=== PATIENT | female | born 1960 | race Caucasian/White ===

== ENCOUNTER → 2019-12-24 11:04 | Outpatient (BNVA) | payer MEDICARE, MEDICAID, SELFPAY | PROVIDERS: Family Provider Family Medicine; PCP Family Medicine; Visit Provider Specialist | DX: G40.909 Epilepsy, unspecified, not intractable, without status epilepticus (principal); Z96.82 Presence of neurostimulator | CPT/HCPCS: 95971; 99213 ==

== ENCOUNTER 2020-06-09 20:00 | Outpatient (CLI) | payer MEDICARE, MEDICAID, SELFPAY | END 2020-06-09 20:01 | disposition home or self-care (01) | LOC: SLEEP 06-10 08:58 | PROVIDERS: PCP Family Medicine; Visit Provider Specialist | DX: G47.30 Sleep apnea, unspecified (principal) | CPT/HCPCS: 95811 ==

== ENCOUNTER 2020-09-23 17:47 | Emergency (ER) | payer MEDICARE, MEDICAID, SELFPAY ==
[2020-09-23 17:51] VITALS: BP 176/94; PULSE 95; RESP 17; TEMP 36.6; O2SAT 98; BMI 28.1
[2020-09-23 18:07] LABS: Glucose Point of Care 83 mg/dL (70-110)
--- NOTE | 2020-09-23 18:22 | W.ED.SEIZURE ---
HPI - Seizure General: Chief Complaint: Seizure Stated Complaint: POSS POSTICTAL Time Seen by Provider: 09/23/20 18:08 Source: patient Mode of arrival: EMS Limitations: no limitations History of Present Illness: HPI Narrative: This is a 59 year old woman with focus-based epilepsy and secondary generalization, who has been on multiple medications and a vagal nerve stimulator. She lives in a skilled nursing and about 7 to 10 hours today they noticed she has staring into space which I guess is consistent with her seizures. Seizure resolved spontaneously. Patient does not recall the events and has no complaints. She states she feels fine and is at baseline. She is currently not postictal. She denies headache, has occasional dizziness, no nausea or vomiting. She denies a fever or chest pain. MD complaint: possible seizure Associated symptoms: Deny chills or fever(s) Review of Systems General: Reports: 10 or more systems reviewed and unremarkable except in HPI and below Const: Denies: fever(s), chills or body aches Eyes: Denies: change in vision or blurry vision ENMT: Denies: throat pain, enlarged tonsils, odynophagia, hoarseness, mouth pain or swelling of lips/tongue Card: Denies: palpitations, irregular heart rhythm, edema or swelling of feet/ankles Resp: Denies: dyspnea, productive cough or non-productive cough GI: Denies: abdominal pain, nausea or vomiting : Denies: flank pain, difficulty voiding, dysuria, urinary frequency, urinary urgency or urinary hesitancy Musc: Denies: neck pain, back pain or extremity swelling Skin/Breast: Denies: rash, pruritus or erythema Neuro: Denies: headache(s), numbness in extremities or weakness in extremities Endo: Denies: polyuria, polydipsia or tired all the time PFSH ED PFSH: Family History (Reviewed 09/23/20 @ 18:29 by Kelly Brooks MD, [facility] [place]) Other Diabetes Hypertension Denies family history of CAD (coronary artery disease) Cancer Stroke Social History (Reviewed 09/23/20 @ 18:29 by Kelly Brooks MD, [facility] [place]) Smoking and tobacco status: never smoked Alcohol intake: never History of recent travel: No Physical Exam Const: COMMON NORMALS: no acute distress, average body habitus, patient oriented x3, no limitations, healthy appearing, alert and well nourished HENMT: COMMON NORMALS: normocephalic, atraumatic and moist oral mucous membranes HEAD & SCALP: normocephalic and atraumatic Neck/C-Spine: COMMON NORMALS: no meningeal signs and no JVD Resp: COMMON NORMALS: normal respiratory effort, No retractions, No use of accessory muscles, clear to auscultation bilaterally and percussion normal AUSCULTATION: clear to auscultation bilaterally PERCUSSION: percussion normal Cardio: COMMON NORMALS: no JVD, regular rate, regular rhythm, S1 normal heart sound present, S2 normal heart sound present, No gallops present (Cardio), No clicks present (Cardio), No murmurs present (Cardio), No rub (Cardio) and Peripheral pulses 2+ throughout RATE: regular rate RHYTHM: regular rhythm HEART SOUNDS: S1 normal heart sound present and S2 normal heart sound present PERIPHERAL PULSES: Peripheral pulses 2+ throughout GI: COMMON NORMALS: Normal to inspection, nondistended, normoactive bowel sounds present, Soft to palpation, non-tender, No hepatosplenomegaly present, no masses and no bruits PALPATION: Yes Soft to palpation and Yes No hepatosplenomegaly present Extremity: COMMON NORMALS: normal to inspection, full ROM, capillary refill normal, no calf tenderness and no pedal edema Neuro: COMMON NORMALS: patient oriented x3 SENSORIUM/ORIENTATION: Yes alert MENINGEAL SIGNS: Yes no meningeal signs Skin: COMMON NORMALS: no rashes or lesions noted, no wounds, turgor normal, no jaundice, no petechiae and no mottling GENERAL SKIN EXAM: no rashes or lesions noted and turgor normal Course Reevaluation(s): Reevaluation #1: Discussed her lab and imaging findings with her. She has mild hyponatremia, otherwise unremarkable. Looking at her prior labs she also has had hyponatremia although this is a little lower than usual for her. Head CT was negative for acute findings. She has had no seizures here in the emergency department and she has been here for little over 3 hours. We will discharge her home with no new orders. She voiced understanding and is in agreement with the plan. She has walked several times to the bathroom without difficulty. Time: 21:00 Vital Signs: Vital signs: Vital Signs Temperature 97.8 F 09/23/20 17:51 Pulse Rate 104 H 09/23/20 21:26 Respiratory Rate 12 09/23/20 21:26 Blood Pressure 123/86 09/23/20 21:26 Pulse Oximetry 99 09/23/20 21:26 MDM - Seizure MDM Narrative: Medical decision making narrative: 60-year-old female patient with a history of epilepsy and who lives in a skilled nursing now presents to the emergency department after an episode of seizure. It appears she had an absence seizure while in the skilled nursing. Evaluation in the emergency department was unremarkable other than mild hyponatremia. Patient did not have any other seizures while in the emergency department and she was discharged back home with no new orders. Medical Records: Attestation: I reviewed the patient's medical records. Lab Data: Attestation: I reviewed the patient's lab results. Labs: Lab Results 09/23/20 09/23/20 09/23/20 Range/Units 18:00 18:05 18:05 WBC 8.5 (4.0-10.0) 10^3/ uL RBC 4.81 (4.1-5.3) 10^6/u L Hgb 14.3 (11.5-15.3) g/dL Hct 40.7 (37.0-47.0) % MCV 84.6 (81-99) fL MCH 29.7 (28.0-34.0) pg MCHC 35.1 (30.0-36.0) g/dL RDW 12.6 (12.1-15.1) % Plt Count 272 (130-400) 10^3/c mm MPV 9.4 (7.4-10.4) fL Neut % (Auto) 68.1 % Lymph % (Auto) 16.8 % [place] % (Auto) 7.5 % Eos % (Auto) 6.8 % Baso % (Auto) 0.4 % Neut # (Auto) 5.80 (1.8-7.7) 10^3/u L Lymph # (Auto) 1.4 (0.8-4.8) 10^3/u L [place] # (Auto) 0.6 (0.2-0.9) 10^3/u L Eos # (Auto) 0.6 (0.0-0.8) 10^3/u L Baso # (Auto) 0.0 (0.0-0.1) 10^3/u L Nucleated RBC % (a uto) 0 % Nucleated RBCs # 0.0 /100WBC Sodium 128 L (136-145) mmol/L Potassium 3.5 (3.5-5.1) mmol/L Chloride 90 L (98-107) mmol/L Carbon Dioxide 27 (22-29) mmol/L Anion Gap 14.5 (5-19) BUN 13 (8-23) mg/dL Creatinine 0.5 (0.5-0.9) mg/dL GFR Calculation 125.4 (90-130) mL/min Glucose 87 (65-115) mg/dL POC Glucose 83 (70-110) mg/dL Calculated Osmolal ity 265 L (285-295) mOsm/k g Lactate (0.5-2.2) mmol/L Calcium 9.8 (8.5-10.5) mg/dL Total Bilirubin 0.5 (0.15-1.2) mg/dL AST 18 (0-32) U/L ALT < 5 (0-33) U/L Alkaline Phosphata se 113 H (35-105) IU/L C-Reactive Protein 0.7 (0.0-4.9) mg/L Total Protein 7.2 (6.6-8.7) g/dL Albumin 4.7 (3.5-5.2) g/dL Globulin 2.5 (1.3-4.6) g/dL Urine Color (Yellow) Urine Appearance (CLEAR) Urine pH (5-7) Ur Specific Gravit y (1.005-1.030) Urine Protein (Negative) Urine Glucose (UA) (Normal) Urine Ketones (Negative) Urine Blood (Negative) Urine Nitrate (Negative) Urine Bilirubin (Negative) Urine Urobilinogen (Negative) mg/dL Ur Leukocyte Tena ase (Negative) 09/23/20 09/23/20 Range/Units 18:05 19:39 WBC (4.0-10.0) 10^3/ uL RBC (4.1-5.3) 10^6/u L Hgb (11.5-15.3) g/dL Hct (37.0-47.0) % MCV (81-99) fL MCH (28.0-34.0) pg MCHC (30.0-36.0) g/dL RDW (12.1-15.1) % Plt Count (130-400) 10^3/c mm MPV (7.4-10.4) fL Neut % (Auto) % Lymph % (Auto) % [place] % (Auto) % Eos % (Auto) % Baso % (Auto) % Neut # (Auto) (1.8-7.7) 10^3/u L Lymph # (Auto) (0.8-4.8) 10^3/u L [place] # (Auto) (0.2-0.9) 10^3/u L Eos # (Auto) (0.0-0.8) 10^3/u L Baso # (Auto) (0.0-0.1) 10^3/u L Nucleated RBC % (a uto) % Nucleated RBCs # /100WBC Sodium (136-145) mmol/L Potassium (3.5-5.1) mmol/L Chloride (98-107) mmol/L Carbon Dioxide (22-29) mmol/L Anion Gap (5-19) BUN (8-23) mg/dL Creatinine (0.5-0.9) mg/dL GFR Calculation (90-130) mL/min Glucose (65-115) mg/dL POC Glucose (70-110) mg/dL Calculated Osmolal ity (285-295) mOsm/k g Lactate 2.2 (0.5-2.2) mmol/L Calcium (8.5-10.5) mg/dL Total Bilirubin (0.15-1.2) mg/dL AST (0-32) U/L ALT (0-33) U/L Alkaline Phosphata se (35-105) IU/L C-Reactive Protein (0.0-4.9) mg/L Total Protein (6.6-8.7) g/dL Albumin (3.5-5.2) g/dL Globulin (1.3-4.6) g/dL Urine Color Straw (Yellow) Urine Appearance Clear (CLEAR) Urine pH 7 (5-7) Ur Specific Gravit y 1.005 (1.005-1.030) Urine Protein Neg (Negative) Urine Glucose (UA) Norm (Normal) Urine Ketones Negative (Negative) Urine Blood Neg (Negative) Urine Nitrate Negative (Negative) Urine Bilirubin Neg (Negative) Urine Urobilinogen Norm (Negative) mg/dL Ur Leukocyte Tena ase Negative (Negative) Imaging Data^: CT Head: Attestation: I personally reviewed and interpreted this imaging study as follows: Radiologist's impression: [facility] [address] [place] [address] CT Scan Report Signed Patient: Aubrie Mathias #: [id number] : 9Acct#:[id number] Age/Sex: 60 / FADM Date: 09/23/20 Loc: ERRoom/Bed: Attending Dr: Ordering Provider/Ordering MD: Kelly Brooks MD, [facility] [place] Date of Service: 09/23/20 Procedure(s): CT head wo con* [id number] Accession Number(s): [id number] Report Number: [id number] PROCEDURE INFORMATION: Exam: CT Head Without Contrast Exam date and time: 09/23/2020 6:36 PM Age: 60 years old Clinical indication: Condition or disease; Convulsions or seizures; Additional info: Seizure TECHNIQUE: Imaging protocol: Computed tomography of the head without contrast. Radiation optimization: All CT scans at this facility use at least one of these dose optimization techniques: automated exposure control; mA and/or kV adjustment per patient size (includes targeted exams where dose is matched to clinical indication); or iterative reconstruction. COMPARISON: CT head wo con* [id number] 06/12/2019 8:48 PM RADIATION DOSE METRICS: Total DLP (mGy-cm): 777.13 FINDINGS: Brain: Mild diffuse cortical volume loss. Stable mild hypodensities in supratentorial periventricular and subcortical white matter. No intracranial hemorrhage. Cerebral ventricles: Stable mild prominence of the lateral and 3rd ventricles. Bones/joints: Unremarkable. No acute fracture. Paranasal sinuses: Partial opacification of a posterior left ethmoid air cell. The paranasal sinuses are otherwise clear. Mastoid air cells: Visualized mastoid air cells are well aerated. Vasculature: No hyperdense artery. Soft tissues: Unremarkable. CT/CT head wo con* [id number] IMPRESSION: 1. No acute intracranial abnormality identified. 2. Mild microangiopathy. 3. Stable mild prominence of the lateral and 3rd ventricles. This may relate to central volume loss. Mild normal pressure hydrocephalus is not entirely excluded. Radiation Dose CTDIVOL = (mGy): DLP = 777.13 (mGy-cm) Dictated By:Salinas Soliman Signed By:Salinas SolimanSignruben Date/Time:09/23/201931 DD/ 29 EKG Data^: EKG 1: Attestation: I personally reviewed and interpreted this EKG as follows: EKG interpretation date: 09/23/20 EKG interpretation time: 18:10 Prior EKG tracings: not available for review Interpretation: EKG with a difficult rhythm to read as the patient has a vagal nerve stimulator. Heart rate 95 bpm. Unable to relate any further Discharge Plan Discharge Patient Disposition: Home Clinical Impression: Secondarily generalized seizures Condition: Stable Prescriptions: Continued Lantus U-100 Insulin 100 unit/mL solution 20 unit SUBCUT DAILY RF: 0 Lantus U-100 Insulin 100 unit/mL solution 10 unit SUBCUT DAILY RF: 0 clopidogrel 75 mg tablet 75 mg PO DAILY RF: 0 docusate sodium 100 mg capsule 100 mg PO DAILY RF: 0 isosorbide mononitrate 30 mg tablet extended release 24 hr 30 mg PO DAILY RF: 0 aspirin [Ecotrin] 325 mg tablet,delayed release (DR/EC) 325 mg PO DAILY RF: 0 hydrochlorothiazide 25 mg tablet 25 mg PO DAILY RF: 0 amlodipine 10 mg tablet 10 mg PO DAILY RF: 0 potassium chloride 10 mEq capsule, extended release 10 meq PO DAILY RF: 0 glipizide 2.5 mg tablet extended release 24hr 2.5 mg PO DAILY RF: 0 metformin 1,000 mg tablet 1,000 mg PO BID RF: 0 clonidine HCl 0.1 mg tablet 0.1 mg PO BID RF: 0 magnesium oxide 400 mg (241.3 mg magnesium) tablet 400 mg PO DAILY RF: 0 lisinopril 20 mg tablet 20 mg PO BID RF: 0 carvedilol [Coreg] 12.5 mg tablet 12.5 mg PO BID RF: 0 carbidopa-levodopa 25-100 mg tablet 1 tab PO TID RF: 0 rosuvastatin 10 mg tablet 10 mg PO .bedtime RF: 0 acetaminophen [Tylenol 8 Hour] 650 mg tablet extended release 650 mg PO Q8H PRNRF: 0 Systane (propylene glycol) 0.4-0.3 % drops 1 drop ophthalmic (eye) DAILY PRNRF: 0 ondansetron HCl [Zofran] 4 mg tablet 4 mg PO Q4H PRNRF: 0 levetiracetam [Keppra] 750 mg tablet 750 mg PO BID Qty: 60 RF: 6 Vimpat 100 mg tablet 100 mg PO BID Qty: 60 RF: 5 Discharge Orders: Discharge Order (Routine); Ordered 09/23/20 Ordered By: Kelly Brooks Referrals: Isa Butcher MD [Physician] - 4-7 days Augustin Colón MD [Primary Care Provider] - 1-3 days Discharge Diet: Usual diet Discharge Activity: Increase activity as tolerated Patient Instructions: Epilepsy (ED) Activity Restrictions/Additional Instructions: Return for any new or worsening symptoms. Follow-up with your primary care provider within 3 days and with your neurologist as soon as you can get in. Continue your home medications. A referral has been done to the neurologist so you should be getting a call with an appointment shortly. Coding Level of Care Code ED Deputy Court Clerk for Chg Fwd Exam Comprehensive
--- NOTE | 2020-09-23 18:26 | CTR_ITS ---
PROCEDURE INFORMATION: Exam: CT Head Without Contrast Exam date and time: 09/23/2020 6:36 PM Age: 60 years old Clinical indication: Condition or disease; Convulsions or seizures; Additional info: Seizure TECHNIQUE: Imaging protocol: Computed tomography of the head without contrast. Radiation optimization: All CT scans at this facility use at least one of these dose optimization techniques: automated exposure control; mA and/or kV adjustment per patient size (includes targeted exams where dose is matched to clinical indication); or iterative reconstruction. COMPARISON: CT head wo con* [id number] 06/12/2019 8:48 PM RADIATION DOSE METRICS: Total DLP (mGy-cm): 777.13 FINDINGS: Brain: Mild diffuse cortical volume loss. Stable mild hypodensities in supratentorial periventricular and subcortical white matter. No intracranial hemorrhage. Cerebral ventricles: Stable mild prominence of the lateral and 3rd ventricles. Bones/joints: Unremarkable. No acute fracture. Paranasal sinuses: Partial opacification of a posterior left ethmoid air cell. The paranasal sinuses are otherwise clear. Mastoid air cells: Visualized mastoid air cells are well aerated. Vasculature: No hyperdense artery. Soft tissues: Unremarkable. CT/CT head wo con* [id number] IMPRESSION: 1. No acute intracranial abnormality identified. 2. Mild microangiopathy. 3. Stable mild prominence of the lateral and 3rd ventricles. This may relate to central volume loss. Mild normal pressure hydrocephalus is not entirely excluded. Radiation Dose CTDIVOL = (mGy): DLP = 777.13 (mGy-cm)
--- NOTE | 2020-09-23 18:26 | XR_ITS ---
WS: [id number] Exam: XR chest 1V portable [id number] Date/Time of Exam: 09/23/2020 6:46 PM Reason For Exam: seizure Comparison 06/12/2019. Lungs are clear and fully inflated. Normal cardiomediastinal structures for technique. No pleural eff usions. A neurostimulator overlies the upper left chest with leads extending into the region of the c ervical spine. XR/XR chest 1V portable [id number] IMPRESSION: 1. No acute cardiopulmonary finding.
[2020-09-23 18:33] LABS: Basophils % 0.4 %; Eosinophils # 0.6 10^3/uL (0.0-0.8); Eosinophils % 6.8 %; Hematocrit 40.7 % (37.0-47.0); Hemoglobin 14.3 g/dL (11.5-15.3); Lymphocytes # 1.4 10^3/uL (0.8-4.8); Lymphocytes % 16.8 %; Mean Corpuscular HGB Conc 35.1 g/dL (30.0-36.0); Mean Corpuscular Hemoglobin 29.7 pg (28.0-34.0); Mean Corpuscular Volume 84.6 fL (81-99); Mean Platelet Volume 9.4 fL (7.4-10.4); Monocytes # 0.6 10^3/uL (0.2-0.9); Monocytes % 7.5 %; Neutrophils % 68.1 %; Nucleated Red Blood Cells % 0 %; Platelet Count 272 10^3/cmm (130-400); Red Blood Count 4.81 10^6/uL (4.1-5.3); Red Cell Distribution Width 12.6 % (12.1-15.1); White Blood Count 8.5 10^3/uL (4.0-10.0)
[2020-09-23 18:44] LABS: Lactate (Lactic Acid level) 2.2 mmol/L (0.5-2.2)
[2020-09-23 18:47] LABS: Alanine Aminotransferase < 5 U/L (0-33); Albumin Level 4.7 g/dL (3.5-5.2); Alkaline Phosphatase 113 IU/L (35-105); Anion Gap 14.5 (5-19); Aspartate Amino Transferase 18 U/L (0-32); Blood Urea Nitrogen 13 mg/dL (8-23); C Reactive Protein 0.7 mg/L (0.0-4.9); Calcium 9.8 mg/dL (8.5-10.5); Carbon Dioxide 27 mmol/L (22-29); Chloride 90 mmol/L (98-107); Globulin 2.5 g/dL (1.3-4.6); Glomerular Filtration Rate 125.4 mL/min (90-130); Glucose 87 mg/dL (65-115); Osmolality Calculated 265 mOsm/kg (285-295); Potassium 3.5 mmol/L (3.5-5.1); Sodium 128 mmol/L (136-145); Total Bilirubin 0.5 mg/dL (0.15-1.2); Total Protein 7.2 g/dL (6.6-8.7)
[2020-09-23 19:47] VITALS: BP 147/86; PULSE 103; RESP 18; O2SAT 97
[2020-09-23] MEDS: sodium chloride 0.9% 1,000 ML 999 ML IV (19:48)
[2020-09-23 19:54] LABS: Add Urine Microscopic? NO
[2020-09-23 19:56] LABS: Bilirubin Urine Neg (Negative); Blood Urine Neg (Negative); Glucose Urine UA Norm (Normal); Ketones Urine Negative (Negative); Leukocyte Esterase Urine Negative (Negative); Nitrate Urine Negative (Negative); Protein Urine Neg (Negative); Specific Gravity, Urine 1.005 (1.005-1.030); Urine Appearance Clear (CLEAR); Urine Color Straw (Yellow); Urobilinogen Urine Norm (Negative); pH Urine 7 (5-7)
[2020-09-23 21:26] VITALS: BP 123/86; PULSE 104; RESP 12; O2SAT 99
== END 2020-09-23 21:27 | disposition home or self-care (01) ==
PROVIDERS: Emergency Provider Family Medicine; PCP Family Medicine
DX: G40.409 Other generalized epilepsy and epileptic syndromes, not intractable, without status epilepticus (principal); Z79.82 Long term (current) use of aspirin; Z79.4 Long term (current) use of insulin; Z79.02 Long term (current) use of antithrombotics/antiplatelets
CPT/HCPCS: 12345; 36416; 70450; 71045; 80053; 81003; 82962; 83605; 85025; 86140; 96360; 99283; J7030

== ENCOUNTER 2020-10-20 11:04 | Outpatient (CLI) | payer MEDICARE, MEDICAID, SELFPAY ==
--- NOTE | 2020-10-20 11:13 | MM_ITS ---
WS: [id number] BILATERAL DIGITAL SCREENING MAMMOGRAPHY WITH CAD CLINICAL INFORMATION: SCREENING HISTORY: Screening mammogram. No current complaints. COMPARISON: TECHNIQUE: Bilateral CC and MLO views. FINDINGS: The breasts are composed of heterogeneous fibroglandular density tissue, which can limit the detectio n of small underlying mass lesions. No suspicious mass, asymmetry, calcifications, or architectural d istortion. No evidence of malignancy. Lucent centered and punctate calcifications. Vascular calcifica tion. MM/[place] [id number] IMPRESSION: BI-RADS: 2-Benign FOLLOW UP: 1 Year Follow-up Recommend return to annual screening mammography.
== END 2020-10-20 11:05 | disposition home or self-care (01) ==
LOC: RADSHAW 11:07
PROVIDERS: PCP Family Medicine; Visit Provider Family Medicine
DX: Z12.31 Encounter for screening mammogram for malignant neoplasm of breast (principal)
CPT/HCPCS: 77067

== ENCOUNTER → 2021-01-06 10:32 | Outpatient (BNVA) | payer MEDICARE, MEDICAID, SELFPAY | PROVIDERS: PCP Family Medicine; Visit Provider Specialist | DX: G40.909 Epilepsy, unspecified, not intractable, without status epilepticus (principal); G20 Parkinson's disease; Z96.82 Presence of neurostimulator | CPT/HCPCS: 95971; 99214 ==

== ENCOUNTER 2021-01-21 07:48 | Inpatient (IN) | payer MEDICARE, MEDICAID, SELFPAY ==
[2021-01-21] VITALS (191 sets, daily range): BP systolic 109–182; BP diastolic 74–116; PULSE 70–99; RESP 10–28; TEMP 36.4–36.9; O2SAT 87–100; BMI 25.7
[2021-01-21] MEDS: succinylcholine 20 mg/mL SDV 10mL 100 MG IVP (08:00)
[2021-01-21] MEDS: propofol 1,000 MG/100 ML INJ 5 MG (08:03)
--- NOTE | 2021-01-21 08:08 | XR_ITS ---
WS: [id number] XR chest 1V portable [id number] REASON FOR EXAM: dyspnea/cough FINDINGS: Endotracheal tube in place the tip is at the level of the aortic arch. Nasogastric tube is in place t he tip overlies the region of the fundus of the stomach. The lungs are hypoexpanded with areas of atelectasis in both lung bases. No definite acute pulmonary parenchymal findings are identified. No pleural fluid noted. Mild degenerative changes seen in the thoracic spine. XR/XR chest 1V portable [id number] IMPRESSION: ET tube and nasogastric tube as above. Lungs are hypoexpanded with atelectasis as above.
--- NOTE | 2021-01-21 08:09 | CT_ITS ---
WS: [id number] CT HEAD TECHNIQUE: Noncontrast CT of the head obtained from the skullbase to the vertex. CLINICAL INFORMATION: altered mental status COMPARISON: CT September 2020 DLP: 926.[address] scans at [facility] use at least one of these dose optimization techniques: automat ed exposure control; mA and/or kV adjustment per patient size (includes targeted exams where dose is matched to clinical indication); or iterative reconstruction. FINDINGS: No evidence of intracranial hemorrhage or mass effect. Ventricular system and basal cisterns are fraire nt. Mild small vessel changes with moderate parenchymal volume loss. Prominent lateral ventricles and third ventricle unchanged. This can be seen with normal pressure hydrocephalus in the appropriate cl inical setting. Intracranial vascular calcification. Chronic lacunar infarcts in the right cerebellum. Chronic lacunar infarct left thalamus. No extra-axi al fluid collections. Mastoid air cells well aerated. Mild inflammatory changes in the paranasal sinuses with a few retenti on cysts. CT/CT head wo con* [id number] IMPRESSION: 1. No evidence of intracranial hemorrhage or mass effect. 2. Mild small vessel changes. Moderate parenchymal volume loss. 3. Prominent lateral ventricles and third ventricle unchanged unchanged since 2018 and can be seen with normal pressure hydrocephalus in appropriate clinical setting. 4. Chronic lacunar infarcts left thalamus and right cerebellum. 5. No acute intracranial findings. Notified Noel Ochoa DO at 01/21/2021 9:09 AM.
[2021-01-21 08:18] LABS: ABG PCO2 30.4 mmHg (35-45); ABG PH Result 7.52 (7.35-7.45); Alveolar-Arterial Oxygen Gradi 31.5 mmHg (5-10); Arterial Blood Gas Hematocrit 40.2 % (37-47); Base Excess ABG 2.3 mmol/L (-2.0-2.0); Blood Gas Allen Test Pos; Blood Gas Operator Identificat CAK; Blood Gas Sample Site Brachial, left; Blood Gas Sample Type Arterial; Blood Gas Tidal Volume 0.45; Carboxyhemoglobin 0.8 %THgb (0.4-20.1); HCO3 ABG 24.6 mmol/L (22-26); HGB O2 Sat 99.9 % (95-100); Ionized Calcium Level - ABG 1.2 mmol/L (1.1-1.4); Methemoglobin 0.2 % (0.4-1.5); Oxygen Device VENT; Oxygen Saturation ABG > 100.0; Potassium Level - ABG 3.7 mmol/L (3.5-5.0); Total Hemoglobin 13.1 g/dL (12-16)
[2021-01-21 08:19] LABS: Basophils % 0.3 %; Eosinophils # 0.4 10^3/uL (0.0-0.8); Hematocrit 36.4 % (37.0-47.0); Lymphocytes # 1.1 10^3/uL (0.8-4.8); Lymphocytes % 18.2 %; Mean Corpuscular HGB Conc 35.7 g/dL (30.0-36.0); Mean Corpuscular Hemoglobin 30.7 pg (28.0-34.0); Mean Corpuscular Volume 85.8 fL (81-99); Mean Platelet Volume 9.8 fL (7.4-10.4); Monocytes # 0.5 10^3/uL (0.2-0.9); Monocytes % 7.3 %; Neutrophils % 66.9 %; Nucleated Red Blood Cells % 0 %; Platelet Count 218 10^3/cmm (130-400); Red Blood Count 4.24 10^6/uL (4.1-5.3); Red Cell Distribution Width 12.6 % (12.1-15.1); White Blood Count 6.3 10^3/uL (4.0-10.0)
--- NOTE | 2021-01-21 08:28 | ED_ITS ---
HPI - Overdose General: Chief Complaint: Overdose Stated Complaint: AMS History of Present Illness: HPI Narrative: 60-year-old female who presents emergency room via EMS she presents from [facility] she received another patient's medications and is obtunded. She received 300 mg of Clozaril and 1 mg of clonazepam among other medications. On initial arrival here she is nonresponsive. Does not follow any commands she grimaces to pain only. GCS 5. Patient had sonorous respirations and required oxygen supplementation to maintain sats in the low 90s. MD complaint: accidental overdose Onset (ago): minute(s) Timing confirmed by: caregiver Review of Systems General: Reports: ROS unobtainable due to medical condition [facility] ED PFSH: Medical History Diabetes Hypertension Parkinson disease Secondarily generalized seizures Surgical History Status post VNS (vagus nerve stimulator) placement Family History Other Diabetes Hypertension Denies family history of CAD (coronary artery disease) Cancer Stroke Social History Smoking and tobacco status: never smoked Alcohol intake: never History of recent travel: No Physical Exam HENMT: COMMON NORMALS: normocephalic, atraumatic and hearing grossly normal bilaterally HEAD & SCALP: normocephalic and atraumatic Eye: COMMON NORMALS: Equal, round and reactive pupils present, EOMs intact bilaterally, conjunctivae normal and no scleral icterus CONJUNCTIVA: Yes conjunctivae normal PUPIL: Yes Equal, round and reactive pupils present Neck/C-Spine: COMMON NORMALS: no JVD Resp: COMMON NORMALS: normal respiratory effort, No retractions, No use of accessory muscles and clear to auscultation bilaterally AUSCULTATION: clear to auscultation bilaterally Cardio: COMMON NORMALS: no JVD, regular rate, regular rhythm and No murmurs present (Cardio) RATE: regular rate RHYTHM: regular rhythm GI: COMMON NORMALS: Soft to palpation and No hepatosplenomegaly present AUSCULTATION: Yes normoactive bowel sounds PALPATION: Yes Soft to palpation, No Tenderness to palpation present (GI), No Guarding due to palpation present (GI) and Yes No hepatosplenomegaly present Extremity: COMMON NORMALS: normal to inspection, capillary refill normal, no clubbing, cyanosis or edema, no calf tenderness and no pedal edema Neuro: LEVI COMA SCALE: document GCS findings [place] coma scale eye opening: None Levi coma scale verbal response: None Levi coma scale motor response: Abnormal flexion Levi coma scale total score: 5 Skin: COMMON NORMALS: no rashes or lesions noted GENERAL SKIN EXAM: no rashes or lesions noted Course Vital Signs: Vital signs: Vital Signs Temperature 98.2 F 01/21/21 12:00 Pulse Rate 85 01/21/21 13:45 Respiratory Rate 20 H 01/21/21 13:48 Blood Pressure 146/87 01/21/21 13:45 Pulse Oximetry 100 01/21/21 13:48 MDM - Overdose MDM Narrative: Medical decision making narrative: Did not receive her medications this morning but did receive another patient's that list was reviewed as documented in the nurses notes of most concern is the Clazuril on the clonazepam. Later when we called to confirm some of the details with the independent living setting they reported that she had also fallen. Lab Data: Labs: Lab Results 01/21/21 01/21/21 01/21/21 Range/Units 07:30 07:30 08:03 WBC 6.3 (4.0-10.0) 10^3/ uL RBC 4.24 (4.1-5.3) 10^6/u L Hgb 13.0 (11.5-15.3) g/dL Hct 36.4 L (37.0-47.0) % MCV 85.8 (81-99) fL MCH 30.7 (28.0-34.0) pg MCHC 35.7 (30.0-36.0) g/dL RDW 12.6 (12.1-15.1) % Plt Count 218 (130-400) 10^3/c mm MPV 9.8 (7.4-10.4) fL Neut % (Auto) 66.9 % Lymph % (Auto) 18.2 % [place] % (Auto) 7.3 % Eos % (Auto) 7.0 % Baso % (Auto) 0.3 % Neut # (Auto) 4.20 (1.8-7.7) 10^3/u L Lymph # (Auto) 1.1 (0.8-4.8) 10^3/u L [place] # (Auto) 0.5 (0.2-0.9) 10^3/u L Eos # (Auto) 0.4 (0.0-0.8) 10^3/u L Baso # (Auto) 0.0 (0.0-0.1) 10^3/u L Nucleated RBC % (a uto) 0 % Nucleated RBCs # 0.0 /100WBC Specimen Type Sample Site ABG pH (7.35-7.45) ABG pCO2 (35-45) mmHg ABG pO2 (80.0-100.0) mmH g ABG HCO3 (22-26) mmol/L ABG O2 Saturation ABG Base Excess (-2.0-2.0) mmol/ L Tolu Test A-a O2 Gradient (5-10) mmHg Hematocrit (37-47) % Hgb O2 Saturation (95-100) % Carboxyhemoglobin (0.4-20.1) %THgb Methemoglobin (0.4-1.5) % Total Hemoglobin (12-16) g/dL Ionized Calcium (1.1-1.4) mmol/L O2 Delivery Device FiO2 % Tidal Volume PEEP cmH20 Auto Research Engineer ID Sodium 133 L (136-145) mmol/L Potassium 3.6 (3.5-5.1) mmol/L Chloride 97 L (98-107) mmol/L Carbon Dioxide 23 (22-29) mmol/L Anion Gap 16.6 (5-19) BUN 18 (8-23) mg/dL Creatinine 0.6 (0.5-0.9) mg/dL GFR Calculation 101.6 (90-130) mL/min Glucose 109 (65-115) mg/dL Calculated Osmolal ity 278 L (285-295) mOsm/k g Calcium 9.4 (8.5-10.5) mg/dL Magnesium 1.8 (1.7-2.3) mg/dL Total Bilirubin 0.6 (0.15-1.2) mg/dL AST 11 (0-32) U/L ALT 12 (0-33) U/L Alkaline Phosphata se 85 (35-105) IU/L Creatine Kinase 34 (26-192) U/L Total Protein 6.7 (6.6-8.7) g/dL Albumin 4.2 (3.5-5.2) g/dL Globulin 2.5 (1.3-4.6) g/dL Lipase 23 (13-60) U/L Urine Color Yellow (Yellow) Urine Appearance Sl hazy (CLEAR) Urine pH 7 (5-7) Ur Specific Gravit y 1.005 (1.005-1.030) Urine Protein Neg (Negative) Urine Glucose (UA) Norm (Normal) Urine Ketones Negative (Negative) Urine Blood Neg (Negative) Urine Nitrate Positive H (Negative) Urine Bilirubin Neg (Negative) Urine Urobilinogen Norm (Negative) mg/dL Ur Leukocyte Tena ase Negative (Negative) Urine RBC None (0-2) /hpf Urine WBC Rare (0-5) /hpf Ur Squamous Epith Cells None (0-5) /hpf Amorphous Sediment Not Reportable Urine Bacteria 4+ H (NONE) /hpf Urine Opiates Scre en (Negative) ng/mL Ur Barbiturates Sc reen (Negative) ng/mL Ur Phencyclidine S crn (Negative) ng/mL Ur Amphetamines Sc reen (Negative) ng/mL U Benzodiazepines Scrn (Negative) ng/mL Urine Cocaine Scre en (Negative) ng/mL U Marijuana (THC) Screen (Negative) ng/mL 01/21/21 01/21/21 Range/Units 08:03 08:06 WBC (4.0-10.0) 10^3/ uL RBC (4.1-5.3) 10^6/u L Hgb (11.5-15.3) g/dL Hct (37.0-47.0) % MCV (81-99) fL MCH (28.0-34.0) pg MCHC (30.0-36.0) g/dL RDW (12.1-15.1) % Plt Count (130-400) 10^3/c mm MPV (7.4-10.4) fL Neut % (Auto) % Lymph % (Auto) % [place] % (Auto) % Eos % (Auto) % Baso % (Auto) % Neut # (Auto) (1.8-7.7) 10^3/u L Lymph # (Auto) (0.8-4.8) 10^3/u L [place] # (Auto) (0.2-0.9) 10^3/u L Eos # (Auto) (0.0-0.8) 10^3/u L Baso # (Auto) (0.0-0.1) 10^3/u L Nucleated RBC % (a uto) % Nucleated RBCs # /100WBC Specimen Type Arterial Sample Site Brachial, left ABG pH 7.52 H (7.35-7.45) ABG pCO2 30.4 L (35-45) mmHg ABG pO2 413.0 H (80.0-100.0) mmH g ABG HCO3 24.6 (22-26) mmol/L ABG O2 Saturation > 100.0 ABG Base Excess 2.3 H (-2.0-2.0) mmol/ L Tolu Test Pos A-a O2 Gradient 31.5 H (5-10) mmHg Hematocrit 40.2 (37-47) % Hgb O2 Saturation 99.9 (95-100) % Carboxyhemoglobin 0.8 (0.4-20.1) %THgb Methemoglobin 0.2 L (0.4-1.5) % Total Hemoglobin 13.1 (12-16) g/dL Ionized Calcium 1.2 (1.1-1.4) mmol/L O2 Delivery Device Vent FiO2 100.0 % Tidal Volume 0.45 PEEP 5.0 cmH20 Auto Research Engineer ID Cak Sodium 134.0 (136-145) mmol/L Potassium 3.7 (3.5-5.1) mmol/L Chloride (98-107) mmol/L Carbon Dioxide (22-29) mmol/L Anion Gap (5-19) BUN (8-23) mg/dL Creatinine (0.5-0.9) mg/dL GFR Calculation (90-130) mL/min Glucose 98.0 (65-115) mg/dL Calculated Osmolal ity (285-295) mOsm/k g Calcium (8.5-10.5) mg/dL Magnesium (1.7-2.3) mg/dL Total Bilirubin (0.15-1.2) mg/dL AST (0-32) U/L ALT (0-33) U/L Alkaline Phosphata se (35-105) IU/L Creatine Kinase (26-192) U/L Total Protein (6.6-8.7) g/dL Albumin (3.5-5.2) g/dL Globulin (1.3-4.6) g/dL Lipase (13-60) U/L Urine Color (Yellow) Urine Appearance (CLEAR) Urine pH (5-7) Ur Specific Gravit y (1.005-1.030) Urine Protein (Negative) Urine Glucose (UA) (Normal) Urine Ketones (Negative) Urine Blood (Negative) Urine Nitrate (Negative) Urine Bilirubin (Negative) Urine Urobilinogen (Negative) mg/dL Ur Leukocyte Tena ase (Negative) Urine RBC (0-2) /hpf Urine WBC (0-5) /hpf Ur Squamous Epith Cells (0-5) /hpf Amorphous Sediment Urine Bacteria (NONE) /hpf Urine Opiates Scre en Negative (Negative) ng/mL Ur Barbiturates Sc reen Negative (Negative) ng/mL Ur Phencyclidine S crn Negative (Negative) ng/mL Ur Amphetamines Sc reen Negative (Negative) ng/mL U Benzodiazepines Scrn Negative (Negative) ng/mL Urine Cocaine Scre en Negative (Negative) ng/mL U Marijuana (THC) Screen Negative (Negative) ng/mL Discharge Plan Discharge Patient Disposition: Admitted As Inpatient Admit Provider: Sebastian Luevano Clinical Impression: Accidental medication overdose, Acute encephalopathy, Parkinson disease Condition: Stable Coding Level of Care Code ED Manager Ent for Sudha Fwd Exam Comprehensive
--- NOTE | 2021-01-21 08:31 | PC.NURSE ---
Pt intubated at bedside by Dr Ochoa with RT assist. See MAR for med doses and times. Pt intubated at 0800 with 8.0 tube, 22 at the gums. Pt placed to vent with settings as follows: TV 450, FiO2 100% initially, then decreased to 50%, RR 14, Peep 5. Pt tolerated all procedures well.
[2021-01-21 08:35] LABS: Add Urine Microscopic? YES; Bilirubin Urine Neg (Negative); Blood Urine Neg (Negative); Glucose Urine UA Norm (Normal); Ketones Urine Negative (Negative); Leukocyte Esterase Urine Negative (Negative); Nitrate Urine Positive (Negative); Protein Urine Neg (Negative); Specific Gravity, Urine 1.005 (1.005-1.030); Urine Appearance SL Hazy (CLEAR); Urine Color Yellow (Yellow); Urobilinogen Urine Norm (Negative); pH Urine 7 (5-7)
[2021-01-21 08:37] LABS: Add Urine Culture? Yes; Bacteria Urine 4+ /hpf; WBC Urine RARE /hpf (0-5)
[2021-01-21 08:38] LABS: Alanine Aminotransferase 12 U/L (0-33); Albumin Level 4.2 g/dL (3.5-5.2); Alkaline Phosphatase 85 IU/L (35-105); Anion Gap 16.6 (5-19); Aspartate Amino Transferase 11 U/L (0-32); Blood Urea Nitrogen 18 mg/dL (8-23); Calcium 9.4 mg/dL (8.5-10.5); Carbon Dioxide 23 mmol/L (22-29); Chloride 97 mmol/L (98-107); Creatine Phosphokinase 34 U/L (26-192); Globulin 2.5 g/dL (1.3-4.6); Glomerular Filtration Rate 101.6 mL/min (90-130); Glucose 109 mg/dL (65-115); Lipase 23 U/L (13-60); Magnesium 1.8 mg/dL (1.7-2.3); Osmolality Calculated 278 mOsm/kg (285-295); Potassium 3.6 mmol/L (3.5-5.1); Sodium 133 mmol/L (136-145); Total Bilirubin 0.6 mg/dL (0.15-1.2); Total Protein 6.7 g/dL (6.6-8.7)
[2021-01-21 08:41] LABS: Amphetamines Screen Urine Negative (Negative); Barbiturates Screen Urine Negative (Negative); Benzodiazepines Screen Urine Negative (Negative); Cocaine Screen Urine Negative (Negative); Opiate Screen Urine Negative (Negative); PCP Screen Urine Negative (Negative); THC Screen Urine Negative (Negative)
--- NOTE | 2021-01-21 08:50 | PC.NURSE ---
Spoke with poison control concerning medications given to patient, she expressed that medication would make her drowsy but not unresponsive. Notified provider.
--- NOTE | 2021-01-21 08:54 | PC.NURSE ---
Pt in CT
--- NOTE | 2021-01-21 09:07 | PC.NURSE ---
Spoke with Chari at [facility] she explained that patient was alert and oriented, ambulating this morning around 0630, medication was given to her around 0650. Patients room mate alerted staff when she found pt on the floor. Patient was laying near a corner shelf and was believed to have hit her head on the shelf. When assessing patient Chari explained patient was confused and mumbling. Staff then noticed that her medications where still in the medication draw but her roommates medications were missing. When staff returned to patient she was unresponsive and drooling.
[2021-01-21] MEDS: D5-NS 0.45% + KCL 20 mEq 20 MEQ/1,000 ML BAG 125 MEQ IV ×2 (10:16→17:07)
--- NOTE | 2021-01-21 11:05 | PM.HP ---
Providers/Chief Complaint Admitting Physician: Sebastian Luevano Primary Care Provider: Augustin Colón MD Chief Complaint: AMS History of Present Illness 60-year-old lady with history of Parkinson's disease, seizure disorder, mild dementia, currently residing at [facility] was brought in for evaluation to emergency department after sustaining a fall this morning around 7:10 AM, and appears after accidentally receiving not her own medications, in ER found unresponsive, GCS of 6, required intubation for airway protection. Currently admitting to intensive care unit for additional supportive care. Medications she had received include: Clozapine 300 mg Klonopin 1 mg Cardizem 360 mg ER Spiriva 40 mg omeprazole 750 mg Depakote 25 mg losartan 0.5 mg benztropine She also received 20 units of her usual insulin glargine. She is currently not yet waking up, not following commands, without spontaneous movement. Per discussion with skilled nursing usually she walks with a walker, dresses and feeds herself. Due to my dementia needs assistance with her medications and insulin. Review of Systems Narrative: She is unable to provide a review of systems. She reportedly otherwise had no issues apart from her usual medical conditions prior to this morning. Medications/Allergies Home Medications Medication Instructions Recorded Confirmed Last Taken Type acetaminophen 650 mg 650 mg PO Q6H PRN MDD 4,000mg 12/24/19 01/21/21 Unknown History tablet,extended release amlodipine 10 mg tablet 10 mg PO BID@12/24/19 01/21/21 Unknown History carbidopa 25 mg-levodopa 100 mg 1 tab PO TID@,,12/24/19 01/21/21 Unknown History tablet carvedilol 12.5 mg tablet 12.5 mg PO BID@12/24/19 01/21/21 Unknown History clonidine HCl 0.1 mg tablet 0.1 mg PO BID@12/24/19 01/21/21 Unknown History clopidogrel 75 mg tablet 75 mg PO DAILY@12/24/19 01/21/21 Unknown History docusate sodium 100 mg capsule 100 mg PO DAILY@12/24/19 01/21/21 Unknown History hydrochlorothiazide 25 mg tablet 25 mg PO DAILY@12/24/19 01/21/21 Unknown History insulin glargine 100 unit/mL See Rx Instructions .ROUTE 12/24/19 01/21/21 01/21/21 06:50 History subcutaneous solution .COMPLEX ml isosorbide mononitrate 30 mg 30 mg PO DAILY@12/24/19 01/21/21 Unknown History tablet,extended release 24 hr lisinopril 20 mg tablet 20 mg PO BID@07,12/24/19 01/21/21 Unknown History magnesium oxide 400 mg (241.3 mg 400 mg PO BID@12/24/19 01/21/21 Unknown History magnesium) tablet metformin 1,000 mg tablet 1,000 mg PO BID@,12/24/19 01/21/21 Unknown History peg 400-propylene glycol 0.4 %-0.3 1 drop OPHTHALMIC (EYE) PRN 12/24/19 01/21/21 Unknown History % eye drops potassium chloride 10 mEq 10 meq PO DAILY@07 12/24/19 01/21/21 Unknown History capsule,extended release rosuvastatin 10 mg tablet 10 mg PO DAILY@20 tab 12/24/19 01/21/21 Unknown History Keppra 750 mg PO Q12H 01/21/21 01/21/21 Unknown History aspirin [Ecotrin Low Strength] 81 mg PO DAILY@01/21/21 01/21/21 Unknown History glipizide 2.5 mg PO DAILY@01/21/21 01/21/21 Unknown History lacosamide [Vimpat] 50 mg PO BID@01/21/21 01/21/21 Unknown History Allergies Allergy/AdvReac Type Severity Reaction Status Date / Time Penicillins Allergy unknown Verified 01/06/21 10:38 PFSH Acute PFSH: Medical History Diabetes Hypertension Parkinson disease Secondarily generalized seizures Surgical History Status post VNS (vagus nerve stimulator) placement Family History Other Diabetes Hypertension Denies family history of CAD (coronary artery disease) Cancer Stroke Social History Smoking and tobacco status: never smoked Alcohol intake: never History of recent travel: No Vitals/I&O/Wt Last Vital Signs Temp 98.5 F 01/21/21 07:52 Pulse 70 01/21/21 10:04 Resp 16 01/21/21 10:49 BP 125/86 01/21/21 09:26 Pulse Ox 100 01/21/21 10:29 01/20/21 01/21/21 01/21/21 22:59 06:59 14:59 Intake Total 9.75 / 9.75 Balance 9.75 / 9.75 Weight last 48 hrs Weight 65.771 kg Physical Exam Const: COMMON NORMALS: no acute distress; negative for alert ORIENTATION/CONSCIOUSNESS: Yes patient obtunded; not awake HENMT: COMMON NORMALS: oropharynx normal Neck/C-Spine: COMMON NORMALS: no JVD Resp: COMMON NORMALS: normal respiratory effort and clear to auscultation bilaterally AUSCULTATION: clear to auscultation bilaterally Cardio: COMMON NORMALS: no JVD, regular rhythm, S1 normal heart sound present, S2 normal heart sound present and No murmurs present (Cardio) RHYTHM: regular rhythm HEART SOUNDS: S1 normal heart sound present and S2 normal heart sound present GI: COMMON NORMALS: Normal to inspection, nondistended, normoactive bowel sounds present, Soft to palpation and non-tender PALPATION: Yes Soft to palpation Extremity: COMMON NORMALS: no joint enlargement and no pedal edema Neuro: COMMON NORMALS: moves all extremities SENSORIUM/ORIENTATION: Yes obtunded OTHER: Normal tone. No myoclonus. Skin: COMMON NORMALS: no rashes or lesions noted GENERAL SKIN EXAM: no rashes or lesions noted Urinary Catheter Management^: Ruiz: Cath Placed During This Visit: yes Urinary Catheter Date of Insertion: 01/21/21 Urinary Catheter Time of Insertion: 07:53 Data : 01/21/21 07:30 01/21/21 07:30 A&P Assessment and plan (1) Accidental medication overdose: After accidental medication overdose. Required intubation for airway protection in ER. Remains unresponsive. Continue supportive care, mechanical dilation in ICU. For now we will hold off on sedation, allow her to wake up. Monitor before blood pressure due to antihypertensive effects. We will hold her antihypertensives for now. Resumed her seizure medications. Monitor, if regains alertness, remains hemodynamically stable, perhaps may extubate. Status: Acute (2) Acute encephalopathy: As above. Status: Acute (3) Fall: Full with reported head injury/hitting her head. Was examined in ER, externally no wounds, CT of the head without acute fracture, no bleeding. Chronic findings. Status: Acute (4) Hyponatremia: Mild. Reported a skilled nursing not always has the best appetite. Monitor. Encourage p.o. intake once able to. Status: Acute (5) Bacteriuria: For now monitor for development of any symptoms once able to give review of systems. No signs of sepsis at this time. Status: Acute (6) Lacunar infarction: Appears to have chronic lacunar infarcts, left thalamus, right cerebellum. Optimize blood pressure control. Continue aspirin, statin. Continue follow-up with neurology. Status: Chronic (7) Cerebral ventriculomegaly: Ventriculomegaly noted, unchanged since 2018. Question of possible NPH could be considered. Follow-up with neurology. Status: Acute (8) Parkinson disease: Continue Sinemet. Continue follow-up with neurology. Normally walks with a walker. Fall precautions. Status: Chronic (9) Secondarily generalized seizures: Continue seizure medications. Continue follow-up with neurology. Status: Chronic Attestations Medical Necessity Statement*: Admission of over 2 midnights is going to be required for assessment of management following accidental drug overdose, acute encephalopathy, requiring airway and ventilator support, monitoring of hemodynamic stability, and lady with underlying seizure disorder and other comorbidities. Coding Level of Care Code Acute Senior Training And Development Rep for [facility] Diagnoses Accidental medication overdose T50.901A Acute encephalopathy G93.40 Fall W19.XXXA Hyponatremia E87.1 Bacteriuria R82.71 Lacunar infarction I63.81 Cerebral ventriculomegaly G93.89 Parkinson disease G20 Secondarily generalized seizures
[2021-01-21 11:32] LABS: Glucose Point of Care 88 mg/dL (70-110)
[2021-01-21] MEDS: famotidine 20 mg/2 mL INJ IVP ×2 (12:17→23:21)
[2021-01-21] MEDS: heparin 5,000 unit/mL INJ 1 mL 5000 UNIT SUBCUT ×2 (12:17→20:11)
--- NOTE | 2021-01-21 12:34 | ECG_ITS ---
[facility] Test Date: 2021-01-21 Pat Name: Aubrie Mathias Department: Room: ICU06 Gender: Female Database Support: : 1960 Requested By: Noel Krueger Order Number: [id number] Reading MD: CLAUDETTE KRISHNAN Measurements Intervals [place] Rate: 98 P: 45 ND: 160 QRS: 142 QRSD: 105 T: 23 QT: 361 QTc: 463 Interpretive Statements SINUS RHYTHM POSSIBLE RIGHT VENTRICULAR HYPERTROPHY [SOME/ALL OF: PROMINENT R IN V1, LATE TRANSITION, RAD, LOGAN, SSS] ANTEROSEPTAL MYOCARDIAL INFARCTION , OF INDETERMINATE AGE [40+ ms Q WAVE IN V1-V4] Compared to ECG 06/13/2019 02:02:25 Atrial abnormality now present Left-axis deviation no longer present Myocardial infarct finding still present Electronically Signed On 01-21-2021 21:16:26 CDT by CLAUDETTE KRISHNAN [email or web address]
--- NOTE | 2021-01-21 15:02 | CT_ITS ---
WS: [id number] CT CERVICAL TRAUMA TECHNIQUE: Noncontrast CT of the cervical spine with coronal and sagittal reformatted images. CLINICAL INFORMATION: fall COMPARISON: DLP: 757.[address] scans at [facility] use at least one of these dose optimization techniques: automat ed exposure control; mA and/or kV adjustment per patient size (includes targeted exams where dose is matched to clinical indication); or iterative reconstruction. FINDINGS: Straightening of the normal cervical lordosis. Normal craniocervical junction. Normal C1-C2 articulat ion. Dens is normal in appearance. Normal occipital condyles. No high-grade spinal canal narrowing. N ormal C1 ring. No evidence of acute fracture or dislocation. Mild disc bulging C2-3 with peripheral d isc calcification. Normal prevertebral soft tissues. Left vagal nerve stimulator. Mastoids air cells are well aerated. Endotracheal tube. Enteric tube. Low-attenuation left thyroid no dule measuring 5.[address]/CT cervical spin wo con* [id number] IMPRESSION: No evidence of acute fracture or dislocation.
[2021-01-21 16:59] LABS: Glucose Point of Care 198 mg/dL (70-110)
[2021-01-21] MEDS: carbidopa-levodopa 25-100mg Tablet 1 EACH PO ×2 (17:06→20:13)
[2021-01-21] MEDS: levETIRAcetam 500 mg Tablet 750 MG PO (17:07)
--- NOTE | 2021-01-21 18:40 | PC.NURSE ---
Pt arrived from ER intubated and on 5 of propofol, only responsive to pain. Prop turned off per Dr. Dennis upon arrival. Now pt is following commands, but is still very unconscious, not opening eyes, and resting comfortably in bed. Propofol from er wasted and second verified by cedric VILLEGAS.
[2021-01-21] MEDS: lacosamide 50 mg Tablet PO (20:12)
[2021-01-21] MEDS: cloNIDine 0.1 mg Tablet PO (20:13)
[2021-01-21] MEDS: insulin glargine 100 units/1 mL 10 UNIT SUBCUT (20:22)
--- NOTE | 2021-01-21 20:30 | PC.NURSE ---
RN spoke with Genesis from [facility], and gave pt update and ongoing plan of care. RN asked Genesis if she could look into locating patient's family contact numbers, so chart can be updated.
[2021-01-21] MEDS: fentaNYL 50 mcg/mL INJ 2mL 25 MCG IVP (20:39)
[2021-01-21 20:50] LABS: Glucose Point of Care 255 mg/dL (70-110)
--- NOTE | 2021-01-21 22:54 | PC.NURSE ---
New Order: MD clinical information systems director gave T/O for 25mcg Fentanyl IVP in attempts to decrease observed agitation and/or pain levels.
[2021-01-22] VITALS (80 sets, daily range): BP systolic 104–160; BP diastolic 58–122; PULSE 94–127; RESP 10–121; TEMP 36.8–37.8; O2SAT 88–100
[2021-01-22] MEDS: D5-NS 0.45% + KCL 20 mEq 20 MEQ/1,000 ML BAG 125 MEQ IV ×2 (02:20→10:50)
[2021-01-22 03:57] LABS: Basophils % 0.1 %; Eosinophils # 0.1 10^3/uL (0.0-0.8); Hemoglobin 13.9 g/dL (11.5-15.3); Lymphocytes # 0.4 10^3/uL (0.8-4.8); Monocytes # 0.8 10^3/uL (0.2-0.9); Nucleated Red Blood Cells % 0 %
[2021-01-22 04:03] LABS: Eosinophils % 0.4 %; Hematocrit 41.8 % (37.0-47.0); Lymphocytes % 2.8 %; Mean Corpuscular HGB Conc 33.3 g/dL (30.0-36.0); Mean Corpuscular Volume 90.3 fL (81-99); Mean Platelet Volume 9.7 fL (7.4-10.4); Monocytes % 5.7 %; Neutrophils # 12.78 10^3/uL (1.8-7.7); Neutrophils % 90.4 %; Platelet Count 205 10^3/cmm (130-400); Red Blood Count 4.63 10^6/uL (4.1-5.3); Red Cell Distribution Width 12.8 % (12.1-15.1); White Blood Count 14.1 10^3/uL (4.0-10.0)
[2021-01-22] MEDS: heparin 5,000 unit/mL INJ 1 mL 5000 UNIT SUBCUT ×3 (04:25→20:42)
[2021-01-22 04:29] LABS: Alanine Aminotransferase 6 U/L (0-33); Albumin Level 3.7 g/dL (3.5-5.2); Alkaline Phosphatase 87 IU/L (35-105); Anion Gap 14.7 (5-19); Aspartate Amino Transferase 10 U/L (0-32); Blood Urea Nitrogen 8 mg/dL (8-23); Calcium 8.4 mg/dL (8.5-10.5); Carbon Dioxide 19 mmol/L (22-29); Chloride 97 mmol/L (98-107); Globulin 2.6 g/dL (1.3-4.6); Glomerular Filtration Rate 162.3 mL/min (90-130); Glucose 264 mg/dL (65-115); Osmolality Calculated 272 mOsm/kg (285-295); Potassium 3.7 mmol/L (3.5-5.1); Sodium 127 mmol/L (136-145); Total Protein 6.3 g/dL (6.6-8.7)
[2021-01-22 04:34] LABS: ABG PCO2 27.5 mmHg (35-45); ABG PH Result 7.49 (7.35-7.45); Arterial Blood Gas Hematocrit 44.1 % (37-47); Blood Gas Allen Test Pos; Blood Gas Sample Site Radial, right; Blood Gas Sample Type Arterial; Blood Gas Tidal Volume 0.42; HCO3 ABG 20.9 mmol/L (22-26); Oxygen Device VENT; PO2 ABG 63.9 mmHg (80.0-100.0)
[2021-01-22] MEDS: docusate sodium 100 mg Capsule PO (06:05)
[2021-01-22] MEDS: levETIRAcetam 500 mg Tablet 750 MG PO ×2 (06:05→17:10)
[2021-01-22] MEDS: clopidogrel 75 mg Tablet PO (06:05)
[2021-01-22] MEDS: aspirin 81 mg EC Tablet PO (06:05)
[2021-01-22] MEDS: cloNIDine 0.1 mg Tablet PO ×2 (06:07→20:42)
[2021-01-22] MEDS: carbidopa-levodopa 25-100mg Tablet 1 EACH PO ×3 (06:07→20:42)
[2021-01-22 07:59] LABS: Glucose Point of Care 315 mg/dL (70-110)
[2021-01-22] MEDS: lacosamide 50 mg Tablet PO ×2 (08:21→20:42)
--- NOTE | 2021-01-22 10:29 | XR_ITS ---
WS: [id number] XR chest 1V portable [id number] REASON FOR EXAM: fever FINDINGS: Endotracheal tube in ET tube remain in proper position. Presumed atelectasis is again noted in both l elodia bases compared to the prior day. Lung consolidated density in the left lower lung field could rel ate to a pneumonitis. No new findings or interval change is identified.. XR/XR chest 1V portable [id number] IMPRESSION: Stable chest as above.
--- NOTE | 2021-01-22 10:33 | P.PN_ITS ---
Subjective Subjective: Interval history: She is somnolent this morning. More awake than yesterday. Follows commands. Tries to answer questions, but difficult to say whether in fact she answers consistently. Vitals/I&O/Wt Last Vital Signs Temp 100.0 F H 01/22/21 08:00 Pulse 103 H 01/22/21 09:00 Resp 10 L 01/22/21 09:34 BP 104/70 01/22/21 09:00 Pulse Ox 97 01/22/21 09:34 01/21/21 01/22/21 01/22/21 22:59 06:59 14:59 Intake Total 906.25 / 916.00 1080 / 1996.00 1050 / 1050 Output Total 800 / 1600 1500 / 3100 Balance 106.25 / -684.00 -420 / -1104.00 1050 / 1050 Weight last 48 hrs Weight 65.824 g Weight 65.771 kg Physical Exam Const: COMMON NORMALS: no acute distress GENERAL APPEARANCE: lethargic ORIENTATION/CONSCIOUSNESS: Yes lethargic HENMT: COMMON NORMALS: oropharynx normal Neck/C-Spine: COMMON NORMALS: no JVD Resp: COMMON NORMALS: normal respiratory effort and clear to auscultation bilaterally AUSCULTATION: clear to auscultation bilaterally Cardio: COMMON NORMALS: no JVD, regular rhythm, S1 normal heart sound present, S2 normal heart sound present and No murmurs present (Cardio) RATE: tachycardic RHYTHM: regular rhythm HEART SOUNDS: S1 normal heart sound present and S2 normal heart sound present GI: COMMON NORMALS: Normal to inspection, nondistended, normoactive bowel sounds present, Soft to palpation and non-tender PALPATION: Yes Soft to palpation Extremity: COMMON NORMALS: no joint enlargement and no pedal edema Neuro: COMMON NORMALS: moves all extremities SENSORIUM/ORIENTATION: Yes lethargic and Yes obtunded OTHER: Normal tone. No myoclonus. Skin: COMMON NORMALS: no rashes or lesions noted GENERAL SKIN EXAM: no rashes or lesions noted Urinary Catheter Management^: Ruiz: Cath Placed During This Visit: yes Reason for Continuing Indwelling Catheter: Accurate Measurement of Urinary Output in Critically Ill Patients Urinary Catheter Date of Insertion: 01/21/21 Urinary Catheter Time of Insertion: 07:53 Data : 01/22/21 03:30 01/22/21 03:30 Micro: Microbiology 01/21/21 08:03 Urine Culture - Preliminary Urine,Clean Catch Gram Negative Rods 01/21/21 08:10 Gram Stain - Final Sputum - Endotracheal Tube Aspirate A&P Assessment and plan (1) UTI (urinary tract infection): Gram-negative rods. Start ciprofloxacin. Collect blood culture, lactic acid due to possible sepsis with leukocytosis, tachycardia. However, tachycardia may be secondary to withdrawal from beta-florina she is not receiving her carvedilol due to concern for risk of hypotension on admission. Restart carvedilol. Full urine culture. Due to UTI, fever, acute encephalopathy will also assess renal CT to exclude possible obstructive pyelonephritis. Status: Acute (2) Fever: As above. Status: Acute (3) Acute encephalopathy: Encephalopathy improving, but still somewhat persistent this morning. Lethargic. Inconsistently answer questions. But does follow commands very well. Generally somewhat weak. Not on sedation. At this time dispo to be combination of both accidental medication overdose, but this morning also having fever, leukocytosis, appears to have urinary tract infection. Possible sepsis. Continue supportive care for medication overdose. Were also collecting blood culture, check lactic acid, starting antibiotic. If mental status continues to improve, may be able to extubate. Discussed with her guardian. Status: Acute (4) Accidental medication overdose: Continue supportive care. Extubate when she is waking up. Status: Acute (5) Fall: Full with reported head injury/hitting her head. Was examined in ER, externally no wounds, CT of the head without acute fracture, no bleeding. Chronic findings. CT C-spine unremarkable. Status: Acute (6) Hyponatremia: Hyponatremia with some worsening today. Discontinue her IV fluids. Encourage p.o. intake once able to if can extubate today. Status: Acute (7) Bacteriuria: UTI Status: Acute (8) Lacunar infarction: Appears to have chronic lacunar infarcts, left thalamus, right cerebellum. Optimize blood pressure control. Continue aspirin, statin. Continue follow-up with neurology. Status: Chronic (9) Cerebral ventriculomegaly: Ventriculomegaly noted, unchanged since 2018. Question of possible NPH could be considered. Follow-up with neurology. Status: Acute (10) Parkinson disease: Continue Sinemet. Continue follow-up with neurology. Normally walks with a walker. Fall precautions. Status: Chronic (11) Secondarily generalized seizures: Continue seizure medications. Continue follow-up with neurology. Status: Chronic Attestations Medical Necessity Statement*: Continue admission for supportive care of acute encephalopathy after accidental medication overdose, treatment of urinary tract infection, assessment of possible sepsis. Critical Care Time: In addition to known critical issues 40 minutes critical care time spent on assessment of hemodynamic status, respiratory status, mechanical ventilatory support, mental status, fever, source of infection, possible sepsis. Discussed with nursing staff, guardian. Coding Level of Care Code Acute Biodiesel Product Development Manager for g Fwd Exam Comprehensive Diagnoses UTI (urinary tract infection) N39.0 Fever R50.9 Acute encephalopathy G93.40 Accidental medication overdose T50.901A Fall W19.XXXA Hyponatremia E87.1 Bacteriuria R82.71 Lacunar infarction I63.81 Cerebral ventriculomegaly G93.89 Parkinson disease G20 Secondarily generalized seizures
--- NOTE | 2021-01-22 10:33 | CT_ITS ---
WS: [id number] CT ABDOMEN PELVIS TECHNIQUE: Noncontrast CT of the abdomen and pelvis with coronal and sagittal reformatted images. CLINICAL INFORMATION: UTI, fever, assess for obstruction COMPARISON: CT 2 21,018 DLP: 1713.[address] scans at [facility] use at least one of these dose optimization techniques: automat ed exposure control; mA and/or kV adjustment per patient size (includes targeted exams where dose is matched to clinical indication); or iterative reconstruction. FINDINGS: Noncontrast liver is normal. Normal gallbladder. Normal noncontrast spleen. Tiny right pleural effusi on. Right basilar atelectasis. Round atelectasis or pneumonia in the left lower lobe. Adrenal glands are normal. Small esophageal hiatal hernia. Mild fatty atrophy of the pancreas. Adrenal glands are no rmal. No hydronephrosis. Ruiz catheter. Normal caliber abdominal aorta. Aortic calcification. No ane urysm. Small amount of free fluid in the pelvis. Normal sigmoid colon. No evidence of small or large bowel o bstruction. Scattered stool in normal caliber colon. Normal appendix in the right lower quadrant. Chr onic anterior wedging in the lower thoracic and upper lumbar spine at T12 and L1. CT/CT kidney stone 42028 IMPRESSION: 1. No small or large bowel obstruction. 2. Normal appendix in right lower quadrant. 3. No hydronephrosis in either kidney. 4. Normal caliber abdominal aorta. 5. Ruiz catheter. 6. Trace free fluid in the pelvis. 7. Small right pleural effusion. Opacification left lower lobe with round atel ectasis or pneumonia.
[2021-01-22] MEDS: ciprofloxacin 400 MG/200 ML PREMIX 200 MG IV ×2 (10:49→22:40)
[2021-01-22] MEDS: famotidine 20 mg/2 mL INJ IVP (10:50)
[2021-01-22 11:03] LABS: Glucose Point of Care 223 mg/dL (70-110)
[2021-01-22 17:23] LABS: Glucose Point of Care 187 mg/dL (70-110)
[2021-01-22] MEDS: famotidine 20 mg Tablet PO (20:42)
[2021-01-22] MEDS: insulin glargine 100 units/1 mL 10 UNIT SUBCUT (20:42)
[2021-01-22] MEDS: carvedilol 12.5 mg Tablet PO (20:42)
[2021-01-22] MEDS: atorvastatin 40 mg Tablet PO (20:42)
[2021-01-22 20:48] LABS: Glucose Point of Care 211 mg/dL (70-110)
[2021-01-23] VITALS (26 sets, daily range): BP systolic 72–153; BP diastolic 55–111; PULSE 93–128; RESP 16–31; TEMP 37.1–37.7; O2SAT 84–100
[2021-01-23 04:06] LABS: Basophils % 0.1 %; Eosinophils % 0.2 %; Hematocrit 39.6 % (37.0-47.0); Hemoglobin 13.7 g/dL (11.5-15.3); Lymphocytes # 0.6 10^3/uL (0.8-4.8); Lymphocytes % 4.5 %; Mean Corpuscular HGB Conc 34.6 g/dL (30.0-36.0); Mean Corpuscular Hemoglobin 30.4 pg (28.0-34.0); Mean Platelet Volume 9.4 fL (7.4-10.4); Monocytes # 0.8 10^3/uL (0.2-0.9); Monocytes % 5.9 %; Neutrophils # 11.95 10^3/uL (1.8-7.7); Neutrophils % 88.8 %; Nucleated Red Blood Cells % 0 %; Platelet Count 220 10^3/cmm (130-400); White Blood Count 13.5 10^3/uL (4.0-10.0)
[2021-01-23 04:26] LABS: Anion Gap 13.8 (5-19); Blood Urea Nitrogen 6 mg/dL (8-23); Calcium 8.9 mg/dL (8.5-10.5); Carbon Dioxide 23 mmol/L (22-29); Chloride 102 mmol/L (98-107); Creatinine Clr Calc Pharmacy 0.1231; Glomerular Filtration Rate 125.4 mL/min (90-130); Glucose 145 mg/dL (65-115); Osmolality Calculated 280 mOsm/kg (285-295); Potassium 3.8 mmol/L (3.5-5.1); Sodium 135 mmol/L (136-145)
[2021-01-23] MEDS: heparin 5,000 unit/mL INJ 1 mL 5000 UNIT SUBCUT ×3 (05:26→20:19)
[2021-01-23] MEDS: docusate sodium 100 mg Capsule PO (05:58)
[2021-01-23] MEDS: lacosamide 50 mg Tablet PO ×2 (05:58→20:19)
[2021-01-23] MEDS: carbidopa-levodopa 25-100mg Tablet 1 EACH PO ×3 (05:58→20:19)
[2021-01-23] MEDS: levETIRAcetam 500 mg Tablet 750 MG PO ×2 (05:59→17:29)
[2021-01-23] MEDS: aspirin 81 mg EC Tablet PO (06:00)
[2021-01-23] MEDS: cloNIDine 0.1 mg Tablet PO (06:00)
[2021-01-23] MEDS: clopidogrel 75 mg Tablet PO (06:00)
[2021-01-23] MEDS: carvedilol 12.5 mg Tablet PO ×2 (06:00→20:19)
[2021-01-23 07:57] LABS: Glucose Point of Care 183 mg/dL (70-110)
[2021-01-23] MEDS: isosorbide mononitrate ER 30 mg Tablet PO (09:06)
[2021-01-23] MEDS: famotidine 20 mg Tablet PO ×2 (09:06→20:19)
[2021-01-23 09:36] LABS: Magnesium 1.7 mg/dL (1.7-2.3)
--- NOTE | 2021-01-23 09:51 | ECG_ITS ---
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 Measurements Intervals [place] Rate: 105 P: -8 LA: 174 QRS: 260 QRSD: 72 T: 8 QT: 322 QTc: 426 Interpretive Statements SINUS TACHYCARDIA WITH FREQUENT VENTRICULAR PREMATURE COMPLEXES MARKED RIGHT AXIS DEVIATION [QRS AXIS > 100] LOW QRS VOLTAGE IN EXTREMITY LEADS [QRS DEFLECTION < 0.5 mV IN LIMB LEADS] ANTEROSEPTAL MYOCARDIAL INFARCTION [40+ ms Q WAVE IN V1-V4], OF INDETERMINATE AGE Compared to ECG 01/21/2021 07:56:24 Ventricular premature complex(es) now present Right-axis deviation now present Low QRS voltage now present Sinus rhythm no longer present Atrial abnormality no longer present Myocardial infarct finding still present Electronically Signed On 01-23-2021 23:24:34 CDT by My Cameron M.D. [id number]
[2021-01-23 10:03] LABS: Troponin(5th) Baseline 13 ng/L (0-10)
[2021-01-23 11:27] LABS: Glucose Point of Care 191 mg/dL (70-110)
[2021-01-23] MEDS: ciprofloxacin 400 MG/200 ML PREMIX 200 MG IV (11:39)
[2021-01-23 11:45] LABS: Troponin 5 2HR 16.02 ng/L (0-10); Troponin 5 2HR Delta 3.02 ABS# (0-10)
--- NOTE | 2021-01-23 13:51 | ECG_ITS ---
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 Measurements Intervals [place] Rate: 105 P: 17 AR: 166 QRS: -75 QRSD: 87 T: 2 QT: 325 QTc: 430 Interpretive Statements SINUS TACHYCARDIA WITH FREQUENT VENTRICULAR PREMATURE COMPLEXES MARKED LEFT AXIS DEVIATION [QRS AXIS < -30] LOW QRS VOLTAGE IN EXTREMITY LEADS [QRS DEFLECTION < 0.5 mV IN LIMB LEADS] ANTEROSEPTAL MYOCARDIAL INFARCTION [40+ ms Q WAVE IN V1-V4], OF INDETERMINATE AGE Compared to ECG 01/23/2021 10:22:04 Left-axis deviation now present Right-axis deviation no longer present Myocardial infarct finding still present Electronically Signed On 01-23-2021 23:26:22 CDT by My Cameron M.D. [id number]
[2021-01-23 17:20] LABS: Glucose Point of Care 341 mg/dL (70-110)
[2021-01-23 17:22] LABS: Troponin 5 6HR 13.03 ng/L (0-10)
[2021-01-23] MEDS: atorvastatin 40 mg Tablet PO (20:19)
[2021-01-23] MEDS: insulin glargine 100 units/1 mL 10 UNIT SUBCUT (20:19)
[2021-01-23 20:22] LABS: Glucose Point of Care 390 mg/dL (70-110)
[2021-01-23 21:20] LABS: ABG PH Result 7.45 (7.35-7.45); HCO3 ABG 21.6 mmol/L (22-26); PO2 ABG 62.7 mmHg (80.0-100.0)
[2021-01-23 21:25] LABS: Oxygen Saturation ABG 93.8; Potassium Level - ABG 3.7 mmol/L (3.5-5.0)
[2021-01-23 21:26] LABS: Arterial Blood Gas Hematocrit 37.1 % (37-47)
[2021-01-23 21:27] LABS: Ionized Calcium Level - ABG 1.2 mmol/L (1.1-1.4); Total Hemoglobin 12.1 g/dL (12-16)
--- NOTE | 2021-01-23 21:43 | P.PN_ITS ---
Subjective Subjective: Interval history: She was doing better today. Reporting she was hungry. Denies discomfort. No chest pain. Noted PVCs on the monitor. Later in the afternoon noted hypotensive. Vitals/I&O/Wt Last Vital Signs Temp 98.7 F 01/23/21 16:00 Pulse 105 H 01/23/21 18:00 Resp 25 H 01/23/21 18:00 BP 75/55 01/23/21 18:00 Pulse Ox 93 01/23/21 18:00 01/23/21 01/23/21 01/23/21 06:59 14:59 22:59 Intake Total 250 / 2600 850 / 850 240 / 1090 Output Total 900 / 2750 500 / 500 Balance -650 / -150 850 / 850 -260 / 590 Weight last 48 hrs Weight 65.927 g Weight 65.824 g Physical Exam Const: COMMON NORMALS: no acute distress and alert; negative for patient oriented x3 GENERAL APPEARANCE: cooperative and comfortable ORIENTATION/CONSCIOUSNESS: Yes awake OTHER: Knows she is in the hospital, does not remember much about how she got here HENMT: COMMON NORMALS: oropharynx normal Neck/C-Spine: COMMON NORMALS: no JVD Resp: COMMON NORMALS: normal respiratory effort and clear to auscultation bilaterally AUSCULTATION: clear to auscultation bilaterally Cardio: COMMON NORMALS: no JVD, regular rhythm, S1 normal heart sound present, S2 normal heart sound present and No murmurs present (Cardio) RATE: tach ycardic RHYTHM: regular rhythm HEART SOUNDS: S1 normal heart sound present and S2 normal heart sound present GI: COMMON NORMALS: Normal to inspection, nondistended, normoactive bowel sounds present, Soft to palpation and non-tender PALPATION: Yes Soft to palpation Extremity: COMMON NORMALS: no joint enlargement and no pedal edema Neuro: COMMON NORMALS: moves all extremities; negative for patient oriented x3 SENSORIUM/ORIENTATION: Yes alert and Yes obtunded OTHER: Normal tone. No myoclonus. Skin: COMMON NORMALS: no rashes or lesions noted GENERAL SKIN EXAM: no rashes or lesions noted Urinary Catheter Management^: Ruiz: Cath Placed During This Visit: yes Reason for Continuing Indwelling Catheter: Accurate Measurement of Urinary Output in Critically Ill Patients Urinary Catheter Date of Insertion: 01/21/21 Urinary Catheter Time of Insertion: 07:53 Data : 01/23/21 03:56 01/23/21 03:56 Micro: Microbiology 01/21/21 08:10 Gram Stain - Final Sputum - Endotracheal Tube Aspirate Sputum Culture - Final 01/22/21 12:58 Blood Culture - Preliminary Blood NEGATIVE TO DATE 01/22/21 12:45 Blood Culture - Preliminary Blood NEGATIVE TO DATE 01/21/21 08:03 Urine Culture - Final Urine,Clean Catch Escherichia coli A&P Assessment and plan (1) Hypotension: Was doing well this morning, however, with some noted PVCs. Later today afternoon noted hypotensive after resuming her Imdur and continuing clonidine. These are held. With noted some degree of delayed orthostasis, with initial hypotension noted while sitting up. Given small bolus. Hold antihypertensives, diuretics for now. Monitor blood pressures in ICU. Status: Acute (2) UTI (urinary tract infection): E. coli. On Cipro. No hydronephrosis. Status: Acute (3) Fever: Complicated UTI. Round atelectasis versus pneumonia in the left lower lobe on CT. Will change antibiotic to Levaquin Status: Acute (4) Acute encephalopathy: Improving. Continue treatment of underlying infections, supportive care. Status: Acute (5) Accidental medication overdose: Continue supportive care. Status: Acute (6) Fall: Full with reported head injury/hitting her head. Was examined in ER, externally no wounds, CT of the head without acute fracture, no bleeding. Chronic findings. CT C-spine unremarkable. Status: Acute (7) Hyponatremia: Improving. Encourage p.o. intake once able to if can extubate today. Status: Acute (8) Bacteriuria: UTI Status: Acute (9) Lacunar infarction: Appears to have chronic lacunar infarcts, left thalamus, right cerebellum. Optimize blood pressure control. Continue aspirin, statin. Continue follow-up with neurology. Status: Chronic (10) Cerebral ventriculomegaly: Ventriculomegaly noted, unchanged since 2018. Question of possible NPH could be considered. Follow-up with neurology. Status: Acute (11) Parkinson disease: Continue Sinemet. Continue follow-up with neurology. Normally walks with a walker. Fall precautions. Status: Chronic (12) Secondarily generalized seizures: Continue seizure medications. Continue follow-up with neurology. Status: Chronic Attestations Medical Necessity Statement*: Continue admission for management and monitoring of hypotension, treatment of UTI, pneumonia in a lady recovering after accid ental medication overdose. Critical Care Time: In addition to known critical issues, 35 minutes critical care time spent on assessment management of hemodynamic instability, hypotension, after accidental medication overdose, hemodynamic support, re assessment of underlying infection with adjustment of antibiotics. Discussed with her guardian. Coding Level of Care Code Acute Bitumen Plant Operator for Sudha Fwd Diagnoses Hypotension I95.9 UTI (urinary tract infection) N39.0 Fever R50.9 Acute encephalopathy G93.40 Accidental medication overdose T50.901A Fall W19.XXXA Hyponatremia E87.1 Bacteriuria R82.71 Lacunar infarction I63.81 Cerebral ventriculomegaly G93.89 Parkinson disease G20 Secondarily generalized seizures
[2021-01-23] MEDS: levofloxacin-dextrose 5 % 750 MG/150 ML PREMIX 100 MG IV (23:45)
[2021-01-24] VITALS (21 sets, daily range): BP systolic 99–146; BP diastolic 63–94; PULSE 100–123; RESP 17–29; TEMP 36.9–38.4; O2SAT 93–100
--- NOTE | 2021-01-24 00:48 | PC.NURSE ---
RN found patient slumped over in bed after . She was not arousable verbally. With sternal rubs, pt slightly pushes away from pain but continues to remain unresponsive otherwise. VSS and within baseline parameters. No other noticeable changes to patient overall status. MD transportation attendant notified of patient's change in status. New orders given via T/O for ABG to be collected. Results reflected inside of chart. MD gave orders to continue monitoring overall status and report any further changes at this point. No other new orders.
[2021-01-24] MEDS: heparin 5,000 unit/mL INJ 1 mL 5000 UNIT SUBCUT ×3 (04:48→21:23)
[2021-01-24] MEDS: carvedilol 12.5 mg Tablet PO ×2 (06:16→21:22)
[2021-01-24] MEDS: clopidogrel 75 mg Tablet PO (06:16)
[2021-01-24] MEDS: docusate sodium 100 mg Capsule PO (06:16)
[2021-01-24] MEDS: aspirin 81 mg EC Tablet PO (06:16)
[2021-01-24] MEDS: levETIRAcetam 500 mg Tablet 750 MG PO ×2 (06:16→16:08)
[2021-01-24] MEDS: carbidopa-levodopa 25-100mg Tablet 1 EACH PO ×3 (06:16→21:22)
[2021-01-24] MEDS: lacosamide 50 mg Tablet PO ×2 (06:18→21:21)
[2021-01-24 07:36] LABS: Glucose Point of Care 160 mg/dL (70-110)
[2021-01-24] MEDS: famotidine 20 mg Tablet PO ×2 (08:01→21:21)
[2021-01-24] MEDS: magnesium sulfate premix 2 GM/50 ML PIGGYBACK IV (08:39)
--- NOTE | 2021-01-24 09:09 | PM.PN ---
Subjective Subjective: Interval history: Today she is more alert, appears to be much better oriented. She knows she is in the hospital. Knows it is 2020. She does not recall our conversation from yesterday, although remember seeing me. We discussed again regarding the circumstances of her admission, her condition, and the hospital course so far. Vitals/I&O/Wt Last Vital Signs Temp 98.9 F 01/24/21 07:00 Pulse 123 H 01/24/21 08:00 Resp 17 01/24/21 08:00 BP 145/94 01/24/21 08:00 Pulse Ox 97 01/24/21 08:00 01/23/21 01/24/21 01/24/21 22:59 06:59 14:59 Intake Total 290 / 1140 175 / 1315 240 / 240 Output Total 1300 / 1300 1800 / 3100 300 / 300 Balance -1010 / -160 -1625 / -1785 -60 / -60 Weight last 48 hrs Weight 67.7 g Weight 67.7 kg Weight 65.927 g Physical Exam Const: COMMON NORMALS: no acute distress, patient oriented x3 and alert GENERAL APPEARANCE: cooperative and comfortable ORIENTATION/CONSCIOUSNESS: Yes awake HENMT: COMMON NORMALS: oropharynx normal Neck/C-Spine: COMMON NORMALS: no JVD Resp: COMMON NORMALS: normal respiratory effort and clear to auscultation bilaterally AUSCULTATION: clear to auscultation bilaterally Cardio: COMMON NORMALS: no JVD, regular rhythm, S1 normal heart sound present, S2 normal heart sound present and No murmurs present (Cardio) RATE: tachycardic RHYTHM: regular rhythm HEART SOUNDS: S1 normal heart sound present and S2 normal heart sound present GI: COMMON NORMALS: Normal to inspection, nondistended, normoactive bowel sounds present, Soft to palpation and non-tender PALPATION: Yes Soft to palpation Extremity: COMMON NORMALS: no joint enlargement and no pedal edema Neuro: COMMON NORMALS: patient oriented x3 and moves all extremities SENSORIUM/ORIENTATION: Yes alert and Yes obtunded OTHER: Normal tone. No myoclonus. Skin: COMMON NORMALS: no rashes or lesions noted GENERAL SKIN EXAM: no rashes or lesions noted Urinary Catheter Management^: Ruiz: Cath Placed During This Visit: yes Reason for Continuing Indwelling Catheter: Accurate Measurement of Urinary Output in Critically Ill Patients Urinary Catheter Date of Insertion: 01/21/21 Urinary Catheter Time of Insertion: 07:53 Data : 01/23/21 03:56 01/23/21 03:56 Micro: Microbiology 01/21/21 08:10 Gram Stain - Final Sputum - Endotracheal Tube Aspirate Sputum Culture - Final 01/22/21 12:58 Blood Culture - Preliminary Blood NEGATIVE TO DATE 01/22/21 12:45 Blood Culture - Preliminary Blood NEGATIVE TO DATE 01/21/21 08:03 Urine Culture - Final Urine,Clean Catch Escherichia coli A&P Assessment and plan (1) Hypotension: History hypotensive after resuming some of her home medicines. We so far held Imdur, clonidine. Blood pressure is improved. History also with noted delayed orthostasis. Will reassess today. She did get up with therapy. Continue to monitor blood pressures. This morning still too soft to try to resume some of her other medications. We will continue monitoring on medical surgical floor. Hold antihypertensives, diuretics for now. Status: Acute (2) Acute encephalopathy: This morning she is doing much better, alert and oriented x3. In good spirits. Says she is hungry. Encouraged about working with physical therapy. Last night, however, was noted to have an episode of decreased responsiveness which had to be evaluated by overnight physician. Overall improving. Continue treatment of underlying infections, supportive care. Continue to monitor tonight. If continues to improve, perhaps may be will discharge tomorrow. Status: Acute (3) UTI (urinary tract infection): E. coli. On Cipro. No hydronephrosis. Status: Acute (4) Fever: Complicated UTI. Round atelectasis versus pneumonia in the left lower lobe on CT. Levaquin Status: Acute (5) Accidental medication overdose: Continue supportive care. Status: Acute (6) Fall: Full with reported head injury/hitting her head. Was examined in ER, externally no wounds, CT of the head without acute fracture, no bleeding. Chronic findings. CT C-spine unremarkable. Status: Acute (7) Hyponatremia: Improving. Encourage p.o. intake once able to if can extubate today. Status: Acute (8) Lacunar infarction: Appears to have chronic lacunar infarcts, left thalamus, right cerebellum. Optimize blood pressure control. Continue aspirin, statin. Continue follow-up with neurology. Status: Chronic (9) Cerebral ventriculomegaly: Ventriculomegaly noted, unchanged since 2018. Question of possible NPH could be considered. Follow-up with neurology. Status: Acute (10) Parkinson disease: Continue Sinemet. Continue follow-up with neurology. Normally walks with a walker. Fall precautions. Status: Chronic (11) Secondarily generalized seizures: Continue seizure medications. Continue follow-up with neurology. Status: Chronic Attestations Medical Necessity Statement*: Continue admission for monitor blood pressures due to hypotension, supportive care, treatment of infection including UTI, pneumonia, reassessment of encephalopathy, recovering from accidental medication overdose, continue mobilization and assessment for readiness to return back to custodial. Coding Level of Care Code Acute Belt Puncher for [facility] Fwd Diagnoses Hypotension I95.9 Acute encephalopathy G93.40 UTI (urinary tract infection) N39.0 Fever R50.9 Accidental medication overdose T50.901A Fall W19.XXXA Hyponatremia E87.1 Lacunar infarction I63.81 Cerebral ventriculomegaly G93.89 Parkinson disease G20 Secondarily generalized seizures
[2021-01-24 09:35] LABS: Basophils % 0.2 %; Eosinophils # 0.1 10^3/uL (0.0-0.8); Hemoglobin 13.8 g/dL (11.5-15.3); Lymphocytes # 0.8 10^3/uL (0.8-4.8); Lymphocytes % 9.4 %; Mean Corpuscular HGB Conc 34.5 g/dL (30.0-36.0); Mean Corpuscular Hemoglobin 30.5 pg (28.0-34.0); Mean Corpuscular Volume 88.5 fL (81-99); Mean Platelet Volume 10.2 fL (7.4-10.4); Monocytes # 0.5 10^3/uL (0.2-0.9); Monocytes % 5.9 %; Neutrophils # 7.42 10^3/uL (1.8-7.7); Neutrophils % 83.2 %; Nucleated Red Blood Cells % 0 %; Platelet Count 231 10^3/cmm (130-400); Red Blood Count 4.52 10^6/uL (4.1-5.3); Red Cell Distribution Width 13.2 % (12.1-15.1); White Blood Count 8.9 10^3/uL (4.0-10.0)
--- NOTE | 2021-01-24 11:00 | PC.SOCIAL ---
Pg 2 IMM Explained to pt Pg 2 IMM. No questions voiced. Provided pt a copy. Initialed, dated, & timed a copy & placed in chart.
[2021-01-24 11:21] LABS: Glucose Point of Care 219 mg/dL (70-110)
[2021-01-24 11:22] LABS: Blood Urea Nitrogen 15 mg/dL (8-23); Carbon Dioxide 24 mmol/L (22-29); Chloride 102 mmol/L (98-107); Glomerular Filtration Rate 85.1 mL/min (90-130); Glucose 251 mg/dL (65-115); Osmolality Calculated 291 mOsm/kg (285-295); Sodium 136 mmol/L (136-145)
[2021-01-24 11:49] LABS: Anion Gap 14.2 (5-19); Potassium 4.2 mmol/L (3.5-5.1)
[2021-01-24] MEDS: acetaminophen 325 mg Tablet 650 MG PO (16:08)
[2021-01-24 17:14] LABS: Glucose Point of Care 257 mg/dL (70-110)
[2021-01-24 20:53] LABS: Glucose Point of Care 283 mg/dL (70-110)
[2021-01-24] MEDS: atorvastatin 40 mg Tablet PO (21:21)
[2021-01-24] MEDS: insulin glargine 100 units/1 mL 10 UNIT SUBCUT (21:52)
[2021-01-24] MEDS: levofloxacin-dextrose 5 % 750 MG/150 ML PREMIX 100 MG IV (22:39)
[2021-01-25] VITALS (7 sets, daily range): BP systolic 122–136; BP diastolic 67–84; PULSE 97–102; RESP 17–20; TEMP 36.8–37.1; O2SAT 96–99
--- NOTE | 2021-01-25 01:21 | PC.NURSE ---
Neuro check Patient sleeping does respond to verbal or tactile stimuli. Answers questions but back to sleep.
[2021-01-25] MEDS: heparin 5,000 unit/mL INJ 1 mL 5000 UNIT SUBCUT ×2 (04:03→12:03)
[2021-01-25] MEDS: levETIRAcetam 500 mg Tablet 750 MG PO (05:04)
[2021-01-25] MEDS: docusate sodium 100 mg Capsule PO (06:18)
[2021-01-25] MEDS: carbidopa-levodopa 25-100mg Tablet 1 EACH PO (06:18)
[2021-01-25] MEDS: aspirin 81 mg EC Tablet PO (06:18)
[2021-01-25] MEDS: lacosamide 50 mg Tablet PO (06:18)
[2021-01-25] MEDS: carvedilol 12.5 mg Tablet PO (06:18)
[2021-01-25] MEDS: clopidogrel 75 mg Tablet PO (06:18)
--- NOTE | 2021-01-25 06:23 | PC.NURSE ---
Awake Pt awake, alert. Has slept well thru the night. Would awake and respond to questions and commands. Lab here to draw bloodwork. Sara remains in place at this time. PIID to L arm infiltrated thru night, removed intact.
[2021-01-25 06:49] LABS: Glucose Point of Care 208 mg/dL (70-110)
[2021-01-25 06:56] LABS: Basophils % 0.1 %; Eosinophils # 0.1 10^3/uL (0.0-0.8); Eosinophils % 2.1 %; Hematocrit 37.3 % (37.0-47.0); Hemoglobin 12.5 g/dL (11.5-15.3); Mean Corpuscular HGB Conc 33.5 g/dL (30.0-36.0); Mean Corpuscular Hemoglobin 30.3 pg (28.0-34.0); Mean Corpuscular Volume 90.3 fL (81-99); Mean Platelet Volume 9.6 fL (7.4-10.4); Monocytes # 0.6 10^3/uL (0.2-0.9); Monocytes % 8.8 %; Neutrophils % 74.9 %; Nucleated Red Blood Cells % 0 %; Platelet Count 264 10^3/cmm (130-400); Red Blood Count 4.13 10^6/uL (4.1-5.3); Red Cell Distribution Width 13.3 % (12.1-15.1); White Blood Count 6.8 10^3/uL (4.0-10.0)
[2021-01-25 07:37] LABS: Anion Gap 13.1 (5-19); Blood Urea Nitrogen 24 mg/dL (8-23); Calcium 9.2 mg/dL (8.5-10.5); Carbon Dioxide 23 mmol/L (22-29); Chloride 105 mmol/L (98-107); Glomerular Filtration Rate 101.6 mL/min (90-130); Glucose 198 mg/dL (65-115); Osmolality Calculated 294 mOsm/kg (285-295); Potassium 4.1 mmol/L (3.5-5.1); Sodium 137 mmol/L (136-145)
[2021-01-25] MEDS: magnesium oxide 400 mg tablet PO (10:08)
[2021-01-25] MEDS: famotidine 20 mg Tablet PO (10:08)
[2021-01-25 11:49] LABS: Glucose Point of Care 299 mg/dL (70-110)
--- NOTE | 2021-01-25 12:32 | XRR_ITS ---
PROCEDURE INFORMATION: Exam: XR Left Ankle Exam date and time: 01/25/2021 1:50 PM Age: 60 years old Clinical indication: Pain; Ankle; Left; Additional info: Pain, recent fall TECHNIQUE: Imaging protocol: XR Left ankle. Views: Frontal, lateral, and oblique views. COMPARISON: No relevant prior studies available. FINDINGS: Bones/joints: No acute bony abnormality identified. Anterior tibial marginal hypertrophy at the tibiotalar articulation. A small plantar calcaneal ossified spur is present. A small Achilles' tendon enthesis of the calcaneus is present. Soft tissues: Normal. XR/XR ankle LT min 3V* [id number] IMPRESSION: 1. No acute bony injury identified. 2. Tibiotalar primary osteoarthritis. 3. Plantar calcaneal spur. 4. Achilles tendon insertional enthesopathy.
--- NOTE | 2021-01-25 12:32 | XRR_ITS ---
PROCEDURE INFORMATION: Exam: XR Right Ankle Exam date and time: 01/25/2021 1:50 PM Age: 60 years old Clinical indication: Pain; Ankle; Right; Additional info: Pain, recent fall TECHNIQUE: Imaging protocol: XR Right ankle. Views: Frontal, lateral, and oblique views. COMPARISON: No relevant prior studies available. FINDINGS: Bones/joints: No acute bony abnormality identified. A small Achilles' tendon enthesis of the calcaneus is present. Soft tissues: Normal. Vasculature: Vascular calcifications are present. XR/XR ankle RT min 3V* [id number] IMPRESSION: 1. No acute bony injury identified. 2. Achilles tendon insertional enthesopathy.
--- NOTE | 2021-01-25 13:31 | PC.NURSE ---
pt on room air respirations clear easy no problems sats 98%
--- NOTE | 2021-01-25 13:43 | P.DS_ITS ---
Discharge Providers Date of Admission: 01/21/21 08:52 Date of Discharge: January 25, 2021 Attending Provider at Admission: Sebastian Luevano Attending Provider at Discharge: Sebastian Luevano Primary Care Provider: Augustin Colón MD Diagnoses at Discharge Discharge Diagnosis (1) Hypotension: Status: Acute (2) Acute encephalopathy: Status: Acute (3) UTI (urinary tract infection): Status: Acute (4) Fever: Status: Acute (5) Accidental medication overdose: Status: Acute (6) Fall: Status: Acute (7) Hyponatremia: Status: Acute (8) Lacunar infarction: Status: Chronic (9) Cerebral ventriculomegaly: Status: Acute (10) Parkinson disease: Status: Chronic (11) Secondarily generalized seizures: Status: Chronic Reason for Visit Reason for Visit: [facility] Hospital Course Hospital Course Very pleasant 60-year-old lady with history of Parkinson's disease, seizure disorder, hypertension, normally walking with a walker was admitted due to noted decreased responsiveness at the senior living after receiving accidentally some analysis medications, including clozapine 300 mg, Klonopin 1 mg, Cardizem 360 mg, Spiriva, 40 mg omeprazole, 750 mg Depakote, 25 mg losartan, 0.5 mg benztropine; little bit later this morning sustaining a syncopal episodes, fall, with hitting her head. Noted unresponsive in ER. Without external injuries. Had to be intubated for airway protection. Monitored in ICU, with antihypertensives held due to concern for hypotension developing from the medication. Gradually woke up, weaned off ventilator, although noted to have urinary tract infection. Due to fever in the hospital, additionally assessed by CT abdomen pelvis to exclude obstructive uropathy, without finding of hydronephrosis. Treated for pneumonia as well. Mental status gradually improved, appears to be back to baseline, alert and oriented, pleasant, conversant, worked well with physical therapy today. Walking with a walker. Evaluation has included CT head, CT cervical spine. CT head without finding of acute trauma, with finding of mild small vessel changes, moderate parenchymal volume loss, parenchymal lateral ventricles and third ventricle unchanged and can be seen with normal pressure hydrocephalus in appropriate clinical settings. Chronic lacunar infarcts left almost and right cerebellum. Cervical spine unremarkable. Her presentation as well as all these findings discussed with her guardian. She is asked to follow-up with neurology for additional assessment of ventriculomegaly, prior infarcts as well as follow-up of chronic conditions with Parkinson's disease and seizure disorder. She continues on aspirin, Plavix, statin. Vimpat and Keppra. Sinemet. As her blood pressure transiently decreased after reinitiating some of her home medications including clonidine, Imdur, these are for now on hold, as is lisinopril and amlodipine. She is continuing on carvedilol. Please monitor blood pressures, resume antihypertensives in a stepwise fashion. Due to noting some ankle tenderness this morning after recent fall, ankle XR are requested prior to discharge. Due to noted bilateral Achilles tendon insertional enthesopathy Levaquin will not be continued, and she will instead complete antibiotic course with doxycycline (penicillin allergy) for improving pneumonia. Discussed with lamp light staff. Consider follow-up with podiatry for reassessment and assessment of plantar calcaneal spur on the left. Physical Exam Const: COMMON NORMALS: no acute distress, patient oriented x3 and alert GENERAL APPEARANCE: comfortable ORIENTATION/CONSCIOUSNESS: Yes awake HENMT: COMMON NORMALS: oropharynx normal Neck/C-Spine: COMMON NORMALS: no JVD Resp: COMMON NORMALS: normal respiratory effort and clear to auscultation bilaterally AUSCULTATION: clear to auscultation bilaterally Cardio: COMMON NORMALS: no JVD, regular rhythm, S1 normal heart sound present, S2 normal heart sound present and No murmurs present (Cardio) RHYTHM: regular rhythm HEART SOUNDS: S1 normal heart sound present and S2 normal heart sound present GI: COMMON NORMALS: Normal to inspection, nondistended, normoactive bowel sounds present, Soft to palpation and non-tender PALPATION: Yes Soft to palpation Extremity: COMMON NORMALS: no joint enlargement and no pedal edema OTHER: Mild tenederness in ankles with passive range of motion. Neuro: COMMON NORMALS: patient oriented x3 and moves all extremities SENSORIUM/ORIENTATION: Yes alert Skin: COMMON NORMALS: no rashes or lesions noted GENERAL SKIN EXAM: no rashes or lesions noted Urinary Catheter Management^: Ruiz: Cath Placed During This Visit: yes, but has since been removed by the nurse Reason for Continuing Indwelling Catheter: Decision to DC Catheter Urinary Catheter Date of Insertion: 01/21/21 Urinary Catheter Time of Insertion: 07:53 Date Urinary Catheter Removed: 03/21/21 Time Urinary Catheter Discontinued: 11:01 Discharge Data Data Completed and Pending: Completed Studies During Hospitalization Category Date Time Status CT cervical spin wo con* [id number] Stat Cat Scan 01/21/21 15:[address] head wo con* 7 0450 Stat Cat Scan 01/21/21 08:[address] kidney stone 7 3387 Routine Cat Scan 01/22/21 10:33 Completed XR chest 1V donny ble [id number] Routine Exams 01/22/21 10:29 Completed XR chest 1V donny ble [id number] Stat Exams 01/21/21 08:08 Completed Pending at discharge Category Date Time Status XR ankle LT min 3 V* [id number] Routine Exams 01/25/21 12:32 Ordered XR ankle RT min 3 V* [id number] Routine Exams 01/25/21 12:32 Ordered ABG FULL [Arteria l Blood Gas Full] Stat Lab 01/23/21 20:58 Results Blood Culture Sta t Lab 01/22/21 12:58 Results Labs from last 24 hours 01/25/21 01/25/21 01/25/21 11:11 06:27 06:27 WBC 6.8 RBC 4.13 Hgb 12.5 Hct 37.3 MCV 90.3 MCH 30.3 MCHC 33.5 RDW 13.3 Plt Count 264 MPV 9.6 Neut % (Auto) 74.9 Lymph % (Auto) 14.0 [place] % (Auto) 8.8 Eos % (Auto) 2.1 Baso % (Auto) 0.1 Neut # (Auto) 5.10 Lymph # (Auto) 1.0 [place] # (Auto) 0.6 Eos # (Auto) 0.1 Baso # (Auto) 0.0 Nucleated RBC % (a uto) 0 Nucleated RBCs # 0.0 Sodium 137 Potassium 4.1 Chloride 105 Carbon Dioxide 23 Anion Gap 13.1 BUN 24 H Creatinine 0.6 GFR Calculation 101.6 Glucose 198 H POC Glucose 299 H Calculated Osmolal ity 294 Calcium 9.2 01/25/21 01/24/21 01/24/21 06:19 20:11 17:11 WBC RBC Hgb Hct MCV MCH MCHC RDW Plt Count MPV Neut % (Auto) Lymph % (Auto) [place] % (Auto) Eos % (Auto) Baso % (Auto) Neut # (Auto) Lymph # (Auto) [place] # (Auto) Eos # (Auto) Baso # (Auto) Nucleated RBC % (a uto) Nucleated RBCs # Sodium Potassium Chloride Carbon Dioxide Anion Gap BUN Creatinine GFR Calculation Glucose POC Glucose 208 H 283 H 257 H Calculated Osmolal ity Calcium Vitals: Last Vital Signs Temp 98.2 F 01/25/21 12:00 Pulse 97 01/25/21 12:00 Resp 17 01/25/21 12:00 BP 122/67 01/25/21 12:00 Pulse Ox 99 01/25/21 11:10 Discharge Plan Discharge Patient Disposition: Home Condition: Stable Prescriptions: New doxycycline hyclate 100 mg tablet 100 mg PO BID 5 Days Qty: 10 RF: 0 Continued Lantus U-100 Insulin 100 unit/mL solution See Rx Instructions .ROUTE .COMPLEX RF: 0 clopidogrel 75 mg tablet 75 mg PO DAILY@07 RF: 0 docusate sodium 100 mg capsule 100 mg PO DAILY@07 RF: 0 metformin 1,000 mg tablet 1,000 mg PO BID@ RF: 0 magnesium oxide 400 mg (241.3 mg magnesium) tablet 400 mg PO BID@ RF: 0 carvedilol [Coreg] 12.5 mg tablet 12.5 mg PO BID@, RF: 0 carbidopa-levodopa 25-100 mg tablet 1 tab PO TID@,, RF: 0 rosuvastatin 10 mg tablet 10 mg PO DAILY@20 RF: 0 acetaminophen [Tylenol 8 Hour] 650 mg tablet extended release 650 mg PO Q6H MDD 4,000mg PRN (Reason: Pain) RF: 0 Systane (propylene glycol) 0.4-0.3 % drops 1 drop ophthalmic (eye) PRN RF: 0 Ecotrin Low Strength 81 mg Tablet,Delayed Release (Dr/Ec) 81 mg PO DAILY@07 RF: 0 glipizide 5 mg tablet 2.5 mg PO DAILY@17 RF: 0 Vimpat 50 mg Tablet 50 mg PO BID@, RF: 0 Keppra 750 mg tablet 750 mg PO Q12H RF: 0 Held isosorbide mononitrate 30 mg tablet extended release 24 hr 30 mg PO DAILY@07 RF: 0 Hold Instructions: Resume on 02/01/21. Discontinued hydrochlorothiazide 25 mg tablet 25 mg PO DAILY@07 RF: 0 amlodipine 10 mg tablet 10 mg PO BID@ RF: 0 potassium chloride 10 mEq capsule, extended release 10 meq PO DAILY@ RF: 0 clonidine HCl 0.1 mg tablet 0.1 mg PO BID@ RF: 0 lisinopril 20 mg tablet 20 mg PO BID@ RF: 0 Discharge Orders: Discharge Order (Routine); Ordered 01/25/21 Ordered By: Sebastian Luevano Referrals: Isa Butcher MD [Physician] - 1 week (Ventriculomegaly - evaluation for NPH. Prior lacunar CVA. Parkinson's disease. Seizure disorder. ) Augustin Colón MD [Primary Care Provider] - 4-7 days Discharge Diet: Diabetic Discharge Activity: Increase activity as tolerated and As per PT/OT instructions Patient Instructions: Levofloxacin (By mouth), Altered Mental Status (GEN) Activity Restrictions/Additional Instructions: Please check blood pressures twice daily, record values to return appointment. If blood pressure is is, please resume antihypertensives in stepwise fashion over several days, Imdur, resume lisinopril, if still rising resume amlodipine. Please complete antibiotic course for pneumonia, urinary tract infection. Resume follow-up with neurology in office for follow-up of seizure disorder, follow-up on ventriculomegaly, consideration of possibility of normal pressure hydrocephalus, follow-up on noted chronic lacunar strokes on CT of the head. Continue work with primary care provider or neurologist to optimize risk factors for stroke. Avoid new medications without discussing with the primary provider. Maintain fall precautions. Please discuss with your primary care doctor to recheck sodium level at the next appointment. Discharge Attestations Time Spent in Discharge Care*: greater than 30 min Quality Metrics Clinical Quality Measures During this hospital stay, did patient experience: None Coding Level of Care Code Acute Chg FW DC note Exam Comprehensive Diagnoses Hypotension I95.9 Acute encephalopathy G93.40 UTI (urinary tract infection) N39.0 Fever R50.9 Accidental medication overdose T50.901A Fall W19.XXXA Hyponatremia E87.1 Lacunar infarction I63.81 Cerebral ventriculomegaly G93.89 Parkinson disease G20 Secondarily generalized seizures
[2021-01-27 11:31] LABS: Alveolar-Arterial Oxygen Gradi 6.5 mmHg (5-10); Base Excess ABG -1.6 mmol/L (-2.0-2.0); Blood Gas Allen Test Pos; Blood Gas Sample Site Radial, right; Blood Gas Sample Type Arterial; Carboxyhemoglobin 1.2 %THgb (0.4-20.1); HGB O2 Sat 92.1 % (95-100); Methemoglobin 0.7 % (0.4-1.5); Oxygen Device ROOM AIR
== END 2021-01-25 13:45 | disposition home or self-care (01) | DRG 917 ==
LOC: ER 08:48 → ICU 09:18 → MEDSURG 01-24 14:15
PROVIDERS: Hospitalist; Admitting Provider Internal Medicine; Emergency Provider Family Medicine; PCP Family Medicine; Visit Provider Internal Medicine
DX: T42.4X1A Poisoning by benzodiazepines, accidental (unintentional), initial encounter (principal); G92 Toxic encephalopathy; I63.81 Other cerebral infarction due to occlusion or stenosis of small artery; E87.1 Hypo-osmolality and hyponatremia; N39.0 Urinary tract infection, site not specified; G93.89 Other specified disorders of brain; Z79.82 Long term (current) use of aspirin; Z79.02 Long term (current) use of antithrombotics/antiplatelets; E11.9 Type 2 diabetes mellitus without complications; G40.909 Epilepsy, unspecified, not intractable, without status epilepticus; G20 Parkinson's disease; R82.71 Bacteriuria; I10 Essential (primary) hypertension; Z91.81 History of falling; Y92.009 Unspecified place in unspecified non-institutional (private) residence as the place of occurrence of the external cause; T46.1X1A Poisoning by calcium-channel blockers, accidental (unintentional), initial encounter; T44.3X1A Poisoning by other parasympatholytics [anticholinergics and antimuscarinics] and spasmolytics, accidental (unintentional), initial encounter; T47.1X1A Poisoning by other antacids and anti-gastric-secretion drugs, accidental (unintentional), initial encounter; T42.6X1A Poisoning by other antiepileptic and sedative-hypnotic drugs, accidental (unintentional), initial encounter; T46.5X1A Poisoning by other antihypertensive drugs, accidental (unintentional), initial encounter
CPT/HCPCS: 36415; 36416; 36600; 51702; 70450; 71045; 72125; 73610; 74176; 80048; 80051; 80053; 80306; 81001; 82330; 82550; 82803; 82805; 82962; 83605; 83690; 83735; 84484; 85025; 87040; 87070; 87077; 87086; 87186; 87205; 93005; 94002; 94003; 94799; 96372; 97110; 97116; 97161; 97530; 99291; 99292; J0330; J0744; J1644; J1815 ×2; J1956; J2704; J3010; J3475; J3490

== ENCOUNTER → 2021-01-27 08:53 | Outpatient (BNVA) | payer MEDICARE, MEDICAID, SELFPAY | PROVIDERS: PCP Family Medicine; Visit Provider Specialist | DX: G40.909 Epilepsy, unspecified, not intractable, without status epilepticus (principal); G93.89 Other specified disorders of brain; G20 Parkinson's disease; Z96.82 Presence of neurostimulator | CPT/HCPCS: 95970; 99215 ==

== ENCOUNTER 2021-03-27 06:56 | Emergency (ER) | payer MEDICARE, MEDICAID, SELFPAY ==
[2021-03-27 06:57] VITALS: BP 150/79; PULSE 84; RESP 16; TEMP 36.8; O2SAT 98; BMI 30.1
--- NOTE | 2021-03-27 07:06 | W.ED.GENADLT ---
HPI - General Adult General: Chief complaint: General Medical Stated complaint: decreased mental status Time Seen by Provider: 03/27/21 06:59 History of Present Illness: HPI narrative: 60-year-old female with early onset dementia lives at [facility] She has a power of senior attorney. He was found slumped over and unresponsive. EMS was called. On arrival there patient states she was appropriate for them. He has been she has been responsive to verbal stimuli since they encountered her. Her blood sugar was 88. She has a history of dementia. She is also diabetic. She has a history of seizures. There is no reported seizure activity at this time she is denying any discomfort. Onset (ago): unknown Relieving factors: none Exacerbating factors: none Associated symptoms: Reports confusion; Deny chest pain, cough, diaphoresis, decreased appetite, dyspnea, fevers/chills, headache(s), malaise, nausea, rash, palpitations, seizures, short of breath, syncope, vomiting or weakness Treatments prior to arrival: none Review of Systems Const: Denies: malaise or diaphoresis ENMT: Denies: throat pain, ear or mastoid pain, nasal discharge or nasal congestion Card: Denies: chest pain, palpitations or syncope Resp: Denies: dyspnea GI: Denies: nausea or vomiting : Denies: flank pain, difficulty voiding, dysuria, urinary frequency or urinary urgency Skin/Breast: Denies: rash Neuro: Reports: confusion; Denies: headache(s) [facility] PFSH: Medical History Diabetes Hypertension Parkinson disease Secondarily generalized seizures Surgical History Status post VNS (vagus nerve stimulator) placement Family History Other Diabetes Hypertension Denies family history of CAD (coronary artery disease) Cancer Stroke Social History Smoking and tobacco status: never smoked Alcohol intake: never History of recent travel: No Physical Exam Const: COMMON NORMALS: no acute distress GENERAL APPEARANCE: cooperative and comfortable HENMT: COMMON NORMALS: normocephalic, atraumatic and hearing grossly normal bilaterally HEAD & SCALP: normocephalic and atraumatic Eye: COMMON NORMALS: Equal, round and reactive pupils present, EOMs intact bilaterally, conjunctivae normal and no scleral icterus CONJUNCTIVA: Yes conjunctivae normal PUPIL: Yes Equal, round and reactive pupils present Neck/C-Spine: COMMON NORMALS: full ROM, no lymphadenopathy, supple and no JVD Lymph: LYMPHATIC: no lymphadenopathy noted and no lymphedema noted Resp: COMMON NORMALS: normal respiratory effort, No retractions, No use of accessory muscles and clear to auscultation bilaterally AUSCULTATION: clear to auscultation bilaterally Cardio: COMMON NORMALS: no JVD, regular rate, regular rhythm and No murmurs present (Cardio) RATE: regular rate RHYTHM: regular rhythm GI: COMMON NORMALS: Soft to palpation and No hepatosplenomegaly present AUSCULTATION: Yes normoactive bowel sounds PALPATION: Yes Soft to palpation, No Tenderness to palpation present (GI), No Guarding due to palpation present (GI) and Yes No hepatosplenomegaly present Extremity: COMMON NORMALS: normal to inspection, capillary refill normal, no clubbing, cyanosis or edema, no calf tenderness and no pedal edema Skin: COMMON NORMALS: no rashes or lesions noted GENERAL SKIN EXAM: no rashes or lesions noted Course Vital Signs: Vital signs: Vital Signs Temperature 98.2 F 03/27/21 06:57 Pulse Rate 99 03/27/21 09:20 Respiratory Rate 18 03/27/21 09:20 Blood Pressure 149/93 03/27/21 09:20 Pulse Oximetry 98 03/27/21 09:20 MDM - General Adult MDM Narrative: Medical decision making narrative: Patient is completely asymptomatic this time does not appear she is she has seizure blood sugars well controlled cardiac enzymes not elevated her head CT is negative. At this point and if we can safely discharge her or she has recurrence or other problems return. Lab Data: Labs: Lab Results 03/27/21 03/27/21 03/27/21 Range/Units 07:15 07:15 07:15 WBC 5.3 (4.0-10.0) 10^3/ uL RBC 4.49 (4.1-5.3) 10^6/u L Hgb 13.5 (11.5-15.3) g/dL Hct 38.2 (37.0-47.0) % MCV 85.1 (81-99) fL MCH 30.1 (28.0-34.0) pg MCHC 35.3 (30.0-36.0) g/dL RDW 12.3 (12.1-15.1) % Plt Count 240 (130-400) 10^3/c mm MPV 9.3 (7.4-10.4) fL Neut % (Auto) 69.4 % Lymph % (Auto) 18.1 % [place] % (Auto) 9.4 % Eos % (Auto) 2.5 % Baso % (Auto) 0.2 % Neut # (Auto) 3.68 (1.8-7.7) 10^3/u L Lymph # (Auto) 1.0 (0.8-4.8) 10^3/u L [place] # (Auto) 0.5 (0.2-0.9) 10^3/u L Eos # (Auto) 0.1 (0.0-0.8) 10^3/u L Baso # (Auto) 0.0 (0.0-0.1) 10^3/u L Nucleated RBC % (a uto) 0 % Nucleated RBCs # 0.0 /100WBC Sodium 135 L (136-145) mmol/L Potassium 3.7 (3.5-5.1) mmol/L Chloride 97 L (98-107) mmol/L Carbon Dioxide 25 (22-29) mmol/L Anion Gap 16.7 (5-19) BUN 10 (8-23) mg/dL Creatinine 0.5 (0.5-0.9) mg/dL GFR Calculation 125.4 (90-130) mL/min Glucose 85 (65-115) mg/dL Calculated Osmolal ity 278 L (285-295) mOsm/k g Calcium 9.1 (8.5-10.5) mg/dL Magnesium 1.9 (1.7-2.3) mg/dL Total Bilirubin 0.6 (0.15-1.2) mg/dL AST 12 (0-32) U/L ALT 14 (0-33) U/L Alkaline Phosphata se 93 (35-105) IU/L Creatine Kinase 34 (26-192) U/L Troponin T Baselin e 11 H (0-10) ng/L Troponin T 120 Min keshawn (0-10) ng/L Delta Troponin T (0-10) ABS# Total Protein 6.6 (6.6-8.7) g/dL Albumin 4.5 (3.5-5.2) g/dL Globulin 2.1 (1.3-4.6) g/dL Urine Color (Yellow) Urine Appearance (CLEAR) Urine pH (5-7) Ur Specific Gravit y (1.005-1.030) Urine Protein (Negative) Urine Glucose (UA) (Normal) Urine Ketones (Negative) Urine Blood (Negative) Urine Nitrate (Negative) Urine Bilirubin (Negative) Prot Sulfosalicyli c Acd (Negative) Urine Urobilinogen (Negative) mg/dL Ur Leukocyte Tena ase (Negative) 03/27/21 03/27/21 Range/Units 07:20 09:13 WBC (4.0-10.0) 10^3/ uL RBC (4.1-5.3) 10^6/u L Hgb (11.5-15.3) g/dL Hct (37.0-47.0) % MCV (81-99) fL MCH (28.0-34.0) pg MCHC (30.0-36.0) g/dL RDW (12.1-15.1) % Plt Count (130-400) 10^3/c mm MPV (7.4-10.4) fL Neut % (Auto) % Lymph % (Auto) % [place] % (Auto) % Eos % (Auto) % Baso % (Auto) % Neut # (Auto) (1.8-7.7) 10^3/u L Lymph # (Auto) (0.8-4.8) 10^3/u L [place] # (Auto) (0.2-0.9) 10^3/u L Eos # (Auto) (0.0-0.8) 10^3/u L Baso # (Auto) (0.0-0.1) 10^3/u L Nucleated RBC % (a uto) % Nucleated RBCs # /100WBC Sodium (136-145) mmol/L Potassium (3.5-5.1) mmol/L Chloride (98-107) mmol/L Carbon Dioxide (22-29) mmol/L Anion Gap (5-19) BUN (8-23) mg/dL Creatinine (0.5-0.9) mg/dL GFR Calculation (90-130) mL/min Glucose (65-115) mg/dL Calculated Osmolal ity (285-295) mOsm/k g Calcium (8.5-10.5) mg/dL Magnesium (1.7-2.3) mg/dL Total Bilirubin (0.15-1.2) mg/dL AST (0-32) U/L ALT (0-33) U/L Alkaline Phosphata se (35-105) IU/L Creatine Kinase (26-192) U/L Troponin T Baselin e (0-10) ng/L Troponin T 120 Min keshawn 10.41 H (0-10) ng/L Delta Troponin T -0.59 L (0-10) ABS# Total Protein (6.6-8.7) g/dL Albumin (3.5-5.2) g/dL Globulin (1.3-4.6) g/dL Urine Color Straw (Yellow) Urine Appearance Clear (CLEAR) Urine pH 8 H (5-7) Ur Specific Gravit y 1.005 (1.005-1.030) Urine Protein Neg (Negative) Urine Glucose (UA) Norm (Normal) Urine Ketones Negative (Negative) Urine Blood Neg (Negative) Urine Nitrate Negative (Negative) Urine Bilirubin Neg (Negative) Prot Sulfosalicyli c Acd Negative (Negative) Urine Urobilinogen Norm (Negative) mg/dL Ur Leukocyte Tena ase Negative (Negative) Discharge Plan Discharge Patient Disposition: Home Clinical Impression: Syncope, Secondarily generalized seizures Condition: Stable Prescriptions: No Action Lantus U-100 Insulin 100 unit/mL solution See Rx Instructions .ROUTE .COMPLEX RF: 0 clopidogrel 75 mg tablet 75 mg PO DAILY@07 RF: 0 docusate sodium 100 mg capsule 100 mg PO DAILY@07 RF: 0 isosorbide mononitrate 30 mg tablet extended release 24 hr 30 mg PO DAILY@07 RF: 0 Hold Instructions: Resume on 02/01/21. metformin 1,000 mg tablet 1,000 mg PO BID@, RF: 0 magnesium oxide 400 mg (241.3 mg magnesium) tablet 400 mg PO BID@, RF: 0 carvedilol [Coreg] 12.5 mg tablet 12.5 mg PO BID@,20 RF: 0 carbidopa-levodopa 25-100 mg tablet 1 tab PO TID@,,20 RF: 0 rosuvastatin 10 mg tablet 10 mg PO DAILY@20 RF: 0 acetaminophen [Tylenol 8 Hour] 650 mg tablet extended release 650 mg PO Q6H MDD 4,000mg PRN (Reason: Pain) RF: 0 Systane (propylene glycol) 0.4-0.3 % drops 1 drop ophthalmic (eye) PRN RF: 0 aspirin [Ecotrin Low Strength] 81 mg Tablet,Delayed Release (Dr/Ec) 81 mg PO DAILY@07 RF: 0 glipizide 5 mg tablet 2.5 mg PO DAILY@17 RF: 0 levetiracetam [Keppra] 750 mg tablet 750 mg PO Q12H RF: 0 clonidine HCl 0.1 mg Tablet 0.1 mg PO BID@, RF: 0 lisinopril 20 mg Tablet 20 mg PO BID@, RF: 0 potassium chloride 10 mEq Tablet Extended Release 10 meq PO DAILY@07 RF: 0 amlodipine 10 mg Tablet 10 mg PO BID@ RF: 0 hydrochlorothiazide 25 mg Tablet 25 mg PO DAILY@07 RF: 0 Vimpat 50 mg tablet 50 mg PO BID@, RF: 0 Discharge Orders: Discharge ED (Routine); Ordered 03/27/21 Ordered By: Noel Ochoa Referrals: Augustin Colón MD [Primary Care Provider] - Patient Instructions: Opioid Safety Coding Level of Care Code ED Mems Integration Engineer for g Fwd Exam Comprehensive
--- NOTE | 2021-03-27 07:07 | ECG_ITS ---
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1960 Requested By: Noel Krueger Order Number: [id number] Reading MD: CLAUDETTE KRISHNAN Measurements Intervals [place] Rate: 84 P: 23 [place]: 185 QRS: -56 QRSD: 83 T: 2 QT: 356 QTc: 422 Interpretive Statements SINUS RHYTHM LEFT AXIS DEVIATION [QRS AXIS < -30] ANTEROSEPTAL MYOCARDIAL INFARCTION , OF INDETERMINATE AGE [40+ ms Q WAVE IN V1-V4] Compared to ECG 01/23/2021 13:41:13 Sinus tachycardia no longer present Ventricular premature complex(es) no longer present Myocardial infarct finding still present Electronically Signed On 03-27-2021 21:19:56 CDT by CLAUDETTE KRISHNAN [id number]
--- NOTE | 2021-03-27 07:07 | CTR_ITS ---
PROCEDURE INFORMATION: Exam: CT Head Without Contrast Exam date and time: 03/27/2021 7:16 AM Age: 60 years old Clinical indication: Altered mental status/memory loss TECHNIQUE: Imaging protocol: Computed tomography of the head without contrast. Radiation optimization: All CT scans at this facility use at least one of these dose optimization techniques: automated exposure control; mA and/or kV adjustment per patient size (includes targeted exams where dose is matched to clinical indication); or iterative reconstruction. COMPARISON: CT head wo con* [id number] 01/21/2021 9:05 AM RADIATION DOSE METRICS: Total DLP (mGy-cm): 819.06 FINDINGS: Brain: No acute appearing brain parenchymal abnormality. No intracranial hemorrhage. No extraaxial fluid collections. There is diffuse cerebral atrophy. Chronic appearing left thalamic lacunar infarct. Small chronic appearing infarct in the right cerebellar hemisphere. Cerebral ventricles: There is dilatation of the lateral and 3rd ventricles out of proportion to the cerebral sulci raising the possibility of normal pressure hydrocephalus. No change in the ventricular size. Bones/joints: No calvarial fracture. There is hyperostosis frontalis interna. Paranasal sinuses: Mild multifocal mucoperiosteal thickening. Mastoid air cells: The visualized mastoid air cells are aerated. Soft tissues: No acute soft tissue abnormality. CT/CT head wo con* [id number] IMPRESSION: No acute intracranial abnormality. Radiation Dose CTDIVOL = (mGy): DLP = 819.06 (mGy-cm)
--- NOTE | 2021-03-27 07:07 | XR_ITS ---
WS: [id number] Portable AP upright chest, 03/27/2021 Clinical Data: dyspnea/cough Comparison: Portable chest, 01/22/2021. Findings: No nodules, masses or effusions are seen. The heart is slightly enlarged. The pulmonary vas cularity is not increased. No pneumonia or pneumothorax is seen. There is a generator for a stimulato r device overlying the left upper chest. The aortic arch and descending aorta are tortuous. XR/XR chest 1V portable [id number] Impression: Atherosclerosis and cardiomegaly.
[2021-03-27 07:20] LABS: Basophils % 0.2 %; Eosinophils # 0.1 10^3/uL (0.0-0.8); Eosinophils % 2.5 %; Hematocrit 38.2 % (37.0-47.0); Hemoglobin 13.5 g/dL (11.5-15.3); Lymphocytes % 18.1 %; Mean Corpuscular HGB Conc 35.3 g/dL (30.0-36.0); Mean Corpuscular Hemoglobin 30.1 pg (28.0-34.0); Mean Corpuscular Volume 85.1 fL (81-99); Mean Platelet Volume 9.3 fL (7.4-10.4); Monocytes # 0.5 10^3/uL (0.2-0.9); Monocytes % 9.4 %; Neutrophils # 3.68 10^3/uL (1.8-7.7); Neutrophils % 69.4 %; Nucleated Red Blood Cells % 0 %; Platelet Count 240 10^3/cmm (130-400); Red Blood Count 4.49 10^6/uL (4.1-5.3); Red Cell Distribution Width 12.3 % (12.1-15.1); White Blood Count 5.3 10^3/uL (4.0-10.0)
[2021-03-27 07:21] VITALS: PULSE 84
[2021-03-27 07:30] LABS: Add Urine Microscopic? NO; Charge for UA Resulting for Rev
[2021-03-27 07:35] LABS: Bilirubin Urine Neg (Negative); Blood Urine Neg (Negative); Glucose Urine UA Norm (Normal); Ketones Urine Negative (Negative); Leukocyte Esterase Urine Negative (Negative); Nitrate Urine Negative (Negative); Protein Urine Neg (Negative); Specific Gravity, Urine 1.005 (1.005-1.030); Sulfosalicylic Acid Urine Negative (Negative); Urine Appearance Clear (CLEAR); Urine Color Straw (Yellow); Urobilinogen Urine Norm (Negative); pH Urine 8 (5-7)
[2021-03-27 07:38] LABS: Troponin(5th) Baseline 11 ng/L (0-10)
[2021-03-27 07:43] LABS: Alanine Aminotransferase 14 U/L (0-33); Albumin Level 4.5 g/dL (3.5-5.2); Alkaline Phosphatase 93 IU/L (35-105); Anion Gap 16.7 (5-19); Aspartate Amino Transferase 12 U/L (0-32); Blood Urea Nitrogen 10 mg/dL (8-23); Calcium 9.1 mg/dL (8.5-10.5); Carbon Dioxide 25 mmol/L (22-29); Chloride 97 mmol/L (98-107); Creatine Phosphokinase 34 U/L (26-192); Creatinine Clr Calc Pharmacy 116.1777; Globulin 2.1 g/dL (1.3-4.6); Glomerular Filtration Rate 125.4 mL/min (90-130); Glucose 85 mg/dL (65-115); Magnesium 1.9 mg/dL (1.7-2.3); Osmolality Calculated 278 mOsm/kg (285-295); Potassium 3.7 mmol/L (3.5-5.1); Sodium 135 mmol/L (136-145); Total Bilirubin 0.6 mg/dL (0.15-1.2); Total Protein 6.6 g/dL (6.6-8.7)
--- NOTE | 2021-03-27 09:07 | ECG_ITS ---
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1960 Requested By: Noel Krueger Order Number: [id number] Reading MD: CLAUDETTE KRISHNAN Measurements Intervals [place] Rate: 92 P: 56 [place]: 206 QRS: -68 QRSD: 82 T: 26 QT: 342 QTc: 424 Interpretive Statements SINUS RHYTHM WITH OCCASIONAL ECTOPIC PREMATURE COMPLEXES LEFT AXIS DEVIATION [QRS AXIS < -30] ANTEROSEPTAL MYOCARDIAL INFARCTION , OF INDETERMINATE AGE [40+ ms Q WAVE IN V1-V4] Compared to ECG 03/27/2021 07:15:18 No significant changes Electronically Signed On 03-27-2021 21:23:19 CDT by CLAUDETTE KRISHNAN [id number] f
[2021-03-27 09:20] VITALS: BP 149/93; PULSE 99; RESP 18; O2SAT 98
[2021-03-27 09:42] LABS: Troponin 5 2HR 10.41 ng/L (0-10)
[2021-03-27 09:43] LABS: Troponin 5 2HR Delta -0.59 ABS# (0-10)
[2021-03-27 10:05] VITALS: BP 134/84; PULSE 98; RESP 18; O2SAT 98
== END 2021-03-27 10:06 | disposition home or self-care (01) ==
PROVIDERS: Emergency Provider Family Medicine; PCP Family Medicine
DX: R55 Syncope and collapse (principal); G40.409 Other generalized epilepsy and epileptic syndromes, not intractable, without status epilepticus; Z79.02 Long term (current) use of antithrombotics/antiplatelets; Z79.4 Long term (current) use of insulin; E11.9 Type 2 diabetes mellitus without complications; I10 Essential (primary) hypertension; G20 Parkinson's disease
CPT/HCPCS: 70450; 71045; 80053; 81003; 82550; 83735; 84484; 85025; 93005; 99284

== ENCOUNTER 2021-12-02 09:33 | Outpatient (CLI) | payer MEDICARE, MEDICAID, SELFPAY ==
--- NOTE | 2021-12-02 09:46 | MM_ITS ---
WS: [id number] Bilateral screening digital mammogram, 12/02/2021 Clinical Data: SCREENING Comparison: 10/20/2020, 10/19/2019, 10/18/2018, 01/25/2012. Findings: The breast parenchymal pattern shows heterogeneous density No spiculated masses or clustered calcific ations are seen. There are no secondary signs of carcinoma. There is a 2.2 cm fibroadenoma in the upp er outer quadrant right breast unchanged. There are benign calcifications throughout both breasts. MM/[place] [id number] Impression: 1. Negative bilateral mammogram unchanged. 2. Recommend annual screening mammograms. BIRADS: 1-Negative FOLLOW UP: 1 Year Follow-up The CAD supervisor food checkers and cashiers was used.
== END 2021-12-02 09:34 | disposition home or self-care (01) ==
PROVIDERS: PCP Family Medicine; Visit Provider Family Medicine
DX: Z12.31 Encounter for screening mammogram for malignant neoplasm of breast (principal)
CPT/HCPCS: 77067

== ENCOUNTER 2022-03-21 20:47 | Emergency (ER) | payer MEDICARE, MEDICAID, SELFPAY ==
[2022-03-21 21:30] VITALS: BP 116/71; PULSE 68; RESP 18; TEMP 36.7; O2SAT 97
[2022-03-22 00:52] LABS: Glucose Point of Care 115 mg/dL (70-110)
--- NOTE | 2022-03-22 00:58 | ED_ITS ---
HPI - General Adult General: Chief complaint: General Medical Stated complaint: needs medication Time Seen by Provider: 03/22/22 00:21 History of Present Illness: Patient is a 61-year-old female comes to the ED with for medication refill. Patient is a diabetic and takes insulin. Patient accidentally dropped her insulin and it broke and so she does not have any insulin currently. She is needing a refill for her prescription. She denies any current symptoms and her blood sugar was in normal range when she checked it several hours ago. Associated symptoms: Deny chest pain, dyspnea, headache(s), nausea, rash, palpitations or vomiting Review of Systems Const: Denies: fever(s), chills or fatigue Eyes: Denies: change in vision or eye discomfort ENMT: Denies: throat pain, odynophagia, nasal discharge or nasal congestion Card: Denies: chest pain, palpitations, edema, swelling of feet/ankles, dyspnea on exertion or orthopnea Resp: Denies: dyspnea, productive cough or non-productive cough GI: Denies: abdominal pain, nausea, vomiting, diarrhea, constipation or hematochezia : Denies: flank pain, dysuria or hematuria Musc: Denies: neck pain, back pain or extremity swelling Skin/Breast: Denies: rash or new lesions Neuro: Denies: headache(s), numbness in extremities or weakness in extremities PFSH ED PFSH: Medical History Diabetes Hypertension Parkinson disease Secondarily generalized seizures Surgical History Status post VNS (vagus nerve stimulator) placement Family History Other Diabetes Hypertension Denies family history of CAD (coronary artery disease) Cancer Stroke Social History Smoking and tobacco status: never smoked Alcohol intake: never History of recent travel: No Physical Exam Const: COMMON NORMALS: no acute distress, patient oriented x3 and alert GENERAL APPEARANCE: cooperative and comfortable HENMT: COMMON NORMALS: normocephalic HEAD & SCALP: normocephalic MOUTH: Normal oral and palatal mucosa present THROAT: posterior oropharynx normal and uvula midline Neck/C-Spine: COMMON NORMALS: supple GENERAL: Yes normal visual inspection Resp: COMMON NORMALS: normal respiratory effort, No retractions, No use of accessory muscles and clear to auscultation bilaterally AUSCULTATION: clear to auscultation bilaterally Cardio: COMMON NORMALS: regular rate, regular rhythm, S1 normal heart sound present, S2 normal heart sound present, No gallops present (Cardio), No clicks present (Cardio), No murmurs present (Cardio) and Peripheral pulses 2+ throughout RATE: regular rate RHYTHM: regular rhythm HEART SOUNDS: S1 normal heart sound present and S2 normal heart sound present PERIPHERAL PULSES: Peripheral pulses 2+ throughout GI: COMMON NORMALS: Normal to inspection, nondistended, normoactive bowel sounds present, Soft to palpation, non-tender and no masses PALPATION: Yes Soft to palpation : COMMON NORMALS: Yes no CVA tenderness BLADDER/KIDNEY EXAM: Yes no CVA tenderness Back/Pelvis: COMMON NORMALS: no CVA tenderness Extremity: COMMON NORMALS: normal to inspection Neuro: COMMON NORMALS: patient oriented x3 and moves all extremities SENSORIUM/ORIENTATION: Yes alert Skin: GENERAL SKIN EXAM: dry skin Course Vital Signs: Vital signs: Vital Signs Temperature 98.0 F 03/21/22 21:30 Pulse Rate 75 03/22/22 01:19 Respiratory Rate 18 03/22/22 01:19 Blood Pressure 120/78 03/22/22 01:19 Pulse Oximetry 98 03/22/22 01:19 [facility] - General Adult Medical Decision Making Patient is a 61-year-old female comes to the ED in need of a medication refill. Patient dropped Lantus and it broke and needs a refill. She has no complaints and her blood sugar is 115 here in the ED. Vitals are stable and exam is benign. Patient was stable for discharge home and was sent home with a refill prescription for Lantus. She was told to follow-up with her PCP in the next week for reevaluation. Return to ED precautions given. Patient understood and agreed with plan. Lab Data Laboratory Results POC Glucose 115 mg/dL (70-110) H 03/22/22 00:50 Discharge Plan Discharge Patient Disposition: Home Clinical Impression: Encounter for medication refill Condition: Stable Prescriptions: New insulin glargine 100 unit/mL solution 30 unit SUBCUT DAILY Qty: 10 0RF Rx Instructions: Take 20 units q am and 10 units q pm No Action Lantus U-100 Insulin 100 unit/mL solution See Rx Instructions .ROUTE .COMPLEX 0RF Rx Instructions: 20 units sub-q qam and 10 units qpm clopidogrel 75 mg tablet 75 mg PO DAILY@07 0RF docusate sodium 100 mg capsule 100 mg PO DAILY@07 0RF isosorbide mononitrate 30 mg tablet extended release 24 hr 30 mg PO DAILY@07 0RF Hold Instructions: Resume on 02/01/21. metformin 1,000 mg tablet 1,000 mg PO BID@07,17 0RF magnesium oxide 400 mg (241.3 mg magnesium) tablet 400 mg PO BID@,20 0RF carvedilol [Coreg] 12.5 mg tablet 12.5 mg PO BID@,20 0RF carbidopa-levodopa 25-100 mg tablet 1 tab PO TID@07,16,20 0RF rosuvastatin 10 mg tablet 10 mg PO DAILY@20 0RF acetaminophen [Tylenol 8 Hour] 650 mg tablet extended release 650 mg PO Q6H MDD 4,000mg PRN (Reason: Pain) 0RF Systane (propylene glycol) 0.4-0.3 % drops 1 drop ophthalmic (eye) PRN 0RF levetiracetam 750 mg tablet 750 mg PO BID Qty: 60 0RF Rx Instructions: MUST HAVE APPOINTMENT FOR FUTURE REFILLS Vimpat 50 mg tablet 50 mg PO BID@07,19 Qty: 60 0RF Rx Instructions: MUST HAVE APPOINTMENT FOR FUTURE REFILLS aspirin [Ecotrin Low Strength] 81 mg Tablet,Delayed Release (Dr/Ec) 81 mg PO DAILY@07 0RF glipizide 5 mg tablet 2.5 mg PO DAILY@17 0RF clonidine HCl 0.1 mg Tablet 0.1 mg PO BID@,20 0RF lisinopril 20 mg Tablet 20 mg PO BID@,20 0RF potassium chloride 10 mEq Tablet Extended Release 10 meq PO DAILY@07 0RF amlodipine 10 mg Tablet 10 mg PO BID@,20 0RF hydrochlorothiazide 25 mg Tablet 25 mg PO DAILY@07 0RF Discharge Orders: Discharge ED (Routine); Ordered 03/22/22 Ordered By: Joseph New Referrals: Augustin Colón MD [Primary Care Provider] - Discharge Diet: Regular Discharge Activity: Resume usual activity Patient Instructions: Diabetes and Diet, Insulin Glargine (By injection) (Lantus, Lantus SoloStar, Toujeo, Semglee) Activity Restrictions/Additional Instructions: Follow-up with medical provider as directed in the next 5 to 7 days reevaluation. Get insulin prescription filled tomorrow morning. Take medications as prescribed. Return to the ER or your medical provider if condition worsens. Please read and understand discharge instructions. Thank you for choosing [facility] for your healthcare needs today. Please realize this is an emergency room and that we are providing you with a medical screening exam and this may not be complete and all inclusive of all the testing and or work up that you may need to determine your ailment or severity of your illness. It is very important that you follow up as instructed or that you return to the Emergency Department should you have concerns or if your condition changes or worsens in any way. Coding Level of Care Code ED Construction Trench Digger for Sudha Fwd Exam Comprehensive
[2022-03-22 01:19] VITALS: BP 120/78; PULSE 75; RESP 18; O2SAT 98
== END 2022-03-22 01:21 | disposition home or self-care (01) ==
PROVIDERS: Emergency Provider Physician Assistant; PCP Family Medicine
DX: Z76.0 Encounter for issue of repeat prescription (principal); E11.9 Type 2 diabetes mellitus without complications; Z79.4 Long term (current) use of insulin; Z79.84 Long term (current) use of oral hypoglycemic drugs
CPT/HCPCS: 36416; 82962; 99283

== ENCOUNTER 2022-04-16 19:57 | Emergency (ER) | payer MEDICARE, MEDICAID, SELFPAY ==
[2022-04-16 19:59] VITALS: BP 139/78; PULSE 112; RESP 20; TEMP 36.8; O2SAT 100; BMI 30.1
--- NOTE | 2022-04-16 20:04 | ECG_ITS ---
[facility] Test Date: 2022-04-16 Pat Name: Aubrie Mathias Department: Room: Gender: Female Provisioning Analyst: : 1960 Requested By: Gonzalez Klein Order Number: [id number] Malcolm MD: Kofi Daniels M.D. Measurements Intervals [place] Rate: 101 P: 56 MI: 202 QRS: -65 QRSD: 87 T: 46 QT: 305 QTc: 397 Interpretive Statements SINUS TACHYCARDIA LEFT AXIS DEVIATION [QRS AXIS < -30] ANTEROSEPTAL MYOCARDIAL INFARCTION , OF INDETERMINATE AGE [40+ ms Q WAVE IN V1-V4] Compared to ECG 03/27/2021 09:11:28 Sinus rhythm no longer present Myocardial infarct finding still present Electronically Signed On 04-17-2022 0:30:23 CDT by Kofi Daniels M.D. [email or web address]
--- NOTE | 2022-04-16 20:05 | W.ED.SEIZURE ---
HPI - Seizure General: Chief Complaint: Seizure Stated Complaint: SEIZURE Time Seen by Provider: 04/16/22 19:59 Source: patient and EMS Mode of arrival: EMS Limitations: no limitations History of Present Illness: HPI Narrative: PrivatePatient with a longstanding history of seizure disorder was transported by EMS. She comes from her long-term care facility. She apparently had a short duration seizure lasting approximately 1 minute. This was witnessed by staff. They contacted her family who requested that she be evaluated in the emergency department. The patient apparently did not suffer any injury as a result of the seizure according to EMS and [facility] staff. She did not suffer any loss of bowel or bladder control. The patient denies any complaints at this time. She also states that she does not have any prodrome or awareness of an oncoming seizure. She has not been recently ill. She states she is taking her medication this morning but has not sure whether she is taking her evening medications. She states she has eaten and drank normally today. She states she has been sleeping normally as well. MD complaint: seizure Description of Episode: loss of consciousness and tonic-clonic movement Witnessed: Yes - by Bystander Seizure History: Yes Place: Home ([facility]) Possible Precipitating Event: none Associated symptoms: Deny chest pain, chills, confusion or fever(s) Review of Systems Const: Denies: fever(s), chills, body aches or change in appetite Eyes: Denies: change in vision ENMT: Denies: throat pain, odynophagia, dental pain or nasal congestion Card: Denies: chest pain, palpitations, irregular heart rhythm or edema Resp: Denies: dyspnea, productive cough or non-productive cough GI: Denies: abdominal pain, nausea, vomiting or hematemesis : Denies: flank pain, difficulty voiding or dysuria Musc: Denies: neck pain, back pain, extremity pain or extremity swelling Skin/Breast: Denies: rash or pruritus Neuro: Reports: seizure-like activity; Denies: headache(s), numbness in extremities, weakness in extremities, frequent falls, dizziness, confusion or Slurred speech present Psych: Denies: anxiety or depression Endo: Denies: polyuria or polydipsia PFSH ED PFSH: Medical History Diabetes Hypertension Parkinson disease Secondarily generalized seizures Surgical History Status post VNS (vagus nerve stimulator) placement Family History Other Diabetes Hypertension Denies family history of CAD (coronary artery disease) Cancer Stroke Social History Smoking and tobacco status: never smoked Alcohol intake: never History of recent travel: No Physical Exam Narrative: EXAM NARRATIVE: The patient is alert quite interactive and appears to be in no acute distress. No signs of trauma noted. Const: COMMON NORMALS: no acute distress, patient oriented x3, no limitations and alert GENERAL APPEARANCE: cooperative, comfortable and well kempt ORIENTATION/CONSCIOUSNESS: Yes oriented to person and Yes oriented to place HENMT: COMMON NORMALS: normocephalic, atraumatic, external ears normal, EAC's normal, TM's normal bilaterally, Normal external nose present, Normal nasal mucous membranes and turbinates present, moist oral mucous membranes and gingiva normal HEAD & SCALP: normocephalic and atraumatic NOSE: Normal external nose present and Normal nasal mucous membranes and turbinates present EXTERNAL EAR: Yes external ears normal EXTERNAL AUDITORY CANAL: EAC's normal TYMPANIC MEMBRANE: TM's normal bilaterally MOUTH: other (No signs of intraoral injury) Eye: COMMON NORMALS: Equal, round and reactive pupils present, EOMs intact bilaterally, conjunctivae normal, no scleral icterus and no papilledema CONJUNCTIVA: Yes conjunctivae normal PUPIL: Yes Equal, round and reactive pupils present DIRECT OPHTHALMOSCOPY: Yes no papilledema Neck/C-Spine: COMMON NORMALS: full ROM and no meningeal signs CERVICAL SPINE: Yes cervical ROM normal, No Cervical spine tenderness, No step off deformity, No Paracervical muscle tenderness, No Paracervical spasm and No Trapezius muscle tenderness OTHER: She is able to range her head 45 degrees left and right forward bend and extend 15 degrees without any discomfort. No midline tenderness, no step-off. Lymph: LYMPHATIC: no lymphadenopathy noted Chest: COMMONS NORMALS: normal inspection of the chest Resp: COMMON NORMALS: normal respiratory effort and clear to auscultation bilaterally AUSCULTATION: clear to auscultation bilaterally Cardio: COMMON NORMALS: regular rate, regular rhythm, No murmurs present (Cardio) and Peripheral pulses 2+ throughout RATE: regular rate RHYTHM: regular rhythm PERIPHERAL PULSES: Peripheral pulses 2+ throughout GI: COMMON NORMALS: Normal to inspection, nondistended, normoactive bowel sounds present, Soft to palpation and non-tender PALPATION: Yes Soft to palpation : COMMON NORMALS: Yes no CVA tenderness BLADDER/KIDNEY EXAM: Yes no CVA tenderness Back/Pelvis: COMMON NORMALS: no CVA tenderness, thoracic and lumbar spine normal to inspection and no thoracic nor lumbar tenderness Extremity: COMMON NORMALS: normal to inspection, full ROM, no joint enlargement, no calf tenderness and no pedal edema Neuro: COMMON NORMALS: patient oriented x3, moves all extremities, no focal motor deficits, no sensory deficits noted and deep tendon reflexes 2+ bilaterally SENSORIUM/ORIENTATION: Yes alert, Yes oriented to person and Yes oriented to place MENINGEAL SIGNS: Yes no meningeal signs Psych: COMMON NORMALS: mental status grossly normal APPEARANCE: Yes well kempt Skin: COMMON NORMALS: no rashes or lesions noted, no wounds and turgor normal GENERAL SKIN EXAM: no rashes or lesions noted and turgor normal Course Reevaluation(s): Reevaluation #1: Patient's remains stable alert and interactive. No new findings on repeat examination. She was given 1000 mg of Keppra as she has not received her evening dose of 750 mg and I thought it was reasonable that we give her a slightly increased dose since she had a seizure. I do not feel that there is any clinical issues of a suggest worrisome etiology to her seizure given her past history of longstanding seizure disorder and her reassuring examination. We have observed her in the emergency department and we will plan on sending her back to her normal care facility. I think it is reasonable that she have a repeat evaluation by her prescribing physician for consideration of whether she needs an increased dose of Keppra if she has continued breakthrough seizures. Time: 21:02 Vital Signs: Vital signs: Vital Signs Temperature 98.3 F 04/16/22 19:59 Pulse Rate 112 H 04/16/22 19:59 Respiratory Rate 20 H 04/16/22 19:59 Blood Pressure 139/78 04/16/22 19:59 Pulse Oximetry 100 04/16/22 19:59 MDM - Seizure MDM Narrative Medical decision making narrative: Patient brought to the emergency department at the insistence of remote family for breakthrough seizure. No prodrome to the seizure, no history of trauma prior to the seizure or as a result of the seizure. No history of recent infection sleep deprivation missed medications etc. Clinical exam here is very reassuring. Blood sugars were slightly elevated but certainly not hypoglycemic either via EMS or at this facility. She has not displayed any arrhythmias. She was observed, given a evening dose of Keppra and has remained stable and suitable to be discharged back to continue care with outpatient follow-up. Lab Data Labs: Laboratory Results POC Glucose 231 mg/dL (70-110) H 04/16/22 20:38 EKG Data EKG 1: EKG interpretation time: 19:12 Interpretation: Her EKG reveals a borderline sinus tachycardia. She has leftward axis as well as loss of R wave anterior [place]. She has normal LA and QRS interval duration and normal QTC. No acute ST-T wave changes noted. No change from prior EKGs within the system. Discharge Plan Discharge Patient Disposition: Home Clinical Impression: Generalized seizure Condition: Stable Prescriptions: No Action Lantus U-100 Insulin 100 unit/mL solution See Rx Instructions .ROUTE .COMPLEX 0RF Rx Instructions: 20 units sub-q qam and 10 units qpm clopidogrel 75 mg tablet 75 mg PO DAILY@07 0RF docusate sodium 100 mg capsule 100 mg PO DAILY@07 0RF isosorbide mononitrate 30 mg tablet extended release 24 hr 30 mg PO DAILY@07 0RF Hold Instructions: Resume on 02/01/21. metformin 1,000 mg tablet 1,000 mg PO BID@,17 0RF magnesium oxide 400 mg (241.3 mg magnesium) tablet 400 mg PO BID@,20 0RF carvedilol [Coreg] 12.5 mg tablet 12.5 mg PO BID@07,20 0RF carbidopa-levodopa 25-100 mg tablet 1 tab PO TID@07,16,20 0RF rosuvastatin 10 mg tablet 10 mg PO DAILY@20 0RF acetaminophen [Tylenol 8 Hour] 650 mg tablet extended release 650 mg PO Q6H MDD 4,000mg PRN (Reason: Pain) 0RF Systane (propylene glycol) 0.4-0.3 % drops 1 drop ophthalmic (eye) PRN 0RF levetiracetam 750 mg tablet 750 mg PO BID Qty: 60 0RF Rx Instructions: MUST HAVE APPOINTMENT FOR FUTURE REFILLS Vimpat 50 mg tablet 50 mg PO BID@07,19 Qty: 60 0RF Rx Instructions: MUST HAVE APPOINTMENT FOR FUTURE REFILLS aspirin [Ecotrin Low Strength] 81 mg Tablet,Delayed Release (Dr/Ec) 81 mg PO DAILY@07 0RF glipizide 5 mg tablet 2.5 mg PO DAILY@17 0RF clonidine HCl 0.1 mg Tablet 0.1 mg PO BID@07,20 0RF lisinopril 20 mg Tablet 20 mg PO BID@07,20 0RF potassium chloride 10 mEq Tablet Extended Release 10 meq PO DAILY@07 0RF amlodipine 10 mg Tablet 10 mg PO BID@07,20 0RF hydrochlorothiazide 25 mg Tablet 25 mg PO DAILY@07 0RF insulin glargine 100 unit/mL solution 30 unit SUBCUT DAILY Qty: 10 0RF Rx Instructions: Take 20 units q am and 10 units q pm Discharge Orders: Discharge ED (Routine); Ordered 04/16/22 Ordered By: Gonzalez Klein Referrals: Augustin Colón MD [Primary Care Provider] - 4-7 days (Reevaluate Keppra dosing given breakthrough seizures.) Discharge Diet: Usual diet Discharge Activity: Resume usual activity Patient Instructions: Opioid Safety Activity Restrictions/Additional Instructions: The patient should continue all her usual medications. Her regular physician should be consulted and a follow-up evaluation to determine if Keppra dosing should be increased. If there is any new or worsening or other concerning symptoms return to the emergency department for reevaluation. Coding Level of Care Code ED Rug Sizer for Sudha Fwenid Exam Comprehensive
[2022-04-16] MEDS: levETIRAcetam 500 mg Tablet 1000 MG PO (20:35)
[2022-04-16 20:41] LABS: Glucose Point of Care 231 mg/dL (70-110)
[2022-04-16 21:25] VITALS: BP 142/92; PULSE 108; RESP 18; O2SAT 97
== END 2022-04-16 21:26 | disposition home or self-care (01) ==
PROVIDERS: Emergency Provider Emergency Medicine; PCP Family Medicine
DX: R56.9 Unspecified convulsions (principal); E11.9 Type 2 diabetes mellitus without complications; I10 Essential (primary) hypertension; G20 Parkinson's disease; Z79.4 Long term (current) use of insulin; Z79.84 Long term (current) use of oral hypoglycemic drugs; Z79.82 Long term (current) use of aspirin
CPT/HCPCS: 36416; 82962; 93005; 99283

== ENCOUNTER → 2022-05-04 10:58 | Outpatient (BNVA) | payer MEDICARE, MEDICAID, SELFPAY | PROVIDERS: PCP Family Medicine; Referring Provider Specialist; Visit Provider Specialist | DX: G40.804 Other epilepsy, intractable, without status epilepticus (principal) | CPT/HCPCS: 99214 ==

== ENCOUNTER → 2022-06-18 09:23 | Outpatient (BNVA) | payer MEDICARE, MEDICAID, SELFPAY | PROVIDERS: PCP Family Medicine; Visit Provider Podiatrist Foot & Ankle Surgery | DX: B35.1 Tinea unguium (principal); E11.8 Type 2 diabetes mellitus with unspecified complications; Z79.4 Long term (current) use of insulin; L85.3 Xerosis cutis; M79.672 Pain in left foot; M79.671 Pain in right foot | CPT/HCPCS: 11721; 99203 ==

== ENCOUNTER → 2022-08-04 11:10 | Outpatient (BNVA) | payer MEDICARE, MEDICAID, SELFPAY | PROVIDERS: PCP Family Medicine; Visit Provider Specialist | DX: R41.3 Other amnesia (principal); G40.802 Other epilepsy, not intractable, without status epilepticus; G93.89 Other specified disorders of brain; F81.9 Developmental disorder of scholastic skills, unspecified; Z45.42 Encounter for adjustment and management of neurostimulator; Z96.82 Presence of neurostimulator | CPT/HCPCS: 95970; 99214 ==

== ENCOUNTER → 2022-09-02 13:01 | Outpatient (BNVA) | payer MEDICARE, MEDICAID, SELFPAY | PROVIDERS: PCP Family Medicine; Visit Provider Thoracic Surgery (Cardiothoracic Vascular Surgery) | DX: Z96.89 Presence of other specified functional implants (principal) | CPT/HCPCS: 99203 ==

== ENCOUNTER 2022-09-21 06:56 | Day surgery (SDC) | payer MEDICARE, MEDICAID, SELFPAY ==
[2022-09-20 13:43] VITALS: BMI 26.5
[2022-09-21] VITALS (9 sets, daily range): BP systolic 85–165; BP diastolic 44–102; PULSE 59–78; RESP 16–18; TEMP 36.3; O2SAT 92–98
[2022-09-21] MEDS: sodium chloride 0.9% 1,000 ML 30 ML IV (07:40)
--- NOTE | 2022-09-21 07:56 | ANES.PREANE2 ---
Pre-Anesthetic Assessment Height/Weight: Height 1.6 m Weight 68.039 kg Temp Pulse Resp BP Pulse Ox O2 Del Method 97.4 F L 78 16 165/102 98 09/21/22 07:22 09/21/22 07:22 09/21/22 07:22 09/21/22 07:22 09/21/22 07:22 09/21/22 07:22 Preop Diagnosis: VNS generator end of service Operation Date: 09/21/22 08:20 Proposed Procedures p VNS Generator Exchange 76154,G93.89(Not Applicable) - Mikie Modi MD Familial anesthetic complications: None Was Beta Kanika taken within 24 hours: N/A Was Clonidine taken within 24 hours: N/A Last intake: Intake Last Liquid Date 09/20/22 Last Liquid Time 19:00 Last Solid Date 09/20/22 Last Solid Time 19:00 Social No alcohol and No tobacco Exam alert, oriented x 3, clear to auscultation bilaterally and regular rate & rhythm Airway Mallampati: Class III Dentition: false Pulmonary Sleep Apnea CV/HEM Hypertension and Myocardial Infarction Metabolic Diabetes Mellitus Neuropsych Dementia and Seizure parkinson's Anesthetic Plan ASA status: 3 Anesthesia: MAC Risk of > 500 ml blood loss (7ml/kg in children): No Medications/Allergies Home Medications Medication Instructions Recorded Confirmed Last Taken Type acetaminophen 650 mg 650 mg PO Q6H PRN Pain 12/24/19 09/20/22 Unknown History tablet,extended release (Tylenol 8 Hour) carbidopa 25 mg-levodopa 100 mg 1 tab PO TID@,,12/24/19 09/21/22 09/21/22 History tablet carvedilol 12.5 mg tablet (Coreg) 12.5 mg PO BID@12/24/19 09/21/22 09/21/22 History clopidogrel 75 mg tablet 75 mg PO DAILY@12/24/19 09/20/22 09/16/22 History docusate sodium 100 mg capsule 100 mg PO DAILY@12/24/19 09/21/22 09/20/22 History insulin glargine 100 unit/mL See Rx Instructions .Route .COMPLEX 12/24/19 09/21/22 09/20/22 History subcutaneous solution (Lantus U-100 Insulin) isosorbide mononitrate 30 mg 30 mg PO DAILY@12/24/19 09/21/22 09/21/22 History tablet,extended release 24 hr magnesium oxide 400 mg (241.3 mg 400 mg PO BID@,12/24/19 09/21/22 09/20/22 History magnesium) tablet metformin 1,000 mg tablet 1,000 mg PO BID@,12/24/19 09/21/22 09/19/22 History peg 400-propylene glycol 0.4 %-0.3 1 drop ophthalmic (eye) PRN 12/24/19 09/21/22 09/20/22 History % eye drops (Systane (propylene glycol)) rosuvastatin 10 mg tablet 10 mg PO DAILY@12/24/19 09/21/22 09/20/22 History aspirin 81 mg tablet,delayed 81 mg PO DAILY@01/21/21 09/20/22 03/26/21 History release (Ecotrin Low Strength) glipizide 5 mg tablet 2.5 mg PO DAILY@01/21/21 09/21/22 09/19/22 History amlodipine 10 mg tablet 10 mg PO BID@03/27/21 09/21/22 09/21/22 History clonidine HCl 0.1 mg tablet 0.1 mg PO BID@03/27/21 09/21/22 09/21/22 History hydrochlorothiazide 25 mg tablet 25 mg PO DAILY@03/27/21 09/21/22 09/21/22 History lisinopril 20 mg tablet 20 mg PO BID@,03/27/21 09/21/22 09/20/22 History lacosamide 50 mg tablet (Vimpat) 50 mg PO BID@ #60 tabs 08/16/22 09/21/22 09/20/22 Rx levetiracetam 750 mg tablet 750 mg PO BID #60 tabs 08/23/22 09/21/22 09/21/22 Rx potassium chloride 10 mEq 10 meq PO DAILY 09/02/22 09/21/22 09/20/22 History tablet,extended release cenobamate 200 mg tablet 200 mg PO DAILY #30 tabs 09/13/22 09/21/22 09/21/22 Rx Allergies Allergy/AdvReac Type Severity Reaction Status Date / Time amoxicillin Allergy Unknown Verified 09/20/22 13:35 Penicillins Allergy unknown Verified 09/20/22 13:35 Current Medications Generic Name Dose Route Start Last Admin Trade Name Tamera PRN Reason Stop Dose Admin Sodium Chloride 1,000 mls @ 30 mls/hr 09/21/22 07:15 09/21/22 07:40 Sodium Chloride 0.9% IV 09/22/22 07:14 30 mls/hr .Q24H BERT Administration PFSH Anesthesia Medical History Diabetes Hypertension Parkinson disease Secondarily generalized seizures Surgical History Status post VNS (vagus nerve stimulator) placement Family History Other Diabetes Hypertension Denies family history of CAD (coronary artery disease) Cancer Stroke Social History Smoking and tobacco status: never smoked Alcohol intake: never History of recent travel: No Data Anesthesia Cardiac Studies: No Data to Display
--- NOTE | 2022-09-21 07:57 | W.PM.OPSUD ---
Surgery/Procedure H&P Update DATE OF PROCEDURE: September 21, 2022 DATE H&P PERFORMED: 09/02/22 H&P UPDATE INFORMATION: I have reviewed H&P completed within last 30 days, I have examined patient prior to procedure and No changes to prior documentation PREOP DIAGNOSIS: VNS generator end of service PLANNED PROCEDURE: Operation Date: 09/21/22 08:20 Proposed Procedures p VNS Generator Exchange 49727,G93.89(Not Applicable) - Mikie Modi MD
[2022-09-21 07:58] LABS: Urine Appearance Cloudy (CLEAR); Urine Color Straw (Yellow)
[2022-09-21 07:59] LABS: Add Urine Culture? Yes; Add Urine Microscopic? YES; Bacteria Urine 3+ /hpf; Bilirubin Urine Neg (Negative); Blood Urine Neg (Negative); Glucose Urine UA Norm (Normal); Ketones Urine Negative (Negative); Leukocyte Esterase Urine 2+ (Negative); Nitrate Urine Negative (Negative); Protein Urine Neg (Negative); RBC Urine 0-4 /hpf (0-2); Squamous Epithelial Cell Urine 0-4 /hpf (0-5); Sulfosalicylic Acid Urine Positive (Negative); Urobilinogen Urine Norm (Negative); WBC Urine 40-55 /hpf (0-5); pH Urine 8 (5-7)
[2022-09-21] MEDS: vancomycin 1,500 MG/300 ML PIGGYBACK 200 MG IV (08:18)
[2022-09-21] MEDS: vancomycin 1,000 MG SDV 1000 MG IRRIGATION (08:52)
[2022-09-21] MEDS: lidocaine 1% INJ 20 mL 7 ML XX (08:53)
--- NOTE | 2022-09-21 09:31 | P.OP_ITS ---
Operative Report Date of procedure: September 21, 2022 Pre-op diagnosis: Preop Diagnosis VNS generator end of service Post-op diagnosis: other (Nonfunctioning VNS lead) Procedure done: Vagal nerve stimulator generator exchange Implants: Vagal nerve stimulator Specimens removed/disposition: Old vagal nerve stimulator Pathology: none sent Surgeon: Mikie Modi Anesthesia: MAC and Local Complications: None Findings: Vagal nerve stimulator has insulation covering stripped for approximately 1.5 cm beginning approximately 2.5 cm proximal to the connector with the generator. Wire itself appears intact. Brief History: Ms. Mathias is a 62-year-old female followed by Dr. Butcher with seizure disorder. Current VNS generator is at end of service. It is approximately 5 years old. Generator exchange has been recommended. Procedure: The patient was taken to the operating room theater and Positioned on the OR table over protective padding. She underwent IV conscious sedation with anesthesia monitoring. Her entire left chest was sterilely prepped and draped. Appropriate timeout was completed and confirmed. 1% lidocaine was infiltrated at the area of the prior incision for device implantation. #15 scalpel blade was utilized to incise the skin down to the subtendinous tissues. Careful dissection was then performed utilizing scalpel, Metzenbaum scissors, and cautery if required to reach the pseudocapsule. Care was taken to identify the course of the VNS wire. The pseudocapsule was then opened utilizing #15 scalpel blade exposing the generator which was subsequently delivered. Antibiotic soaked gauze was placed in the wound. Setscrew was released to remove the VNS wire and the old generator was removed from the field. Upon inspection, there is exposed bare wire getting approximately 2.5 cm proximal to the wire connector in and extending for a length of approximately 1.5 cm. This is circumferential exposure of the bare VNS wire without evidence for wire breakage. Interrogation had not been performed by health and safety representative preoperatively and was performed on the table prior to disconnecting the generator. Low impedance is noted. Upon phone consultation with supervisor wood crew, health and safety representative was told that the low impedance may be related to the generator and that implantation should proceed. Th erefore, the new generator was then connected to the VNS wire and the setscrew was secured with good contact confirmed with axial traction. Wound was carefully irrigated with antibiotic solution. Hemostasis confirmed. The device was then placed back into the pseudocapsule pocket. On the table interrogation was then performed and again revealed low impedance. Once completed, the incision was then closed with 2 layers of 3-0 Vicryl suture. Skin was reapproximated in a subcuticular manner with 4-0 Monocryl suture. Dermal glue was then applied followed by sterile dressing and pressure dressing. Procedure was well-tolerated and patient was awakened from IV conscious sedation and then transferred to Outpatient Surgery department in stable condition. Ms. Mathias will require new system implantation with a new VNS lead. She was informed of this in the recovery area. As appropriate implant materials were not readily available, and patient had not been properly counseled preoperativel y, new system implantation did not occur in the setting. Model: [employer] # 1000 Serial #: [id number]
--- NOTE | 2022-09-21 09:40 | SUR.PHASEI ---
0936 PT TO PACU 4 PT SLEEPS IF NOT DISTURBED AWAKES TO VOICE IV #20 TO RT WRIST WITH NS 700 ML UP AT KVO RATE PER GRAVITY, MONITOR SR WITH NO ECTOPY NOTED NO PACED BEATS NOTED. HOB AT 30 DEGREES, BILAT SCDS ON ID BRACLET TO LT WRIST , PT ID'D WITH 2 IDENTIFIERS.
--- NOTE | 2022-09-21 10:11 | SUR.PHASEI ---
1000 PT TO OPS BEDSIDE HANDOFF, PT AWAKE ALERT DRINKNG COFFEE.
[2022-09-21 11:58] LABS: Glucose Point of Care 149 mg/dL (70-110)
--- NOTE | 2022-09-21 16:23 | ANE.PACU2 ---
Inpatient post-anesthesia follow up: Airway intact: Yes Vital signs: Temperature 97.3 F Pulse Rate 60 Respiratory Rate 18 Blood Pressure 134/74 Pulse Oximetry 93 Oxygen Delivery Me thod Room Air Oxygen Flow Rate Fraction of Inspir ed Oxygen Hydration adequate: Yes Nausea and vomiting: No Pain level: 1 Mental status: Baseline
== END 2022-09-21 10:45 | disposition home or self-care (01) ==
PROVIDERS: PCP Family Medicine; Visit Provider Thoracic Surgery (Cardiothoracic Vascular Surgery)
PROC: (CPT 61885; principal; 2022-09-21 08:10)
DX: Z45.42 Encounter for adjustment and management of neurostimulator (principal); G47.30 Sleep apnea, unspecified; I10 Essential (primary) hypertension; I25.2 Old myocardial infarction; E11.9 Type 2 diabetes mellitus without complications; F03.90 Unspecified dementia, unspecified severity, without behavioral disturbance, psychotic disturbance, mood disturbance, and anxiety; Z79.4 Long term (current) use of insulin; Z79.84 Long term (current) use of oral hypoglycemic drugs; Z79.82 Long term (current) use of aspirin
CPT/HCPCS: 61885; 36416; 81001; 82962; 87077; 87086; 87186; C1767; J2704; J3010; J3370; J7030

== ENCOUNTER → 2022-09-22 13:20 | Outpatient (BNVA) | payer MEDICARE, MEDICAID, SELFPAY | PROVIDERS: PCP Family Medicine; Referring Provider Thoracic Surgery (Cardiothoracic Vascular Surgery); Visit Provider Specialist | DX: G40.019 Localization-related (focal) (partial) idiopathic epilepsy and epileptic syndromes with seizures of localized onset, intractable, without status epilepticus (principal); Z96.82 Presence of neurostimulator; T85.111A Breakdown (mechanical) of implanted electronic neurostimulator of peripheral nerve electrode (lead), initial encounter; G93.89 Other specified disorders of brain; G91.9 Hydrocephalus, unspecified; R26.89 Other abnormalities of gait and mobility | CPT/HCPCS: 99214 ==

== ENCOUNTER → 2022-10-05 10:09 | Outpatient (BNVA) | payer MEDICARE, MEDICAID, SELFPAY | PROVIDERS: PCP Family Medicine; Visit Provider Nurse Practitioner Family | DX: Z96.89 Presence of other specified functional implants (principal) | CPT/HCPCS: 99212 ==

== ENCOUNTER 2022-12-23 09:03 | Outpatient (CLI) | payer MEDICARE, MEDICAID, SELFPAY ==
--- NOTE | 2022-12-23 09:12 | MM_ITS ---
WS: [id number] BILATERAL DIGITAL MAMMOGRAPHY WITH CAD. HISTORY: SCREENING COMPARISON: 12/02/2021, 10/20/2020 Technique: CC and MLO. Technically very difficult and limited evaluation due to patient's condition. Breast composition: There are scattered areas of fibroglandular density. Asymmetries and calcificati ons are stable. No masses or distortion. MM/[place] [id number] IMPRESSION: BI-RADS: 2-Benign FOLLOW UP: 1 Year Follow-up
== END 2022-12-23 09:04 | disposition home or self-care (01) ==
LOC: RAD 09:05
PROVIDERS: PCP Family Medicine; Visit Provider Family Medicine
DX: Z12.31 Encounter for screening mammogram for malignant neoplasm of breast (principal)
CPT/HCPCS: 77063; 77067

== ENCOUNTER → 2022-12-24 09:20 | Outpatient (BNVA) | payer MEDICARE, MEDICAID, SELFPAY | PROVIDERS: PCP Family Medicine; Visit Provider Podiatrist Foot & Ankle Surgery | DX: B35.1 Tinea unguium (principal); L85.3 Xerosis cutis; E11.8 Type 2 diabetes mellitus with unspecified complications; Z79.4 Long term (current) use of insulin | CPT/HCPCS: 11721 ==

== ENCOUNTER 2023-01-05 08:25 | Emergency (ER) | payer MEDICARE, MEDICAID, SELFPAY ==
[2023-01-05] VITALS (8 sets, daily range): BP systolic 86–132; BP diastolic 53–75; PULSE 71–78; RESP 15–22; TEMP 37.3; O2SAT 92–97; BMI 31.3
--- NOTE | 2023-01-05 08:34 | XRR_ITS ---
PROCEDURE INFORMATION: Exam: XR Chest Exam date and time: 01/05/2023 8:44 AM Age: 62 years old Clinical indication: Cough; Patient HX: AMS, PT unable to hold her head back TECHNIQUE: Imaging protocol: Radiologic exam of the chest. Views: 1 view. COMPARISON: CR XR chest 1V portable [id number] 03/27/2021 7:21 AM FINDINGS: Tubes, catheters and devices: Electronic device projects over the left chest with faintly visualized lead wire extending to the cervical level. Lungs: Minor lower lung areas of scarring or atelectasis greater on the left. Pleural spaces: Unremarkable. No pleural effusion. No pneumothorax. Heart/Mediastinum: The uppermost mediastinum is partially obscured and the cardiac structure is obscured by positioning. Vasculature: Calcified thoracic aorta. Bones/joints: Degenerative change of the spine. Other findings: Severely diminutive inspiration. XR/XR chest 1V portable [id number] IMPRESSION: 1. Significantly diminutive inspiratory volume. 2. Scarring or atelectasis lower lungs.
--- NOTE | 2023-01-05 08:36 | ECG_ITS ---
[facility] Test Date: 2023-01-05 Pat Name: Aubrie Mathias Department: Room: Gender: Female Turbine Room Attendant: : 1960 Requested By: Gonzalez Klein Order Number: [id number] Gold MD: My Cameron M.D. Measurements Intervals [place] Rate: 75 P: 52 IN: 187 QRS: 240 QRSD: 100 T: 6 QT: 383 QTc: 429 Interpretive Statements SINUS RHYTHM POSSIBLE RIGHT VENTRICULAR HYPERTROPHY [SOME/ALL OF: PROMINENT R IN V1, LATE TRANSITION, RAD, LOGAN, SSS] ANTEROSEPTAL MYOCARDIAL INFARCTION , OF INDETERMINATE AGE [40+ ms Q WAVE IN V1-V4] Compared to ECG 04/16/2022 19:06:28 Sinus tachycardia no longer present Left-axis deviation no longer present Myocardial infarct finding still present Electronically Signed On 01-05-2023 14:23:55 PAROLE SUPERVISOR by My Cameron M.D. [id number]
--- NOTE | 2023-01-05 08:36 | W.ED.AMS ---
HPI - Altered Mental Status General: Chief Complaint: Weakness Stated Complaint: AMS Time Seen by Provider: 01/05/23 08:34 Source: patient, EMS and old records reviewed Mode of arrival: EMS Limitations: altered mental status History of Present Illness: This patient was transported by EMS at the request of her skilled nursing at which she lives. Staff at the skilled nursing states that she seems to be confused over the last 24 hours. They states that she is normally active and aware of surroundings and self and has seemed to be less so over the past 24 hours. They are unaware of any fevers documented or exposure to illness. No history of recent trauma. Reportedly she has received all usual medications today. The patient currently denies any pain or discomfort. EMS reported a low blood pressure verbalized to them by skilled nursing staff and they noted a couple of blood pressures that were less than 100 systolic prior to arrival. No interventions prior to arrival to the emergency department. MD complaint: confusion Consistency of symptoms: Getting Worse Associated symptoms: Reports no associated symptoms Review of Systems Const: Denies: fever(s) or chills ENMT: Denies: throat pain, odynophagia, nasal discharge or nasal congestion Card: Denies: chest pain, syncope or pre-syncope Resp: Reports: non-productive cough; Denies: wheezing or stridor GI: Denies: abdominal pain, nausea, vomiting or diarrhea : Denies: flank pain, dysuria, urinary frequency, urinary urgency or urinary hesitancy Musc: Denies: back pain, extremity pain or extremity swelling Skin/Breast: Denies: rash Neuro: Reports: confusion; Denies: headache(s), Slurred speech present or seizure-like activity [facility] PFSH: Medical History Diabetes Hypertension Parkinson disease Secondarily generalized seizures Surgical History Status post VNS (vagus nerve stimulator) placement Family History Other Diabetes Hypertension Denies family history of CAD (coronary artery disease) Cancer Stroke Social History Smoking and tobacco status: never smoked Alcohol intake: never Physical Exam Narrative: Alert responds readily to voice. Spontaneous eye opening. She appears to be comfortable and she is cooperative. She readily answers questions but in a general and somewhat confused fashion. She answers that the current president is Ian and that she had food for breakfast. Const: COMMON NORMALS: no acute distress GENERAL APPEARANCE: cooperative and comfortable ORIENTATION/CONSCIOUSNESS: Yes awake, Yes oriented to person and Yes confused; not oriented to place and not oriented to time HENMT: COMMON NORMALS: normocephalic, atraumatic, Normal nasal mucous membranes and turbinates present, moist oral mucous membranes and oropharynx normal HEAD & SCALP: normocephalic and atraumatic FACE & SINUS: normal facial exam and face symmetric NOSE: Normal nasal mucous membranes and turbinates present Eye: COMMON NORMALS: Equal, round and reactive pupils present, EOMs intact bilaterally, conjunctivae normal and no scleral icterus CONJUNCTIVA: Yes conjunctivae normal PUPIL: Yes Equal, round and reactive pupils present Neck/C-Spine: COMMON NORMALS: full ROM, no meningeal signs, no JVD, Thyroid normal and No carotid bruits THYROID: Thyroid normal Chest: COMMONS NORMALS: normal inspection of the chest and normal palpation of entire chest wall OTHER: There is a palpable rn medical surgical in the left superior chest just inferior to the clavicle. Resp: COMMON NORMALS: normal respiratory effort, No retractions and No use of accessory muscles AUSCULTATION: crackles Laterality: bilateral Cardio: COMMON NORMALS: no JVD, regular rate, regular rhythm, No murmurs present (Cardio) and Peripheral pulses 2+ throughout RATE: regular rate RHYTHM: regular rhythm PERIPHERAL PULSES: Peripheral pulses 2+ throughout GI: COMMON NORMALS: Normal to inspection, nondistended, normoactive bowel sounds present, Soft to palpation and non-tender PALPATION: Yes Soft to palpation : COMMON NORMALS: Yes no CVA tenderness BLADDER/KIDNEY EXAM: Yes no CVA tenderness Back/Pelvis: COMMON NORMALS: no CVA tenderness, thoracic and lumbar spine normal to inspection, no thoracic nor lumbar tenderness and thoraco-lumbar ROM normal Extremity: COMMON NORMALS: normal to inspection, full ROM, capillary refill normal, no calf tenderness and no pedal edema Neuro: COMMON NORMALS: moves all extremities and no sensory deficits noted SENSORIUM/ORIENTATION: Yes oriented to person, No oriented to place and No oriented to time MENINGEAL SIGNS: Yes no meningeal signs CRANIAL NERVES: Yes CN normal except as noted Psych: COMMON NORMALS: cooperative Skin: COMMON NORMALS: no rashes or lesions noted, no wounds and turgor normal GENERAL SKIN EXAM: no rashes or lesions noted and turgor normal Course Reevaluation(s): Reevaluation #1: Pulmonary studies reviewed. CT scan is reassuring without any acute changes no evidence of hemorrhage etc. as noted by radiology. See report. She has abnormal urinalysis. Time: 09:49 Reevaluation #2: Patient's antibiotics are currently infusing. She responds readily to voice and states that she is feels okay and that she knows she is in the hospital. She denies any current pain or other symptoms. It is unclear to me and I am unable to discern what her baseline is. We will attempt to ascertain her normal level of functioning. Time: 11:55 Reevaluation #3: Patient is now significantly improved. She is walking around the emergency department unaided without difficulty. She states she has no ongoing symptoms of pain discomfort or other constitutional symptoms. Repeat examination reveals her to be alert without any acute or focal findings. We discussed with nursing staff at her group's skilled nursing and they related that what we describe seems to be at her baseline. At this point we do not have any evidence to suggest other acute ongoing emergency medical conditions. She may have a mild urinary tract infection and we will continue her on Levaquin for 3 days. Cultures pending. nursing home staff was informed of our plan and recommendations and they were in concert with that. We also discussed return precautions. Time: 13:17 Vital Signs: Vital signs: Vital Signs Temperature 99.2 F 01/05/23 08:30 Pulse Rate 71 01/05/23 12:00 Respiratory Rate 16 01/05/23 12:00 Blood Pressure 94/63 01/05/23 12:00 Pulse Oximetry 97 01/05/23 12:00 Oxygen Delivery Me thod 01/05/23 08:57 MDM - Altered Mental Status Medical Decision Making Patient with longstanding history of cognitive delay, seizure disorder who was thought to have some change in her usual level of interaction and cognition today by staff although it was unclear as to the level of past history knowledge with the current staff at the facility from which she was transferred. Her evaluation in the emergency department was reassuring and that she had no focal findings on clinical examination other than mildly low blood pressure on initial presentation.Imaging of the head and chest were unremarkable and that there is no evidence of acute hemorrhage, pneumonia etc. laboratories obtained revealed initially a borderline troponin elevation but subsequently on second troponin no evidence of continued elevation and she had a negative delta troponin. She displayed no acute EKG changes or ischemic concerns on EKGs in the emergency department. It was felt that she was at extremely low likelihood of ACS or other ongoing concerns. She did urine findings that suggested a possible urinary tract infection but this was not definitive and certainly not overwhelming based upon the values in the emergency department today. She was given an empiric dose of Levaquin in the emergency department and will be continued on that for the next 72 hours. The patient is stable at this time and certainly reasonable to be discharged. We did contact the staff at the [facility] and relayed our findings to them and they were comfortable with the plan. Medical Records I reviewed the patient's medical records. Review of past records of limited to those which are within our system and limited to the most recent neurology as well as cardiothoracic surgery note. She apparently had a recent vagal nerve stimulator replacement procedure in September of last year however at that time was discovered that the stimulator and/or leads were probably irreparably damaged at some time and that its unlikely that it was functioning. Also review of most recent neurology note revealed that there was a question whether she actually needs the vagal nerve stimulator. She also has a history of having seizure disorder that has been generally controlled with medication. She also had a history of delayed cognitive development in the past requiring special education etc. Lab Data I reviewed the patient's lab results. 01/05/23 08:30 01/05/23 08:30 Radiology Impressions Chest X-Ray 01/05/23 08:34 IMPRESSION: 1. Significantly diminutive inspiratory volume. 2. Scarring or atelectasis lower lungs. Head CT 01/05/23 09:02 IMPRESSION: 1. No acute intracranial hemorrhage or edema. 2. Mild diffuse ventriculomegaly. Similar to the prior study from 2020. Clinically consider normal pressure hydrocephalus. 3. Mild small vessel ischemic disease. Laboratory Results WBC 8.2 10^3/uL (4.0-10.0) 01/05/23 08:30 RBC 4.33 10^6/uL (4.1-5.3) 01/05/23 08:30 Hgb 13.8 g/dL (11.5-15.3) 01/05/23 08:30 Hct 40.0 % (37.0-47.0) 01/05/23 08:30 MCV 92.4 fl (81-99) 01/05/23 08:30 MCH 31.9 pg (28.0-34.0) 01/05/23 08:30 MCHC 34.5 g/dL (30.0-36.0) 01/05/23 08:30 RDW 13.3 % (12.1-15.1) 01/05/23 08:30 Plt Count 241 10^3/cmm (130-400) 01/05/23 08:30 MPV 9.7 fL (7.4-10.4) 01/05/23 08:30 Neut % (Auto) 84.6 % 01/05/23 08:30 Lymph % (Auto) 5.0 % 01/05/23 08:30 [place] % (Auto) 8.6 % 01/05/23 08:30 Eos % (Auto) 1.2 % 01/05/23 08:30 Baso % (Auto) 0.2 % 01/05/23 08:30 Neut # (Auto) 6.96 10^3/uL (1.8-7.7) 01/05/23 08:30 Lymph # (Auto) 0.4 10^3/uL (0.8-4.8) L 01/05/23 08:30 [place] # (Auto) 0.7 10^3/uL (0.2-0.9) 01/05/23 08:30 Eos # (Auto) 0.1 10^3/uL (0.0-0.8) 01/05/23 08:30 Baso # (Auto) 0.0 10^3/uL (0.0-0.1) 01/05/23 08:30 Nucleated RBC % (auto) 0 % 01/05/23 08:30 Nucleated RBCs # 0.0 /100WBC 01/05/23 08:30 Sodium 133 mmol/L (136-145) L 01/05/23 08:30 Potassium 4.1 mmol/L (3.5-5.1) 01/05/23 08:30 Chloride 96 mmol/L (98-107) L 01/05/23 08:30 Carbon Dioxide 24 mmol/L (22-29) 01/05/23 08:30 Anion Gap 17.1 (5-19) 01/05/23 08:30 BUN 23 mg/dL (8-23) 01/05/23 08:30 Creatinine 0.8 mg/dL (0.5-0.9) 01/05/23 08:30 GFR Calculation 72.4 mL/min (90-130) L 01/05/23 08:30 Glucose 216 mg/dL (65-115) H 01/05/23 08:30 Calculated Osmolality 286 mOsm/kg (285-295) 01/05/23 08:30 Lactate 2.1 mmol/L (0.5-2.2) 01/05/23 08:30 Calcium 8.9 mg/dL (8.5-10.5) 01/05/23 08:30 Total Bilirubin 0.2 mg/dL (0.15-1.2) 01/05/23 08:30 AST 15 U/L (0-32) 01/05/23 08:30 ALT < 5 U/L (0-33) 01/05/23 08:30 Alkaline Phosphatase 131 U/L (35-105) H 01/05/23 08:30 Troponin T Baseline 17 ng/L (0-10) H 01/05/23 08:30 Troponin T 120 Minute 14.71 ng/L (0-10) H 01/05/23 11:30 Delta Troponin T -2.29 ABS# (0-10) L 01/05/23 11:30 Total Protein 6.4 g/dL (6.6-8.7) L 01/05/23 08:30 Albumin 3.8 g/dL (3.5-5.2) 01/05/23 08:30 Globulin 2.6 g/dL (1.3-4.6) 01/05/23 08:30 Urine Color Yellow (Yellow) 01/05/23 08:50 Urine Appearance Hazy (CLEAR) A 01/05/23 08:50 Urine pH 6 (5-7) 01/05/23 08:50 Ur Specific Nichols 1.010 (1.005-1.030) 01/05/23 08:50 Urine Protein 1+ (Negative) H 01/05/23 08:50 Urine Glucose (UA) Norm (Normal) 01/05/23 08:50 Urine Ketones Negative (Negative) 01/05/23 08:50 Urine Blood 2+ (Negative) H 01/05/23 08:50 Urine Nitrate Negative (Negative) 01/05/23 08:50 Urine Bilirubin Neg (Negative) 01/05/23 08:50 Urine Urobilinogen Norm mg/dL (Negative) 01/05/23 08:50 Ur Leukocyte Esterase Negative (Negative) 01/05/23 08:50 Urine RBC 10-15 /hpf (0-2) H 01/05/23 08:50 Urine WBC 0-4 /hpf (0-5) H 01/05/23 08:50 Ur Squamous Epith Cells 5-10 /hpf (0-5) H 01/05/23 08:50 Amorphous Sediment Not Reportable 01/05/23 08:50 Urine Bacteria Trace /hpf (NONE) 01/05/23 08:50 Hyaline Casts 5-10 /lpf H 01/05/23 08:50 Other Casts Epithelial /lpf 01/05/23 08:50 Urine Mucus 2+ /hpf 01/05/23 08:50 Influenza Type A Ag negative (Negative) 01/05/23 09:30 Influenza Type B Ag negative (Negative) 01/05/23 09:30 SARS-CoV-2 Ag (Rapid) negative (Negative) 01/05/23 09:30 EKG Data EKG 1: I personally reviewed and interpreted this EKG as follows: Interpretation: Contemporaneous review of EKG reveals a ventricular rate of 75 bpm. She has normal KS interval, QRS duration, corrected QT interval. She has also of anterior forces noted across the precordium suggestive of possible prior anterior septal myocardial infarction. Nonspecific ST-T wave changes noted in the precordial leads. Compared with prior tracings within the system there appears to be no acute changes. EKG 2: I personally reviewed and interpreted this EKG as follows: Interpretation: Contemporaneous review of second EKG this visit reveals normal sinus rhythm of ventricular rate of 78 bpm. Normal [place] interval, QRS duration, corrected QT interval. No acute changes and essentially unchanged from prior tracing this visit. Discharge Plan Discharge Patient Disposition: Home Clinical Impression: UTI (urinary tract infection) Condition: Stable Prescriptions: New ciprofloxacin HCl [Cipro] 500 mg tablet 500 mg PO BID 3 Days Qty: 6 0RF No Action Lantus U-100 Insulin 100 unit/mL solution See Rx Instructions .ROUTE .COMPLEX Rx Instructions: 20 units sub-q qam and 10 units qpm clopidogrel 75 mg tablet 75 mg PO DAILY@07 docusate sodium 100 mg capsule 100 mg PO DAILY@07 isosorbide mononitrate 30 mg tablet extended release 24 hr 30 mg PO DAILY@07 Hold Instructions: Resume on 02/01/21. metformin 1,000 mg tablet 1,000 mg PO BID@07,17 magnesium oxide 400 mg (241.3 mg magnesium) tablet 400 mg PO BID@07,20 carvedilol [Coreg] 12.5 mg tablet 12.5 mg PO BID@07,20 carbidopa-levodopa 25-100 mg tablet 1 tab PO TID@07,16,20 rosuvastatin 10 mg tablet 10 mg PO DAILY@20 acetaminophen [Tylenol 8 Hour] 650 mg tablet extended release 650 mg PO Q6H MDD 4,000mg PRN (Reason: Pain) Systane (propylene glycol) 0.4-0.3 % drops 1 drop ophthalmic (eye) PRN (DME) diabetic shoes with 3 inserts See Rx Instructions .Route .MEDSUPPLY Qty: 1 0RF Rx Instructions: As directed potassium chloride 10 mEq tablet extended release 10 meq PO DAILY@07 lacosamide [Vimpat] 50 mg tablet 50 mg PO BID@,19 Qty: 60 5RF aspirin [Ecotrin Low Strength] 81 mg Tablet,Delayed Release (Dr/Ec) 81 mg PO DAILY@07 glipizide 5 mg tablet 2.5 mg PO DAILY@17 lisinopril 20 mg Tablet 20 mg PO BID@07,20 amlodipine 10 mg Tablet 10 mg PO BID@07,20 hydrochlorothiazide 25 mg Tablet 25 mg PO DAILY@07 clonidine HCl 0.2 mg tablet 0.2 mg PO BID@, hydrocodone-acetaminophen 5-325 mg tablet 1 tab PO Q8H PRN (Reason: Pain) levetiracetam 750 mg tablet 750 mg PO BID@07,19 cenobamate 200 mg tablet 200 mg PO DAILY@07 Discharge Orders: Discharge ED (Routine); Ordered 01/05/23 Ordered By: Gonzalez Klein Referrals: Augustin Colón MD [Primary Care Provider] - Discharge Diet: Advance as tolerated Discharge Activity: Increase activity as tolerated Patient Instructions: Opioid Safety, Pain Management Activity Restrictions/Additional Instructions: Continue all her usual medications. We have also prescribed a antibiotic to take twice daily for the next 3 days. Monitor her blood pressure and if her systolic blood pressure is less then 120/70 consistently we would not recommend giving her clonidine. She should be monitored carefully for any change in her conditions and if such should occur you should call her attending physician or you are welcome to return her to the emergency department for reevaluation. Coding Level of Care Code ED Special Events Assistant for Sudha Weiss
[2023-01-05 08:50] LABS: Basophils % 0.2 %; Eosinophils # 0.1 10^3/uL (0.0-0.8); Eosinophils % 1.2 %; Hemoglobin 13.8 g/dL (11.5-15.3); Lymphocytes # 0.4 10^3/uL (0.8-4.8); Mean Corpuscular HGB Conc 34.5 g/dL (30.0-36.0); Mean Corpuscular Hemoglobin 31.9 pg (28.0-34.0); Mean Corpuscular Volume 92.4 fl (81-99); Mean Platelet Volume 9.7 fL (7.4-10.4); Monocytes # 0.7 10^3/uL (0.2-0.9); Monocytes % 8.6 %; Neutrophils # 6.96 10^3/uL (1.8-7.7); Neutrophils % 84.6 %; Nucleated Red Blood Cells % 0 %; Platelet Count 241 10^3/cmm (130-400); Red Blood Count 4.33 10^6/uL (4.1-5.3); Red Cell Distribution Width 13.3 % (12.1-15.1); White Blood Count 8.2 10^3/uL (4.0-10.0)
--- NOTE | 2023-01-05 08:51 | PC.NURSE ---
PT PLACED ON CONTINUOS NIBP, SPO2, AND CM
--- NOTE | 2023-01-05 09:02 | CT_ITS ---
WS: [id number] CT HEAD NONCONTRAST HISTORY: ams TECHNIQUE: Contiguous axial imaging performed through the brain in 2.5 mm imaging. Bone and soft tiss ue windows. Sagittal and coronal reformats reviewed. All CT scans at [facility] use at least one of these dose optimization techniques: automated exposure control; mA and/or kV adjustment per pa tient size (includes targeted exams where dose is matched to clinical indication); or iterative recon struction. DLP: 1082.08 mGy.cm COMPARISON: 03/27/2021 No acute intracranial hemorrhage, midline shift or mass effect. Mild symmetric atrophy. Low-attenuation in the white matter from small vessel ischemic disease. Ventricles: There is mild diffuse ventriculomegaly. Temporal horns are prominent. Similar to the nemo or examination. No inferior displacement of cerebellar tonsils. Paranasal sinuses: As visualized are clear. Mastoid air cells: Well pneumatized. Calvarium and scalp: Skull is intact with no soft tissue edema or swelling. CT/CT head wo con* [id number] IMPRESSION: 1. No acute intracranial hemorrhage or edema. 2. Mild diffuse ventriculomegaly. Similar to the prior study from 2020. Clinic ally consider normal pressure hydrocephalus. 3. Mild small vessel ischemic disease.
--- NOTE | 2023-01-05 09:04 | PC.NURSE ---
DR. MATHEWS NOTIFIED OF PT'S RIGHT SIDED FACIAL DROOP WHEN ATTEMPTING TO SMILE.
[2023-01-05] MEDS: sodium chloride 0.9% 1,000 ML 999 ML IV (09:05)
--- NOTE | 2023-01-05 09:12 | PC.PHAR ---
pt is from [facility]-cresencio naylor from [facility] states the pt had all am meds
[2023-01-05 09:17] LABS: Alanine Aminotransferase < 5 U/L (0-33); Albumin Level 3.8 g/dL (3.5-5.2); Alkaline Phosphatase 131 U/L (35-105); Anion Gap 17.1 (5-19); Aspartate Amino Transferase 15 U/L (0-32); Blood Urea Nitrogen 23 mg/dL (8-23); Calcium 8.9 mg/dL (8.5-10.5); Carbon Dioxide 24 mmol/L (22-29); Chloride 96 mmol/L (98-107); Globulin 2.6 g/dL (1.3-4.6); Glomerular Filtration Rate 72.4 mL/min (90-130); Glucose 216 mg/dL (65-115); Osmolality Calculated 286 mOsm/kg (285-295); Potassium 4.1 mmol/L (3.5-5.1); Sodium 133 mmol/L (136-145); Total Bilirubin 0.2 mg/dL (0.15-1.2); Total Protein 6.4 g/dL (6.6-8.7)
[2023-01-05 09:18] LABS: Lactate (Lactic Acid level) 2.1 mmol/L (0.5-2.2)
[2023-01-05 09:20] LABS: Troponin(5th) Baseline 17 ng/L (0-10)
[2023-01-05 09:33] LABS: Urine Appearance Hazy (CLEAR); Urine Color Yellow (Yellow)
[2023-01-05 09:34] LABS: Add Urine Microscopic? YES; Bilirubin Urine Neg (Negative); Blood Urine 2+ (Negative); Glucose Urine UA Norm (Normal); Ketones Urine Negative (Negative); Leukocyte Esterase Urine Negative (Negative); Nitrate Urine Negative (Negative); Protein Urine 1+ (Negative); Urobilinogen Urine Norm (Negative); WBC Urine 0-4 /hpf (0-5); pH Urine 6 (5-7)
[2023-01-05 09:35] LABS: Add Urine Culture? Yes; Bacteria Urine TRACE /hpf; Mucus Urine 2+ /hpf; Other Casts Urine EPITHELIAL /lpf
--- NOTE | 2023-01-05 09:38 | PC.NURSE ---
PT ATTEMPTING TO GET OUT OF BED. PT STATES ITS TIME TO GET UP. WE HAVE TO GO GET BREAKFAST PT REORIENTED TO BEING IN THE ER. PT RESTING QUIETLY IN BED RR EQUAL AND UNLABORED.
[2023-01-05 10:10] LABS: Influenza A by IFA negative (Negative); Influenza B by IFA negative (Negative); SARS Covid-2 Antigen negative (Negative)
--- NOTE | 2023-01-05 11:20 | ECG_ITS ---
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 Measurements Intervals [place] Rate: 78 P: 60 [place]: 207 QRS: 258 QRSD: 92 T: 2 QT: 390 QTc: 446 Interpretive Statements SINUS RHYTHM RIGHT VENTRICULAR HYPERTROPHY [SOME/ALL OF: PROMINENT R IN V1, LATE TRANSITION, RAD, LOGAN, SSS] ANTEROSEPTAL MYOCARDIAL INFARCTION , OF INDETERMINATE AGE [40+ ms Q WAVE IN V1-V4] Compared to ECG 01/05/2023 08:41:15 No significant changes Electronically Signed On 01-05-2023 16:21:57 OPERATIONS/DISPATCH by My Cameron M.D. [id number]
[2023-01-05] MEDS: levofloxacin-dextrose 5 % 750 MG/150 ML PREMIX 100 MG IV (11:29)
[2023-01-05 12:11] LABS: Troponin 5 2HR 14.71 ng/L (0-10)
[2023-01-05 12:12] LABS: Troponin 5 2HR Delta -2.29 ABS# (0-10)
--- NOTE | 2023-01-05 13:03 | PC.NURSE ---
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 pt assisted back to bed
--- NOTE | 2023-01-05 13:16 | PC.NURSE ---
PT PULLED IV LINE WHEN SHE GOT OUT OF BED STATED BY TAPER MACHINE. PT RECEIVED APPROX 3/4 OF LEVAQUIN TRANSFUSION. PHYSICIAN NOTIFIED.
== END 2023-01-05 13:47 | disposition home or self-care (01) ==
PROVIDERS: Emergency Provider Emergency Medicine; PCP Family Medicine
DX: N39.0 Urinary tract infection, site not specified (principal); Z79.4 Long term (current) use of insulin; Z79.02 Long term (current) use of antithrombotics/antiplatelets; Z79.84 Long term (current) use of oral hypoglycemic drugs; Z79.82 Long term (current) use of aspirin; Z20.822 Contact with and (suspected) exposure to COVID-19; E11.9 Type 2 diabetes mellitus without complications; I10 Essential (primary) hypertension; G20 Parkinson's disease
CPT/HCPCS: 36415; 70450; 71045; 80053; 81001; 83605; 84484; 85025; 87040; 87086; 87426; 87804; 93005; 96365; 96366; 99285; J1956; J7030

== ENCOUNTER → 2023-01-25 12:36 | Outpatient (BNVA) | payer MEDICARE, MEDICAID, SELFPAY | PROVIDERS: PCP Family Medicine; Visit Provider Specialist | DX: G40.019 Localization-related (focal) (partial) idiopathic epilepsy and epileptic syndromes with seizures of localized onset, intractable, without status epilepticus (principal); G93.89 Other specified disorders of brain; G40.419 Other generalized epilepsy and epileptic syndromes, intractable, without status epilepticus; Z96.82 Presence of neurostimulator; R26.89 Other abnormalities of gait and mobility | CPT/HCPCS: 99215 ==

== ENCOUNTER 2023-05-19 16:42 | Emergency (ER) | payer MEDICARE, MEDICAID, SELFPAY ==
[2023-05-19 16:47] VITALS: RESP 18; TEMP 38.2
--- NOTE | 2023-05-19 16:55 | ECG_ITS ---
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 Measurements Intervals [place] Rate: 110 P: 49 [place]: 184 QRS: -84 QRSD: 79 T: 19 QT: 294 QTc: 398 Interpretive Statements SINUS TACHYCARDIA LEFT AXIS DEVIATION [QRS AXIS < -30] ANTEROSEPTAL MYOCARDIAL INFARCTION , OF INDETERMINATE AGE [40+ ms Q WAVE IN V1-V4] Compared to ECG 01/05/2023 11:20:11 Left-axis deviation now present Sinus rhythm no longer present Right ventricular hypertrophy no longer present Atrial abnormality no longer present Myocardial infarct finding still present Electronically Signed On 05-19-2023 21:42:28 CDT by Autumn Chung M.D. [id number]
[2023-05-19 17:07] LABS: Basophils % 0.1 %; Eosinophils # 0.1 10^3/uL (0.0-0.8); Hematocrit 42.9 % (37.0-47.0); Hemoglobin 14.3 g/dL (11.5-15.3); Lymphocytes # 0.6 10^3/uL (0.8-4.8); Lymphocytes % 5.2 %; Mean Corpuscular HGB Conc 33.3 g/dL (30.0-36.0); Mean Corpuscular Hemoglobin 30.5 pg (28.0-34.0); Mean Corpuscular Volume 91.5 fl (81-99); Mean Platelet Volume 9.8 fL (7.4-10.4); Monocytes # 0.7 10^3/uL (0.2-0.9); Monocytes % 6.3 %; Neutrophils # 9.93 10^3/uL (1.8-7.7); Nucleated Red Blood Cells % 0 %; Platelet Count 268 10^3/cmm (130-400); Red Blood Count 4.69 10^6/uL (4.1-5.3); Red Cell Distribution Width 13.2 % (12.1-15.1); White Blood Count 11.4 10^3/uL (4.0-10.0)
--- NOTE | 2023-05-19 17:08 | W.ED.WEAKNES ---
Documented by User: Noel Ochoa DO 05/23/23 07:22 HPI - Weakness General: Chief complaint: Weakness Stated complaint: weakness Time Seen by Provider: 05/19/23 16:46 Source: patient Mode of arrival: EMS History of Present Illness: 63-year-old female who resides in a snf presents emergency room complaining of generalized weakness fatigue low-grade fever. She has not had any chest pain or abdominal pain denies dysuria urgency or frequency cough or shortness of breath. No skin breakdown or ulcerations. Patient states she has felt weak for the last several days. She denied any hemoptysis hematemesis coffee-ground emesis or melena. MD Complaint: generalized weakness Onset (ago): day(s) Duration: constant Location: generalized Relieving factors: none Exacerbating factors: none Associated symptoms: Reports fever(s); Denies chest pain, chills, confusion, melena, decreased appetite, diaphoresis, dysuria, easy bruising, headache(s), myalgias, nausea, rash, short of breath, syncope or vomiting Review of Systems Const: Reports: fever(s), fatigue and malaise; Denies: chills or diaphoresis ENMT: Denies: throat pain, ear or mastoid pain, nasal discharge or nasal congestion Card: Denies: chest pain or syncope Resp: Denies: dyspnea, productive cough or non-productive cough GI: Denies: nausea, vomiting or melena : Denies: dysuria Skin/Breast: Denies: rash or pruritus Neuro: Denies: headache(s) or confusion Dev/Lymph: Denies: easy bruising PFSH ED PFSH: Medical History Diabetes Hypertension Parkinson disease Secondarily generalized seizures Surgical History Status post VNS (vagus nerve stimulator) placement Family History Other Diabetes Hypertension Denies family history of CAD (coronary artery disease) Cancer Stroke Social History Smoking and tobacco status: never smoked Alcohol intake: never Substance/Drug Use: never Physical Exam Const: GENERAL APPEARANCE: cooperative and comfortable ORIENTATION/CONSCIOUSNESS: Yes awake, Yes oriented to person, Yes oriented to place and Yes oriented to time HENMT: COMMON NORMALS: normocephalic, atraumatic and hearing grossly normal bilaterally HEAD & SCALP: normocephalic and atraumatic Resp: COMMON NORMALS: normal respiratory effort, No retractions, No use of accessory muscles and clear to auscultation bilaterally AUSCULTATION: clear to auscultation bilaterally Cardio: COMMON NORMALS: regular rate, regular rhythm and No murmurs present (Cardio) RATE: regular rate RHYTHM: regular rhythm GI: COMMON NORMALS: Soft to palpation and No hepatosplenomegaly present AUSCULTATION: Yes normoactive bowel sounds PALPATION: Yes Soft to palpation, No Tenderness to palpation present (GI), No Guarding due to palpation present (GI) and Yes No hepatosplenomegaly present Extremity: COMMON NORMALS: normal to inspection, capillary refill normal, no clubbing, cyanosis or edema, no calf tenderness and no pedal edema Neuro: SENSORIUM/ORIENTATION: Yes oriented to person, Yes oriented to place and Yes oriented to time Skin: COMMON NORMALS: no rashes or lesions noted GENERAL SKIN EXAM: no rashes or lesions noted Course Vital Signs: Vital signs: Vital Signs Temperature 100.8 F H 05/19/23 21:22 Pulse Rate 114 H 05/19/23 21:22 Respiratory Rate 16 05/19/23 21:22 Blood Pressure 175/103 05/19/23 21:22 Pulse Oximetry 93 05/19/23 21:22 Oxygen Delivery Me thod Room Air 05/19/23 16:47 MDM - Weakness Medical Decision Making Care signed out to Dr. allen at change of shift. See final notes for diagnosis and disposition. 63-year-old female presented here with generalized weakness and fever blood work here is normal we will start her on Keflex patient able ambulate here with a walker she is stable for discharge back to snf at this time. No signs of any severe infection. Lab Data 05/19/23 16:20 05/19/23 16:20 Radiology Impressions Chest X-Ray 05/19/23 18:03 IMPRESSION: Pulmonary hypoinflation with atelectasis versus scarring at the left lung base, small pleural effusion not excluded. Laboratory Results WBC 11.4 10^3/uL (4.0-10.0) H 05/19/23 16:20 RBC 4.69 10^6/uL (4.1-5.3) 05/19/23 16:20 Hgb 14.3 g/dL (11.5-15.3) 05/19/23 16:20 Hct 42.9 % (37.0-47.0) 05/19/23 16:20 MCV 91.5 fl (81-99) 05/19/23 16:20 MCH 30.5 pg (28.0-34.0) 05/19/23 16:20 MCHC 33.3 g/dL (30.0-36.0) 05/19/23 16:20 RDW 13.2 % (12.1-15.1) 05/19/23 16:20 Plt Count 268 10^3/cmm (130-400) 05/19/23 16:20 MPV 9.8 fL (7.4-10.4) 05/19/23 16:20 Neut % (Auto) 87.0 % 05/19/23 16:20 Lymph % (Auto) 5.2 % 05/19/23 16:20 [place] % (Auto) 6.3 % 05/19/23 16:20 Eos % (Auto) 1.0 % 05/19/23 16:20 Baso % (Auto) 0.1 % 05/19/23 16:20 Neut # (Auto) 9.93 10^3/uL (1.8-7.7) H 05/19/23 16:20 Lymph # (Auto) 0.6 10^3/uL (0.8-4.8) L 05/19/23 16:20 [place] # (Auto) 0.7 10^3/uL (0.2-0.9) 05/19/23 16:20 Eos # (Auto) 0.1 10^3/uL (0.0-0.8) 05/19/23 16:20 Baso # (Auto) 0.0 10^3/uL (0.0-0.1) 05/19/23 16:20 Nucleated RBC % (auto) 0 % 05/19/23 16:20 Nucleated RBCs # 0.0 /100WBC 05/19/23 16:20 Sodium 132 mmol/L (136-145) L 05/19/23 16:20 Potassium 4.0 mmol/L (3.5-5.1) 05/19/23 16:20 Chloride 94 mmol/L (98-107) L 05/19/23 16:20 Carbon Dioxide 25 mmol/L (22-29) 05/19/23 16:20 Anion Gap 17.0 (5-19) 05/19/23 16:20 BUN 18 mg/dL (8-23) 05/19/23 16:20 Creatinine 0.7 mg/dL (0.5-0.9) 05/19/23 16:20 GFR Calculation 84.2 mL/min (90-130) L 05/19/23 16:20 Glucose 119 mg/dL (65-115) H 05/19/23 16:20 Calculated Osmolality 277 mOsm/kg (285-295) L 05/19/23 16:20 Lactic Acid 2.6 mmol/L (0.5-2.2) H 05/19/23 15:20 Lactic Acid (Sepsis) 2.8 mmol/L (0.5-2.2) H 05/19/23 19:48 Calcium 9.2 mg/dL (8.5-10.5) 05/19/23 16:20 Total Bilirubin 0.3 mg/dL (0.15-1.2) 05/19/23 16:20 AST 13 U/L (0-32) 05/19/23 16:20 ALT < 5 U/L (0-33) 05/19/23 16:20 Alkaline Phosphatase 143 U/L (35-105) H 05/19/23 16:20 Total Protein 7.0 g/dL (6.6-8.7) 05/19/23 16:20 Albumin 4.5 g/dL (3.5-5.2) 05/19/23 16:20 Globulin 2.5 g/dL (1.3-4.6) 05/19/23 16:20 Urine Color Yellow (Yellow) 05/19/23 19:13 Urine Appearance Clear (CLEAR) 05/19/23 19:13 Urine pH 6 (5-7) 05/19/23 19:13 Ur Specific [place] 1.005 (1.005-1.030) 05/19/23 19:13 Urine Protein Neg (Negative) 05/19/23 19:13 Urine Glucose (UA) Norm (Normal) 05/19/23 19:13 Urine Ketones Negative (Negative) 05/19/23 19:13 Urine Blood Trace (Negative) H 05/19/23 19:13 Urine Nitrate Negative (Negative) 05/19/23 19:13 Urine Bilirubin Neg (Negative) 05/19/23 19:13 Urine Urobilinogen Norm mg/dL (Negative) 05/19/23 19:13 Ur Leukocyte Esterase Negative (Negative) 05/19/23 19:13 Urine RBC 0-4 /hpf (0-2) H 05/19/23 19:13 Urine WBC 0-4 /hpf (0-5) H 05/19/23 19:13 Ur Squamous Epith Cells 0-4 /hpf (0-5) H 05/19/23 19:13 Amorphous Sediment Not Reportable 05/19/23 19:13 Urine Bacteria None /hpf (NONE) 05/19/23 19:13 SARS-CoV-2 Ag (Rapid) negative (Negative) 05/19/23 19:15 Discharge Plan Discharge Patient Disposition: Home Clinical Impression: Weakness, Fever Condition: Stable Prescriptions: New cephalexin 500 mg capsule 500 mg PO TID 7 Days Qty: 21 0RF No Action Lantus U-100 Insulin 100 unit/mL solution See Rx Instructions .ROUTE .COMPLEX Rx Instructions: 20 units sub-q qam and 10 units qpm clopidogrel 75 mg tablet 75 mg PO DAILY@07 docusate sodium 100 mg capsule 100 mg PO DAILY@07 isosorbide mononitrate 30 mg tablet extended release 24 hr 30 mg PO DAILY@07 Hold Instructions: Resume on 02/01/21. metformin 1,000 mg tablet 1,000 mg PO BID@07,17 magnesium oxide 400 mg (241.3 mg magnesium) tablet 400 mg PO BID@,20 carvedilol [Coreg] 12.5 mg tablet 12.5 mg PO BID@,20 carbidopa-levodopa 25-100 mg tablet 1 tab PO TID@07,16,20 rosuvastatin 10 mg tablet 10 mg PO DAILY@20 acetaminophen [Tylenol 8 Hour] 650 mg tablet extended release 650 mg PO Q6H MDD 4,000mg PRN (Reason: Pain) Systane (propylene glycol) 0.4-0.3 % drops 1 drop ophthalmic (eye) PRN (DME) diabetic shoes with 3 inserts See Rx Instructions .Route .MEDSUPPLY Qty: 1 0RF Rx Instructions: As directed potassium chloride 10 mEq tablet extended release 10 meq PO DAILY@07 lacosamide [Vimpat] 50 mg tablet 50 mg PO BID@, Qty: 60 5RF levetiracetam 750 mg tablet 750 mg PO BID Qty: 180 2RF Rx Instructions: TAKE ONE TABLET BY MOUTH TWICE DAILY cenobamate 200 mg tablet 200 mg PO DAILY@07 Qty: 90 1RF aspirin [Ecotrin Low Strength] 81 mg Tablet,Delayed Release (Dr/Ec) 81 mg PO DAILY@07 glipizide 5 mg tablet 2.5 mg PO DAILY@ lisinopril 20 mg Tablet 20 mg PO BID@,20 amlodipine 10 mg Tablet 10 mg PO BID@,20 hydrochlorothiazide 25 mg Tablet 25 mg PO DAILY@ clonidine HCl 0.2 mg tablet 0.2 mg PO BID@, hydrocodone-acetaminophen 5-325 mg tablet 1 tab PO Q8H PRN (Reason: Pain) Discharge Orders: Discharge ED (Routine); Ordered 05/19/23 Ordered By: Arturo Henderson Referrals: Augustin Colón MD [Primary Care Provider] - 1-3 days Discharge Diet: Advance as tolerated Discharge Activity: Resume usual activity Patient Instructions: Fever in Adults (ED), Weakness (ED) Coding Level of Care Code ED Electronic Commerce Specialist for Chg Fwd Documented by User: Arturo Henderson MD 05/19/23 21:14 HPI - Weakness General: Chief complaint: Weakness Stated complaint: weakness Time Seen by Provider: 05/19/23 16:46 History of Present Illness: . PFS ED PFSH: Medical History Diabetes Hypertension Parkinson disease Secondarily generalized seizures Surgical History Status post VNS (vagus nerve stimulator) placement Family History Other Diabetes Hypertension Denies family history of CAD (coronary artery disease) Cancer Stroke Social History Smoking and tobacco status: never smoked Alcohol intake: never Substance/Drug Use: never Course Vital Signs: Vital signs: Vital Signs Temperature 100.8 F H 05/19/23 21:22 Pulse Rate 114 H 05/19/23 21:22 Respiratory Rate 16 05/19/23 21:22 Blood Pressure 175/103 05/19/23 21:22 Pulse Oximetry 93 05/19/23 21:22 Oxygen Delivery Me thod Room Air 05/19/23 16:47 MDM - Weakness Medical Decision Making 63-year-old female presented here with generalized weakness and fever blood work here is normal we will start her on Keflex patient able ambulate here with a walker she is stable for discharge back to snf at this time. No signs of any severe infection. Medical Records I reviewed the patient's medical records. Lab Data I reviewed the patient's lab results. 05/19/23 16:20 05/19/23 16:20 Radiology Impressions Chest X-Ray 05/19/23 18:03 IMPRESSION: Pulmonary hypoinflation with atelectasis versus scarring at the left lung base, small pleural effusion not excluded. Laboratory Results WBC 11.4 10^3/uL (4.0-10.0) H 05/19/23 16:20 RBC 4.69 10^6/uL (4.1-5.3) 05/19/23 16:20 Hgb 14.3 g/dL (11.5-15.3) 05/19/23 16:20 Hct 42.9 % (37.0-47.0) 05/19/23 16:20 MCV 91.5 fl (81-99) 05/19/23 16:20 MCH 30.5 pg (28.0-34.0) 05/19/23 16:20 MCHC 33.3 g/dL (30.0-36.0) 05/19/23 16:20 RDW 13.2 % (12.1-15.1) 05/19/23 16:20 Plt Count 268 10^3/cmm (130-400) 05/19/23 16:20 MPV 9.8 fL (7.4-10.4) 05/19/23 16:20 Neut % (Auto) 87.0 % 05/19/23 16:20 Lymph % (Auto) 5.2 % 05/19/23 16:20 [place] % (Auto) 6.3 % 05/19/23 16:20 Eos % (Auto) 1.0 % 05/19/23 16:20 Baso % (Auto) 0.1 % 05/19/23 16:20 Neut # (Auto) 9.93 10^3/uL (1.8-7.7) H 05/19/23 16:20 Lymph # (Auto) 0.6 10^3/uL (0.8-4.8) L 05/19/23 16:20 [place] # (Auto) 0.7 10^3/uL (0.2-0.9) 05/19/23 16:20 Eos # (Auto) 0.1 10^3/uL (0.0-0.8) 05/19/23 16:20 Baso # (Auto) 0.0 10^3/uL (0.0-0.1) 05/19/23 16:20 Nucleated RBC % (auto) 0 % 05/19/23 16:20 Nucleated RBCs # 0.0 /100WBC 05/19/23 16:20 Sodium 132 mmol/L (136-145) L 05/19/23 16:20 Potassium 4.0 mmol/L (3.5-5.1) 05/19/23 16:20 Chloride 94 mmol/L (98-107) L 05/19/23 16:20 Carbon Dioxide 25 mmol/L (22-29) 05/19/23 16:20 Anion Gap 17.0 (5-19) 05/19/23 16:20 BUN 18 mg/dL (8-23) 05/19/23 16:20 Creatinine 0.7 mg/dL (0.5-0.9) 05/19/23 16:20 GFR Calculation 84.2 mL/min (90-130) L 05/19/23 16:20 Glucose 119 mg/dL (65-115) H 05/19/23 16:20 Calculated Osmolality 277 mOsm/kg (285-295) L 05/19/23 16:20 Lactic Acid 2.6 mmol/L (0.5-2.2) H 05/19/23 15:20 Lactic Acid (Sepsis) 2.8 mmol/L (0.5-2.2) H 05/19/23 19:48 Calcium 9.2 mg/dL (8.5-10.5) 05/19/23 16:20 Total Bilirubin 0.3 mg/dL (0.15-1.2) 05/19/23 16:20 AST 13 U/L (0-32) 05/19/23 16:20 ALT < 5 U/L (0-33) 05/19/23 16:20 Alkaline Phosphatase 143 U/L (35-105) H 05/19/23 16:20 Total Protein 7.0 g/dL (6.6-8.7) 05/19/23 16:20 Albumin 4.5 g/dL (3.5-5.2) 05/19/23 16:20 Globulin 2.5 g/dL (1.3-4.6) 05/19/23 16:20 Urine Color Yellow (Yellow) 05/19/23 19:13 Urine Appearance Clear (CLEAR) 05/19/23 19:13 Urine pH 6 (5-7) 05/19/23 19:13 Ur Specific [place] 1.005 (1.005-1.030) 05/19/23 19:13 Urine Protein Neg (Negative) 05/19/23 19:13 Urine Glucose (UA) Norm (Normal) 05/19/23 19:13 Urine Ketones Negative (Negative) 05/19/23 19:13 Urine Blood Trace (Negative) H 05/19/23 19:13 Urine Nitrate Negative (Negative) 05/19/23 19:13 Urine Bilirubin Neg (Negative) 05/19/23 19:13 Urine Urobilinogen Norm mg/dL (Negative) 05/19/23 19:13 Ur Leukocyte Esterase Negative (Negative) 05/19/23 19:13 Urine RBC 0-4 /hpf (0-2) H 05/19/23 19:13 Urine WBC 0-4 /hpf (0-5) H 05/19/23 19:13 Ur Squamous Epith Cells 0-4 /hpf (0-5) H 05/19/23 19:13 Amorphous Sediment Not Reportable 05/19/23 19:13 Urine Bacteria None /hpf (NONE) 05/19/23 19:13 SARS-CoV-2 Ag (Rapid) negative (Negative) 05/19/23 19:15 Discharge Plan Discharge Patient Disposition: Home Clinical Impression: Weakness, Fever Condition: Stable Prescriptions: New cephalexin 500 mg capsule 500 mg PO TID 7 Days Qty: 21 0RF No Action Lantus U-100 Insulin 100 unit/mL solution See Rx Instructions .ROUTE .COMPLEX Rx Instructions: 20 units sub-q qam and 10 units qpm clopidogrel 75 mg tablet 75 mg PO DAILY@07 docusate sodium 100 mg capsule 100 mg PO DAILY@07 isosorbide mononitrate 30 mg tablet extended release 24 hr 30 mg PO DAILY@07 Hold Instructions: Resume on 02/01/21. metformin 1,000 mg tablet 1,000 mg PO BID@07,17 magnesium oxide 400 mg (241.3 mg magnesium) tablet 400 mg PO BID@07,20 carvedilol [Coreg] 12.5 mg tablet 12.5 mg PO BID@07,20 carbidopa-levodopa 25-100 mg tablet 1 tab PO TID@07,16,20 rosuvastatin 10 mg tablet 10 mg PO DAILY@20 acetaminophen [Tylenol 8 Hour] 650 mg tablet extended release 650 mg PO Q6H MDD 4,000mg PRN (Reason: Pain) Systane (propylene glycol) 0.4-0.3 % drops 1 drop ophthalmic (eye) PRN (DME) diabetic shoes with 3 inserts See Rx Instructions .Route .MEDSUPPLY Qty: 1 0RF Rx Instructions: As directed potassium chloride 10 mEq tablet extended release 10 meq PO DAILY@07 lacosamide [Vimpat] 50 mg tablet 50 mg PO BID@, Qty: 60 5RF levetiracetam 750 mg tablet 750 mg PO BID Qty: 180 2RF Rx Instructions: TAKE ONE TABLET BY MOUTH TWICE DAILY cenobamate 200 mg tablet 200 mg PO DAILY@07 Qty: 90 1RF aspirin [Ecotrin Low Strength] 81 mg Tablet,Delayed Release (Dr/Ec) 81 mg PO DAILY@07 glipizide 5 mg tablet 2.5 mg PO DAILY@17 lisinopril 20 mg Tablet 20 mg PO BID@07,20 amlodipine 10 mg Tablet 10 mg PO BID@07,20 hydrochlorothiazide 25 mg Tablet 25 mg PO DAILY@07 clonidine HCl 0.2 mg tablet 0.2 mg PO BID@07,19 hydrocodone-acetaminophen 5-325 mg tablet 1 tab PO Q8H PRN (Reason: Pain) Discharge Orders: Discharge ED (Routine); Ordered 05/19/23 Ordered By: Arturo Henderson Referrals: Augustin Colón MD [Primary Care Provider] - 1-3 days Discharge Diet: Advance as tolerated Discharge Activity: Resume usual activity Patient Instructions: Fever in Adults (ED), Weakness (ED) Coding Level of Care Code ED Electronic Commerce Specialist for Sudha Weiss
[2023-05-19] MEDS: sodium chloride 0.9% 1,000 ML 999 ML IV (17:23)
[2023-05-19 17:27] VITALS: BP 139/80; PULSE 113; RESP 24; O2SAT 93
--- NOTE | 2023-05-19 17:28 | PC.NURSE ---
PT PLACED ON CONTINUOUS NIBP, SPO2, AND CM
[2023-05-19 17:50] LABS: Lactic Sepsis W/Reflex 2.6 mmol/L (0.5-2.2)
[2023-05-19 17:51] LABS: Alanine Aminotransferase < 5 U/L (0-33); Albumin Level 4.5 g/dL (3.5-5.2); Alkaline Phosphatase 143 U/L (35-105); Aspartate Amino Transferase 13 U/L (0-32); Blood Urea Nitrogen 18 mg/dL (8-23); Calcium 9.2 mg/dL (8.5-10.5); Carbon Dioxide 25 mmol/L (22-29); Chloride 94 mmol/L (98-107); Globulin 2.5 g/dL (1.3-4.6); Glomerular Filtration Rate 84.2 mL/min (90-130); Glucose 119 mg/dL (65-115); Osmolality Calculated 277 mOsm/kg (285-295); Sodium 132 mmol/L (136-145); Total Bilirubin 0.3 mg/dL (0.15-1.2)
--- NOTE | 2023-05-19 18:03 | XRR_ITS ---
PROCEDURE INFORMATION: Exam: XR Chest Exam date and time: 05/19/2023 6:08 PM Age: 63 years old Clinical indication: Other: Weakness; Prior surgery; Surgery date: 6+ months; Surgery type: Pacer; Additional info: Dyspnea/cough TECHNIQUE: Imaging protocol: Radiologic exam of the chest. Views: 1 view. COMPARISON: 1. CR XR chest 1V portable [id number] 01/05/2023 8:44 AM 2. CR XR chest 1V portable [id number] 03/27/2021 7:21 AM 3. CR XR chest 1V portable [id number] 01/22/2021 11:21 AM FINDINGS: Tubes, catheters and devices: Left chest generator with partially visualized lead extending to the left neck. Lungs: Hypoinflated lungs. No consolidation. Mild bandlike scarring versus atelectasis at the left lung base. Pleural spaces: Mild blunting of the left costophrenic sulcus. No pneumothorax. Heart/Mediastinum: Stable prominence of the cardiac silhouette. Bones/joints: Unremarkable. XR/XR chest 1V portable [id number] IMPRESSION: Pulmonary hypoinflation with atelectasis versus scarring at the left lung base, small pleural effusion not excluded.
[2023-05-19] MEDS: acetaminophen 500 mg Tablet 1000 MG PO (18:58)
[2023-05-19 19:00] VITALS: BP 175/103; PULSE 114; RESP 16; O2SAT 93
[2023-05-19 19:18] LABS: Reflex Lactate Order REFLEX LACTIC ORDERD
[2023-05-19 19:42] LABS: Add Urine Microscopic? YES; Bilirubin Urine Neg (Negative); Blood Urine Trace (Negative); Glucose Urine UA Norm (Normal); Ketones Urine Negative (Negative); Leukocyte Esterase Urine Negative (Negative); Nitrate Urine Negative (Negative); Protein Urine Neg (Negative); Specific Gravity, Urine 1.005 (1.005-1.030); Urine Appearance Clear (CLEAR); Urine Color Yellow (Yellow); Urobilinogen Urine Norm (Negative); pH Urine 6 (5-7)
[2023-05-19 19:43] LABS: Add Urine Culture? No; RBC Urine 0-4 /hpf (0-2); Squamous Epithelial Cell Urine 0-4 /hpf (0-5); WBC Urine 0-4 /hpf (0-5)
[2023-05-19 19:52] LABS: SARS Covid-2 Antigen negative (Negative)
[2023-05-19 20:17] LABS: Lactic Acid level (Lactate) 2.8 mmol/L (0.5-2.2)
[2023-05-19] MEDS: cephALEXin 500 mg Capsule PO (20:57)
[2023-05-19 21:22] VITALS: BP 175/103; PULSE 114; RESP 16; TEMP 38.2; O2SAT 93
== END 2023-05-19 21:23 | disposition home or self-care (01) ==
PROVIDERS: Family Medicine; Emergency Provider Emergency Medicine; PCP Family Medicine
DX: R53.1 Weakness (principal); R50.9 Fever, unspecified
CPT/HCPCS: 36415; 71045; 80053; 81001; 83605; 85025; 87040; 87426; 93005; 99285; J7030

== ENCOUNTER → 2023-06-20 09:47 | Outpatient (BNVA) | payer MEDICARE, MEDICAID, SELFPAY | PROVIDERS: PCP Family Medicine; Visit Provider Podiatrist Foot & Ankle Surgery | DX: B35.1 Tinea unguium (principal); L85.3 Xerosis cutis; E11.9 Type 2 diabetes mellitus without complications; Z79.4 Long term (current) use of insulin | CPT/HCPCS: 11721 ==

== ENCOUNTER → 2023-08-03 12:45 | Outpatient (BNVA) | payer MEDICARE, MEDICAID, SELFPAY | PROVIDERS: PCP Family Medicine; Visit Provider Specialist | DX: G40.019 Localization-related (focal) (partial) idiopathic epilepsy and epileptic syndromes with seizures of localized onset, intractable, without status epilepticus (principal); Z96.89 Presence of other specified functional implants; F81.9 Developmental disorder of scholastic skills, unspecified | CPT/HCPCS: 95970; 99214 ==

== ENCOUNTER 2023-12-26 11:18 | Outpatient (CLI) | payer MEDICARE, MEDICAID, SELFPAY ==
--- NOTE | 2023-12-26 11:22 | MM_ITS ---
WS: [id number] BILATERAL 3D TOMOSYNTHESIS DIGITAL SCREENING MAMMOGRAPHY WITH CAD CLINICAL INFORMATION: SCREENING HISTORY: Screening mammogram. No current complaints. COMPARISON: 2022 TECHNIQUE: Bilateral CC and MLO views. FINDINGS: The breasts are composed of heterogeneous fibroglandular density tissue, which can limit the detectio n of small underlying mass lesions. No suspicious mass, asymmetry, calcifications, or architectural d istortion. No evidence of malignancy. Punctate and lucent centered calcifications. Long-term stabilit y ovoid nodule upper outer RIGHT breast. IMPRESSION: MM/[place] [id number] BI-RADS: 2-Benign FOLLOW UP: 1 Year Follow-up Recommend return to annual screening mammography.
== END 2023-12-26 11:19 | disposition home or self-care (01) ==
LOC: RAD 11:20
PROVIDERS: PCP Family Medicine; Visit Provider Family Medicine
DX: Z12.31 Encounter for screening mammogram for malignant neoplasm of breast (principal); R92.323 Mammographic fibroglandular density, bilateral breasts; R92.333 Mammographic heterogeneous density, bilateral breasts
CPT/HCPCS: 77063; 77067

== ENCOUNTER → 2024-01-09 08:26 | Outpatient (BNVA) | payer MEDICARE, MEDICAID, SELFPAY | PROVIDERS: PCP Family Medicine; Visit Provider Podiatrist Foot & Ankle Surgery | DX: B35.1 Tinea unguium (principal); L85.3 Xerosis cutis; Z79.4 Long term (current) use of insulin; E11.69 Type 2 diabetes mellitus with other specified complication; Z79.84 Long term (current) use of oral hypoglycemic drugs | CPT/HCPCS: 11721 ==

== ENCOUNTER → 2024-02-01 13:14 | Outpatient (BNVA) | payer MEDICARE, MEDICAID, SELFPAY | PROVIDERS: PCP Family Medicine; Visit Provider Specialist | DX: G93.89 Other specified disorders of brain (principal); R26.89 Other abnormalities of gait and mobility; G40.019 Localization-related (focal) (partial) idiopathic epilepsy and epileptic syndromes with seizures of localized onset, intractable, without status epilepticus; Z96.89 Presence of other specified functional implants | CPT/HCPCS: 95970; 99213 ==

== ENCOUNTER → 2024-07-23 09:20 | Outpatient (BNVA) | payer MEDICARE, MEDICAID, SELFPAY | PROVIDERS: PCP Family Medicine; Visit Provider Podiatrist Foot & Ankle Surgery | DX: B35.1 Tinea unguium (principal); L85.3 Xerosis cutis; E11.69 Type 2 diabetes mellitus with other specified complication; Z79.4 Long term (current) use of insulin; Z79.84 Long term (current) use of oral hypoglycemic drugs | CPT/HCPCS: 11721 ==

== ENCOUNTER → 2024-08-03 10:31 | Outpatient (BNVA) | payer MEDICARE, MEDICAID, SELFPAY | PROVIDERS: PCP Family Medicine; Visit Provider Specialist | DX: G40.019 Localization-related (focal) (partial) idiopathic epilepsy and epileptic syndromes with seizures of localized onset, intractable, without status epilepticus (principal); Z96.89 Presence of other specified functional implants; G93.89 Other specified disorders of brain; R26.89 Other abnormalities of gait and mobility; F81.9 Developmental disorder of scholastic skills, unspecified; G31.84 Mild cognitive impairment of uncertain or unknown etiology | CPT/HCPCS: 95970; 99214 ==

== ENCOUNTER 2024-09-29 09:52 | Emergency (ER) | payer MEDICARE, MEDICAID, SELFPAY ==
[2024-09-29] VITALS (7 sets, daily range): BP systolic 100–135; BP diastolic 57–86; PULSE 67–85; RESP 16–17; TEMP 36.6; O2SAT 94–99
--- NOTE | 2024-09-29 10:02 | XRR_ITS ---
PROCEDURE INFORMATION: Exam: XR Chest Exam date and time: 09/29/2024 10:13 AM Age: 64 years old Clinical indication: Other: Weakness TECHNIQUE: Imaging protocol: Radiologic exam of the chest. Views: 1 view. COMPARISON: CR (CHEST, ) 05/19/2023 6:08 PM FINDINGS: Tubes, catheters and devices: An Inspire device is noted in the left upper chest. Lungs: Unremarkable. No consolidation or mass. Pleural spaces: Unremarkable. No pleural effusion. No pneumothorax. Heart/Mediastinum: Unremarkable. No cardiomegaly. Bones/joints: Unremarkable. XR/XR chest 1V portable [id number] IMPRESSION: No acute findings.
--- NOTE | 2024-09-29 10:16 | ED_ITS ---
HPI - General Adult 2 General: Chief complaint: General Medical Stated complaint: low B/P Time Seen by Provider: 09/29/24 09:57 History of Present Illness: 64-year-old female with a history of hyp ertension, diabetes and Parkinson's who presents to the emergency room from detention with confusion and low blood pressure. Apparently she has had some urinary incontinence has been worsening over the last few weeks. This morning blood pressure was checked and it was low in the 80s. Fused at that time. She seems to have improved somewhat at this point. She denies any pain complaints at this time. No chest pain. No shortness of breath. No abdominal pain. No nausea or vomiting. Related Data Home Medications Medication Instructions Recorded Confirmed acetaminophen 650 mg 650 mg PO Q6H PRN Pain 12/24/19 09/29/24 tablet,extended release (Tylenol 8 Hour) carbidopa 25 mg-levodopa 100 mg 1 tab PO TID@,,12/24/19 09/29/24 tablet clopidogrel 75 mg tablet 75 mg PO DAILY@12/24/19 09/29/24 docusate sodium 100 mg capsule 100 mg PO DAILY@12/24/19 09/29/24 insulin glargine 100 unit/mL See Rx Instructions .Route .COMPLEX 12/24/19 09/29/24 subcutaneous solution (Lantus U-100 Insulin) isosorbide mononitrate 30 mg 30 mg PO DAILY@12/24/19 09/29/24 tablet,extended release 24 hr magnesium oxide 400 mg (241.3 mg 400 mg PO BID@12/24/19 09/29/24 magnesium) tablet metformin 1,000 mg tablet 1,000 mg PO BID@12/24/19 09/29/24 peg 400-propylene glycol 0.4 %-0.3 1 drop ophthalmic (eye) PRN 12/24/19 09/29/24 % eye drops (Systane (propylene glycol)) rosuvastatin 10 mg tablet 10 mg PO DAILY@12/24/19 09/29/24 aspirin 81 mg tablet,delayed 81 mg PO DAILY@01/21/21 09/29/24 release (Ecotrin Low Strength) glipizide 5 mg tablet 2.5 mg PO DAILY@01/21/21 09/29/24 amlodipine 10 mg tablet 10 mg PO BID@,03/27/21 09/29/24 hydrochlorothiazide 25 mg tablet 25 mg PO DAILY@03/27/21 09/29/24 lisinopril 20 mg tablet 20 mg PO BID@,03/27/21 09/29/24 potassium chloride 10 mEq 10 meq PO DAILY@09/02/22 09/29/24 tablet,extended release clonidine HCl 0.2 mg tablet 0.2 mg PO BID@,01/05/23 09/29/24 carvedilol 25 mg tablet 25 mg PO BID 09/29/24 09/29/24 cenobamate 200 mg tablet (Xcopri) 200 mg PO DAILY@09/29/24 09/29/24 levetiracetam 750 mg tablet 750 mg PO BID epliepsy 09/29/24 09/29/24 oxybutynin chloride 10 mg 10 mg PO QPM 09/29/24 09/29/24 tablet,extended release 24 hr Previous Rx's Medication Instructions Recorded diabetic shoes with 3 inserts #1 ea 12/24/22 galantamine 4 mg tablet 4 mg PO BID #60 tabs 08/03/24 lacosamide 50 mg tablet (Vimpat) 50 mg PO BID@ #180 tabs 08/03/24 cefdinir 300 mg capsule 300 mg PO BID 5 days #10 caps 09/29/24 Allergies Allergy/AdvReac Type Severity Reaction Status Date / Time amoxicillin Allergy Unknown Verified 08/03/24 10:38 Penicillins Allergy unknown Verified 08/03/24 10:38 potassium chloride Allergy ALGY-Rash Verified 09/29/24 10:05 Review of Systems 2 Narrative: Constitutional symptoms: Negative except as documented in HPI. Skin symptoms: Negative except as documented in HPI. Eye symptoms: Negative except as documented in HPI. ENMT symptoms: Negative except as documented in HPI. Respiratory symptoms: Negative except as documented in HPI. Cardiovascular symptoms: Negative except as documented in HPI. Gastrointestinal symptoms: Negative except as documented in HPI. Genitourinary symptoms: Negative except as documented in HPI. Musculoskeletal symptoms: Negative except as documented in HPI. Neurologic symptoms: Negative except as documented in HPI. Psychiatric symptoms: Negative except as documented in HPI. Endocrine symptoms: Negative except as documented in HPI. PFSH ED 2 PFSH: Medical History Hypertension Diabetes Secondarily generalized seizures Parkinson disease Surgical History Status post VNS (vagus nerve stimulator) placement Family History Other Diabetes Hypertension Denies family history of CAD (coronary artery disease) Cancer Stroke Social History Smoking and tobacco/nicotine status: never used tobacco/nicotine Alcohol intake: never Substance/Drug Use: never Physical Exam 2 Narrative: EXAM NARRATIVE: General: Alert, no acute distress. Skin: Warm, dry. Head: Normocephalic, atraumatic. Neck: Supple, trachea midline. Eye: Extraocular movements are intact. Ears, nose, mouth and throat: mucosa moist. Cardiovascular: Regular, Normal peripheral perfusion. Respiratory: Lungs are clear to auscultation, respirations are non-labored, breath sounds are equal, Symmetrical chest wall expansion. Gastrointestinal: Soft, Nontender, Non distended Musculoskeletal: Normal ROM, no deformity. Neurological: Alert and oriented, No focal neurological deficit observed. Psychiatric: Cooperative, appropriate mood & affect. Course 2 Vital Signs: Vital signs: Vital Signs Temperature 97.8 F 09/29/24 10:00 Pulse Rate 78 09/29/24 10:48 Respiratory Rate 17 09/29/24 10:00 Blood Pressure 107/64 09/29/24 10:48 Pulse Oximetry 97 09/29/24 10:48 Oxygen Delivery Me thod Room Air 09/29/24 10:48 [facility] - General Adult Medical Decision Making Medical decision making: Differential diagnosis for patient presenting with generalized weakness including but not limited to and based on the above HPI, review of systems and physical exam: Sepsis. Dehydration. Renal failure. Electrolyte abnormalities. Anemia. Congestive heart failure. Hypotension. Coronary syndrome. Hepatitis. Cirrhosis. Infections such as pneumonia, urinary tract infection, [place]ick bourne illness, Cellulitis, Viral infections including influenza and Covid-19. Workup: labwork and lab/exam driven imaging ordered to evaluate, rule in and rule out above pathologies. Chest x-ray: No acute process. No infiltrate. No pneumothorax. This was reviewed and interpreted by myself the emergency room physician. I also reviewed the radiology report. Lab Review: Laboratory results were reviewed and interpreted by myself the emergency room physician. No leukocytosis. No anemia. BUN is elevated over baseline which likely would indicate some dehydration as well as slightly concentrated urine and she has leukocyte esterase in her urine and is symptomatic so I am treating her for UTI. I reviewed the patient's medical record. Reexamination: Patient remained stable. No increased work of breathing. No altered mental status. No focal motor deficits. And blood pressure has improved with fluids. Assessment and plan: Hyperglycemia Dehydration Urinary tract infection ?Normal saline bolus with improvement in blood pressure and symptoms. IV Rocephin. - Discharged home - Discussed findings and plan with patient. Answered any questions. - All laboratory values were reviewed and interpreted personally by myself, the ER physician - All imaging was reviewed and interpreted personally by myself, the ER physician. - Evaluation and treatment of this problem were appropriate in the emergency setting Lab Data 09/29/24 10:14 09/29/24 10:14 Radiology Impressions Chest X-Ray 09/29/24 10:02 IMPRESSION: No acute findings. Laboratory Results WBC 9.25 10^3/uL (3.29-11.43) 09/29/24 10:14 RBC 3.70 10^6/uL (3.85-5.65) L 09/29/24 10:14 Hgb 11.70 g/dL (11.27-16.99) 09/29/24 10:14 Hct 35.4 % (36-47) L 09/29/24 10:14 MCV 95.7 fl (85-98) 09/29/24 10:14 MCH 31.6 pg (27-33) 09/29/24 10:14 MCHC 33.1 g/dL (30-55) 09/29/24 10:14 RDW 13.3 % (12.1-15.1) 09/29/24 10:14 Plt Count 290 10^3/cmm (157-399) 09/29/24 10:14 MPV 10.0 fL (7.4-10.4) 09/29/24 10:14 Neut % (Auto) 82.7 % 09/29/24 10:14 Lymph % (Auto) 8.8 % 09/29/24 10:14 Beckham % (Auto) 6.3 % 09/29/24 10:14 Eos % (Auto) 1.6 % 09/29/24 10:14 Baso % (Auto) 0.2 % 09/29/24 10:14 Neut # (Auto) 7.65 10^3/uL (1.8-7.7) 09/29/24 10:14 Lymph # (Auto) 0.8 10^3/uL (0.8-4.8) 09/29/24 10:14 Beckham # (Auto) 0.6 10^3/uL (0.2-0.9) 09/29/24 10:14 Eos # (Auto) 0.2 10^3/uL (0.0-0.8) 09/29/24 10:14 Baso # (Auto) 0.0 10^3/uL (0.0-0.1) 09/29/24 10:14 Nucleated RBC % (auto) 0 % 09/29/24 10:14 Nucleated RBCs # 0.0 /100WBC 09/29/24 10:14 Sodium 137 mmol/L (136-145) 09/29/24 10:14 Potassium 4.4 mmol/L (3.5-5.1) 09/29/24 10:14 Chloride 99 mmol/L (98-107) 09/29/24 10:14 Carbon Dioxide 24 mmol/L (22-29) 09/29/24 10:14 Anion Gap 18.4 (5-19) 09/29/24 10:14 BUN 28 mg/dL (8-23) H 09/29/24 10:14 Creatinine 0.8 mg/dL (0.5-0.9) 09/29/24 10:14 GFR Calculation 72.0 mL/min (90-130) L 09/29/24 10:14 Glucose 363 mg/dL (65-115) H 09/29/24 10:14 POC Glucose 155 mg/dL (70-110) H 09/29/24 13:41 Calculated Osmolality 304 mOsm/kg (285-295) H 09/29/24 10:14 Lactic Acid 4.3 mmol/L (0.5-2.2) H* 09/29/24 10:14 Lactic Acid (Sepsis) 3.7 mmol/L (0.5-2.2) H 09/29/24 13:14 Calcium 9.1 mg/dL (8.5-10.5) 09/29/24 10:14 Total Bilirubin 0.2 mg/dL (0.15-1.2) 09/29/24 10:14 AST 16 U/L (0-32) 09/29/24 10:14 ALT 9 U/L (0-33) 09/29/24 10:14 Alkaline Phosphatase 102 U/L (35-105) 09/29/24 10:14 Total Protein 6.4 g/dL (6.6-8.7) L 09/29/24 10:14 Albumin 3.7 g/dL (3.5-5.2) 09/29/24 10:14 Globulin 2.7 g/dL (1.3-4.6) 09/29/24 10:14 Urine Color Yellow (Yellow) 09/29/24 10:32 Urine Appearance Clear (CLEAR) 09/29/24 10:32 Urine pH 7.0 (5-7) 09/29/24 10:32 Ur Specific Warren 1.019 (1.005-1.030) 09/29/24 10:32 Urine Protein Negative (Negative) 09/29/24 10:32 Urine Glucose (UA) Trace (Normal) H 09/29/24 10:32 Urine Ketones Trace (Negative) 09/29/24 10:32 Urine Blood Negative (Negative) 09/29/24 10:32 Urine Nitrate Negative (Negative) 09/29/24 10:32 Urine Bilirubin Negative (Negative) 09/29/24 10:32 Urine Urobilinogen 1.0 mg/dL (Negative) 09/29/24 10:32 Ur Leukocyte Esterase 1+ (Negative) A 09/29/24 10:32 Urine RBC 0-2 /hpf (0-2) 09/29/24 10:32 Urine WBC 0-5 /hpf (0-5) 09/29/24 10:32 Ur Squamous Epith Cells 0-5 /hpf (0-5) 09/29/24 10:32 Amorphous Sediment Not Reportable 09/29/24 10:32 Urine Bacteria None seen /hpf (NONE) 09/29/24 10:32 Hyaline Casts 6.61 /lpf 09/29/24 10:32 All radiology interpretation(s) finalized by discharge Discharge Plan Discharge Patient Disposition: Home Clinical Impression: Acute UTI, Dehydration, Hyperglycemia Condition: Stable Prescriptions: New cefdinir 300 mg capsule 300 mg PO BID 5 Days Qty: 10 0RF No Action Lantus U-100 Insulin 100 unit/mL solution See Rx Instructions .ROUTE .COMPLEX Rx Instructions: Inject 20 units sub-q in the morning and 10 units in the evening. clopidogrel 75 mg tablet 75 mg PO DAILY@07 docusate sodium 100 mg capsule 100 mg PO DAILY@07 isosorbide mononitrate 30 mg tablet extended release 24 hr 30 mg PO DAILY@07 Hold Instructions: Resume on 02/01/21. metformin 1,000 mg tablet 1,000 mg PO BID@07,17 magnesium oxide 400 mg (241.3 mg magnesium) tablet 400 mg PO BID@07,20 carbidopa-levodopa 25-100 mg tablet 1 tab PO TID@07,16,20 rosuvastatin 10 mg tablet 10 mg PO DAILY@20 acetaminophen [Tylenol 8 Hour] 650 mg tablet extended release 650 mg PO Q6H MDD 4,000mg PRN (Reason: Pain) Systane (propylene glycol) 0.4-0.3 % drops 1 drop ophthalmic (eye) PRN (DME) diabetic shoes with 3 inserts See Rx Instructions .Route .MEDSUPPLY Qty: 1 0RF Rx Instructions: As directed potassium chloride 10 mEq tablet extended release 10 meq PO DAILY@07 galantamine 4 mg tablet 4 mg PO BID Qty: 60 3RF Rx Instructions: administer with AM and PM meals lacosamide [Vimpat] 50 mg tablet 50 mg PO BID@07,19 Qty: 180 1RF aspirin [Ecotrin Low Strength] 81 mg Tablet,Delayed Release (Dr/Ec) 81 mg PO DAILY@07 glipizide 5 mg tablet 2.5 mg PO DAILY@17 lisinopril 20 mg Tablet 20 mg PO BID@07,20 amlodipine 10 mg Tablet 10 mg PO BID@07,20 hydrochlorothiazide 25 mg Tablet 25 mg PO DAILY@07 clonidine HCl 0.2 mg tablet 0.2 mg PO BID@07,19 carvedilol 25 mg tablet 25 mg PO BID oxybutynin chloride 10 mg tablet extended release 24hr 10 mg PO QPM levetiracetam 750 mg tablet 750 mg PO BID Xcopri 200 mg tablet 200 mg PO DAILY@07 Discharge Orders: Discharge ED (Routine); Ordered 09/29/24 Ordered By: Vidhi Garvin Referrals: Augustin Colón MD [Primary Care Provider] - Patient Instructions: Urinary Tract Infection in Women (ED), Opioid Safety, Pain Management Activity Restrictions/Additional Instructions: Thank you for choosing [facility] for your healthcare needs today. Please realize this is an emergency room and that we are providing you with a medical screening exam and this may not be complete and all inclusive of all the testing and or work up that you may need to determine your ailment or severity of your illness. You have been screened and evaluated and felt safe for discharge. Health conditions do change or evolve sometimes and as such it is important that you follow up with your Primary Doctor to be re checked, 3-5 days is a general good time frame for follow up. You are always welcome to return to the ED for re assessment if your symptoms are worsening or you have new concerns Coding Level of Care Code ED Secretary Specialist for Sudha Weiss
[2024-09-29 10:25] LABS: Basophils % 0.2 %; Eosinophils # 0.2 10^3/uL (0.0-0.8); Eosinophils % 1.6 %; Hematocrit 35.4 % (36-47); Lymphocytes # 0.8 10^3/uL (0.8-4.8); Lymphocytes % 8.8 %; Mean Corpuscular HGB Conc 33.1 g/dL (30-55); Mean Corpuscular Hemoglobin 31.6 pg (27-33); Mean Corpuscular Volume 95.7 fl (85-98); Monocytes # 0.6 10^3/uL (0.2-0.9); Monocytes % 6.3 %; Neutrophils # 7.65 10^3/uL (1.8-7.7); Neutrophils % 82.7 %; Nucleated Red Blood Cells % 0 %; Platelet Count 290 10^3/cmm (157-399); Red Cell Distribution Width 13.3 % (12.1-15.1); White Blood Count 9.25 10^3/uL (3.29-11.43)
--- NOTE | 2024-09-29 10:29 | PC.PHAR ---
Pt is from [facility] 09/29/24 10:29am
[2024-09-29 10:46] LABS: Bilirubin Urine Negative (Negative); Blood Urine Negative (Negative); Glucose Urine UA Trace (Normal); Ketones Urine Trace (Negative); Leukocyte Esterase Urine 1+ (Negative); Nitrate Urine Negative (Negative); Protein Urine Negative (Negative); Specific Gravity, Urine 1.019 (1.005-1.030); Urine Appearance Clear (CLEAR); Urine Color Yellow (Yellow)
[2024-09-29 10:46] LABS: Alanine Aminotransferase 9 U/L (0-33); Albumin Level 3.7 g/dL (3.5-5.2); Alkaline Phosphatase 102 U/L (35-105); Anion Gap 18.4 (5-19); Aspartate Amino Transferase 16 U/L (0-32); Blood Urea Nitrogen 28 mg/dL (8-23); Calcium 9.1 mg/dL (8.5-10.5); Carbon Dioxide 24 mmol/L (22-29); Chloride 99 mmol/L (98-107); Creatinine Clr Calc Pharmacy 69.3361; Globulin 2.7 g/dL (1.3-4.6); Glucose 363 mg/dL (65-115); Osmolality Calculated 304 mOsm/kg (285-295); Potassium 4.4 mmol/L (3.5-5.1); Sodium 137 mmol/L (136-145); Total Bilirubin 0.2 mg/dL (0.15-1.2); Total Protein 6.4 g/dL (6.6-8.7)
[2024-09-29 10:48] LABS: Bacteria Urine None Seen /hpf; Hyaline Casts Urine 6.61 /lpf; RBC Urine 0-2 /hpf (0-2); Squamous Epithelial Cell Urine 0-5 /hpf (0-5); WBC Urine 0-5 /hpf (0-5)
[2024-09-29 11:00] LABS: Lactic Sepsis W/Reflex 4.3 mmol/L (0.5-2.2)
[2024-09-29] MEDS: cefTRIAXone 1,000 mg SDV 1000 MG IVP (11:38)
[2024-09-29] MEDS: sodium chloride 0.9% 1,000 ML 999 ML IV (11:38)
[2024-09-29 12:09] LABS: Reflex Lactate Order REFLEX LACTIC ORDERD
[2024-09-29 13:35] LABS: Lactic Acid level (Lactate) 3.7 mmol/L (0.5-2.2)
[2024-09-29 13:45] LABS: Glucose Point of Care 155 mg/dL (70-110)
== END 2024-09-29 13:57 | disposition home or self-care (01) ==
PROVIDERS: Emergency Provider Emergency Medicine; PCP Family Medicine
DX: N39.0 Urinary tract infection, site not specified (principal); E86.0 Dehydration; E11.65 Type 2 diabetes mellitus with hyperglycemia; I10 Essential (primary) hypertension; Z79.82 Long term (current) use of aspirin; Z79.84 Long term (current) use of oral hypoglycemic drugs
CPT/HCPCS: 36415; 36416; 71045; 80053; 81001; 82962; 83605; 85025; 87040; 96361; 96374; 99284; J0696; J7030

== ENCOUNTER 2024-10-15 16:11 | Emergency (ER) | payer MEDICARE, MEDICAID, SELFPAY ==
[2024-10-15 16:12] VITALS: BP 152/67; PULSE 79; RESP 16; TEMP 36.8; O2SAT 97; BMI 28.3
--- NOTE | 2024-10-15 16:15 | CTR_ITS ---
PROCEDURE INFORMATION: Exam: CT Head Without Contrast Exam date and time: 10/15/2024 5:05 PM Age: 64 years old Clinical indication: Altered mental status/memory loss; Confusion or disorientation; Additional info: AMS TECHNIQUE: Imaging protocol: Computed tomography of the head without contrast. Radiation optimization: All CT scans at this facility use at least one of these dose optimization techniques: automated exposure control; mA and/or kV adjustment per patient size (includes targeted exams where dose is matched to clinical indication); or iterative reconstruction. COMPARISON: CT head wo con* [id number] 01/05/2023 9:15 AM RADIATION DOSE METRICS: Total DLP (mGy-cm): 1117.05 FINDINGS: Brain: Similar mild cortical volume loss. No hemorrhage. Periventricular and subcortical white matter hypodensities likely represent chronic small vessel ischemic changes. No mass effect. Intracranial vascular calcifications. Cerebral ventricles: Mild diffuse ventriculomegaly appears similar. Paranasal sinuses: Visualized sinuses are unremarkable. No fluid levels. Mastoid air cells: Visualized mastoid air cells are well aerated. Orbital cavities: Bilateral lens replacements. Bones: Unremarkable. No acute fracture. Soft tissues: Unremarkable. CT/CT head wo con* [id number] IMPRESSION: No acute intracranial abnormality.
--- NOTE | 2024-10-15 16:15 | XRR_ITS ---
PROCEDURE INFORMATION: Exam: XR Chest Exam date and time: 10/15/2024 4:18 PM Age: 64 years old Clinical indication: Other: AMS; Prior surgery; Surgery date: 6+ months; Surgery type: Pacer TECHNIQUE: Imaging protocol: Radiologic exam of the chest. Views: 1 view. COMPARISON: CR (CHEST, ) 09/29/2024 10:13 AM FINDINGS: Tubes, catheters and devices: Inspire device again seen in the left upper chest. Lungs: Low lung volumes with bibasilar atelectasis. No consolidation. Pleural spaces: Unremarkable. No pleural effusion. No pneumothorax. Heart/Mediastinum: Unremarkable. No cardiomegaly. Bones/joints: Unremarkable. XR/XR chest 1V portable [id number] IMPRESSION: No acute findings.
[2024-10-15 16:17] VITALS: BP 134/84; PULSE 81; O2SAT 97
--- NOTE | 2024-10-15 16:23 | ECG_ITS ---
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 Measurements Intervals [place] Rate: 83 P: 95 [place]: 332 QRS: -77 QRSD: 75 T: 40 QT: 356 QTc: 418 Interpretive Statements ELECTRONIC ATRIAL PACEMAKER LOW QRS VOLTAGE IN PRECORDIAL LEADS [QRS DEFLECTION < 1.0 mV IN CHEST LEADS] LEFT ANTERIOR FASCICULAR BLOCK [QRS AXIS <= -45, QR IN I, RS IN II] ANTEROSEPTAL MYOCARDIAL INFARCTION , OF INDETERMINATE AGE [40+ ms Q WAVE IN V1-V4] Compared to ECG 05/19/2023 16:55:32 Low QRS voltage now present Left anterior fascicular block now present Sinus tachycardia no longer present Left-axis deviation no longer present Myocardial infarct finding still present Electronically Signed On 10-16-2024 19:12:34 DIPLOMATIC COURIER by My Cameron M.D. [email or web address]
[2024-10-15 16:24] LABS: Basophils % 0.4 %; Eosinophils # 0.2 10^3/uL (0.0-0.8); Hematocrit 37.8 % (36-47); Lymphocytes # 1.4 10^3/uL (0.8-4.8); Lymphocytes % 17.1 %; Mean Corpuscular HGB Conc 33.6 g/dL (30-55); Mean Corpuscular Hemoglobin 31.9 pg (27-33); Mean Platelet Volume 9.7 fL (7.4-10.4); Monocytes # 0.6 10^3/uL (0.2-0.9); Monocytes % 7.1 %; Neutrophils % 72.3 %; Nucleated Red Blood Cells % 0 %; Platelet Count 352 10^3/cmm (157-399); Red Blood Count 3.98 10^6/uL (3.85-5.65); White Blood Count 8.43 10^3/uL (3.29-11.43)
--- NOTE | 2024-10-15 16:29 | W.ED.AMS ---
HPI - Altered Mental Status General: Chief Complaint: Altered Mental Status Stated Complaint: confusion Time Seen by Provider: 10/15/24 16:13 Source: patient Mode of arrival: ambulatory Limitations: no limitations History of Present Illness: 64-year-old female with a history of dementia along with intellectual disability patient is here from [facility] she is seen to have some increased confusion over the last 2 weeks states she will have some episodes of staring off in space as well. Patient here is well-appearing she has no complaints she is answering most my questions appropriately denies any headache. Related Data Home Medications Medication Instructions Recorded Confirmed acetaminophen 650 mg 650 mg PO Q6H PRN Pain 12/24/19 09/29/24 tablet,extended release (Tylenol 8 Hour) carbidopa 25 mg-levodopa 100 mg 1 tab PO TID@,,12/24/19 09/29/24 tablet clopidogrel 75 mg tablet 75 mg PO DAILY@12/24/19 09/29/24 docusate sodium 100 mg capsule 100 mg PO DAILY@12/24/19 09/29/24 insulin glargine 100 unit/mL See Rx Instructions .Route .COMPLEX 12/24/19 09/29/24 subcutaneous solution (Lantus U-100 Insulin) isosorbide mononitrate 30 mg 30 mg PO DAILY@12/24/19 09/29/24 tablet,extended release 24 hr magnesium oxide 400 mg (241.3 mg 400 mg PO BID@,12/24/19 09/29/24 magnesium) tablet metformin 1,000 mg tablet 1,000 mg PO BID@12/24/19 09/29/24 peg 400-propylene glycol 0.4 %-0.3 1 drop ophthalmic (eye) PRN 12/24/19 09/29/24 % eye drops (Systane (propylene glycol)) rosuvastatin 10 mg tablet 10 mg PO DAILY@12/24/19 09/29/24 aspirin 81 mg tablet,delayed 81 mg PO DAILY@01/21/21 09/29/24 release (Ecotrin Low Strength) glipizide 5 mg tablet 2.5 mg PO DAILY@01/21/21 09/29/24 amlodipine 10 mg tablet 10 mg PO BID@03/27/21 09/29/24 hydrochlorothiazide 25 mg tablet 25 mg PO DAILY@07 03/27/21 09/29/24 lisinopril 20 mg tablet 20 mg PO BID@,03/27/21 09/29/24 potassium chloride 10 mEq 10 meq PO DAILY@09/02/22 09/29/24 tablet,extended release clonidine HCl 0.2 mg tablet 0.2 mg PO BID@07,01/05/23 09/29/24 carvedilol 25 mg tablet 25 mg PO BID 09/29/24 09/29/24 cenobamate 200 mg tablet (Xcopri) 200 mg PO DAILY@09/29/24 09/29/24 oxybutynin chloride 10 mg 10 mg PO QPM 09/29/24 09/29/24 tablet,extended release 24 hr Previous Rx's Medication Instructions Recorded diabetic shoes with 3 inserts #1 ea 12/24/22 galantamine 4 mg tablet 4 mg PO BID #60 tabs 08/03/24 lacosamide 50 mg tablet (Vimpat) 50 mg PO BID@, #60 tabs 10/11/24 Allergies Allergy/AdvReac Type Severity Reaction Status Date / Time amoxicillin Allergy Unknown Verified 08/03/24 10:38 Penicillins Allergy unknown Verified 08/03/24 10:38 potassium chloride Allergy ALGY-Rash Verified 09/29/24 10:05 Review of Systems Const: Denies: fever(s), chills, body aches or change in appetite Eyes: Denies: blurry vision or eye discomfort ENMT: Denies: throat pain or dental pain Card: Denies: chest pain Resp: Denies: dyspnea GI: Denies: abdominal pain, nausea, vomiting or diarrhea : Denies: dysuria Musc: Denies: neck pain or back pain Skin/Breast: Denies: rash Neuro: Reports: confusion; Denies: headache(s) PFSH ED PFSH: Medical History Hypertension Diabetes Secondarily generalized seizures Parkinson disease Surgical History Status post VNS (vagus nerve stimulator) placement Family History Other Diabetes Hypertension Denies family history of CAD (coronary artery disease) Cancer Stroke Social History Smoking and tobacco/nicotine status: never used tobacco/nicotine Alcohol intake: never Substance/Drug Use: never Physical Exam Const: COMMON NORMALS: no acute distress, patient oriented x3 and healthy appearing HENMT: COMMON NORMALS: normocephalic and atraumatic HEAD & SCALP: normocephalic and atraumatic Eye: COMMON NORMALS: Equal, round and reactive pupils present and EOMs intact bilaterally PUPIL: Yes Equal, round and reactive pupils present Neck/C-Spine: COMMON NORMALS: full ROM and supple Chest: COMMONS NORMALS: normal inspection of the chest and normal palpation of entire chest wall Resp: COMMON NORMALS: normal respiratory effort, No retractions, No use of accessory muscles and clear to auscultation bilaterally AUSCULTATION: clear to auscultation bilaterally Cardio: COMMON NORMALS: regular rate, regular rhythm and No murmurs present (Cardio) RATE: regular rate RHYTHM: regular rhythm GI: COMMON NORMALS: Normal to inspection, nondistended, normoactive bowel sounds present, Soft to palpation, non-tender and no masses PALPATION: Yes Soft to palpation Extremity: COMMON NORMALS: normal to inspection and full ROM Neuro: COMMON NORMALS: patient oriented x3, moves all extremities and no focal motor deficits Psych: COMMON NORMALS: mental status grossly normal, Normal thought process present and cooperative THOUGHT PROCESS: Normal thought process present Skin: COMMON NORMALS: no rashes or lesions noted and no wounds GENERAL SKIN EXAM: no rashes or lesions noted Course Vital Signs: Vital signs: Vital Signs Temperature 98.3 F 10/15/24 16:12 Pulse Rate 98 10/15/24 19:48 Respiratory Rate 18 10/15/24 19:48 Blood Pressure 146/89 10/15/24 19:48 Pulse Oximetry 96 10/15/24 19:48 Oxygen Delivery Me thod Room Air 10/15/24 16:12 MDM - Altered Mental Status Medical Decision Making Patient presents here with some periods of confusion she has been well-appearing here seems to be at her baseline imaging blood works all normal no sign of acute problem she stable for discharge Medical Records I reviewed the patient's medical records. Lab Data I reviewed the patient's lab results. 10/15/24 15:55 10/15/24 15:55 Radiology Impressions Chest X-Ray 10/15/24 16:15 IMPRESSION: No acute findings. Head CT 10/15/24 16:15 IMPRESSION: No acute intracranial abnormality. Laboratory Results WBC 8.43 10^3/uL (3.29-11.43) 10/15/24 15:55 RBC 3.98 10^6/uL (3.85-5.65) 10/15/24 15:55 Hgb 12.70 g/dL (11.27-16.99) 10/15/24 15:55 Hct 37.8 % (36-47) 10/15/24 15:55 MCV 95.0 fl (85-98) 10/15/24 15:55 MCH 31.9 pg (27-33) 10/15/24 15:55 MCHC 33.6 g/dL (30-55) 10/15/24 15:55 RDW 14.0 % (12.1-15.1) 10/15/24 15:55 Plt Count 352 10^3/cmm (157-399) 10/15/24 15:55 MPV 9.7 fL (7.4-10.4) 10/15/24 15:55 Neut % (Auto) 72.3 % 10/15/24 15:55 Lymph % (Auto) 17.1 % 10/15/24 15:55 [place] % (Auto) 7.1 % 10/15/24 15:55 Eos % (Auto) 2.0 % 10/15/24 15:55 Baso % (Auto) 0.4 % 10/15/24 15:55 Neut # (Auto) 6.10 10^3/uL (1.8-7.7) 10/15/24 15:55 Lymph # (Auto) 1.4 10^3/uL (0.8-4.8) 10/15/24 15:55 [place] # (Auto) 0.6 10^3/uL (0.2-0.9) 10/15/24 15:55 Eos # (Auto) 0.2 10^3/uL (0.0-0.8) 10/15/24 15:55 Baso # (Auto) 0.0 10^3/uL (0.0-0.1) 10/15/24 15:55 Nucleated RBC % (auto) 0 % 10/15/24 15:55 Nucleated RBCs # 0.0 /100WBC 10/15/24 15:55 Sodium 135 mmol/L (136-145) L 10/15/24 15:55 Potassium 4.8 mmol/L (3.5-5.1) 10/15/24 15:55 Chloride 97 mmol/L (98-107) L 10/15/24 15:55 Carbon Dioxide 23 mmol/L (22-29) 10/15/24 15:55 Anion Gap 19.8 (5-19) H 10/15/24 15:55 BUN 28 mg/dL (8-23) H 10/15/24 15:55 Creatinine 0.6 mg/dL (0.5-0.9) 10/15/24 15:55 GFR Calculation 100.3 mL/min (90-130) 10/15/24 15:55 Glucose 101 mg/dL (65-115) 10/15/24 15:55 Calculated Osmolality 286 mOsm/kg (285-295) 10/15/24 15:55 Calcium 10.1 mg/dL (8.5-10.5) 10/15/24 15:55 Magnesium 2.4 mg/dL (1.7-2.3) H 10/15/24 15:55 Total Bilirubin 0.3 mg/dL (0.15-1.2) 10/15/24 15:55 AST 42 U/L (0-32) H 10/15/24 15:55 ALT 62 U/L (0-33) H 10/15/24 15:55 Alkaline Phosphatase 119 U/L (35-105) H 10/15/24 15:55 Total Protein 7.4 g/dL (6.6-8.7) 10/15/24 15:55 Albumin 4.1 g/dL (3.5-5.2) 10/15/24 15:55 Globulin 3.3 g/dL (1.3-4.6) 10/15/24 15:55 Urine Color Yellow (Yellow) 10/15/24 19:00 Urine Appearance Clear (CLEAR) 10/15/24 19:00 Urine pH 8.0 (5-7) A 10/15/24 19:00 Ur Specific [employer] 1.019 (1.005-1.030) 10/15/24 19:00 Urine Protein Negative (Negative) 10/15/24 19:00 Urine Glucose (UA) Negative (Normal) 10/15/24 19:00 Urine Ketones Trace (Negative) 10/15/24 19:00 Urine Blood Negative (Negative) 10/15/24 19:00 Urine Nitrate Negative (Negative) 10/15/24 19:00 Urine Bilirubin Negative (Negative) 10/15/24 19:00 Urine Urobilinogen 1.0 mg/dL (Negative) 10/15/24 19:00 Ur Leukocyte Esterase 2+ (Negative) A 10/15/24 19:00 Urine RBC 0-4 /hpf (0-2) H 10/15/24 19:00 Urine WBC 10-15 /hpf (0-5) H 10/15/24 19:00 Ur Squamous Epith Cells 0-4 /hpf (0-5) H 10/15/24 19:00 Ur Transition Epith Cell Rare /hpf 10/15/24 19:00 Amorphous Sediment Trace /hpf 10/15/24 19:00 Urine Bacteria Trace /hpf (NONE) 10/15/24 19:00 Hyaline Casts 5-10 /lpf H 10/15/24 19:00 Urine Mucus None /hpf 10/15/24 19:00 All radiology interpretation(s) finalized by discharge EKG Data EKG 1: I personally reviewed and interpreted this EKG as follows: EKG interpretation date: 10/15/24 EKG interpretation time: 16:23 Interpretation: nsr hr [address] elevation qrs 75 qtc 395 Discharge Plan Discharge Patient Disposition: Home Clinical Impression: Confusion Condition: Stable Prescriptions: No Action Lantus U-100 Insulin 100 unit/mL solution See Rx Instructions .ROUTE .COMPLEX Rx Instructions: Inject 20 units sub-q in the morning and 10 units in the evening. clopidogrel 75 mg tablet 75 mg PO DAILY@07 docusate sodium 100 mg capsule 100 mg PO DAILY@07 isosorbide mononitrate 30 mg tablet extended release 24 hr 30 mg PO DAILY@07 Hold Instructions: Resume on 02/01/21. metformin 1,000 mg tablet 1,000 mg PO BID@07,17 magnesium oxide 400 mg (241.3 mg magnesium) tablet 400 mg PO BID@07,20 carbidopa-levodopa 25-100 mg tablet 1 tab PO TID@07,16,20 rosuvastatin 10 mg tablet 10 mg PO DAILY@20 acetaminophen [Tylenol 8 Hour] 650 mg tablet extended release 650 mg PO Q6H MDD 4,000mg PRN (Reason: Pain) Systane (propylene glycol) 0.4-0.3 % drops 1 drop ophthalmic (eye) PRN (DME) diabetic shoes with 3 inserts See Rx Instructions .Route .MEDSUPPLY Qty: 1 0RF Rx Instructions: As directed potassium chloride 10 mEq tablet extended release 10 meq PO DAILY@07 galantamine 4 mg tablet 4 mg PO BID Qty: 60 3RF Rx Instructions: administer with AM and PM meals lacosamide [Vimpat] 50 mg tablet 50 mg PO BID@07,19 Qty: 60 5RF aspirin [Ecotrin Low Strength] 81 mg Tablet,Delayed Release (Dr/Ec) 81 mg PO DAILY@07 glipizide 5 mg tablet 2.5 mg PO DAILY@17 lisinopril 20 mg Tablet 20 mg PO BID@07,20 amlodipine 10 mg Tablet 10 mg PO BID@07,20 hydrochlorothiazide 25 mg Tablet 25 mg PO DAILY@07 clonidine HCl 0.2 mg tablet 0.2 mg PO BID@07,19 carvedilol 25 mg tablet 25 mg PO BID oxybutynin chloride 10 mg tablet extended release 24hr 10 mg PO QPM Xcopri 200 mg tablet 200 mg PO DAILY@07 Discharge Orders: Discharge ED (Routine); Ordered 10/15/24 Ordered By: Arturo Henderson Referrals: Augustin Colón MD [Primary Care Provider] - Discharge Diet: Advance as tolerated Discharge Activity: Resume usual activity Patient Instructions: Confusion Coding Level of Care Code ED Office Clerk for Sudha Weiss
[2024-10-15 16:42] LABS: Alanine Aminotransferase 62 U/L (0-33); Albumin Level 4.1 g/dL (3.5-5.2); Alkaline Phosphatase 119 U/L (35-105); Blood Urea Nitrogen 28 mg/dL (8-23); Calcium 10.1 mg/dL (8.5-10.5); Carbon Dioxide 23 mmol/L (22-29); Chloride 97 mmol/L (98-107); Creatinine Clr Calc Pharmacy 66.9264; Globulin 3.3 g/dL (1.3-4.6); Glomerular Filtration Rate 100.3 mL/min (90-130); Glucose 101 mg/dL (65-115); Magnesium 2.4 mg/dL (1.7-2.3); Osmolality Calculated 286 mOsm/kg (285-295); Sodium 135 mmol/L (136-145); Total Bilirubin 0.3 mg/dL (0.15-1.2); Total Protein 7.4 g/dL (6.6-8.7)
[2024-10-15 16:46] LABS: Anion Gap 19.8 (5-19); Potassium 4.8 mmol/L (3.5-5.1)
[2024-10-15 16:47] LABS: Aspartate Amino Transferase 42 U/L (0-32)
[2024-10-15 17:17] VITALS: BP 111/56; PULSE 94; O2SAT 99
[2024-10-15 18:17] VITALS: BP 127/77; PULSE 86; O2SAT 100
[2024-10-15 19:08] LABS: Bilirubin Urine Negative (Negative); Blood Urine Negative (Negative); Glucose Urine UA Negative (Normal); Ketones Urine Trace (Negative); Leukocyte Esterase Urine 2+ (Negative); Nitrate Urine Negative (Negative); Protein Urine Negative (Negative); Specific Gravity, Urine 1.019 (1.005-1.030); Urine Appearance Clear (CLEAR); Urine Color Yellow (Yellow)
[2024-10-15 19:24] LABS: UA Manual Slide Review YES; UA Slide Review UA Slide Review Perf
[2024-10-15 19:27] LABS: Add Urine Culture? No; Add Urine Microscopic? YES; Amorphous Sediment Urine TRACE /hpf; Bacteria Urine TRACE /hpf; RBC Urine 0-4 /hpf (0-2); Squamous Epithelial Cell Urine 0-4 /hpf (0-5); Transitional Epi Cells Urine RARE /hpf
[2024-10-15 19:48] VITALS: BP 146/89; PULSE 98; RESP 18; O2SAT 96
== END 2024-10-15 20:20 | disposition home or self-care (01) ==
PROVIDERS: Emergency Provider Emergency Medicine; PCP Family Medicine
DX: R41.0 Disorientation, unspecified (principal); Z79.02 Long term (current) use of antithrombotics/antiplatelets; Z79.84 Long term (current) use of oral hypoglycemic drugs; Z79.82 Long term (current) use of aspirin; E11.9 Type 2 diabetes mellitus without complications; I10 Essential (primary) hypertension
CPT/HCPCS: 70450; 71045; 80053; 81001; 83735; 85025; 93005; 99285

== ENCOUNTER 2024-11-06 13:42 | Emergency (ER) | payer MEDICARE, MEDICAID, SELFPAY ==
--- NOTE | 2024-11-06 13:45 | CT_ITS ---
WS: [id number] CT scan of the head, 11/06/2024 Clinical Data: Altered mental status Comparison: CT head, 10/15/2024 DLP: 1185.[address] scans at [facility] use at least one of these dose optimization techniques: automated e xposure control; mA and/or kV adjustment per patient size (includes targeted exams where dose is matc hed to clinical indication); or iterative reconstruction. Findings: The ventricular system is dilated without shift. No recent infarct or hemorrhage is seen. There are n o abnormal intracerebral masses. The cerebellum and brainstem are not remarkable. Bony windows of the skull and skull base show no fractures or erosions. The mastoid air cells, research intern al auditory canals, sella turcica, intraorbital contents, and paranasal sinuses are unremarkable. CT/CT head wo con* [id number] Impression: Negative CT scan of the head
--- NOTE | 2024-11-06 13:46 | ECG_ITS ---
[employer] Test Date: 2024-11-06 Pat Name: Aubrie Mathias Department: Room: Gender: Female [employer] [facility] Director: : 1960 Requested By: Noel Krueger Order Number: [id number] Gold MD: My Cameron M.D. Measurements Intervals Freedom Rate: 82 P: 27 MA: 186 QRS: -70 QRSD: 74 T: 1 QT: 367 QTc: 430 Interpretive Statements SINUS RHYTHM LEFT AXIS DEVIATION [QRS AXIS < -30] LOW QRS VOLTAGE IN PRECORDIAL LEADS [QRS DEFLECTION < 1.0 mV IN CHEST LEADS] ANTEROSEPTAL MYOCARDIAL INFARCTION , OF INDETERMINATE AGE [40+ ms Q WAVE IN V1-V4] Compared to ECG 10/15/2024 16:23:29 Left-axis deviation now present Atrial-paced complex(es) or rhythm no longer present Left anterior fascicular block no longer present Myocardial infarct finding still present Electronically Signed On 11-06-2024 17:45:27 DETECTIVE PRECINCT by My Cameron M.D. [email or web address]
--- NOTE | 2024-11-06 13:51 | ED_ITS ---
HPI - Altered Mental Status 2 General: Chief Complaint: Altered Mental Status Stated Complaint: AMS Time Seen by Provider: 11/06/24 13:45 History of Present Illness: 64-year-old female lives at a [facility] living center. She was brought in by EMS for altered mental status. On arrival here patient is reportedly at her baseline. EMS has had experience with her before in the past they felt she was at the baseline they have seen her previously. She is awake alert can answer some questions reasonably well given her underlying conditions. She denies any discomfort. The report received but this has been happening intermittently for months. Related Data Home Medications Medication Instructions Recorded Confirmed acetaminophen 650 mg 650 mg PO Q6H PRN Pain 12/24/19 11/06/24 tablet,extended release (Tylenol 8 Hour) carbidopa 25 mg-levodopa 100 mg 1 tab PO TID@,,12/24/19 11/06/24 tablet clopidogrel 75 mg tablet 75 mg PO DAILY@12/24/19 11/06/24 docusate sodium 100 mg capsule 100 mg PO DAILY@12/24/19 11/06/24 insulin glargine 100 unit/mL See Rx Instructions .Route .COMPLEX 12/24/19 11/06/24 subcutaneous solution (Lantus U-100 Insulin) isosorbide mononitrate 30 mg 30 mg PO DAILY@12/24/19 11/06/24 tablet,extended release 24 hr magnesium oxide 400 mg (241.3 mg 400 mg PO BID@,12/24/19 11/06/24 magnesium) tablet metformin 1,000 mg tablet 1,000 mg PO BID@12/24/19 11/06/24 peg 400-propylene glycol 0.4 %-0.3 1 drop ophthalmic (eye) PRN PRN 12/24/19 11/06/24 % eye drops (Systane (propylene Dry Eyes glycol)) rosuvastatin 10 mg tablet 10 mg PO DAILY@12/24/19 11/06/24 aspirin 81 mg tablet,delayed 81 mg PO DAILY@01/21/21 11/06/24 release (Ecotrin Low Strength) glipizide 5 mg tablet 2.5 mg PO DAILY@01/21/21 11/06/24 amlodipine 10 mg tablet 10 mg PO DAILY 03/27/21 11/06/24 hydrochlorothiazide 25 mg tablet 25 mg PO DAILY@07 03/27/21 11/06/24 lisinopril 20 mg tablet 20 mg PO BID@,03/27/21 11/06/24 potassium chloride 10 mEq 10 meq PO DAILY@09/02/22 11/06/24 tablet,extended release clonidine HCl 0.2 mg tablet 0.2 mg PO BID@07,01/05/23 11/06/24 carvedilol 25 mg tablet 25 mg PO BID 09/29/24 11/06/24 cenobamate 200 mg tablet (Xcopri) 200 mg PO DAILY@09/29/24 11/06/24 oxybutynin chloride 10 mg 10 mg PO BEDTIME 09/29/24 11/06/24 tablet,extended release 24 hr galantamine 4 mg tablet 4 mg PO BID 11/06/24 11/06/24 levetiracetam 750 mg tablet 750 mg PO BID 11/06/24 11/06/24 Previous Rx's Medication Instructions Recorded diabetic shoes with 3 inserts #1 ea 12/24/22 lacosamide 50 mg tablet (Vimpat) 50 mg PO BID@, #60 tabs 10/11/24 Allergies Allergy/AdvReac Type Severity Reaction Status Date / Time amoxicillin Allergy Unknown Verified 08/03/24 10:38 Penicillins Allergy unknown Verified 08/03/24 10:38 potassium chloride Allergy ALGY-Rash Verified 09/29/24 10:05 Review of Systems 2 Const: Denies: fever(s) or chills Card: Denies: chest pain Resp: Denies: dyspnea GI: Denies: abdominal pain : Denies: dysuria, urinary frequency or urinary urgency Musc: Denies: neck pain or back pain Skin/Breast: Denies: rash PFSH ED 2 PFSH: Medical History Hypertension Diabetes Secondarily generalized seizures Parkinson disease Surgical History Status post VNS (vagus nerve stimulator) placement Family History Other Diabetes Hypertension Denies family history of CAD (coronary artery disease) Cancer Stroke Social History Smoking and tobacco/nicotine status: never used tobacco/nicotine Alcohol intake: never Substance/Drug Use: never Physical Exam 2 Const: COMMON NORMALS: no acute distress GENERAL APPEARANCE: cooperative and comfortable ORIENTATION/CONSCIOUSNESS: Yes awake, Yes oriented to person, Yes oriented to place and Yes oriented to time HENMT: COMMON NORMALS: normocephalic, atraumatic and hearing grossly normal bilaterally HEAD & SCALP: normocephalic and atraumatic Resp: COMMON NORMALS: normal respiratory effort, No retractions, No use of accessory muscles and clear to auscultation bilaterally AUSCULTATION: clear to auscultation bilaterally Cardio: COMMON NORMALS: regular rate, regular rhythm and No murmurs present (Cardio) RATE: regular rate RHYTHM: regular rhythm GI: COMMON NORMALS: Soft to palpation and No hepatosplenomegaly present A USCULTATION: Yes normoactive bowel sounds PALPATION: Yes Soft to palpation, No Tenderness to palpation present (GI), No Guarding due to palpation present (GI) and Yes No hepatosplenomegaly present Extremity: COMMON NORMALS: normal to inspection, capillary refill normal, no clubbing, cyanosis or edema, no calf tenderness and no pedal edema Neuro: SENSORIUM/ORIENTATION: Yes oriented to person, Yes oriented to place and Yes oriented to time Skin: COMMON NORMALS: no rashes or lesions noted GENERAL SKIN EXAM: no rashes or lesions noted Course 2 Vital Signs: Vital signs: Vital Signs Temperature 98.3 F 11/06/24 13:58 Pulse Rate 83 11/06/24 17:39 Respiratory Rate 20 H 11/06/24 16:43 Blood Pressure 83/52 11/06/24 16:43 Pulse Oximetry 99 11/06/24 17:39 Oxygen Delivery Me thod Room Air 11/06/24 16:43 MDM - Altered Mental Status Medical Decision Making No significant finding on labs or imaging. At this point no emergent condition noted. Will discharge patient home follow-up with primary care Lab Data 11/06/24 14:02 11/06/24 14:[address] 11/06/24 13:45 Impression: Negative CT scan of the head Chest X-Ray 11/06/24 14:43 Impression: 1. Cardiomegaly and atherosclerosis. 2. Poor inspiratory effort. Laboratory Results WBC 8.16 10^3/uL (3.29-11.43) 11/06/24 14:02 RBC 3.85 10^6/uL (3.85-5.65) 11/06/24 14:02 Hgb 12.40 g/dL (11.27-16.99) 11/06/24 14:02 Hct 37.5 % (36-47) 11/06/24 14:02 MCV 97.4 fl (85-98) 11/06/24 14:02 MCH 32.2 pg (27-33) 11/06/24 14:02 MCHC 33.1 g/dL (30-55) 11/06/24 14:02 RDW 13.9 % (12.1-15.1) 11/06/24 14:02 Plt Count 191 10^3/cmm (157-399) 11/06/24 14:02 MPV 9.6 fL (7.4-10.4) 11/06/24 14:02 Neut % (Auto) 89.6 % 11/06/24 14:02 Lymph % (Auto) 3.8 % 11/06/24 14:02 [place] % (Auto) 6.0 % 11/06/24 14:02 Eos % (Auto) 0.1 % 11/06/24 14:02 Baso % (Auto) 0.1 % 11/06/24 14:02 Neut # (Auto) 7.31 10^3/uL (1.8-7.7) 11/06/24 14:02 Lymph # (Auto) 0.3 10^3/uL (0.8-4.8) L 11/06/24 14:02 [place] # (Auto) 0.5 10^3/uL (0.2-0.9) 11/06/24 14:02 Eos # (Auto) 0.0 10^3/uL (0.0-0.8) 11/06/24 14:02 Baso # (Auto) 0.0 10^3/uL (0.0-0.1) 11/06/24 14:02 Nucleated RBC % (auto) 0 % 11/06/24 14:02 Nucleated RBCs # 0.0 /100WBC 11/06/24 14:02 Sodium 133 mmol/L (136-145) L 11/06/24 14:02 Potassium 4.3 mmol/L (3.5-5.1) 11/06/24 14:02 Chloride 95 mmol/L (98-107) L 11/06/24 14:02 Carbon Dioxide 22 mmol/L (22-29) 11/06/24 14:02 Anion Gap 20.3 (5-19) H 11/06/24 14:02 BUN 26 mg/dL (8-23) H 11/06/24 14:02 Creatinine 0.9 mg/dL (0.5-0.9) 11/06/24 14:02 GFR Calculation 62.8 mL/min (90-130) L 11/06/24 14:02 Glucose 143 mg/dL (65-115) H 11/06/24 14:02 Calculated Osmolality 283 mOsm/kg (285-295) L 11/06/24 14:02 Calcium 9.3 mg/dL (8.5-10.5) 11/06/24 14:02 Total Bilirubin 0.4 mg/dL (0.15-1.2) 11/06/24 14:02 AST 21 U/L (0-32) 11/06/24 14:02 ALT 33 U/L (0-33) 11/06/24 14:02 Alkaline Phosphatase 116 U/L (35-105) H 11/06/24 14:02 Total Protein 7.0 g/dL (6.6-8.7) 11/06/24 14:02 Albumin 4.0 g/dL (3.5-5.2) 11/06/24 14:02 Globulin 3.0 g/dL (1.3-4.6) 11/06/24 14:02 Urine Color Yellow (Yellow) 11/06/24 16:41 Urine Appearance Clear (CLEAR) 11/06/24 16:41 Urine pH 7.5 (5-7) 11/06/24 16:41 Ur Specific [place] 1.017 (1.005-1.030) 11/06/24 16:41 Urine Protein Negative (Negative) 11/06/24 16:41 Urine Glucose (UA) Negative (Normal) 11/06/24 16:41 Urine Ketones Trace (Negative) 11/06/24 16:41 Urine Blood Negative (Negative) 11/06/24 16:41 Urine Nitrate Negative (Negative) 11/06/24 16:41 Urine Bilirubin Negative (Negative) 11/06/24 16:41 Urine Urobilinogen 1.0 mg/dL (Negative) 11/06/24 16:41 Ur Leukocyte Esterase Negative (Negative) 11/06/24 16:41 Urine RBC 6-10 /hpf (0-2) 11/06/24 16:41 Urine WBC 0-5 /hpf (0-5) 11/06/24 16:41 Ur Squamous Epith Cells 0-5 /hpf (0-5) 11/06/24 16:41 Amorphous Sediment Not Reportable 11/06/24 16:41 Urine Bacteria None seen /hpf (NONE) 11/06/24 16:41 Hyaline Casts 12.41 /lpf 11/06/24 16:41 All radiology interpretation(s) finalized by discharge Discharge Plan Discharge Patient Disposition: Home Clinical Impression: Mild cognitive impairment with memory loss, Parkinson disease Condition: Stable Prescriptions: No Action Lantus U-100 Insulin 100 unit/mL solution See Rx Instructions .ROUTE .COMPLEX Rx Instructions: Inject 20 units sub-q in the morning and 10 units in the evening. clopidogrel 75 mg tablet 75 mg PO DAILY@07 docusate sodium 100 mg capsule 100 mg PO DAILY@07 isosorbide mononitrate 30 mg tablet extended release 24 hr 30 mg PO DAILY@07 Hold Instructions: Resume on 02/01/21. metformin 1,000 mg tablet 1,000 mg PO BID@07,17 magnesium oxide 400 mg (241.3 mg magnesium) tablet 400 mg PO BID@07,20 carbidopa-levodopa 25-100 mg tablet 1 tab PO TID@07,16,20 rosuvastatin 10 mg tablet 10 mg PO DAILY@20 acetaminophen [Tylenol 8 Hour] 650 mg tablet extended release 650 mg PO Q6H MDD 4,000mg PRN (Reason: Pain) Systane (propylene glycol) 0.4-0.3 % drops 1 drop ophthalmic (eye) PRN PRN (Reason: Dry Eyes) (DME) diabetic shoes with 3 inserts See Rx Instructions .Route .MEDSUPPLY Qty: 1 0RF Rx Instructions: As directed potassium chloride 10 mEq tablet extended release 10 meq PO DAILY@07 lacosamide [Vimpat] 50 mg tablet 50 mg PO BID@, Qty: 60 5RF aspirin [Ecotrin Low Strength] 81 mg Tablet,Delayed Release (Dr/Ec) 81 mg PO DAILY@07 glipizide 5 mg tablet 2.5 mg PO DAILY@17 lisinopril 20 mg Tablet 20 mg PO BID@, amlodipine 10 mg Tablet 10 mg PO DAILY hydrochlorothiazide 25 mg Tablet 25 mg PO DAILY@07 levetiracetam 750 mg tablet 750 mg PO BID galantamine 4 mg tablet 4 mg PO BID clonidine HCl 0.2 mg tablet 0.2 mg PO BID@, carvedilol 25 mg tablet 25 mg PO BID oxybutynin chloride 10 mg tablet extended release 24hr 10 mg PO BEDTIME Xcopri 200 mg tablet 200 mg PO DAILY@07 Discharge Orders: Discharge ED (Routine); Ordered 11/06/24 Ordered By: Noel Ochoa Referrals: Augustin Colón MD [Primary Care Provider] - Patient Instructions: Altered Mental Status (ED), Opioid Safety, Pain Management Activity Restrictions/Additional Instructions: Thank you for choosing [facility] for your healthcare needs today. It is very important that you follow up as instructed or that you return to the Emergency Department should you have concerns or if your condition changes or worsens in any way. You are seen in the emergency room for complaints of change in mental status. There is no significant abnormalities found on labs or imaging. Will discharge home continue current medications and follow-up with your primary care doctor Coding Level of Care Code ED Pastry Cook Helper for Sudha Weiss
[2024-11-06 13:58] VITALS: BP 78/50; PULSE 83; RESP 18; TEMP 36.8; O2SAT 94; BMI 26.5
[2024-11-06 14:04] VITALS: BP 78/50; PULSE 82; RESP 24; O2SAT 94
[2024-11-06 14:15] LABS: Basophils % 0.1 %; Eosinophils % 0.1 %; Hematocrit 37.5 % (36-47); Lymphocytes # 0.3 10^3/uL (0.8-4.8); Lymphocytes % 3.8 %; Mean Corpuscular HGB Conc 33.1 g/dL (30-55); Mean Corpuscular Hemoglobin 32.2 pg (27-33); Mean Corpuscular Volume 97.4 fl (85-98); Mean Platelet Volume 9.6 fL (7.4-10.4); Monocytes # 0.5 10^3/uL (0.2-0.9); Neutrophils # 7.31 10^3/uL (1.8-7.7); Neutrophils % 89.6 %; Nucleated Red Blood Cells % 0 %; Platelet Count 191 10^3/cmm (157-399); Red Blood Count 3.85 10^6/uL (3.85-5.65); Red Cell Distribution Width 13.9 % (12.1-15.1); White Blood Count 8.16 10^3/uL (3.29-11.43)
--- NOTE | 2024-11-06 14:29 | PC.PHAR ---
Pt is from [facility]. Pt has Lacosamide 50mg new order 10/11/24- Dr Butcher-not on current med list from facility.
[2024-11-06 14:30] LABS: Alanine Aminotransferase 33 U/L (0-33); Alkaline Phosphatase 116 U/L (35-105); Anion Gap 20.3 (5-19); Aspartate Amino Transferase 21 U/L (0-32); Blood Urea Nitrogen 26 mg/dL (8-23); Calcium 9.3 mg/dL (8.5-10.5); Carbon Dioxide 22 mmol/L (22-29); Chloride 95 mmol/L (98-107); Creatinine Clr Calc Pharmacy 57.7052; Glomerular Filtration Rate 62.8 mL/min (90-130); Glucose 143 mg/dL (65-115); Osmolality Calculated 283 mOsm/kg (285-295); Potassium 4.3 mmol/L (3.5-5.1); Sodium 133 mmol/L (136-145); Total Bilirubin 0.4 mg/dL (0.15-1.2)
--- NOTE | 2024-11-06 14:43 | XR_ITS ---
WS: [id number] Portable AP upright chest, 11/06/2024 Clinical Data: Altered mental status Comparison: Portable chest, 10/15/2024 Findings: No nodules, masses or effusions are seen. The heart is slightly enlarged. The pulmonary vas cularity is not increased. No pneumonia or pneumothorax is seen. The patient has a poor inspiratory e ffort. The aortic arch shows tortuosity. Monitor leads are on the chest wall. There is a small genera tor in the left axilla with wires leading superiorly unchanged. XR/XR chest 1V portable [id number] Impression: 1. Cardiomegaly and atherosclerosis. 2. Poor inspiratory effort.
--- NOTE | 2024-11-06 16:19 | PC.NURSE ---
ATTEMPTING TO MOVE PATIENT FROM BED TO BEDSIDE COMMODE. PATIENT GETS TO COMMODE WITHOUT REMOVING PANTS. PATIENT INSTRUCTED TO STAY ON COMMODE UNTIL NURSE RETURNS. NURSE HEARS CRASHING NOISE FROM ROOM. PATIENT IS ON FLOOR, UNWITNESSED FALL. PATIENT LIFTED BACK INTO BED WITH PHYSICIANS HELP. PATIENT DENIES ANY TYPE OF PAIN.
[2024-11-06 16:43] VITALS: BP 83/52; PULSE 81; RESP 20; O2SAT 97
[2024-11-06 17:00] LABS: Bilirubin Urine Negative (Negative); Blood Urine Negative (Negative); Glucose Urine UA Negative (Normal); Ketones Urine Trace (Negative); Leukocyte Esterase Urine Negative (Negative); Nitrate Urine Negative (Negative); Protein Urine Negative (Negative); Specific Gravity, Urine 1.017 (1.005-1.030); Urine Appearance Clear (CLEAR); Urine Color Yellow (Yellow); pH Urine 7.5 (5-7)
[2024-11-06 17:05] LABS: Add Urine Microscopic? YES; Bacteria Urine None Seen /hpf; Hyaline Casts Urine 12.41 /lpf; Squamous Epithelial Cell Urine 0-5 /hpf (0-5); WBC Urine 0-5 /hpf (0-5)
[2024-11-06 17:12] LABS: UA Slide Review UA Slide Review Perf
[2024-11-06 17:13] LABS: Add Urine Culture? No
[2024-11-06 17:39] VITALS: PULSE 83; O2SAT 99
== END 2024-11-06 17:41 | disposition home or self-care (01) ==
PROVIDERS: Emergency Provider Family Medicine; PCP Family Medicine
DX: G31.84 Mild cognitive impairment of uncertain or unknown etiology (principal); G20.A1 Parkinson's disease without dyskinesia, without mention of fluctuations; Z79.02 Long term (current) use of antithrombotics/antiplatelets; Z79.84 Long term (current) use of oral hypoglycemic drugs; E11.9 Type 2 diabetes mellitus without complications; I10 Essential (primary) hypertension
CPT/HCPCS: 36415; 70450; 71045; 80053; 81001; 85025; 93005; 99285

== ENCOUNTER 2024-11-07 11:17 | Emergency (ER) | payer MEDICARE, MEDICAID, SELFPAY ==
[2024-11-07 11:20] VITALS: BP 112/70; PULSE 82; RESP 12; TEMP 36.8; O2SAT 97; BMI 28.3
--- NOTE | 2024-11-07 11:30 | XRR_ITS ---
PROCEDURE INFORMATION: Exam: XR Chest Exam date and time: 11/07/2024 11:35 AM Age: 64 years old Clinical indication: Other: AMS; Prior surgery; Surgery date: 6+ months; Surgery type: Pacer PT would not let her bra be unhooked; Additional info: Low hr TECHNIQUE: Imaging protocol: Radiologic exam of the chest. Views: 1 view. COMPARISON: CR XR chest 1V portable [id number] 11/06/2024 2:48 PM FINDINGS: Tubes, catheters and devices: A left-sided Inspire device is noted in the chest. Lungs: Unremarkable. No consolidation or mass. Pleural spaces: Unremarkable. No pleural effusion. No pneumothorax. Heart/Mediastinum: Mild cardiomegaly is noted. Bones/joints: Unremarkable. XR/XR chest 1V portable [id number] IMPRESSION: No acute findings.
--- NOTE | 2024-11-07 11:35 | ED_ITS ---
HPI - Altered Mental Status 2 General: Chief Complaint: Altered Mental Status Stated Complaint: low BP Time Seen by Provider: 11/07/24 11:18 Source: patient and EMS Mode of arrival: EMS Limitations: no limitations History of Present Illness: 64-year-old female who here with EMS for episode of bradycardia and hypotension. Patient is from [facility] has a history of intellectual disability. Patient here is no complaints at this time she denies any chest pain denies any vomiting or diarrhea denies any worse improved factors. Related Data Home Medications Medication Instructions Recorded Confirmed acetaminophen 650 mg 650 mg PO Q6H PRN Pain 12/24/19 11/06/24 tablet,extended release (Tylenol 8 Hour) carbidopa 25 mg-levodopa 100 mg 1 tab PO TID@,,12/24/19 11/06/24 tablet clopidogrel 75 mg tablet 75 mg PO DAILY@12/24/19 11/06/24 docusate sodium 100 mg capsule 100 mg PO DAILY@12/24/19 11/06/24 insulin glargine 100 unit/mL See Rx Instructions .Route .COMPLEX 12/24/19 11/06/24 subcutaneous solution (Lantus U-100 Insulin) isosorbide mononitrate 30 mg 30 mg PO DAILY@12/24/19 11/06/24 tablet,extended release 24 hr magnesium oxide 400 mg (241.3 mg 400 mg PO BID@12/24/19 11/06/24 magnesium) tablet metformin 1,000 mg tablet 1,000 mg PO BID@12/24/19 11/06/24 peg 400-propylene glycol 0.4 %-0.3 1 drop ophthalmic (eye) PRN PRN 12/24/19 11/06/24 % eye drops (Systane (propylene Dry Eyes glycol)) rosuvastatin 10 mg tablet 10 mg PO DAILY@12/24/19 11/06/24 aspirin 81 mg tablet,delayed 81 mg PO DAILY@01/21/21 11/06/24 release (Ecotrin Low Strength) glipizide 5 mg tablet 2.5 mg PO DAILY@01/21/21 11/06/24 amlodipine 10 mg tablet 10 mg PO DAILY 03/27/21 11/06/24 hydrochlorothiazide 25 mg tablet 25 mg PO DAILY@03/27/2124 lisinopril 20 mg tablet 20 mg PO BID@07,20 03/27/21 11/06/24 potassium chloride 10 mEq 10 meq PO DAILY@07 09/02/22 11/06/24 tablet,extended release clonidine HCl 0.2 mg tablet 0.2 mg PO BID@07,19 01/05/23 11/06/24 carvedilol 25 mg tablet 25 mg PO BID 09/29/24 11/06/24 cenobamate 200 mg tablet (Xcopri) 200 mg PO DAILY@09/29/24 11/06/24 oxybutynin chloride 10 mg 10 mg PO BEDTIME 09/29/24 11/06/24 tablet,extended release 24 hr galantamine 4 mg tablet 4 mg PO BID 11/06/24 11/06/24 levetiracetam 750 mg tablet 750 mg PO BID 11/06/24 11/06/24 Previous Rx's Medication Instructions Recorded diabetic shoes with 3 inserts #1 ea 12/24/22 lacosamide 50 mg tablet (Vimpat) 50 mg PO BID@,19 #60 tabs 10/11/24 Allergies Allergy/AdvReac Type Severity Reaction Status Date / Time amoxicillin Allergy Unknown Verified 08/03/24 10:38 Penicillins Allergy unknown Verified 08/03/24 10:38 potassium chloride Allergy ALGY-Rash Verified 09/29/24 10:05 Review of Systems 2 Const: Denies: fever(s), chills, body aches or change in appetite Eyes: Denies: eye discomfort ENMT: Denies: throat pain or dental pain Card: Denies: chest pain Resp: Denies: dyspnea GI: Denies: abdominal pain, nausea, vomiting or diarrhea : Denies: dysuria Musc: Denies: neck pain or back pain Skin/Breast: Denies: rash Neuro: Denies: headache(s) PFSH ED 2 PFSH: Medical History Hypertension Diabetes Secondarily generalized seizures Parkinson disease Surgical History Status post VNS (vagus nerve stimulator) placement Family History Other Diabetes Hypertension Denies family history of CAD (coronary artery disease) Cancer Stroke Social History Smoking and tobacco/nicotine status: never used tobacco/nicotine Alcohol intake: never Substance/Drug Use: never Physical Exam 2 Const: COMMON NORMALS: no acute distress, patient oriented x3 and healthy appearing HENMT: COMMON NORMALS: normocephalic and atraumatic HEAD & SCALP: n ormocephalic and atraumatic Eye: COMMON NORMALS: conjunctivae normal CONJUNCTIVA: Yes conjunctivae normal Neck/C-Spine: COMMON NORMALS: full ROM and supple Chest: COMMONS NORMALS: normal inspection of the chest and normal palpation of entire chest wall Resp: COMMON NORMALS: normal respiratory effort, No retractions, No use of accessory muscles and clear to auscultation bilaterally AUSCULTATION: clear to auscultation bilaterally Cardio: COMMON NORMALS: regular rate, regular rhythm and No murmurs present (Cardio) RATE: regular rate RHYTHM: regular rhythm GI: COMMON NORMALS: Normal to inspection, nondistended, normoactive bowel sounds present, Soft to palpation, non-tender and no masses PALPATION: Yes Soft to palpation Extremity: COMMON NORMALS: normal to inspection and full ROM Neuro: COMMON NORMALS: patient oriented x3, moves all extremities and no focal motor deficits Psych: COMMON NORMALS: mental status grossly normal, Normal thought process present and cooperative THOUGHT PROCESS: Normal thought process present Skin: COMMON NORMALS: no rashes or lesions noted and no wounds GENERAL SKIN EXAM: no rashes or lesions noted Course 2 Vital Signs: Vital signs: Vital Signs Temperature 98.3 F 11/07/24 11:20 Pulse Rate 87 11/07/24 11:36 Respiratory Rate 12 11/07/24 11:20 Blood Pressure 102/57 11/07/24 11:36 Pulse Oximetry 98 11/07/24 11:36 Oxygen Delivery Me thod Room Air 11/07/24 11:20 MDM - Altered Mental Status Medical Decision Making Patient presents here concern of bradycardia she has not been bradycardic here her blood pressures appears been normal blood works normal did inform Shilpa to hold her carvedilol they are to follow-up with her PCP return if worsening understand agree to plan Medical Records I reviewed the patient's medical records. Lab Data I reviewed the patient's lab results. 11/07/24 11:32 11/07/24 11:32 Radiology Impressions Chest X-Ray 11/07/24 11:30 IMPRESSION: No acute findings. Laboratory Results WBC 8.06 10^3/uL (3.29-11.43) 11/07/24 11:32 RBC 3.28 10^6/uL (3.85-5.65) L 11/07/24 11:32 Hgb 10.60 g/dL (11.27-16.99) L 11/07/24 11:32 Hct 31.8 % (36-47) L 11/07/24 11:32 MCV 97.0 fl (85-98) 11/07/24 11:32 MCH 32.3 pg (27-33) 11/07/24 11:32 MCHC 33.3 g/dL (30-55) 11/07/24 11:32 RDW 14.0 % (12.1-15.1) 11/07/24 11:32 Plt Count 162 10^3/cmm (157-399) 11/07/24 11:32 MPV 9.7 fL (7.4-10.4) 11/07/24 11:32 Neut % (Auto) 87.9 % 11/07/24 11:32 Lymph % (Auto) 4.6 % 11/07/24 11:32 Bracken % (Auto) 6.9 % 11/07/24 11:32 Eos % (Auto) 0.1 % 11/07/24 11:32 Baso % (Auto) 0.1 % 11/07/24 11:32 Neut # (Auto) 7.08 10^3/uL (1.8-7.7) 11/07/24 11:32 Lymph # (Auto) 0.4 10^3/uL (0.8-4.8) L 11/07/24 11:32 Bracken # (Auto) 0.6 10^3/uL (0.2-0.9) 11/07/24 11:32 Eos # (Auto) 0.0 10^3/uL (0.0-0.8) 11/07/24 11:32 Baso # (Auto) 0.0 10^3/uL (0.0-0.1) 11/07/24 11:32 Nucleated RBC % (auto) 0 % 11/07/24 11:32 Nucleated RBCs # 0.0 /100WBC 11/07/24 11:32 Sodium 132 mmol/L (136-145) L 11/07/24 11:32 Potassium 3.9 mmol/L (3.5-5.1) 11/07/24 11:32 Chloride 95 mmol/L (98-107) L 11/07/24 11:32 Carbon Dioxide 23 mmol/L (22-29) 11/07/24 11:32 Anion Gap 17.9 (5-19) 11/07/24 11:32 BUN 26 mg/dL (8-23) H 11/07/24 11:32 Creatinine 0.9 mg/dL (0.5-0.9) 11/07/24 11:32 GFR Calculation 62.8 mL/min (90-130) L 11/07/24 11:32 Glucose 231 mg/dL (65-115) H 11/07/24 11:32 Calculated Osmolality 286 mOsm/kg (285-295) 11/07/24 11:32 Calcium 8.4 mg/dL (8.5-10.5) L 11/07/24 11:32 Total Bilirubin 0.3 mg/dL (0.15-1.2) 11/07/24 11:32 AST 34 U/L (0-32) H 11/07/24 11:32 ALT < 5 U/L (0-33) 11/07/24 11:32 Alkaline Phosphatase 86 U/L (35-105) 11/07/24 11:32 Total Protein 5.9 g/dL (6.6-8.7) L 11/07/24 11:32 Albumin 3.4 g/dL (3.5-5.2) L 11/07/24 11:32 Globulin 2.5 g/dL (1.3-4.6) 11/07/24 11:32 All radiology interpretation(s) finalized by discharge EKG Data EKG 1: I personally reviewed and interpreted this EKG as follows: EKG interpretation date: 11/07/24 EKG interpretation time: 11:57 Interpretation: paced hr [address] elevation qrs 90qtc 406 Discharge Plan Discharge Patient Disposition: Home Clinical Impression: Weakness Condition: Stable Prescriptions: No Action Lantus U-100 Insulin 100 unit/mL solution See Rx Instructions .ROUTE .COMPLEX Rx Instructions: Inject 20 units sub-q in the morning and 10 units in the evening. clopidogrel 75 mg tablet 75 mg PO DAILY@07 docusate sodium 100 mg capsule 100 mg PO DAILY@07 isosorbide mononitrate 30 mg tablet extended release 24 hr 30 mg PO DAILY@07 Hold Instructions: Resume on 02/01/21. metformin 1,000 mg tablet 1,000 mg PO BID@07,17 magnesium oxide 400 mg (241.3 mg magnesium) tablet 400 mg PO BID@07,20 carbidopa-levodopa 25-100 mg tablet 1 tab PO TID@07,16,20 rosuvastatin 10 mg tablet 10 mg PO DAILY@20 acetaminophen [Tylenol 8 Hour] 650 mg tablet extended release 650 mg PO Q6H MDD 4,000mg PRN (Reason: Pain) Systane (propylene glycol) 0.4-0.3 % drops 1 drop ophthalmic (eye) PRN PRN (Reason: Dry Eyes) (DME) diabetic shoes with 3 inserts See Rx Instructions .Route .MEDSUPPLY Qty: 1 0RF Rx Instructions: As directed potassium chloride 10 mEq tablet extended release 10 meq PO DAILY@07 lacosamide [Vimpat] 50 mg tablet 50 mg PO BID@,19 Qty: 60 5RF aspirin [Ecotrin Low Strength] 81 mg Tablet,Delayed Release (Dr/Ec) 81 mg PO DAILY@07 glipizide 5 mg tablet 2.5 mg PO DAILY@17 lisinopril 20 mg Tablet 20 mg PO BID@,20 amlodipine 10 mg Tablet 10 mg PO DAILY hydrochlorothiazide 25 mg Tablet 25 mg PO DAILY@07 levetiracetam 750 mg tablet 750 mg PO BID galantamine 4 mg tablet 4 mg PO BID clonidine HCl 0.2 mg tablet 0.2 mg PO BID@07,19 carvedilol 25 mg tablet 25 mg PO BID oxybutynin chloride 10 mg tablet extended release 24hr 10 mg PO BEDTIME Xcopri 200 mg tablet 200 mg PO DAILY@07 Discharge Orders: Discharge ED (Routine); Ordered 11/07/24 Ordered By: Arturo Henderson Referrals: Augustin Colón MD [Primary Care Provider] - Discharge Diet: Advance as tolerated Discharge Activity: Resume usual activity Patient Instructions: Weakness (ED) Activity Restrictions/Additional Instructions: hold carvedilol and follow up with pcp Coding Level of Care Code ED Animal Caretaker Supervisor for Sudha Weiss
[2024-11-07 11:36] VITALS: BP 102/57; PULSE 87; O2SAT 98
[2024-11-07 11:38] LABS: Basophils % 0.1 %; Eosinophils % 0.1 %; Hematocrit 31.8 % (36-47); Lymphocytes # 0.4 10^3/uL (0.8-4.8); Lymphocytes % 4.6 %; Mean Corpuscular HGB Conc 33.3 g/dL (30-55); Mean Corpuscular Hemoglobin 32.3 pg (27-33); Mean Platelet Volume 9.7 fL (7.4-10.4); Monocytes # 0.6 10^3/uL (0.2-0.9); Monocytes % 6.9 %; Neutrophils # 7.08 10^3/uL (1.8-7.7); Neutrophils % 87.9 %; Nucleated Red Blood Cells % 0 %; Platelet Count 162 10^3/cmm (157-399); Red Blood Count 3.28 10^6/uL (3.85-5.65); White Blood Count 8.06 10^3/uL (3.29-11.43)
--- NOTE | 2024-11-07 11:57 | ECG_ITS ---
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 Measurements Intervals [place] Rate: 72 P: 211 AK: 362 QRS: -47 QRSD: 90 T: 11 QT: 382 QTc: 419 Interpretive Statements SINUS RHYTHM WITH BASELINE ARTIFACT LEFT AXIS DEVIATION [QRS AXIS < -30] LOW QRS VOLTAGE IN PRECORDIAL LEADS [QRS DEFLECTION < 1.0 mV IN CHEST LEADS] ANTEROSEPTAL MYOCARDIAL INFARCTION , OF INDETERMINATE AGE [40+ ms Q WAVE IN V1-V4] Compared to ECG 11/06/2024 13:50:21 Myocardial infarct finding still present Electronically Signed On 11-08-2024 12:30:45 TELEPHONY ENGINEER by Kofi Daniels M.D. [email or web address]
[2024-11-07 11:58] LABS: Alanine Aminotransferase < 5 U/L (0-33); Albumin Level 3.4 g/dL (3.5-5.2); Alkaline Phosphatase 86 U/L (35-105); Anion Gap 17.9 (5-19); Aspartate Amino Transferase 34 U/L (0-32); Blood Urea Nitrogen 26 mg/dL (8-23); Calcium 8.4 mg/dL (8.5-10.5); Carbon Dioxide 23 mmol/L (22-29); Chloride 95 mmol/L (98-107); Creatinine Clr Calc Pharmacy 59.4902; Globulin 2.5 g/dL (1.3-4.6); Glomerular Filtration Rate 62.8 mL/min (90-130); Glucose 231 mg/dL (65-115); Osmolality Calculated 286 mOsm/kg (285-295); Potassium 3.9 mmol/L (3.5-5.1); Sodium 132 mmol/L (136-145); Total Bilirubin 0.3 mg/dL (0.15-1.2); Total Protein 5.9 g/dL (6.6-8.7)
[2024-11-07] MEDS: sodium chloride 0.9% 1,000 ML 999 ML IV (12:59)
--- NOTE | 2024-11-07 13:07 | PC.NURSE ---
this nurse spoke with Dustin from [facility], per Dustin attempting to find ride for pt. this nurse gave report to Dustin, no further questions.
--- NOTE | 2024-11-07 13:47 | PC.NURSE ---
this nurse spoke with director of [facility], gave update on patient status/report. Director had concerns with pt's blood pressure, mental status; this nurse informed ED physician. Director of [facility] states will send transport home. pt b/p 126/73 pt alert and orient to all nurse questions.
--- NOTE | 2024-11-07 14:35 | PC.NURSE ---
this nurse spoke with family/staff upon pt discharge, all concerns addressed, denies any further needs upon discharge.
[2024-11-07 14:36] VITALS: BP 112/70; PULSE 76; O2SAT 100
== END 2024-11-07 14:37 | disposition home or self-care (01) ==
PROVIDERS: Emergency Provider Emergency Medicine; PCP Family Medicine
DX: R53.1 Weakness (principal); Z79.84 Long term (current) use of oral hypoglycemic drugs; Z79.82 Long term (current) use of aspirin; E11.9 Type 2 diabetes mellitus without complications; I10 Essential (primary) hypertension
CPT/HCPCS: 71045; 80053; 85025; 93005; 93010; 99285; J7030

== ENCOUNTER 2025-01-02 14:04 | Outpatient (CLI) | payer MEDICARE, MEDICAID, SELFPAY ==
--- NOTE | 2025-01-02 14:07 | MM_ITS ---
WS: [id number] BILATERAL 3D TOMOSYNTHESIS DIGITAL SCREENING MAMMOGRAPHY WITH CAD CLINICAL INFORMATION: SCREENING HISTORY: Screening mammogram. No current complaints. COMPARISON: 2023 TECHNIQUE: Bilateral CC and MLO views. FINDINGS: The breasts are composed of heterogeneous fibroglandular density tissue, which can limit the detection of small underlying mass lesions. No suspicious mass, asymmetry, calcifications, or architectural distortion. No evidence of malignancy. Incidental punctate and lucent centered calcifications. Long-term stability ovoid nodule upper outer RIGHT breast. Vascular calcification. MM/MM [facility] tomosynthesis [id number] IMPRESSION: DENSITY: The breasts are heterogeneously dense, which may obscure small masses. BI-RADS: 2 - Benign FOLLOW UP: 1 Year Follow-up Recommend return to annual screening mammography.
== END 2025-01-02 14:05 | disposition home or self-care (01) ==
PROVIDERS: PCP Family Medicine; Visit Provider Family Medicine
DX: Z12.31 Encounter for screening mammogram for malignant neoplasm of breast (principal); R92.333 Mammographic heterogeneous density, bilateral breasts; R92.1 Mammographic calcification found on diagnostic imaging of breast; N63.11 Unspecified lump in the right breast, upper outer quadrant
CPT/HCPCS: 77063; 77067

== ENCOUNTER → 2025-01-24 14:18 | Outpatient (BNVA) | payer MEDICARE, MEDICAID, SELFPAY | PROVIDERS: PCP Family Medicine; Visit Provider Specialist | DX: G40.019 Localization-related (focal) (partial) idiopathic epilepsy and epileptic syndromes with seizures of localized onset, intractable, without status epilepticus (principal); Z96.89 Presence of other specified functional implants; G93.89 Other specified disorders of brain; R26.89 Other abnormalities of gait and mobility; F81.9 Developmental disorder of scholastic skills, unspecified; G31.84 Mild cognitive impairment of uncertain or unknown etiology | CPT/HCPCS: 99213 ==

== ENCOUNTER 2025-02-17 20:26 | Emergency (ER) | payer MEDICARE, MEDICAID, SELFPAY ==
[2025-02-17 20:27] VITALS: BP 179/94; PULSE 80; RESP 16; TEMP 37; O2SAT 100
--- NOTE | 2025-02-17 20:28 | ECG_ITS ---
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 Measurements Intervals [place] Rate: 81 P: 60 MD: 152 QRS: -42 QRSD: 74 T: 149 QT: 345 QTc: 402 Interpretive Statements SINUS RHYTHM Possible LAE LEFT AXIS DEVIATION [QRS AXIS < -30] LOW QRS VOLTAGE [QRS DEFLECTION < 0.5/1.0 mV IN LIMB/CHEST LEADS] ANTEROSEPTAL MYOCARDIAL INFARCTION , OF INDETERMINATE AGE [40+ ms Q WAVE IN V1-V4] Compared to ECG 11/07/2024 11:57:50 No significant changes Electronically Signed On 02-17-2025 21:09:36 CDT by My Cameron M.D. [id number]
--- NOTE | 2025-02-17 20:37 | CTR_ITS ---
PROCEDURE INFORMATION: Exam: CT Head Without Contrast Exam date and time: 02/17/2025 8:56 PM Age: 64 years old Clinical indication: EMS arrival for seizure activity. History of epilepsy. ; Additional info: Seizures TECHNIQUE: Imaging protocol: Computed tomography of the head without contrast. Radiation optimization: All CT scans at this facility use at least one of these dose optimization techniques: automated exposure control; mA and/or kV adjustment per patient size (includes targeted exams where dose is matched to clinical indication); or iterative reconstruction. COMPARISON: CT head wo con* [id number] 11/06/2024 2:46 PM RADIATION DOSE METRICS: Total DLP (mGy-cm): 1053.38 FINDINGS: Brain: No hemorrhage. No edema. Advanced diffuse cerebral atrophy and moderate sequela of chronic small vessel ischemic disease. No mass effect. Cerebral ventricles: No ventriculomegaly. Paranasal sinuses: Visualized sinuses are unremarkable. No fluid levels. Mastoid air cells: Visualized mastoid air cells are well aerated. Bones: Unremarkable. No acute fracture. Soft tissues: Unremarkable. CT/CT head wo con* [id number] IMPRESSION: No acute intracranial abnormality.
[2025-02-17 20:43] LABS: Basophils % 0.2 %; Eosinophils # 0.4 10^3/uL (0.0-0.8); Eosinophils % 5.6 %; Hematocrit 42.4 % (36-47); Lymphocytes # 1.2 10^3/uL (0.8-4.8); Lymphocytes % 18.5 %; Mean Corpuscular Hemoglobin 29.9 pg (27-33); Mean Corpuscular Volume 90.4 fl (85-98); Mean Platelet Volume 9.9 fL (7.4-10.4); Monocytes # 0.5 10^3/uL (0.2-0.9); Monocytes % 7.3 %; Neutrophils # 4.39 10^3/uL (1.8-7.7); Neutrophils % 68.1 %; Nucleated Red Blood Cells % 0 %; Platelet Count 264 10^3/cmm (157-399); Red Blood Count 4.69 10^6/uL (3.85-5.65); Red Cell Distribution Width 13.2 % (12.1-15.1); White Blood Count 6.44 10^3/uL (3.29-11.43)
--- NOTE | 2025-02-17 20:47 | W.ED.SEIZURE ---
Documented by User: NICOLÁS Noonan 02/17/25 23:59 HPI - Seizure General: Chief Complaint: Seizure Stated Complaint: Possible seizure Time Seen by Provider: 02/17/25 20:29 Source: patient and EMS Mode of arrival: EMS Limitations: no limitations History of Present Illness: HPI Narrative: Patient is a 64-year-old female with past medical history of diabetes, Parkinson's, and epilepsy who is [facility]. There was concerns that the patient had a seizure as staff had found her to be confused when giving her her nighttime meds. There was no confirmed reported seizures and no reported postictal state. Patient has no complaints at this time, is at baseline mentation. Patient does not report any new medication changes. Denies any head trauma. Patient sees Dr. Butcher for seizures, last visit was on 01/24 over this year for 6-month follow-up. She has chronic memory loss. Also has VNS. Noted to be well on her medications at her follow-up visit and no changes were made at that time. Vitals are unremarkable at this time. MD complaint: possible seizure Onset (ago): hour(s) Description of Episode: post-event confusion Witnessed: Yes - by Other (Confusion was witnessed by [facility] staff) Seizure History: Yes Place: Home Associated symptoms: Reports confusion; Deny chest pain, chills or fever(s) Treatments prior to arrival: none Related Data Home Medications ?Medication ?Instructions ?Recorded ?Confirmed acetaminophen 650 mg 650 mg PO Q6H PRN Pain 12/24/19 01/24/25 tablet,extended release (Tylenol 8 Hour) carbidopa 25 mg-levodopa 100 mg 1 tab PO TID@,,12/24/19 01/24/25 tablet clopidogrel 75 mg tablet 75 mg PO DAILY@12/24/19 01/24/25 docusate sodium 100 mg capsule 100 mg PO DAILY@12/24/19 01/24/25 insulin glargine 100 unit/mL See Rx Instructions .Route .COMPLEX 12/24/19 01/24/25 subcutaneous solution (Lantus U-100 Insulin) isosorbide mononitrate 30 mg 30 mg PO DAILY@12/24/19 01/24/25 tablet,extended release 24 hr magnesium oxide 400 mg (241.3 mg 400 mg PO BID@12/24/19 01/24/25 magnesium) tablet metformin 1,000 mg tablet 1,000 mg PO BID@12/24/19 01/24/25 peg 400-propylene glycol 0.4 %-0.3 1 drop ophthalmic (eye) PRN PRN 12/24/19 01/24/25 % eye drops (Systane (propylene Dry Eyes glycol)) rosuvastatin 10 mg tablet 10 mg PO DAILY@12/24/19 01/24/25 aspirin 81 mg tablet,delayed 81 mg PO DAILY@01/21/21 01/24/25 release (Ecotrin Low Strength) glipizide 5 mg tablet 2.5 mg PO DAILY@01/21/21 01/24/25 amlodipine 10 mg tablet 10 mg PO DAILY 03/27/21 01/24/25 hydrochlorothiazide 25 mg tablet 25 mg PO DAILY@03/27/21 01/24/25 lisinopril 20 mg tablet 20 mg PO BID@03/27/21 01/24/25 potassium chloride 10 mEq 10 meq PO DAILY@09/02/22 01/24/25 tablet,extended release clonidine HCl 0.2 mg tablet 0.2 mg PO BID@01/05/23 01/24/25 cenobamate 200 mg tablet (Xcopri) 200 mg PO DAILY@09/29/24 01/24/25 oxybutynin chloride 10 mg 10 mg PO BEDTIME 09/29/24 01/24/25 tablet,extended release 24 hr galantamine 4 mg tablet 4 mg PO BID 11/06/24 01/24/25 levetiracetam 750 mg tablet 750 mg PO BID 11/06/24 01/24/25 carvedilol 6.25 mg tablet 6.25 mg PO 01/24/25 01/24/25 Previous Rx's ?Medication ?Instructions ?Recorded diabetic shoes with 3 inserts #1 ea 12/24/22 Allergies Allergy/AdvReac Type Severity Reaction Status Date / Time amoxicillin Allergy Unknown Verified 01/23/25 09:55 Penicillins Allergy unknown Verified 01/23/25 09:55 potassium chloride Allergy ALGY-Rash Verified 01/23/25 09:55 Review of Systems General: Reports: 10 or more systems reviewed and unremarkable except in HPI and below Const: Denies: fever(s), chills or fatigue Eyes: Denies: change in vision ENMT: Denies: throat pain, ear or mastoid pain or nasal discharge Card: Denies: chest pain, palpitations, swelling of feet/ankles or lightheadedness Resp: Denies: dyspnea, productive cough or wheezing GI: Denies: abdominal pain, nausea, vomiting, diarrhea or constipation : Denies: flank pain, difficulty voiding, dysuria or urinary frequency Musc: Denies: neck pain, back pain or joint pain Skin/Breast: Denies: rash Neuro: Reports: confusion and seizure-like activity (Possible); Denies: headache(s), numbness in extremities or weakness in extremities PFSH ED PFSH: Medical History Hypertension Diabetes Secondarily generalized seizures Parkinson disease Surgical History Status post VNS (vagus nerve stimulator) placement Family History Other Diabetes Hypertension Denies family history of CAD (coronary artery disease) Cancer Stroke Social History Smoking and tobacco/nicotine status: unknown if used tobacco/nicotine Alcohol intake: never Substance/Drug Use: never Physical Exam Const: COMMON NORMALS: no acute distress, patient oriented x3 and no limitations GENERAL APPEARANCE: cooperative, comfortable and well developed ORIENTATION/CONSCIOUSNESS: Yes awake, Yes oriented to person, Yes oriented to place and Yes oriented to time HENMT: COMMON NORMALS: normocephalic, atraumatic and hearing grossly normal bilaterally HEAD & SCALP: normocephalic and atraumatic Eye: COMMON NORMALS: Equal, round and reactive pupils present, EOMs intact bilaterally and conjunctivae normal CONJUNCTIVA: Yes conjunctivae normal PUPIL: Yes Equal, round and reactive pupils present Neck/C-Spine: COMMON NORMALS: full ROM, supple and no JVD Resp: COMMON NORMALS: normal respiratory effort, No retractions, No use of accessory muscles and clear to auscultation bilaterally AUSCULTATION: clear to auscultation bilaterally Cardio: COMMON NORMALS: no JVD, regular rate, regular rhythm, No clicks present (Cardio), No murmurs present (Cardio) and No rub (Cardio) RATE: regular rate RHYTHM: regular rhythm GI: COMMON NORMALS: Normal to inspection, nondistended, normoactive bowel sounds present, Soft to palpation and non-tender AUSCULTATION: Yes normoactive bowel sounds PALPATION: Yes Soft to palpation RECTAL EXAM: deferred Extremity: COMMON NORMALS: normal to inspection, full ROM and capillary refill normal Neuro: COMMON NORMALS: patient oriented x3, CN's II-XII intact bilaterally, moves all extremities, no focal motor deficits and no sensory deficits noted SENSORIUM/ORIENTATION: Yes oriented to person, Yes oriented to place and Yes oriented to time Skin: COMMON NORMALS: no rashes or lesions noted GENERAL SKIN EXAM: no rashes or lesions noted Course Vital Signs: Vital signs: Vital Signs Temperature 98.6 F 02/17/25 20:27 Pulse Rate 82 02/17/25 21:02 Respiratory Rate 12 02/17/25 21:02 Blood Pressure 179/94 02/17/25 20:27 Pulse Oximetry 96 02/17/25 21:02 Oxygen Delivery Me thod Room Air 02/17/25 21:02 MDM - Seizure MDM Narrative Medical decision making narrative: This patient presented by EMS, well-known to the emergency department here for similar presentations, and it was thought that she had a seizure when getting her nightly meds. Was at baseline mentation on arrival, she had no complaints. Vitals have been essentially unremarkable. Labs did not demonstrate any real abnormalities other than lactic being mildly elevated, she was started on fluids and this was reflexed. However she had pulled her IV out and was requesting to leave prior to the reflex resulting, and being at baseline mentation was discharged home. Her head CT was normal. Reflex lactic did come back showing more elevation but she left prior to this resulting. Lab Data 02/17/25 20:20 02/17/25 20:20 Labs: Radiology Impressions Head CT 02/17/25 20:37 IMPRESSION: No acute intracranial abnormality. Laboratory Results WBC 6.44 10^3/uL (3.29-11.43) 02/17/25 20:20 RBC 4.69 10^6/uL (3.85-5.65) 02/17/25 20:20 Hgb 14.00 g/dL (11.27-16.99) 02/17/25 20:20 Hct 42.4 % (36-47) 02/17/25 20:20 MCV 90.4 fl (85-98) 02/17/25 20:20 MCH 29.9 pg (27-33) 02/17/25 20:20 MCHC 33.0 g/dL (30-55) 02/17/25 20:20 RDW 13.2 % (12.1-15.1) 02/17/25 20:20 Plt Count 264 10^3/cmm (157-399) 02/17/25 20:20 MPV 9.9 fL (7.4-10.4) 02/17/25 20:20 Neut % (Auto) 68.1 % 02/17/25 20:20 Lymph % (Auto) 18.5 % 02/17/25 20:20 [place] % (Auto) 7.3 % 02/17/25 20:20 Eos % (Auto) 5.6 % 02/17/25 20:20 Baso % (Auto) 0.2 % 02/17/25 20:20 Neut # (Auto) 4.39 10^3/uL (1.8-7.7) 02/17/25 20:20 Lymph # (Auto) 1.2 10^3/uL (0.8-4.8) 02/17/25 20:20 [place] # (Auto) 0.5 10^3/uL (0.2-0.9) 02/17/25 20:20 Eos # (Auto) 0.4 10^3/uL (0.0-0.8) 02/17/25 20:20 Baso # (Auto) 0.0 10^3/uL (0.0-0.1) 02/17/25 20:20 Nucleated RBC % (auto) 0 % 02/17/25 20:20 Nucleated RBCs # 0.0 /100WBC 02/17/25 20:20 Sodium 138 mmol/L (136-145) 02/17/25 20:20 Potassium 3.8 mmol/L (3.5-5.1) 02/17/25 20:20 Chloride 98 mmol/L (98-107) 02/17/25 20:20 Carbon Dioxide 25 mmol/L (22-29) 02/17/25 20:20 Anion Gap 18.8 (5-19) 02/17/25 20:20 BUN 21 mg/dL (8-23) 02/17/25 20:20 Creatinine 0.6 mg/dL (0.5-0.9) 02/17/25 20:20 GFR Calculation 100.3 mL/min (90-130) 02/17/25 20:20 Glucose 112 mg/dL (65-115) 02/17/25 20:20 Calculated Osmolality 290 mOsm/kg (285-295) 02/17/25 20:20 Lactic Acid 3.4 mmol/L (0.5-2.2) H 02/17/25 20:20 Lactic Acid (Sepsis) 4.1 mmol/L (0.5-2.2) H* 02/17/25 22:41 Calcium 9.7 mg/dL (8.5-10.5) 02/17/25 20:20 Magnesium 2.0 mg/dL (1.7-2.3) 02/17/25 20:20 Total Bilirubin 0.2 mg/dL (0.15-1.2) 02/17/25 20:20 AST 19 U/L (0-32) 02/17/25 20:20 ALT 15 U/L (0-33) 02/17/25 20:20 Alkaline Phosphatase 132 U/L (35-105) H 02/17/25 20:20 Creatine Kinase 35 U/L (26-192) 02/17/25 20:20 Total Protein 7.8 g/dL (6.6-8.7) 02/17/25 20:20 Albumin 4.5 g/dL (3.5-5.2) 02/17/25 20:20 Globulin 3.3 g/dL (1.3-4.6) 02/17/25 20:20 Urine Color Yellow (Yellow) 02/17/25:25 Urine Appearance Clear (CLEAR) 02/17/25 20:25 Urine pH 5 (5-7) 02/17/25 20:25 Ur Specific [place] 1.015 (1.005-1.030) 02/17/25 20:25 Urine Protein Neg (Negative) 02/17/25 Urine Glucose (UA) Norm (Normal) 04/13/25 20:25 Urine Ketones Negative (Negative) 02/17/25 20:25 Urine Blood Trace (Negative) H 02/17/25 20:25 Urine Nitrate Negative (Negative) 02/17/25 20:25 Urine Bilirubin Neg (Negative) 02/17/25 20:25 Urine Urobilinogen Norm mg/dL (Negative) 02/17/25 20:25 Ur Leukocyte Esterase Trace (Negative) H 02/17/25 20:25 Urine RBC 0-2 /hpf (0-2) 02/17/25 20:25 Urine WBC 0-5 /hpf (0-5) 02/17/25 20:25 Ur Squamous Epith Cells 0-5 /hpf (0-5) 02/17/25 20: Amorphous Sediment Not Reportable 02/17/25 20: Urine Bacteria None seen /hpf (NONE) 02/17/25 20: Hyaline Casts 0-4 /lpf H 02/17/25 20:25 All radiology interpretation(s) finalized by discharge Discharge Plan Discharge Patient Disposition: Home Clinical Impression: Epilepsy Qualifiers: Epilepsy type: partial idiopathic, localized onset Intractability: intractable Status epilepticus: without status epilepticus Qualified Code(s): G40.019 - Localization-related (focal) (partial) idiopathic epilepsy and epileptic syndromes with seizures of localized onset, intractable, without status epilepticus Condition: Stable Prescriptions: No Action Lantus U-100 Insulin 100 unit/mL solution See Rx Instructions .ROUTE .COMPLEX Rx Instructions: Inject 20 units sub-q in the morning and 10 units in the evening. clopidogrel 75 mg tablet 75 mg PO DAILY@07 docusate sodium 100 mg capsule 100 mg PO DAILY@07 isosorbide mononitrate 30 mg tablet extended release 24 hr 30 mg PO DAILY@07 metformin 1,000 mg tablet 1,000 mg PO BID@07,17 magnesium oxide 400 mg (241.3 mg magnesium) tablet 400 mg PO BID@07,20 carbidopa-levodopa 25-100 mg tablet 1 tab PO TID@07,16,20 rosuvastatin 10 mg tablet 10 mg PO DAILY@20 acetaminophen [Tylenol 8 Hour] 650 mg tablet extended release 650 mg PO Q6H MDD 4,000mg PRN (Reason: Pain) Systane (propylene glycol) 0.4-0.3 % drops 1 drop ophthalmic (eye) PRN PRN (Reason: Dry Eyes) (DME) diabetic shoes with 3 inserts See Rx Instructions .Route .MEDSUPPLY Qty: 1 0RF Rx Instructions: As directed potassium chloride 10 mEq tablet extended release 10 meq PO DAILY@07 carvedilol 6.25 mg tablet 6.25 mg PO aspirin [Ecotrin Low Strength] 81 mg Tablet,Delayed Release (Dr/Ec) 81 mg PO DAILY@07 glipizide 5 mg tablet 2.5 mg PO DAILY@17 lisinopril 20 mg Tablet 20 mg PO BID@07,20 amlodipine 10 mg Tablet 10 mg PO DAILY hydrochlorothiazide 25 mg Tablet 25 mg PO DAILY@07 levetiracetam 750 mg tablet 750 mg PO BID galantamine 4 mg tablet 4 mg PO BID clonidine HCl 0.2 mg tablet 0.2 mg PO BID@07,19 oxybutynin chloride 10 mg tablet extended release 24hr 10 mg PO BEDTIME Xcopri 200 mg tablet 200 mg PO DAILY@07 Discharge Orders: Discharge ED (Routine); Ordered 02/17/25 Ordered By: Lan Barnes Referrals: Augustin Colón MD [Primary Care Provider] - Activity Restrictions/Additional Instructions: Continue taking home medications. Follow-up with your regular doctor. Return with any new or worsening. Print Language: Czech Coding Level of Care Code ED Licensed Nurse Practitioner for Chg Fwd Documented by User: Gareth Kaplan DO 02/18/25 01:21 HPI - Seizure General: Chief Complaint: Seizure Stated Complaint: Possible seizure Time Seen by Provider: 02/17/25 20:29 Related Data Home Medications ?Medication ?Instructions ?Recorded ?Confirmed acetaminophen 650 mg 650 mg PO Q6H PRN Pain 12/24/19 01/24/25 tablet,extended release (Tylenol 8 Hour) carbidopa 25 mg-levodopa 100 mg 1 tab PO TID@07,16,20 12/24/19 01/24/25 tablet clopidogrel 75 mg tablet 75 mg PO DAILY@07 12/24/19 03/20/25 docusate sodium 100 mg capsule 100 mg PO DAILY@12/24/19 01/24/25 insulin glargine 100 unit/mL See Rx Instructions .Route .COMPLEX 12/24/19 01/24/25 subcutaneous solution (Lantus U-100 Insulin) isosorbide mononitrate 30 mg 30 mg PO DAILY@12/24/19 01/24/25 tablet,extended release 24 hr magnesium oxide 400 mg (241.3 mg 400 mg PO BID@12/24/19 01/24/25 magnesium) tablet metformin 1,000 mg tablet 1,000 mg PO BID@12/24/19 01/24/25 peg 400-propylene glycol 0.4 %-0.3 1 drop ophthalmic (eye) PRN PRN 12/24/19 01/24/25 % eye drops (Systane (propylene Dry Eyes glycol)) rosuvastatin 10 mg tablet 10 mg PO DAILY@12/24/19 01/24/25 aspirin 81 mg tablet,delayed 81 mg PO DAILY@01/21/21 01/24/25 release (Ecotrin Low Strength) glipizide 5 mg tablet 2.5 mg PO DAILY@01/21/21 01/24/25 amlodipine 10 mg tablet 10 mg PO DAILY 03/27/21 01/24/25 hydrochlorothiazide 25 mg tablet 25 mg PO DAILY@03/27/21 01/24/25 lisinopril 20 mg tablet 20 mg PO BID@03/27/21 01/24/25 potassium chloride 10 mEq 10 meq PO DAILY@09/02/22 01/24/25 tablet,extended release clonidine HCl 0.2 mg tablet 0.2 mg PO BID@01/05/23 01/24/25 cenobamate 200 mg tablet (Xcopri) 200 mg PO DAILY@09/29/24 01/24/25 oxybutynin chloride 10 mg 10 mg PO BEDTIME 09/29/24 01/24/25 tablet,extended release 24 hr galantamine 4 mg tablet 4 mg PO BID 11/06/24 01/24/25 levetiracetam 750 mg tablet 750 mg PO BID 12/31/24 03/20/25 carvedilol 6.25 mg tablet 6.25 mg PO 01/24/25 01/24/25 Previous Rx's ?Medication ?Instructions ?Recorded diabetic shoes with 3 inserts #1 ea 12/24/22 Allergies Allergy/AdvReac Type Severity Reaction Status Date / Time amoxicillin Allergy Unknown Verified 01/23/25 09:55 Penicillins Allergy unknown Verified 01/23/25 09:55 potassium chloride Allergy ALGY-Rash Verified 01/23/25 09:55 [facility] ED PFSH: Medical History Hypertension Diabetes Secondarily generalized seizures Parkinson disease Surgical History Status post VNS (vagus nerve stimulator) placement Family History Other Diabetes Hypertension Denies family history of CAD (coronary artery disease) Cancer Stroke Social History Smoking and tobacco/nicotine status: unknown if used tobacco/nicotine Alcohol intake: never Substance/Drug Use: never Course Vital Signs: Vital signs: Vital Signs Temperature 98.6 F 02/17/25 20:27 Pulse Rate 82 02/17/25 21:02 Respiratory Rate 12 02/17/25 21:02 Blood Pressure 179/94 02/17/25 20:27 Pulse Oximetry 96 02/17/25 21:02 Oxygen Delivery Me thod Room Air 02/17/25 21:02 MDM - Seizure MDM Narrative Medical decision making narrative: This patient presented by EMS, well-known to the emergency department here for similar presentations, and it was thought that she had a seizure when getting her nightly meds. Was at baseline mentation on arrival, she had no complaints. Vitals have been essentially unremarkable. Labs did not demonstrate any real abnormalities other than lactic being mildly elevated, she was started on fluids and this was reflexed. However she had pulled her IV out and was requesting to leave prior to the reflex resulting, and being at baseline mentation was discharged home. Her head CT was normal. Reflex lactic did come back showing more elevation but she left prior to this resulting. This patient was originally seen by Mr. Molly PA-C.? I agree with his history, evaluation, and treatment. Lab Data 02/17/25 20:20 02/17/25 20:20 Labs: Radiology Impressions Head CT 02/17/25 20:37 IMPRESSION: No acute intracranial abnormality. Laboratory Results WBC 6.44 10^3/uL (3.29-11.43) 02/17/25 20:20 RBC 4.69 10^6/uL (3.85-5.65) 02/17/25 20:20 Hgb 14.00 g/dL (11.27-16.99) 02/17/25 20:20 Hct 42.4 % (36-47) 02/17/25 20:20 MCV 90.4 fl (85-98) 02/17/25 20:20 MCH 29.9 pg (27-33) 02/17/25 20:20 MCHC 33.0 g/dL (30-55) 02/17/25 20:20 RDW 13.2 % (12.1-15.1) 02/17/25 20:20 Plt Count 264 10^3/cmm (157-399) 02/17/25 20:20 MPV 9.9 fL (7.4-10.4) 02/17/25 20:20 Neut % (Auto) 68.1 % 02/17/25 20:20 Lymph % (Auto) 18.5 % 02/17/25 20:20 [place] % (Auto) 7.3 % 02/17/25 20:20 Eos % (Auto) 5.6 % 02/17/25 20:20 Baso % (Auto) 0.2 % 02/17/25 20:20 Neut # (Auto) 4.39 10^3/uL (1.8-7.7) 02/17/25 20:20 Lymph # (Auto) 1.2 10^3/uL (0.8-4.8) 02/17/25 20:20 [place] # (Auto) 0.5 10^3/uL (0.2-0.9) 02/17/25 20:20 Eos # (Auto) 0.4 10^3/uL (0.0-0.8) 02/17/25 20:20 Baso # (Auto) 0.0 10^3/uL (0.0-0.1) 02/17/25 20:20 Nucleated RBC % (auto) 0 % 02/17/25 20:20 Nucleated RBCs # 0.0 /100WBC 02/17/25 20:20 Sodium 138 mmol/L (136-145) 02/17/25 20:20 Potassium 3.8 mmol/L (3.5-5.1) 02/17/25 20:20 Chloride 98 mmol/L (98-107) 02/17/25 20:20 Carbon Dioxide 25 mmol/L (22-29) 02/17/25 20:20 Anion Gap 18.8 (5-19) 02/17/25 20:20 BUN 21 mg/dL (8-23) 02/17/25 20:20 Creatinine 0.6 mg/dL (0.5-0.9) 02/17/25 20:20 GFR Calculation 100.3 mL/min (90-130) 02/17/25 20:20 Glucose 112 mg/dL (65-115) 02/17/25 20:20 Calculated Osmolality 290 mOsm/kg (285-295) 02/17/25 20:20 Lactic Acid 3.4 mmol/L (0.5-2.2) H 02/17/25 20:20 Lactic Acid (Sepsis) 4.1 mmol/L (0.5-2.2) H* 02/17/25 22:41 Calcium 9.7 mg/dL (8.5-10.5) 02/17/25 20:20 Magnesium 2.0 mg/dL (1.7-2.3) 02/17/25 20:20 Total Bilirubin 0.2 mg/dL (0.15-1.2) 02/17/25 20:20 AST 19 U/L (0-32) 02/17/25 20:20 ALT 15 U/L (0-33) 02/17/25 20:20 Alkaline Phosphatase 132 U/L (35-105) H 02/17/25 20:20 Creatine Kinase 35 U/L (26-192) 02/17/25 20:20 Total Protein 7.8 g/dL (6.6-8.7) 02/17/25 20:20 Albumin 4.5 g/dL (3.5-5.2) 02/17/25 20:20 Globulin 3.3 g/dL (1.3-4.6) 02/17/25 20:20 Urine Color Yellow (Yellow) 02/17/25 20:25 Urine Appearance Clear (CLEAR) 02/17/25 20: Urine pH 5 (5-7) 02/17/25 20:25 Ur Specific [place] 1.015 (1.005-1.030) 02/17/25 20:25 Urine Protein Neg (Negative) 02/17/25 20:25 Urine Glucose (UA) Norm (Normal) 02/17/25 20: Urine Ketones Negative (Negative) 02/17/25 20:25 Urine Blood Trace (Negative) H 02/17/25 20:25 Urine Nitrate Negative (Negative) 02/17/25 20: Urine Bilirubin Neg (Negative) 02/17/25 20: Urine Urobilinogen Norm mg/dL (Negative) 02/17/25 20:25 Ur Leukocyte Esterase Trace (Negative) H 02/17/25 20:25 Urine RBC 0-2 /hpf (0-2) 02/17/25 20:25 Urine WBC 0-5 /hpf (0-5) 02/17/25 20:25 Ur Squamous Epith Cells 0-5 /hpf (0-5) 02/17/25 20:25 Amorphous Sediment Not Reportable 02/17/25 20: Urine Bacteria None seen /hpf (NONE) 02/17/25: Hyaline Casts 0-4 /lpf H 02/17/25 20:25 Discharge Plan Discharge Patient Disposition: Home Clinical Impression: Epilepsy Qualifiers: Epilepsy type: partial idiopathic, localized onset Intractability: intractable Status epilepticus: without status epilepticus Qualified Code(s): G40.019 - Localization-related (focal) (partial) idiopathic epilepsy and epileptic syndromes with seizures of localized onset, intractable, without status epilepticus Condition: Stable Prescriptions: No Action Lantus U-100 Insulin 100 unit/mL solution See Rx Instructions .ROUTE .COMPLEX Rx Instructions: Inject 20 units sub-q in the morning and 10 units in the evening. clopidogrel 75 mg tablet 75 mg PO DAILY@07 docusate sodium 100 mg capsule 100 mg PO DAILY@07 isosorbide mononitrate 30 mg tablet extended release 24 hr 30 mg PO DAILY@07 metformin 1,000 mg tablet 1,000 mg PO BID@,17 magnesium oxide 400 mg (241.3 mg magnesium) tablet 400 mg PO BID@07,20 carbidopa-levodopa 25-100 mg tablet 1 tab PO TID@07,16,20 rosuvastatin 10 mg tablet 10 mg PO DAILY@20 acetaminophen [Tylenol 8 Hour] 650 mg tablet extended release 650 mg PO Q6H MDD 4,000mg PRN (Reason: Pain) Systane (propylene glycol) 0.4-0.3 % drops 1 drop ophthalmic (eye) PRN PRN (Reason: Dry Eyes) (DME) diabetic shoes with 3 inserts See Rx Instructions .Route .MEDSUPPLY Qty: 1 0RF Rx Instructions: As directed potassium chloride 10 mEq tablet extended release 10 meq PO DAILY@07 carvedilol 6.25 mg tablet 6.25 mg PO aspirin [Ecotrin Low Strength] 81 mg Tablet,Delayed Release (Dr/Ec) 81 mg PO DAILY@07 glipizide 5 mg tablet 2.5 mg PO DAILY@17 lisinopril 20 mg Tablet 20 mg PO BID@07,20 amlodipine 10 mg Tablet 10 mg PO DAILY hydrochlorothiazide 25 mg Tablet 25 mg PO DAILY@07 levetiracetam 750 mg tablet 750 mg PO BID galantamine 4 mg tablet 4 mg PO BID clonidine HCl 0.2 mg tablet 0.2 mg PO BID@07,19 oxybutynin chloride 10 mg tablet extended release 24hr 10 mg PO BEDTIME Xcopri 200 mg tablet 200 mg PO DAILY@07 Discharge Orders: Discharge ED (Routine); Ordered 02/17/25 Ordered By: Lan Barnes Referrals: Augustin Colón MD [Primary Care Provider] - Activity Restrictions/Additional Instructions: Continue taking home medications. Follow-up with your regular doctor. Return with any new or worsening. Print Language: Czech Coding Level of Care Code ED Licensed Nurse Practitioner for Sudha Weiss
[2025-02-17 21:02] VITALS: PULSE 82; RESP 12; O2SAT 96
[2025-02-17 21:02] LABS: Alanine Aminotransferase 15 U/L (0-33); Albumin Level 4.5 g/dL (3.5-5.2); Alkaline Phosphatase 132 U/L (35-105); Anion Gap 18.8 (5-19); Aspartate Amino Transferase 19 U/L (0-32); Blood Urea Nitrogen 21 mg/dL (8-23); Calcium 9.7 mg/dL (8.5-10.5); Carbon Dioxide 25 mmol/L (22-29); Chloride 98 mmol/L (98-107); Creatine Phosphokinase 35 U/L (26-192); Creatinine Clr Calc Pharmacy 66.9264; Globulin 3.3 g/dL (1.3-4.6); Glomerular Filtration Rate 100.3 mL/min (90-130); Glucose 112 mg/dL (65-115); Osmolality Calculated 290 mOsm/kg (285-295); Potassium 3.8 mmol/L (3.5-5.1); Sodium 138 mmol/L (136-145); Total Bilirubin 0.2 mg/dL (0.15-1.2); Total Protein 7.8 g/dL (6.6-8.7)
[2025-02-17 21:03] LABS: Lactic Sepsis W/Reflex 3.4 mmol/L (0.5-2.2)
[2025-02-17] MEDS: sodium chloride 0.9% 1,000 ML 999 ML IV (21:22)
[2025-02-17 21:28] LABS: Add Urine Microscopic? NO
[2025-02-17 21:30] LABS: Bilirubin Urine Neg (Negative); Blood Urine Trace (Negative); Charge for UA Resulting for Rev; Glucose Urine UA Norm (Normal); Ketones Urine Negative (Negative); Leukocyte Esterase Urine Trace (Negative); Nitrate Urine Negative (Negative); Protein Urine Neg (Negative); Specific Gravity, Urine 1.015 (1.005-1.030); Urine Appearance Clear (CLEAR); Urine Color Yellow (Yellow); Urobilinogen Urine Norm (Negative); pH Urine 5 (5-7)
[2025-02-17 21:31] LABS: Bacteria Urine None Seen /hpf; Hyaline Casts Urine 0-4 /lpf; RBC Urine 0-2 /hpf (0-2); Squamous Epithelial Cell Urine 0-5 /hpf (0-5); WBC Urine 0-5 /hpf (0-5)
[2025-02-17 22:29] LABS: Reflex Lactate Order REFLEX LACTIC ORDERD
[2025-02-17 23:38] LABS: Lactic Acid level (Lactate) 4.1 mmol/L (0.5-2.2)
--- NOTE | 2025-02-17 23:40 | PC.NURSE ---
Pt pulled out iv while receiving fluids due to wanting to go home. Provider was notified and pt was discharged. Pt's Lactic Reflex came back at 4.1 after the pt had been discharged and provider was notified. Unsure how much of the IVF the pt recieved due to the amount of fluids on the floor.
== END 2025-02-17 23:37 | disposition home or self-care (01) ==
PROVIDERS: Emergency Provider Physician Assistant; PCP Family Medicine
DX: G40.019 Localization-related (focal) (partial) idiopathic epilepsy and epileptic syndromes with seizures of localized onset, intractable, without status epilepticus (principal); Z79.02 Long term (current) use of antithrombotics/antiplatelets; Z79.82 Long term (current) use of aspirin; E11.9 Type 2 diabetes mellitus without complications; I10 Essential (primary) hypertension
CPT/HCPCS: 36415; 70450; 80053; 81003; 82550; 83605; 83735; 85025; 93005; 99284; J7030

== ENCOUNTER → 2025-03-27 09:28 | Outpatient (BNVA) | payer MEDICARE, MEDICAID, SELFPAY | PROVIDERS: PCP Family Medicine; Visit Provider Podiatrist Foot & Ankle Surgery | DX: E11.69 Type 2 diabetes mellitus with other specified complication (principal); B35.1 Tinea unguium; M79.671 Pain in right foot; M79.672 Pain in left foot; L85.3 Xerosis cutis; Z79.4 Long term (current) use of insulin; Z79.84 Long term (current) use of oral hypoglycemic drugs | CPT/HCPCS: 11721 ==

== ENCOUNTER 2025-04-03 07:07 | Emergency (ER) | payer MEDICARE, MEDICAID, SELFPAY ==
[2025-04-03] VITALS (7 sets, daily range): BP systolic 128–163; BP diastolic 68–98; PULSE 50–73; RESP 16–18; TEMP 36.8; O2SAT 94–99
[2025-04-03 07:25] LABS: Glucose Point of Care 187 mg/dL (70-110)
--- NOTE | 2025-04-03 07:30 | ECG_ITS ---
[facility]: [facility]03 Pat Name: Aubrie Mathias Department: Room: Gender: Female Physical Integration Practitioner: : 1960 Requested By: Bashir Aleman Order Number: [id number] Reading MD: Measurements Intervals [place] Rate: 59 P: 30 LA: 206 QRS: -58 QRSD: 87 T: 40 QT: 403 QTc: 402 Interpretive Statements SINUS BRADYCARDIA WITH SINUS ARRHYTHMIA LEFT AXIS DEVIATION [QRS AXIS < -30] ANTEROSEPTAL MYOCARDIAL INFARCTION , OF INDETERMINATE AGE [40+ ms Q WAVE IN V1-V4] MODERATE T-WAVE ABNORMALITY, CONSIDER LATERAL ISCHEMIA [-0.1+ mV T-WAVE IN I/aVL/V5/V6] [email or web address]
--- NOTE | 2025-04-03 07:30 | W.ED.SEIZURE ---
HPI - Seizure General: Chief Complaint: Seizure Stated Complaint: Seizure Time Seen by Provider: 04/03/25 07:15 History of Present Illness: HPI Narrative: Chief complaint seizure. History is obtained from EMS. Patient history limited by her dementia. Patient does not recall events. She states she feels fine. She denies any headache or injury. She denies chest pain shortness of breath cough fever vomiting diarrhea. She denies dysuria. She denies any pain or injury. No neck pain back pain shoulder pain. EMS reports that she was in the process of getting her medications and had a witnessed seizure. EMS states there was no trauma or head injury. They report that they patient was given her morning seizure medication after the seizure. They state the patient did have loss of urine continence when the seizure occurred. They state patient has a history of dementia. No recent illness or injury reported to EMS. Patient lives at assisted living per report Seizure History: Yes Related Data Home Medications ?Medication ?Instructions ?Recorded ?Confirmed acetaminophen 650 mg 650 mg PO Q6H PRN Pain 12/24/19 04/03/25 tablet,extended release (Tylenol 8 Hour) carbidopa 25 mg-levodopa 100 mg 1 tab PO TID@,,12/24/19 04/03/25 tablet clopidogrel 75 mg tablet 75 mg PO DAILY@12/24/19 04/03/25 docusate sodium 100 mg capsule 100 mg PO DAILY@12/24/19 04/03/25 isosorbide mononitrate 30 mg 30 mg PO DAILY@12/24/19 04/03/25 tablet,extended release 24 hr magnesium oxide 400 mg (241.3 mg 400 mg PO BID@12/24/19 04/03/25 magnesium) tablet metformin 1,000 mg tablet 1,000 mg PO BID@12/24/19 04/03/25 rosuvastatin 10 mg tablet 10 mg PO DAILY@12/24/19 04/03/25 aspirin 81 mg tablet,delayed 81 mg PO DAILY@01/21/21 04/03/25 release (Ecotrin Low Strength) glipizide 5 mg tablet 2.5 mg PO DAILY@01/21/21 04/03/25 amlodipine 10 mg tablet 10 mg PO DAILY 03/27/21 04/03/25 hydrochlorothiazide 25 mg tablet 25 mg PO DAILY@07 03/27/21 04/03/25 lisinopril 20 mg tablet 20 mg PO BID@,03/27/21 04/03/25 potassium chloride 10 mEq 10 meq PO DAILY@09/02/22 04/03/25 tablet,extended release clonidine HCl 0.2 mg tablet 0.2 mg PO BID@07,01/05/23 04/03/25 oxybutynin chloride 10 mg 10 mg PO BEDTIME 09/29/24 04/03/25 tablet,extended release 24 hr galantamine 4 mg tablet 4 mg PO BID 11/06/24 04/03/25 levetiracetam 750 mg tablet 750 mg PO BID 11/06/24 04/03/25 carvedilol 6.25 mg tablet 6.25 mg PO BID 01/24/25 04/03/25 Previous Rx's ?Medication ?Instructions ?Recorded diabetic shoes with 3 inserts #1 ea 12/24/22 cenobamate 200 mg tablet (Xcopri) 200 mg PO DAILY@07 90 days #90 tabs 02/26/25 Allergies Allergy/AdvReac Type Severity Reaction Status Date / Time amoxicillin Allergy Unknown Verified 03/27/25 09:30 Penicillins Allergy unknown Verified 03/27/25 09:30 potassium chloride Allergy ALGY-Rash Verified 03/27/25 09:30 [facility] ED PFSH: Medical History Hypertension Diabetes Secondarily generalized seizures Parkinson disease Surgical History Status post VNS (vagus nerve stimulator) placement Family History Other Diabetes Hypertension Denies family history of CAD (coronary artery disease) Cancer Stroke Social History Smoking and tobacco/nicotine status: unknown if used tobacco/nicotine Alcohol intake: never Substance/Drug Use: never Physical Exam Narrative: EXAM NARRATIVE: Patient sitting up alert interactive. She has no visible bruising or swelling over her scalp and has no tenderness. She moves her neck freely and has no tenderness over her neck or back. She sits up for me on her own. She has no drift in her arms or legs. Her speech is clear. She cannot tell me what year it is or her location or what occurred this morning. She has short-term memory deficit. Pupils are briskly reactive and she tracks me around the room. She has no bite or signs of rashid of trauma to her tongue. No other signs of rashid of trauma on exam of her body. Abdomen soft nontender. Lung sounds are clear but mildly diminished bilaterally. Heart regular rhythm. She has intact cerebellar function. No ataxia. Course Vital Signs: Vital signs: Vital Signs Temperature 98.2 F 04/03/25 07:08 Pulse Rate 73 04/03/25 07:32 Respiratory Rate 16 04/03/25 07:32 Blood Pressure 136/86 04/03/25 07:32 Pulse Oximetry 97 04/03/25 07:32 Oxygen Delivery Me thod Room Air 04/03/25 07:32 MDM - Seizure MDM Narrative Medical decision making narrative: Patient seen on arrival from EMS and history obtained from EMS. Significant limitation to history due to the patient's dementia. She denies any complaints. Patient's neck is supple and she has no signs of trauma. No trauma per report by EMS and this was a witnessed seizure. Patient has a known seizure disorder and takes keppra and Xcopri according to review of her medication list. Patient is on Plavix. Patient is a known diabetic. Other differential would include syncope, hypoglycemia, with very broad differential. Will screen CBC CMP and urinalysis and EKG. Patient however here is asymptomatic alert talkative. No apparent new focal deficits to suggest stroke. She denies headache and no reported trauma or injury or neurologic deficit to indicate emergent CT scan or imaging of the head. Will observe here and she has already received her morning seizure medication and if no further seizures or significant abnormality on labs reasonable to continue outpatient follow-up with neurology. Patient remains asymptomatic here. Urine shows some mild findings which may represent UTI versus colonization so we will send urine culture. Patient labs including CBC and CMP did not show significant abnormality other than some hyperglycemia and mild hyponatremia but unlikely sufficient to be causing a seizure. Patient EKG showed a sinus bradycardia with nonspecific ST segment changes. Patient denies any chest pain or chest discomfort. I was checking for cardiac dysrhythmia. She denies any chest pain or chest discomfort or shortness of breath to suggest ischemia. Reasonable to discharge with continued outpatient follow-up. Lab Data 04/03/25 07:15 04/03/25 07:15 Labs: Laboratory Results WBC 6.08 10^3/uL (3.29-11.43) 04/03/25 07:15 RBC 4.63 10^6/uL (3.85-5.65) 04/03/25 07:15 Hgb 14.20 g/dL (11.27-16.99) 04/03/25 07:15 Hct 41.8 % (36-47) 04/03/25 07:15 MCV 90.3 fl (85-98) 04/03/25 07:15 MCH 30.7 pg (27-33) 04/03/25 07:15 MCHC 34.0 g/dL (30-55) 04/03/25 07:15 RDW 13.2 % (12.1-15.1) 04/03/25 07:15 Plt Count 245 10^3/cmm (157-399) 04/03/25 07:15 MPV 9.6 fL (7.4-10.4) 04/03/25 07:15 Neut % (Auto) 70.0 % 04/03/25 07:15 Lymph % (Auto) 16.9 % 04/03/25 07:15 [place] % (Auto) 8.4 % 04/03/25 07:15 Eos % (Auto) 4.1 % 04/03/25 07:15 Baso % (Auto) 0.3 % 04/03/25 07:15 Neut # (Auto) 4.25 10^3/uL (1.8-7.7) 04/03/25 07:15 Lymph # (Auto) 1.0 10^3/uL (0.8-4.8) 04/03/25 07:15 [place] # (Auto) 0.5 10^3/uL (0.2-0.9) 04/03/25 07:15 Eos # (Auto) 0.3 10^3/uL (0.0-0.8) 04/03/25 07:15 Baso # (Auto) 0.0 10^3/uL (0.0-0.1) 04/03/25 07:15 Nucleated RBC % (auto) 0 % 04/03/25 07:15 Nucleated RBCs # 0.0 /100WBC 04/03/25 07:15 Sodium 132 mmol/L (136-145) L 04/03/25 07:15 Potassium 4.1 mmol/L (3.5-5.1) 04/03/25 07:15 Chloride 95 mmol/L (98-107) L 04/03/25 07:15 Carbon Dioxide 26 mmol/L (22-29) 04/03/25 07:15 Anion Gap 15.1 (5-19) 04/03/25 07:15 BUN 14 mg/dL (8-23) 04/03/25 07:15 Creatinine 0.6 mg/dL (0.5-0.9) 04/03/25 07:15 GFR Calculation 100.3 mL/min (90-130) 04/03/25 07:15 Glucose 197 mg/dL (65-115) H 04/03/25 07:15 POC Glucose 187 mg/dL (70-110) H 04/03/25 07:11 Calculated Osmolality 280 mOsm/kg (285-295) L 04/03/25 07:15 Calcium 9.6 mg/dL (8.5-10.5) 04/03/25 07:15 Total Bilirubin 0.3 mg/dL (0.15-1.2) 04/03/25 07:15 AST 26 U/L (0-32) 04/03/25 07:15 ALT 35 U/L (0-33) H 04/03/25 07:15 Alkaline Phosphatase 143 U/L (35-105) H 04/03/25 07:15 Total Protein 7.4 g/dL (6.6-8.7) 04/03/25 07:15 Albumin 4.2 g/dL (3.5-5.2) 04/03/25 07:15 Globulin 3.2 g/dL (1.3-4.6) 04/03/25 07:15 Urine Color Yellow (Yellow) 04/03/25 08:18 Urine Appearance Clear (CLEAR) 04/03/25 08:18 Urine pH 7.5 (5-7) 04/03/25 08:18 Ur Specific [place] 1.012 (1.005-1.030) 04/03/25 08:18 Urine Protein Trace (Negative) A 04/03/25 08:18 Urine Glucose (UA) Negative (Normal) 04/03/25 08:18 Urine Ketones Negative (Negative) 04/03/25 08:18 Urine Blood Negative (Negative) 04/03/25 08:18 Urine Nitrate Negative (Negative) 04/03/25 08:18 Urine Bilirubin Negative (Negative) 04/03/25 08:18 Urine Urobilinogen 0.2 mg/dL (Negative) 04/03/25 08:18 Ur Leukocyte Esterase Trace (Negative) A 04/03/25 08:18 Urine RBC 0-2 /hpf (0-2) 04/03/25 08:18 Urine WBC 11-20 /hpf (0-5) H 04/03/25 08:18 Ur Squamous Epith Cells 0-5 /hpf (0-5) 04/03/25 08:18 Amorphous Sediment Not Reportable 04/03/25 08:18 Urine Bacteria 1+ /hpf (NONE) H 04/03/25 08:18 Hyaline Casts 1.21 /lpf 04/03/25 08:18 All radiology interpretation(s) finalized by discharge Discharge Plan Discharge Patient Disposition: Home Clinical Impression: Epilepsy Condition: Stable Prescriptions: No Action clopidogrel 75 mg tablet 75 mg PO DAILY@07 docusate sodium 100 mg capsule 100 mg PO DAILY@07 isosorbide mononitrate 30 mg tablet extended release 24 hr 30 mg PO DAILY@07 metformin 1,000 mg tablet 1,000 mg PO BID@07,17 magnesium oxide 400 mg (241.3 mg magnesium) tablet 400 mg PO BID@07,20 carbidopa-levodopa 25-100 mg tablet 1 tab PO TID@07,16,20 rosuvastatin 10 mg tablet 10 mg PO DAILY@20 acetaminophen [Tylenol 8 Hour] 650 mg tablet extended release 650 mg PO Q6H MDD 4,000mg PRN (Reason: Pain) (DME) diabetic shoes with 3 inserts See Rx Instructions .Route .MEDSUPPLY Qty: 1 0RF Rx Instructions: As directed potassium chloride 10 mEq tablet extended release 10 meq PO DAILY@07 carvedilol 6.25 mg tablet 6.25 mg PO BID Xcopri 200 mg tablet 200 mg PO DAILY@07 90 Days Qty: 90 3RF aspirin [Ecotrin Low Strength] 81 mg Tablet,Delayed Release (Dr/Ec) 81 mg PO DAILY@07 glipizide 5 mg tablet 2.5 mg PO DAILY@17 lisinopril 20 mg Tablet 20 mg PO BID@07,20 amlodipine 10 mg Tablet 10 mg PO DAILY hydrochlorothiazide 25 mg Tablet 25 mg PO DAILY@07 levetiracetam 750 mg tablet 750 mg PO BID galantamine 4 mg tablet 4 mg PO BID clonidine HCl 0.2 mg tablet 0.2 mg PO BID@07,19 oxybutynin chloride 10 mg tablet extended release 24hr 10 mg PO BEDTIME Discharge Orders: Discharge ED (Routine); Ordered 04/03/25 Ordered By: Bashir Aleman Referrals: Augustin Colón MD [Primary Care Provider, Family Practice] Activity Restrictions/Additional Instructions: Seizure precautions. Follow-up with neurology and primary care. Come back if new or worsening symptoms or concerns, fever, vomiting, passing out, abnormal seizure pattern, any concerns, concerning headache or change in mentation or confusion. Please follow-up on your test results with your doctor Print Language: Turkmen Coding Level of Care Code ED A P Mechanic for Sudha Weiss
[2025-04-03 07:31] LABS: Basophils % 0.3 %; Eosinophils # 0.3 10^3/uL (0.0-0.8); Eosinophils % 4.1 %; Hematocrit 41.8 % (36-47); Lymphocytes % 16.9 %; Mean Corpuscular Hemoglobin 30.7 pg (27-33); Mean Corpuscular Volume 90.3 fl (85-98); Mean Platelet Volume 9.6 fL (7.4-10.4); Monocytes # 0.5 10^3/uL (0.2-0.9); Monocytes % 8.4 %; Neutrophils # 4.25 10^3/uL (1.8-7.7); Nucleated Red Blood Cells % 0 %; Platelet Count 245 10^3/cmm (157-399); Red Blood Count 4.63 10^6/uL (3.85-5.65); Red Cell Distribution Width 13.2 % (12.1-15.1); White Blood Count 6.08 10^3/uL (3.29-11.43)
[2025-04-03 07:50] LABS: Alanine Aminotransferase 35 U/L (0-33); Albumin Level 4.2 g/dL (3.5-5.2); Alkaline Phosphatase 143 U/L (35-105); Anion Gap 15.1 (5-19); Aspartate Amino Transferase 26 U/L (0-32); Blood Urea Nitrogen 14 mg/dL (8-23); Calcium 9.6 mg/dL (8.5-10.5); Carbon Dioxide 26 mmol/L (22-29); Chloride 95 mmol/L (98-107); Globulin 3.2 g/dL (1.3-4.6); Glomerular Filtration Rate 100.3 mL/min (90-130); Glucose 197 mg/dL (65-115); Osmolality Calculated 280 mOsm/kg (285-295); Potassium 4.1 mmol/L (3.5-5.1); Sodium 132 mmol/L (136-145); Total Bilirubin 0.3 mg/dL (0.15-1.2); Total Protein 7.4 g/dL (6.6-8.7)
[2025-04-03 08:27] LABS: Bilirubin Urine Negative (Negative); Blood Urine Negative (Negative); Glucose Urine UA Negative (Normal); Ketones Urine Negative (Negative); Leukocyte Esterase Urine Trace (Negative); Nitrate Urine Negative (Negative); Protein Urine Trace (Negative); Specific Gravity, Urine 1.012 (1.005-1.030); Urine Appearance Clear (CLEAR); Urine Color Yellow (Yellow); Urobilinogen Urine 0.2 mg/dL (Negative); pH Urine 7.5 (5-7)
[2025-04-03 08:32] LABS: Add Urine Microscopic? YES; Hyaline Casts Urine 1.21 /lpf; RBC Urine 0-2 /hpf (0-2); Squamous Epithelial Cell Urine 0-5 /hpf (0-5)
[2025-04-03 08:42] LABS: UA Slide Review UA Slide Review Perf
[2025-04-03 08:43] LABS: Bacteria Urine 1+ /hpf
== END 2025-04-03 10:53 | disposition home or self-care (01) ==
PROVIDERS: Emergency Provider Emergency Medicine; PCP Family Medicine
DX: G40.409 Other generalized epilepsy and epileptic syndromes, not intractable, without status epilepticus (principal); F03.90 Unspecified dementia, unspecified severity, without behavioral disturbance, psychotic disturbance, mood disturbance, and anxiety; E11.9 Type 2 diabetes mellitus without complications; Z79.899 Other long term (current) drug therapy; Z79.02 Long term (current) use of antithrombotics/antiplatelets; Z79.82 Long term (current) use of aspirin; Z79.84 Long term (current) use of oral hypoglycemic drugs
CPT/HCPCS: 12345; 36416; 80053; 81001; 82962; 85025; 87086; 93005; 99284

== ENCOUNTER 2025-04-26 08:10 | Emergency (ER) | payer MEDICARE, MEDICAID, SELFPAY ==
[2025-04-26 08:11] VITALS: BP 177/130; PULSE 106; RESP 19; TEMP 37.1; O2SAT 98; BMI 27.8
[2025-04-26] MEDS: levETIRAcetam 1,000 MG/100 ML PREMIX 400 MG IV (08:45)
[2025-04-26 08:46] VITALS: BP 154/104; PULSE 103; RESP 22; O2SAT 98
[2025-04-26 08:47] LABS: Basophils % 0.3 %; Eosinophils # 0.1 10^3/uL (0.0-0.8); Eosinophils % 1.2 %; Hematocrit 45.1 % (36-47); Lymphocytes # 0.8 10^3/uL (0.8-4.8); Mean Corpuscular HGB Conc 36.1 g/dL (30-55); Mean Corpuscular Hemoglobin 30.8 pg (27-33); Mean Corpuscular Volume 85.1 fl (85-98); Mean Platelet Volume 9.8 fL (7.4-10.4); Monocytes # 0.4 10^3/uL (0.2-0.9); Monocytes % 4.2 %; Neutrophils # 7.87 10^3/uL (1.8-7.7); Neutrophils % 84.9 %; Nucleated Red Blood Cells % 0 %; Platelet Count 295 10^3/cmm (157-399); Red Cell Distribution Width 13.2 % (12.1-15.1); White Blood Count 9.27 10^3/uL (3.29-11.43)
[2025-04-26 09:00] LABS: Alanine Aminotransferase 73 U/L (0-33); Albumin Level 4.7 g/dL (3.5-5.2); Alkaline Phosphatase 167 U/L (35-105); Anion Gap 19.7 (5-19); Aspartate Amino Transferase 24 U/L (0-32); Blood Urea Nitrogen 12 mg/dL (8-23); Calcium 10.1 mg/dL (8.5-10.5); Carbon Dioxide 23 mmol/L (22-29); Chloride 89 mmol/L (98-107); Creatinine Clr Calc Pharmacy 65.5186; Globulin 3.6 g/dL (1.3-4.6); Glucose 254 mg/dL (65-115); Osmolality Calculated 274 mOsm/kg (285-295); Potassium 3.7 mmol/L (3.5-5.1); Sodium 128 mmol/L (136-145); Total Bilirubin 0.4 mg/dL (0.15-1.2); Total Protein 8.3 g/dL (6.6-8.7)
[2025-04-26 09:20] VITALS: PULSE 106; RESP 15; O2SAT 97
[2025-04-26 09:49] LABS: Bilirubin Urine Negative (Negative); Blood Urine Trace (Negative); Glucose Urine UA Trace (Normal); Ketones Urine Negative (Negative); Leukocyte Esterase Urine Negative (Negative); Nitrate Urine Negative (Negative); Protein Urine 2+ (Negative); Specific Gravity, Urine 1.012 (1.005-1.030); Urine Appearance Clear (CLEAR); Urine Color Yellow (Yellow); Urobilinogen Urine 0.2 mg/dL (Negative)
[2025-04-26 09:54] LABS: Add Urine Microscopic? YES; Bacteria Urine None Seen /hpf; Hyaline Casts Urine 2.05 /lpf; Squamous Epithelial Cell Urine 0-5 /hpf (0-5); WBC Urine 0-5 /hpf (0-5)
[2025-04-26 09:57] LABS: Add Urine Culture? No
--- NOTE | 2025-04-26 10:00 | W.ED.SEIZURE ---
HPI - Seizure General: Chief Complaint: Seizure Stated Complaint: seizure Time Seen by Provider: 04/26/25 08:13 History of Present Illness: HPI Narrative: 65-year-old female presents to the emergency room after having had a seizure. She is awake and alert. She has a strong history of seizure disorders on multiple medication she has a vagal nerve stimulator. The report of the vagal nerve stimulator is what terminated this seizure. They are concerned because she frequently has issues in response to developing infections evidently particularly bladder infections. She denies dysuria urgency or frequency Seizure History: Yes Associated symptoms: Deny chest pain, chills or fever(s) Related Data Home Medications ?Medication ?Instructions ?Recorded ?Confirmed acetaminophen 650 mg 650 mg PO Q6H PRN Pain 12/24/19 04/03/25 tablet,extended release (Tylenol 8 Hour) carbidopa 25 mg-levodopa 100 mg 1 tab PO TID@,,12/24/19 04/03/25 tablet clopidogrel 75 mg tablet 75 mg PO DAILY@12/24/19 04/03/25 docusate sodium 100 mg capsule 100 mg PO DAILY@12/24/19 04/03/25 isosorbide mononitrate 30 mg 30 mg PO DAILY@12/24/19 04/03/25 tablet,extended release 24 hr magnesium oxide 400 mg (241.3 mg 400 mg PO BID@12/24/19 04/03/25 magnesium) tablet metformin 1,000 mg tablet 1,000 mg PO BID@,12/24/19 04/03/25 rosuvastatin 10 mg tablet 10 mg PO DAILY@12/24/19 04/03/25 aspirin 81 mg tablet,delayed 81 mg PO DAILY@01/21/21 04/03/25 release (Ecotrin Low Strength) glipizide 5 mg tablet 2.5 mg PO DAILY@01/21/21 04/03/25 amlodipine 10 mg tablet 10 mg PO DAILY 03/27/21 04/03/25 hydrochlorothiazide 25 mg tablet 25 mg PO DAILY@03/27/21 04/03/25 lisinopril 20 mg tablet 20 mg PO BID@03/27/21 04/03/25 potassium chloride 10 mEq 10 meq PO DAILY@07 10/27/22 05/28/25 tablet,extended release clonidine HCl 0.2 mg tablet 0.2 mg PO BID@07,19 01/05/23 04/03/25 oxybutynin chloride 10 mg 10 mg PO BEDTIME 09/29/24 04/03/25 tablet,extended release 24 hr galantamine 4 mg tablet 4 mg PO BID 11/06/24 04/03/25 levetiracetam 750 mg tablet 750 mg PO BID 11/06/24 04/03/25 carvedilol 6.25 mg tablet 6.25 mg PO BID 01/24/25 04/03/25 Previous Rx's ?Medication ?Instructions ?Recorded diabetic shoes with 3 inserts #1 ea 12/24/22 cenobamate 200 mg tablet (Xcopri) 200 mg PO DAILY@07 90 days #90 tabs 02/26/25 Allergies Allergy/AdvReac Type Severity Reaction Status Date / Time amoxicillin Allergy Unknown Verified 03/27/25 09:30 Penicillins Allergy unknown Verified 03/27/25 09:30 potassium chloride Allergy ALGY-Rash Verified 03/27/25 09:30 Review of Systems Const: Denies: fever(s) or chills Card: Denies: chest pain Resp: Denies: dyspnea GI: Denies: abdominal pain : Denies: dysuria, urinary frequency or urinary urgency Musc: Denies: neck pain or back pain Skin/Breast: Denies: rash PFSH ED PFSH: Medical History Hypertension Diabetes Secondarily generalized seizures Parkinson disease Surgical History Status post VNS (vagus nerve stimulator) placement Family History Other Diabetes Hypertension Denies family history of CAD (coronary artery disease) Cancer Stroke Social History Smoking and tobacco/nicotine status: unknown if used tobacco/nicotine Alcohol intake: never Substance/Drug Use: never Physical Exam Const: GENERAL APPEARANCE: cooperative ORIENTATION/CONSCIOUSNESS: Yes awake HENMT: COMMON NORMALS: normocephalic, atraumatic and hearing grossly normal bilaterally HEAD & SCALP: normocephalic and atraumatic Resp: COMMON NORMALS: normal respiratory effort, No retractions, No use of accessory muscles and clear to auscultation bilaterally AUSCULTATION: clear to auscultation bilaterally Cardio: COMMON NORMALS: regular rate, regular rhythm and No murmurs present (Cardio) RATE: regular rate RHYTHM: regular rhythm GI: COMMON NORMALS: Soft to palpation and No hepatosplenomegaly present AUSCULTATION: Yes normoactive bowel sounds PALPATION: Yes Soft to palpation, No Tenderness to palpation present (GI), No Guarding due to palpation present (GI) and Yes No hepatosplenomegaly present Extremity: COMMON NORMALS: normal to inspection, capillary refill normal, no clubbing, cyanosis or edema, no calf tenderness and no pedal edema Skin: COMMON NORMALS: no rashes or lesions noted GENERAL SKIN EXAM: no rashes or lesions noted Course Vital Signs: Vital signs: Vital Signs Temperature 98.7 F 04/26/25 08:11 Pulse Rate 106 H 04/26/25 08:11 Respiratory Rate 19 H 04/26/25 08:11 Blood Pressure 177/130 04/26/25 08:11 Pulse Oximetry 98 04/26/25 08:11 MDM - Seizure MDM Narrative Medical decision making narrative: Patient has returned to baseline. No postictal at this time. She is given her morning dose of Keppra IV 1000 mg discharged back to the care facility continue current medications follow-up with a neurologist return if she has further problems. Lab Data 04/26/25 08:21 04/26/25 08:21 Labs: Laboratory Results WBC 9.27 10^3/uL (3.29-11.43) 04/26/25 08:21 RBC 5.30 10^6/uL (3.85-5.65) 04/26/25 08:21 Hgb 16.30 g/dL (11.27-16.99) 04/26/25 08:21 Hct 45.1 % (36-47) 04/26/25 08:21 MCV 85.1 fl (85-98) 04/26/25 08:21 MCH 30.8 pg (27-33) 04/26/25 08:21 MCHC 36.1 g/dL (30-55) 04/26/25 08:21 RDW 13.2 % (12.1-15.1) 04/26/25 08:21 Plt Count 295 10^3/cmm (157-399) 04/26/25 08:21 MPV 9.8 fL (7.4-10.4) 04/26/25 08:21 Neut % (Auto) 84.9 % 04/26/25 08:21 Lymph % (Auto) 9.0 % 04/26/25 08:21 [place] % (Auto) 4.2 % 04/26/25 08:21 Eos % (Auto) 1.2 % 04/26/25 08:21 Baso % (Auto) 0.3 % 04/26/25 08:21 Neut # (Auto) 7.87 10^3/uL (1.8-7.7) H 04/26/25 08:21 Lymph # (Auto) 0.8 10^3/uL (0.8-4.8) 04/26/25 08:21 [place] # (Auto) 0.4 10^3/uL (0.2-0.9) 04/26/25 08:21 Eos # (Auto) 0.1 10^3/uL (0.0-0.8) 04/26/25 08:21 Baso # (Auto) 0.0 10^3/uL (0.0-0.1) 04/26/25 08:21 Nucleated RBC % (auto) 0 % 04/26/25 08:21 Nucleated RBCs # 0.0 /100WBC 04/26/25 08:21 Sodium 128 mmol/L (136-145) L 04/26/25 08:21 Potassium 3.7 mmol/L (3.5-5.1) 04/26/25 08:21 Chloride 89 mmol/L (98-107) L 04/26/25 08:21 Carbon Dioxide 23 mmol/L (22-29) 04/26/25 08:21 Anion Gap 19.7 (5-19) H 04/26/25 08:21 BUN 12 mg/dL (8-23) 04/26/25 08:21 Creatinine 0.6 mg/dL (0.5-0.9) 04/26/25 08:21 GFR Calculation 100.0 mL/min (90-130) 04/26/25 08:21 Glucose 254 mg/dL (65-115) H 04/26/25 08:21 Calculated Osmolality 274 mOsm/kg (285-295) L 04/26/25 08:21 Calcium 10.1 mg/dL (8.5-10.5) 04/26/25 08:21 Total Bilirubin 0.4 mg/dL (0.15-1.2) 04/26/25 08:21 AST 24 U/L (0-32) 04/26/25 08:21 ALT 73 U/L (0-33) H 04/26/25 08:21 Alkaline Phosphatase 167 U/L (35-105) H 04/26/25 08:21 Total Protein 8.3 g/dL (6.6-8.7) 04/26/25 08:21 Albumin 4.7 g/dL (3.5-5.2) 04/26/25 08:21 Globulin 3.6 g/dL (1.3-4.6) 04/26/25 08:21 Urine Color Yellow (Yellow) 04/26/25 09:35 Urine Appearance Clear (CLEAR) 04/26/25 09:35 Urine pH 8.0 (5-7) A 04/26/25 09:35 Ur Specific [place] 1.012 (1.005-1.030) 04/26/25 09:35 Urine Protein 2+ (Negative) A 04/26/25 09:35 Urine Glucose (UA) Trace (Normal) H 04/26/25 09:35 Urine Ketones Negative (Negative) 04/26/25 09:35 Urine Blood Trace (Negative) A 04/26/25 09:35 Urine Nitrate Negative (Negative) 04/26/25 09:35 Urine Bilirubin Negative (Negative) 04/26/25 09:35 Urine Urobilinogen 0.2 mg/dL (Negative) 04/26/25 09:35 Ur Leukocyte Esterase Negative (Negative) 04/26/25 09:35 Urine RBC 3-5 /hpf (0-2) 04/26/25 09:35 Urine WBC 0-5 /hpf (0-5) 04/26/25 09:35 Ur Squamous Epith Cells 0-5 /hpf (0-5) 04/26/25 09:35 Amorphous Sediment Not Reportable 04/26/25 09:35 Urine Bacteria None seen /hpf (NONE) 04/26/25 09:35 Hyaline Casts 2.05 /lpf 04/26/25 09:35 No radiology studies performed this visit Discharge Plan Discharge Patient Disposition: Home Clinical Impression: Epilepsy Qualifiers: Epilepsy type: partial idiopathic, localized onset Intractability: intractable Status epilepticus: without status epilepticus Qualified Code(s): G40.019 - Localization-related (focal) (partial) idiopathic epilepsy and epileptic syndromes with seizures of localized onset, intractable, without status epilepticus Condition: Stable Prescriptions: No Action clopidogrel 75 mg tablet 75 mg PO DAILY@07 docusate sodium 100 mg capsule 100 mg PO DAILY@07 isosorbide mononitrate 30 mg tablet extended release 24 hr 30 mg PO DAILY@07 metformin 1,000 mg tablet 1,000 mg PO BID@07,17 magnesium oxide 400 mg (241.3 mg magnesium) tablet 400 mg PO BID@07,20 carbidopa-levodopa 25-100 mg tablet 1 tab PO TID@07,16,20 rosuvastatin 10 mg tablet 10 mg PO DAILY@20 acetaminophen [Tylenol 8 Hour] 650 mg tablet extended release 650 mg PO Q6H MDD 4,000mg PRN (Reason: Pain) (DME) diabetic shoes with 3 inserts See Rx Instructions .Route .MEDSUPPLY Qty: 1 0RF Rx Instructions: As directed potassium chloride 10 mEq tablet extended release 10 meq PO DAILY@07 carvedilol 6.25 mg tablet 6.25 mg PO BID Xcopri 200 mg tablet 200 mg PO DAILY@07 90 Days Qty: 90 3RF aspirin [Ecotrin Low Strength] 81 mg Tablet,Delayed Release (Dr/Ec) 81 mg PO DAILY@07 glipizide 5 mg tablet 2.5 mg PO DAILY@17 lisinopril 20 mg Tablet 20 mg PO BID@07,20 amlodipine 10 mg Tablet 10 mg PO DAILY hydrochlorothiazide 25 mg Tablet 25 mg PO DAILY@07 levetiracetam 750 mg tablet 750 mg PO BID galantamine 4 mg tablet 4 mg PO BID clonidine HCl 0.2 mg tablet 0.2 mg PO BID@07,19 oxybutynin chloride 10 mg tablet extended release 24hr 10 mg PO BEDTIME Discharge Orders: Discharge ED (Routine); Ordered 04/26/25 Ordered By: Noel Ochoa Referrals: Augustin Colón MD [Primary Care Provider, Family Practice] Patient Instructions: Opioid Safety, Pain Management Activity Restrictions/Additional Instructions: Thank you for choosing [facility] for your healthcare needs today. It is very important that you follow up as instructed or that you return to the Emergency Department should you have concerns or if your condition changes or worsens in any way. You were seen in the emergency room after an episode of seizure. Laboratory test unremarkable no signs of bladder infection at this time. You were given a dose of IV Keppra while in the emergency room continue current medications follow-up with your neurologist. Print Language: Turkmen Coding Level of Care Code ED Psych Specialist for Sudha Weiss
[2025-04-26] MEDS: sodium chloride 0.9% 1,000 ML 999 ML IV (10:11)
[2025-04-26 10:12] VITALS: BP 149/91; PULSE 101; RESP 22; O2SAT 96
[2025-04-26 10:30] VITALS: BP 150/104; PULSE 135; RESP 21; O2SAT 99
[2025-04-26 11:15] VITALS: BP 150/104; PULSE 97; RESP 18; O2SAT 98
== END 2025-04-26 21:58 | disposition home or self-care (01) ==
PROVIDERS: Emergency Provider Family Medicine; PCP Family Medicine
DX: G40.019 Localization-related (focal) (partial) idiopathic epilepsy and epileptic syndromes with seizures of localized onset, intractable, without status epilepticus (principal); Z79.02 Long term (current) use of antithrombotics/antiplatelets; Z79.84 Long term (current) use of oral hypoglycemic drugs; Z79.82 Long term (current) use of aspirin; E11.9 Type 2 diabetes mellitus without complications; I10 Essential (primary) hypertension
CPT/HCPCS: 80053; 80177; 81001; 85025; 96365; 96366; 99284; J1953; J7030

== ENCOUNTER 2025-04-26 19:46 | Emergency (ER) | payer MEDICARE, MEDICAID, SELFPAY ==
[2025-04-26 19:51] VITALS: BP 148/85; PULSE 82; RESP 16; TEMP 37.2; O2SAT 99; BMI 27.8
--- NOTE | 2025-04-26 20:37 | W.ED.FALL ---
HPI - Fall General: Chief Complaint: Fall Stated Complaint: fall Time Seen by Provider: 04/26/25 19:57 History of Present Illness: This patient is a 65-year-old white female snf resident with dementia was sent to the emergency department for evaluation after a fall at the snf. Patient does not recall the incident. She states she has no pain anywhere. Related Data Home Medications ?Medication ?Instructions ?Recorded ?Confirmed acetaminophen 650 mg 650 mg PO Q6H PRN Pain 12/24/19 04/03/25 tablet,extended release (Tylenol 8 Hour) carbidopa 25 mg-levodopa 100 mg 1 tab PO TID@,,12/24/19 04/03/25 tablet clopidogrel 75 mg tablet 75 mg PO DAILY@12/24/19 04/03/25 docusate sodium 100 mg capsule 100 mg PO DAILY@12/24/19 04/03/25 isosorbide mononitrate 30 mg 30 mg PO DAILY@12/24/19 04/03/25 tablet,extended release 24 hr magnesium oxide 400 mg (241.3 mg 400 mg PO BID@12/24/19 04/03/25 magnesium) tablet metformin 1,000 mg tablet 1,000 mg PO BID@12/24/19 04/03/25 rosuvastatin 10 mg tablet 10 mg PO DAILY@12/24/19 04/03/25 aspirin 81 mg tablet,delayed 81 mg PO DAILY@01/21/21 04/03/25 release (Ecotrin Low Strength) glipizide 5 mg tablet 2.5 mg PO DAILY@01/21/21 04/03/25 amlodipine 10 mg tablet 10 mg PO DAILY 03/27/21 04/03/25 hydrochlorothiazide 25 mg tablet 25 mg PO DAILY@03/27/21 04/03/25 lisinopril 20 mg tablet 20 mg PO BID@03/27/21 04/03/25 potassium chloride 10 mEq 10 meq PO DAILY@09/02/22 04/03/25 tablet,extended release clonidine HCl 0.2 mg tablet 0.2 mg PO BID@,01/05/23 04/03/25 oxybutynin chloride 10 mg 10 mg PO BEDTIME 09/29/24 04/03/25 tablet,extended release 24 hr galantamine 4 mg tablet 4 mg PO BID 11/06/24 04/03/25 levetiracetam 750 mg tablet 750 mg PO BID 11/06/24 04/03/25 carvedilol 6.25 mg tablet 6.25 mg PO BID 01/24/25 04/03/25 Previous Rx's ?Medication ?Instructions ?Recorded diabetic shoes with 3 inserts #1 ea 12/24/22 cenobamate 200 mg tablet (Xcopri) 200 mg PO DAILY@07 90 days #90 tabs 02/26/25 Allergies Allergy/AdvReac Type Severity Reaction Status Date / Time amoxicillin Allergy Unknown Verified 03/27/25 09:30 Penicillins Allergy unknown Verified 03/27/25 09:30 potassium chloride Allergy ALGY-Rash Verified 03/27/25 09:30 Review of Systems General: Reports: 10 or more systems reviewed and unremarkable except in HPI and below PFSH ED PFSH: Medical History Hypertension Diabetes Secondarily generalized seizures Parkinson disease Surgical History Status post VNS (vagus nerve stimulator) placement Family History Other Diabetes Hypertension Denies family history of CAD (coronary artery disease) Cancer Stroke Social History Smoking and tobacco/nicotine status: unknown if used tobacco/nicotine Alcohol intake: never Substance/Drug Use: never Physical Exam Const: COMMON NORMALS: no acute distress, patient oriented x3 and no limitations GENERAL APPEARANCE: cooperative and comfortable HENMT: COMMON NORMALS: normocephalic, atraumatic, Normal nasal mucous membranes and turbinates present, moist oral mucous membranes and oropharynx normal HEAD & SCALP: normal to inspection, normocephalic and atraumatic FACE & SINUS: normal facial exam NOSE: Normal nasal mucous membranes and turbinates present Eye: COMMON NORMALS: Equal, round and reactive pupils present, EOMs intact bilaterally and conjunctivae normal GENERAL EYE: appearance normal, both eyes and all related structures CONJUNCTIVA: Yes conjunctivae normal PUPIL: Yes Equal, round and reactive pupils present Neck/C-Spine: COMMON NORMALS: supple and no JVD Chest: COMMONS NORMALS: normal inspection of the chest Resp: COMMON NORMALS: normal respiratory effort and clear to auscultation bilaterally AUSCULTATION: clear to auscultation bilaterally Cardio: COMMON NORMALS: no JVD, regular rate, regular rhythm, No gallops present (Cardio), No murmurs present (Cardio) and No rub (Cardio) RATE: regular rate RHYTHM: regular rhythm GI: COMMON NORMALS: Normal to inspection, nondistended, normoactive bowel sounds present, Soft to palpation and non-tender AUSCULTATION: Yes normoactive bowel sounds PALPATION: Yes Soft to palpation : COMMON NORMALS: Yes no CVA tenderness BLADDER/KIDNEY EXAM: Yes no CVA tenderness Back/Pelvis: COMMON NORMALS: no CVA tenderness and thoracic and lumbar spine normal to inspection Extremity: COMMON NORMALS: normal to inspection Neuro: COMMON NORMALS: patient oriented x3 and CN's II-XII intact bilaterally Psych: COMMON NORMALS: cooperative Skin: COMMON NORMALS: no rashes or lesions noted, turgor normal and no jaundice GENERAL SKIN EXAM: no rashes or lesions noted and turgor normal Course Vital Signs: Vital signs: Vital Signs Temperature 98.9 F 04/26/25 19:51 Pulse Rate 82 04/26/25 19:51 Respiratory Rate 16 04/26/25 19:51 Blood Pressure 148/85 04/26/25 19:51 Pulse Oximetry 99 04/26/25 19:51 Oxygen Delivery Me thod Room Air 04/26/25 19:51 MDM - Fall Medical Decision Making After thorough exam patient has no injuries except for a hematoma over the right elbow which is not new. There was a bandage covering this. No active bleeding. No imaging necessary. Patient was discharged back to the snf in stable condition. No radiology studies performed this visit Discharge Plan Discharge Patient Disposition: Home Clinical Impression: Fall Qualifiers: Encounter type: initial encounter Qualified Code(s): W19.XXXA - Unspecified fall, initial encounter Condition: Stable Prescriptions: No Action clopidogrel 75 mg tablet 75 mg PO DAILY@07 docusate sodium 100 mg capsule 100 mg PO DAILY@07 isosorbide mononitrate 30 mg tablet extended release 24 hr 30 mg PO DAILY@07 metformin 1,000 mg tablet 1,000 mg PO BID@07,17 magnesium oxide 400 mg (241.3 mg magnesium) tablet 400 mg PO BID@07,20 carbidopa-levodopa 25-100 mg tablet 1 tab PO TID@07,16,20 rosuvastatin 10 mg tablet 10 mg PO DAILY@20 acetaminophen [Tylenol 8 Hour] 650 mg tablet extended release 650 mg PO Q6H MDD 4,000mg PRN (Reason: Pain) (DME) diabetic shoes with 3 inserts See Rx Instructions .Route .MEDSUPPLY Qty: 1 0RF Rx Instructions: As directed potassium chloride 10 mEq tablet extended release 10 meq PO DAILY@07 carvedilol 6.25 mg tablet 6.25 mg PO BID Xcopri 200 mg tablet 200 mg PO DAILY@07 90 Days Qty: 90 3RF aspirin [Ecotrin Low Strength] 81 mg Tablet,Delayed Release (Dr/Ec) 81 mg PO DAILY@07 glipizide 5 mg tablet 2.5 mg PO DAILY@17 lisinopril 20 mg Tablet 20 mg PO BID@07,20 amlodipine 10 mg Tablet 10 mg PO DAILY hydrochlorothiazide 25 mg Tablet 25 mg PO DAILY@07 levetiracetam 750 mg tablet 750 mg PO BID galantamine 4 mg tablet 4 mg PO BID clonidine HCl 0.2 mg tablet 0.2 mg PO BID@07,19 oxybutynin chloride 10 mg tablet extended release 24hr 10 mg PO BEDTIME Discharge Orders: Discharge ED (Routine); Ordered 04/26/25 Ordered By: Carlos Fields Referrals: Augustin Colón MD [Primary Care Provider, Family Practice] Patient Instructions: Fall Prevention for Older Adults (ED) Print Language: Kinyarwanda Coding Level of Care Code ED Program Manufacturing Leader for Sudha Weiss
[2025-04-26 20:57] VITALS: BP 136/76; PULSE 55; RESP 16; O2SAT 100
--- NOTE | 2025-04-26 21:00 | PC.NURSE ---
patient brought in for a fall at [facility]. She denies falling. doesn't recall the fall. She denies any injury. She has a skin tear on right elbow. She has dementia, severe, so can not answer questions. She is pleasantly confused. Has to be reminded to stay in the bed.
--- NOTE | 2025-04-26 22:47 | PC.NURSE ---
A patient accounting representative from [facility] transported patient back to facility. Report called, No new orders. patient taken to vehicle via W/C vital signs stable.
[2025-04-26 22:49] VITALS: BP 166/107; PULSE 79; RESP 16; O2SAT 97
== END 2025-04-26 22:45 | disposition home or self-care (01) ==
PROVIDERS: Emergency Provider Emergency Medicine; PCP Family Medicine
DX: Z04.3 Encounter for examination and observation following other accident (principal); W19.XXXA Unspecified fall, initial encounter; E11.9 Type 2 diabetes mellitus without complications; I10 Essential (primary) hypertension
CPT/HCPCS: 99281

== ENCOUNTER → 2025-06-05 10:01 | Outpatient (BNVA) | payer MEDICARE, MEDICAID, SELFPAY | PROVIDERS: PCP Family Medicine; Visit Provider Podiatrist Foot & Ankle Surgery | DX: E11.69 Type 2 diabetes mellitus with other specified complication (principal); B35.1 Tinea unguium; L84 Corns and callosities; L85.3 Xerosis cutis; Z79.4 Long term (current) use of insulin; Z79.84 Long term (current) use of oral hypoglycemic drugs | CPT/HCPCS: 11056; 11721 ==

== ENCOUNTER → 2025-07-01 11:21 | Outpatient (BNVA) | payer MEDICARE, MEDICAID, SELFPAY | PROVIDERS: PCP Family Medicine; Visit Provider Specialist | DX: G40.802 Other epilepsy, not intractable, without status epilepticus (principal); Z96.89 Presence of other specified functional implants; G93.89 Other specified disorders of brain; R26.89 Other abnormalities of gait and mobility; F81.9 Developmental disorder of scholastic skills, unspecified; G31.84 Mild cognitive impairment of uncertain or unknown etiology | CPT/HCPCS: 99214 ==

== ENCOUNTER → 2025-08-07 09:55 | Outpatient (BNVA) | payer MEDICARE, MEDICAID, SELFPAY | PROVIDERS: PCP Family Medicine; Visit Provider Podiatrist Foot & Ankle Surgery | DX: E11.8 Type 2 diabetes mellitus with unspecified complications (principal); B35.1 Tinea unguium; L85.3 Xerosis cutis; Z79.4 Long term (current) use of insulin; E11.69 Type 2 diabetes mellitus with other specified complication; Z79.84 Long term (current) use of oral hypoglycemic drugs | CPT/HCPCS: 11721 ==

== ENCOUNTER 2025-08-22 09:54 | Emergency (ER) | payer MEDICARE, MEDICAID, SELFPAY ==
[2025-08-22 09:56] VITALS: BP 135/85; PULSE 101; RESP 16; TEMP 36.3; O2SAT 93; BMI 23.0
--- NOTE | 2025-08-22 09:58 | XR_ITS ---
WS: [id number] XR chest 1V portable [id number] REASON FOR EXAM: dyspnea/cough FINDINGS: The lungs are hypoexpanded with areas of linear atelectasis in the left lung base. No other acute pulmonary parenchymal or pleural abnormality. The chest is otherwise unchanged compared to a previous examination of 11/07/2024. XR/XR chest 1V portable [id number] IMPRESSION: Hypoexpansion with left lung base atelectasis.
--- NOTE | 2025-08-22 09:58 | ECG_ITS ---
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 Measurements Intervals [place] Rate: 103 P: -4 SD: 362 QRS: -59 QRSD: 80 T: 13 QT: 337 QTc: 443 Interpretive Statements SINUS TACHYCARDIA INFERIOR MYOCARDIAL INFARCTION , OF INDETERMINATE AGE [40+ ms Q WAVE AND/OR ST/T ABNORMALITY IN II/aVF] ANTEROSEPTAL MYOCARDIAL INFARCTION , OF INDETERMINATE AGE [40+ ms Q WAVE IN V1-V4] Compared to ECG 04/03/2025 09:06:36 Sinus bradycardia no longer present Sinus arrhythmia no longer present Left-axis deviation no longer present T-wave abnormality no longer present Possible ischemia no longer present Myocardial infarct finding still present Electronically Signed On 08-24-2025 12:04:11 CDT by Kofi Daniels M.D. [email or web address]
[2025-08-22 10:09] LABS: Hematocrit 39.0 % (36-47); Hemoglobin 13.80 g/dL (11.27-16.99); Mean Corpuscular HGB Conc 35.4 g/dL (30-55); Mean Corpuscular Hemoglobin 32.0 pg (27-33); Mean Corpuscular Volume 90.5 fl (85-98); Nucleated Red Blood Cells % 0 %; Platelet Count 237 10^3/cmm (157-399); Red Blood Count 4.31 10^6/uL (3.85-5.65); White Blood Count 8.66 10^3/uL (3.29-11.43)
--- NOTE | 2025-08-22 10:22 | W.ED.WEAKNES ---
HPI - Weakness General: Chief complaint: Weakness Stated complaint: weakness History of Present Illness: 65[facility] of [facility]'s had difficult time getting out of her chair this morning they were concerned that she had some kind of infection. She was also incontinent. At this time she denies any problems Limited ability to give history she denies any chest pain or abdominal pain denies pain or discomfort with urination she denies cough. Associated symptoms: Denies chest pain, chills, dysuria or fever(s) Related Data Home Medications ?Medication ?Instructions ?Recorded ?Confirmed acetaminophen 650 mg 650 mg PO Q6H PRN Pain 12/24/19 08/07/25 tablet,extended release (Tylenol 8 Hour) carbidopa 25 mg-levodopa 100 mg 1 tab PO TID@,,12/24/19 08/07/25 tablet clopidogrel 75 mg tablet 75 mg PO DAILY@12/24/19 08/07/25 docusate sodium 100 mg capsule 100 mg PO DAILY@12/24/19 08/07/25 isosorbide mononitrate 30 mg 30 mg PO DAILY@12/24/19 08/07/25 tablet,extended release 24 hr magnesium oxide 400 mg (241.3 mg 400 mg PO BID@12/24/19 08/07/25 magnesium) tablet metformin 1,000 mg tablet 1,000 mg PO BID@,12/24/19 08/07/25 rosuvastatin 10 mg tablet 10 mg PO DAILY@12/24/19 08/07/25 aspirin 81 mg tablet,delayed 81 mg PO DAILY@01/21/21 08/07/25 release (Ecotrin Low Strength) glipizide 5 mg tablet 2.5 mg PO DAILY@01/21/21 08/07/25 amlodipine 10 mg tablet 10 mg PO DAILY 03/27/21 08/07/25 hydrochlorothiazide 25 mg tablet 25 mg PO DAILY@03/27/21 08/07/25 lisinopril 20 mg tablet 20 mg PO BID@,03/27/21 08/07/25 potassium chloride 10 mEq 10 meq PO DAILY@09/02/22 08/07/25 tablet,extended release clonidine HCl 0.2 mg tablet 0.2 mg PO BID@07,19 01/05/23 08/07/25 oxybutynin chloride 10 mg 10 mg PO BEDTIME 09/29/24 08/07/25 tablet,extended release 24 hr galantamine 4 mg tablet 4 mg PO BID 11/06/24 08/07/25 carvedilol 6.25 mg tablet 6.25 mg PO BID 01/24/25 08/07/25 levetiracetam 1,000 mg tablet 1,000 mg PO BID 07/01/25 08/07/25 Previous Rx's ?Medication ?Instructions ?Recorded diabetic shoes with 3 inserts #1 ea 12/24/22 cenobamate 200 mg tablet (Xcopri) 200 mg PO DAILY@07 90 days #90 tabs 07/26/25 cefdinir 300 mg capsule 300 mg PO BID 10 days #20 caps 08/22/25 Allergies Allergy/AdvReac Type Severity Reaction Status Date / Time amoxicillin Allergy Unknown Verified 08/07/25 10:07 Penicillins Allergy unknown Verified 08/07/25 10:07 potassium chloride Allergy ALGY-Rash Verified 08/07/25 10:07 Review of Systems Const: Denies: fever(s) or chills Card: Denies: chest pain Resp: Denies: dyspnea GI: Denies: abdominal pain : Denies: dysuria, urinary frequency or urinary urgency Musc: Denies: neck pain or back pain Skin/Breast: Denies: rash PFSH ED PFSH: Medical History Hypertension Diabetes Secondarily generalized seizures Parkinson disease Surgical History Status post VNS (vagus nerve stimulator) placement Family History Other Diabetes Hypertension Denies family history of CAD (coronary artery disease) Cancer Stroke Social History Smoking and tobacco/nicotine status: never used tobacco/nicotine Alcohol intake: never Substance/Drug Use: never Physical Exam Const: COMMON NORMALS: no acute distress GENERAL APPEARANCE: cooperative and comfortable ORIENTATION/CONSCIOUSNESS: Yes awake HENMT: COMMON NORMALS: normocephalic, atraumatic and hearing grossly normal bilaterally HEAD & SCALP: normocephalic and atraumatic Resp: COMMON NORMALS: normal respiratory effort, No retractions, No use of accessory muscles and clear to auscultation bilaterally AUSCULTATION: clear to auscultation bilaterally Cardio: COMMON NORMALS: regular rate, regular rhythm and No murmurs present (Cardio) RATE: regular rate RHYTHM: regular rhythm GI: COMMON NORMALS: Soft to palpation and No hepatosplenomegaly present AUSCULTATION: Yes normoactive bowel sounds PALPATION: Yes Soft to palpation, No Tenderness to palpation present (GI), No Guarding due to palpation present (GI) and Yes No hepatosplenomegaly present Extremity: COMMON NORMALS: normal to inspection, capillary refill normal, no clubbing, cyanosis or edema, no calf tenderness and no pedal edema Skin: COMMON NORMALS: no rashes or lesions noted GENERAL SKIN EXAM: no rashes or lesions noted Course Vital Signs: Vital signs: Vital Signs Temperature 97.3 F L 08/22/25 09:56 Pulse Rate 96 08/22/25 13:38 Respiratory Rate 16 08/22/25 09:56 Blood Pressure 116/78 08/22/25 13:38 Pulse Oximetry 95 08/22/25 13:38 Oxygen Delivery Me thod Room Air 08/22/25 12:30 MDM - Weakness Medical Decision Making Patient initially seen and evaluated laboratory work ordered. Consideration for cystitis pneumonia anemia acute renal disease electrolyte imbalance. Laboratory tests and imaging and exam discussed with patient. Imaging and labs reviewed as found in the chart. Patient is found to have a cystitis. No leukocytosis. Renal function normal discharge home on oral antibiotics. Medical Records I reviewed the patient's medical records. Lab Data I reviewed the patient's lab results. 08/22/25 10:01 08/22/25 10:33 Radiology Impressions Chest X-Ray 08/22/25 09:58 IMPRESSION: Hypoexpansion with left lung base atelectasis. Laboratory Results WBC 8.66 10^3/uL (3.29-11.43) 08/22/25 10:01 RBC 4.31 10^6/uL (3.85-5.65) 08/22/25 10:01 Hgb 13.80 g/dL (11.27-16.99) 08/22/25 10:01 Hct 39.0 % (36-47) 08/22/25 10:01 MCV 90.5 fl (85-98) 08/22/25 10:01 MCH 32.0 pg (27-33) 08/22/25 10:01 MCHC 35.4 g/dL (30-55) 08/22/25 10:01 RDW 13.2 % (12.1-15.1) 08/22/25 10:01 Plt Count 237 10^3/cmm (157-399) 08/22/25 10:01 MPV 10.2 fL (7.4-10.4) 08/22/25 10:01 Neut % (Auto) 82.1 % 08/22/25 10:01 Lymph % (Auto) 8.9 % 08/22/25 10:01 Petroleum % (Auto) 7.7 % 08/22/25 10:01 Eos % (Auto) 0.5 % 08/22/25 10:01 Baso % (Auto) 0.3 % 08/22/25 10:01 Neut # (Auto) 7.11 10^3/uL (1.8-7.7) 08/22/25 10:01 Lymph # (Auto) 0.8 10^3/uL (0.8-4.8) 08/22/25 10:01 Petroleum # (Auto) 0.7 10^3/uL (0.2-0.9) 08/22/25 10:01 Eos # (Auto) 0.0 10^3/uL (0.0-0.8) 08/22/25 10:01 Baso # (Auto) 0.0 10^3/uL (0.0-0.1) 08/22/25 10:01 Nucleated RBC % (auto) 0 % 08/22/25 10:01 Nucleated RBCs # 0.0 /100WBC 08/22/25 10:01 Sodium 131 mmol/L (136-145) L 08/22/25 10:33 Potassium 4.1 mmol/L (3.5-5.1) 08/22/25 10:33 Chloride 93 mmol/L (98-107) L 08/22/25 10:33 Carbon Dioxide 23 mmol/L (22-29) 08/22/25 10:33 Anion Gap 19.1 (5-19) H 08/22/25 10:33 BUN 25 mg/dL (8-23) H 08/22/25 10:33 Creatinine 0.6 mg/dL (0.5-0.9) 08/22/25 10: GFR Calculation 100.0 mL/min (90-130) 08/22/25 10:33 Glucose 365 mg/dL (65-115) H 08/22/25 10:33 Calculated Osmolality 291 mOsm/kg (285-295) 08/22/25 10:33 Calcium 8.9 mg/dL (8.5-10.5) 08/22/25 10:33 Total Bilirubin 0.4 mg/dL (0.15-1.2) 08/22/25 10:33 AST 19 U/L (0-32) 08/22/25 10:33 ALT 6 U/L (0-33) 08/22/25 10:33 Alkaline Phosphatase 131 U/L (35-105) H 08/22/25 10:33 Total Protein 6.6 g/dL (6.6-8.7) 08/22/25 10: Albumin 4.0 g/dL (3.5-5.2) 08/22/25 10:33 Globulin 2.6 g/dL (1.3-4.6) 08/22/25 10:33 Urine Color Yellow (Yellow) 08/22/25 11:15 Urine Appearance Turbid (CLEAR) A 08/22/25 11:15 Urine pH 8.5 (5-7) A 08/22/25 11:15 Ur Specific [place] 1.024 (1.005-1.030) 08/22/25 11:15 Urine Protein 2+ (Negative) A 08/22/25 11:15 Urine Glucose (UA) 2+ (Normal) H 08/22/25 11:15 Urine Ketones Trace (Negative) 08/22/25 11:15 Urine Blood Trace (Negative) A 08/22/25 11:15 Urine Nitrate Negative (Negative) 08/22/25 11:15 Urine Bilirubin Negative (Negative) 08/22/25 11:15 Urine Urobilinogen 1.0 mg/dL (Negative) 08/22/25 11:15 Ur Leukocyte Esterase 2+ (Negative) A 08/22/25 11:15 Urine RBC 0-2 /hpf (0-2) 08/22/25 11:15 Urine WBC >100 /hpf (0-5) H 08/22/25 11:15 Ur Squamous Epith Cells 0-5 /hpf (0-5) 08/22/25 11:15 Amorphous Sediment Not Reportable 08/22/25 11:15 Urine Bacteria 4+ /hpf (NONE) H 08/22/25 11:15 Hyaline Casts 0.40 /lpf 08/22/25 11:15 All radiology interpretation(s) finalized by discharge EKG Data EKG 1: I personally reviewed and interpreted this EKG as follows: EKG interpretation date: 08/22/25 Prior EKG tracings: available for review Interpretation: EKG 08/27/2025 3:57 PM Sinus tachycardia rate 103. [place] interval borderline by my read is approximately 180-200. (Computer read has at 362 which I do not believe is accurate. QTc is 443. Q waves in V1 and [address] changes noted no X acute ST elevation EKG compared to 04/03/2025 Discharge Plan Discharge Patient Disposition: Home Clinical Impression: Cystitis Condition: Stable Prescriptions: New cefdinir 300 mg capsule 300 mg PO BID 10 Days Qty: 20 0RF No Action clopidogrel 75 mg tablet 75 mg PO DAILY@07 docusate sodium 100 mg capsule 100 mg PO DAILY@07 isosorbide mononitrate 30 mg tablet extended release 24 hr 30 mg PO DAILY@07 metformin 1,000 mg tablet 1,000 mg PO BID@07,17 magnesium oxide 400 mg (241.3 mg magnesium) tablet 400 mg PO BID@07,20 carbidopa-levodopa 25-100 mg tablet 1 tab PO TID@07,16,20 rosuvastatin 10 mg tablet 10 mg PO DAILY@20 acetaminophen [Tylenol 8 Hour] 650 mg tablet extended release 650 mg PO Q6H MDD 4,000mg PRN (Reason: Pain) levetiracetam 1,000 mg tablet 1,000 mg PO BID (DME) diabetic shoes with 3 inserts See Rx Instructions .Route .MEDSUPPLY Qty: 1 0RF Rx Instructions: As directed potassium chloride 10 mEq tablet extended release 10 meq PO DAILY@07 carvedilol 6.25 mg tablet 6.25 mg PO BID Xcopri 200 mg tablet 200 mg PO DAILY@07 90 Days Qty: 90 3RF aspirin [Ecotrin Low Strength] 81 mg Tablet,Delayed Release (Dr/Ec) 81 mg PO DAILY@07 glipizide 5 mg tablet 2.5 mg PO DAILY@17 lisinopril 20 mg Tablet 20 mg PO BID@07,20 amlodipine 10 mg Tablet 10 mg PO DAILY hydrochlorothiazide 25 mg Tablet 25 mg PO DAILY@07 galantamine 4 mg tablet 4 mg PO BID clonidine HCl 0.2 mg tablet 0.2 mg PO BID@07,19 oxybutynin chloride 10 mg tablet extended release 24hr 10 mg PO BEDTIME Discharge Orders: Discharge ED (Routine); Ordered 08/22/25 Ordered By: Noel Ochoa Referrals: Augustin Colón MD [Primary Care Provider, Family Practice] Discharge Diet: Usual diet Discharge Activity: Increase activity as tolerated Patient Instructions: Opioid Safety, Pain Management, Patient Portal & Arabella Instructions Activity Restrictions/Additional Instructions: Thank you for choosing [facility] for your healthcare needs today. It is very important that you follow up as instructed or that you return to the Emergency Department should you have concerns or if your condition changes or worsens in any way. Emergency department visits are focused on emergent conditions, in some cases you may require further evaluation on an outpatient basis. Exam today showed you had a bladder infection the remainder of your exam was unremarkable. Will be discharged home on oral antibiotics follow-up with your primary care doctor. (Please note that included in your discharge packet is information concerning opioid safety and pain management. This information is given to all patients were discharged from the ER regardless of their discharge diagnosis or the medicines they usually take or are prescribed.) Print Language: Maltese Coding Level of Care Code ED Franchise Manager for Sudha Weiss
[2025-08-22 11:00] VITALS: BP 103/75; PULSE 98; O2SAT 96
[2025-08-22 11:09] LABS: Alanine Aminotransferase 6 U/L (0-33); Albumin Level 4.0 g/dL (3.5-5.2); Alkaline Phosphatase 131 U/L (35-105); Anion Gap 19.1 (5-19); Aspartate Amino Transferase 19 U/L (0-32); Blood Urea Nitrogen 25 mg/dL (8-23); Calcium 8.9 mg/dL (8.5-10.5); Carbon Dioxide 23 mmol/L (22-29); Chloride 93 mmol/L (98-107); Creatinine Clr Calc Pharmacy 60.0900; Globulin 2.6 g/dL (1.3-4.6); Glucose 365 mg/dL (65-115); Osmolality Calculated 291 mOsm/kg (285-295); Potassium 4.1 mmol/L (3.5-5.1); Sodium 131 mmol/L (136-145); Total Protein 6.6 g/dL (6.6-8.7)
--- NOTE | 2025-08-22 11:16 | PC.NURSE ---
SITE ACQUISITION SPECIALIST took over pt care at 1100. Upon entering room, pt was saturated with urine, pt assiste dup to bedside commode, pt changed into dry pull-up. UA sample collected via straight cath.
[2025-08-22 11:22] LABS: Glucose Urine UA 2+ (Normal); Nitrate Urine Negative (Negative); Specific Gravity, Urine 1.024 (1.005-1.030)
[2025-08-22 11:24] LABS: Add Urine Microscopic? YES
[2025-08-22 12:30] VITALS: BP 116/78; PULSE 97; O2SAT 95
[2025-08-22] MEDS: cefTRIAXone 1,000 mg SDV 1000 MG IVP (12:59)
--- NOTE | 2025-08-22 13:36 | PC.NURSE ---
Pt report called to Will to nurse Antonette at 1300 and discussed dc paperwork, paperwork also sent with pt upon d/c.
[2025-08-22 13:38] VITALS: BP 116/78; PULSE 96; O2SAT 95
== END 2025-08-22 13:39 | disposition home or self-care (01) ==
PROVIDERS: Emergency Provider Family Medicine; PCP Family Medicine
DX: N30.90 Cystitis, unspecified without hematuria (principal); Z79.02 Long term (current) use of antithrombotics/antiplatelets; Z79.84 Long term (current) use of oral hypoglycemic drugs; Z79.82 Long term (current) use of aspirin; E11.9 Type 2 diabetes mellitus without complications; I10 Essential (primary) hypertension
CPT/HCPCS: 36415; 71045; 80053; 81001; 85025; 87040; 87077; 87086; 87186; 93005; 96374; 99285; J0696

== ENCOUNTER → 2025-10-16 10:25 | Outpatient (BNVA) | payer MEDICARE, MEDICAID, SELFPAY | PROVIDERS: PCP Family Medicine; Visit Provider Podiatrist Foot & Ankle Surgery | DX: E11.69 Type 2 diabetes mellitus with other specified complication (principal); B35.1 Tinea unguium; L85.3 Xerosis cutis; Z79.4 Long term (current) use of insulin; E11.8 Type 2 diabetes mellitus with unspecified complications; Z79.84 Long term (current) use of oral hypoglycemic drugs | CPT/HCPCS: 11721 ==

== ENCOUNTER 2025-11-05 06:54 | Emergency (ER) | payer MEDICARE, MEDICAID, SELFPAY ==
[2025-11-05 06:55] VITALS: BP 168/97; PULSE 81; RESP 18; TEMP 36.7; O2SAT 95
--- NOTE | 2025-11-05 06:58 | CTR_ITS ---
PROCEDURE INFORMATION: Exam: CT Head Without Contrast Exam date and time: 11/05/2025 7:14 AM Age: 65 years old Clinical indication: Injury or trauma TECHNIQUE: Imaging protocol: Computed tomography of the head without contrast. Total images: 365 Radiation optimization: All CT scans at this facility use at least one of these dose optimization techniques: automated exposure control; mA and/or kV adjustment per patient size (includes targeted exams where dose is matched to clinical indication); or iterative reconstruction. COMPARISON: CT head wo con* [id number] 02/17/2025 8:56 PM RADIATION DOSE METRICS: Total DLP (mGy-cm): 1145.71 FINDINGS: Brain: Global brain atrophy and chronic white matter ischemic changes are present. Cerebral ventricles: Ventricles are appropriate in size for degree of atrophy. Paranasal sinuses: Visualized sinuses are unremarkable. No fluid levels. Mastoid air cells: Visualized mastoid air cells are well aerated. Orbital cavities: Prior bilateral lens replacements noted. Bones: Unremarkable. No acute fracture. Soft tissues: Unremarkable. CT/CT head wo con* [id number] IMPRESSION: No acute intracranial pathology detected.
--- NOTE | 2025-11-05 06:58 | W.ED.SEIZURE ---
HPI - Seizure General: Chief Complaint: Seizure Stated Complaint: SEIZURE Time Seen by Provider: 11/05/25 06:56 Source: patient and EMS Mode of arrival: EMS Limitations: no limitations History of Present Illness: HPI Narrative: 65 yo female that has a hx of seizure that per ems had a seizure this morning at [facility]. Pt is currently at baseline and has no complaints. she denies any recent illness or vomiting. denies headache. Per ems pt did hit her head during the seizure. Seizure History: Yes Related Data Home Medications ?Medication ?Instructions ?Recorded ?Confirmed acetaminophen 650 mg 650 mg PO Q6H PRN Pain 12/24/19 10/16/25 tablet,extended release (Tylenol 8 Hour) carbidopa 25 mg-levodopa 100 mg 1 tab PO TID@,,12/24/19 10/16/25 tablet clopidogrel 75 mg tablet 75 mg PO DAILY@12/24/19 10/16/25 docusate sodium 100 mg capsule 100 mg PO DAILY@12/24/19 10/16/25 isosorbide mononitrate 30 mg 30 mg PO DAILY@12/24/19 10/16/25 tablet,extended release 24 hr magnesium oxide 400 mg (241.3 mg 400 mg PO BID@12/24/19 10/16/25 magnesium) tablet metformin 1,000 mg tablet 1,000 mg PO BID@,12/24/19 10/16/25 rosuvastatin 10 mg tablet 10 mg PO DAILY@12/24/19 10/16/25 aspirin 81 mg tablet,delayed 81 mg PO DAILY@01/21/21 10/16/25 release (Ecotrin Low Strength) glipizide 5 mg tablet 2.5 mg PO DAILY@01/21/21 10/16/25 amlodipine 10 mg tablet 10 mg PO DAILY 03/27/21 10/16/25 hydrochlorothiazide 25 mg tablet 25 mg PO DAILY@03/27/21 10/16/25 lisinopril 20 mg tablet 20 mg PO BID@03/27/21 10/16/25 potassium chloride 10 mEq 10 meq PO DAILY@09/02/22 10/16/25 tablet,extended release clonidine HCl 0.2 mg tablet 0.2 mg PO BID@01/05/23 10/16/25 oxybutynin chloride 10 mg 10 mg PO BEDTIME 09/29/24 10/16/25 tablet,extended release 24 hr carvedilol 6.25 mg tablet 6.25 mg PO BID 01/24/25 10/16/25 levetiracetam 1,000 mg tablet 1,000 mg PO BID 07/01/25 10/16/25 Previous Rx's ?Medication ?Instructions ?Recorded diabetic shoes with 3 inserts #1 ea 12/24/22 cenobamate 200 mg tablet (Xcopri) 200 mg PO DAILY@07 90 days #90 tabs 07/26/25 galantamine 4 mg tablet 4 mg PO BID 90 days #180 tabs 10/23/25 Allergies Allergy/AdvReac Type Severity Reaction Status Date / Time amoxicillin Allergy Unknown Verified 10/16/25 10:30 Penicillins Allergy unknown Verified 10/16/25 10:30 potassium chloride Allergy ALGY-Rash Verified 10/16/25 10:30 Review of Systems Neuro: Reports: seizure-like activity PFSH ED PFSH: Medical History Hypertension Diabetes Secondarily generalized seizures Parkinson disease Surgical History Status post VNS (vagus nerve stimulator) placement Family History Other Diabetes Hypertension Denies family history of CAD (coronary artery disease) Cancer Stroke Social History Smoking and tobacco/nicotine status: unknown if used tobacco/nicotine Alcohol intake: never Substance/Drug Use: never Physical Exam Const: COMMON NORMALS: no acute distress, patient oriented x3 and healthy appearing HENMT: COMMON NORMALS: normocephalic and atraumatic HEAD & SCALP: normocephalic and atraumatic Eye: COMMON NORMALS: Equal, round and reactive pupils present and EOMs intact bilaterally PUPIL: Yes Equal, round and reactive pupils present Neck/C-Spine: COMMON NORMALS: full ROM and supple Chest: COMMONS NORMALS: normal inspection of the chest and normal palpation of entire chest wall Resp: COMMON NORMALS: normal respiratory effort, No retractions, No use of accessory muscles and clear to auscultation bilaterally AUSCULTATION: clear to auscultation bilaterally Cardio: COMMON NORMALS: regular rate, regular rhythm and No murmurs present (Cardio) RATE: regular rate RHYTHM: regular rhythm GI: COMMON NORMALS: Normal to inspection, nondistended, normoactive bowel sounds present, Soft to palpation, non-tender and no masses PALPATION: Yes Soft to palpation Extremity: COMMON NORMALS: normal to inspection and full ROM Neuro: COMMON NORMALS: patient oriented x3, moves all extremities and no focal motor deficits Psych: COMMON NORMALS: mental status grossly normal, Normal thought process present and cooperative THOUGHT PROCESS: Normal thought process present Skin: COMMON NORMALS: no rashes or lesions noted and no wounds GENERAL SKIN EXAM: no rashes or lesions noted Course Vital Signs: Vital signs: Vital Signs Temperature 98.1 F 11/05/25 06:55 Pulse Rate 79 11/05/25 07:31 Respiratory Rate 18 11/05/25 06:55 Blood Pressure 187/110 11/05/25 07:31 Pulse Oximetry 100 11/05/25 07:31 Oxygen Delivery Me thod Room Air 11/05/25 07:31 MDM - Seizure MDM Narrative Medical decision making narrative: Patient presents here after seizure does have a long history of seizures. She has been well-appearing here she is currently at her baseline she had no headache head CT here is normal patient's lab work shows no significant abnormalities no electrolyte abnormalities she is stable for discharge she is follow-up with PCP and return if worsening she understands agrees to plan. Lab Data 11/05/25 07:34 11/05/25 07:34 Labs: Radiology Impressions Head CT 11/05/25 06:58 IMPRESSION: No acute intracranial pathology detected. Laboratory Results WBC 6.58 10^3/uL (3.29-11.43) 11/05/25 07:34 RBC 4.58 10^6/uL (3.85-5.65) 11/05/25 07:34 Hgb 14.50 g/dL (11.27-16.99) 11/05/25 07:34 Hct 43.1 % (36-47) 11/05/25 07:34 MCV 94.1 fl (85-98) 11/05/25 07:34 MCH 31.7 pg (27-33) 11/05/25 07:34 MCHC 33.6 g/dL (30-55) 11/05/25 07:34 RDW 12.2 % (12.1-15.1) 11/05/25 07:34 Plt Count 231 10^3/cmm (157-399) 11/05/25 07:34 MPV 9.6 fL (7.4-10.4) 11/05/25 07:34 Neut % (Auto) 76.7 % 11/05/25 07:34 Lymph % (Auto) 12.9 % 11/05/25 07:34 Childress % (Auto) 6.8 % 11/05/25 07:34 Eos % (Auto) 3.0 % 11/05/25 07:34 Baso % (Auto) 0.3 % 11/05/25 07:34 Neut # (Auto) 5.04 10^3/uL (1.8-7.7) 11/05/25 07:34 Lymph # (Auto) 0.9 10^3/uL (0.8-4.8) 11/05/25 07:34 Childress # (Auto) 0.5 10^3/uL (0.2-0.9) 11/05/25 07:34 Eos # (Auto) 0.2 10^3/uL (0.0-0.8) 11/05/25 07:34 Baso # (Auto) 0.0 10^3/uL (0.0-0.1) 11/05/25 07:34 Nucleated RBC % (auto) 0 % 11/05/25 07:34 Nucleated RBCs # 0.0 /100WBC 11/05/25 07:34 Sodium 135 mmol/L (136-145) L 11/05/25 07:34 Potassium 4.1 mmol/L (3.5-5.1) 11/05/25 07:34 Chloride 97 mmol/L (98-107) L 11/05/25 07:34 Carbon Dioxide 24 mmol/L (22-29) 11/05/25 07:34 Anion Gap 18.1 (5-19) 11/05/25 07:34 BUN 23 mg/dL (8-23) 11/05/25 07:34 Creatinine 0.7 mg/dL (0.5-0.9) 11/05/25 07:34 GFR Calculation 83.7 mL/min (90-130) L 11/05/25 07:34 Glucose 249 mg/dL (65-115) H 11/05/25 07:34 Calculated Osmolality 292 mOsm/kg (285-295) 11/05/25 07:34 Calcium 9.6 mg/dL (8.5-10.5) 11/05/25 07:34 Total Bilirubin 0.4 mg/dL (0.15-1.2) 11/05/25 07:34 AST 23 U/L (0-32) 11/05/25 07:34 ALT 53 U/L (0-33) H 11/05/25 07:34 Alkaline Phosphatase 137 U/L (35-105) H 11/05/25 07:34 Total Protein 7.3 g/dL (6.6-8.7) 11/05/25 07:34 Albumin 4.3 g/dL (3.5-5.2) 11/05/25 07:34 Globulin 3.0 g/dL (1.3-4.6) 11/05/25 07:34 All radiology interpretation(s) finalized by discharge Discharge Plan Discharge Patient Disposition: Home Clinical Impression: Generalized seizure Condition: Stable Prescriptions: No Action clopidogrel 75 mg tablet 75 mg PO DAILY@07 docusate sodium 100 mg capsule 100 mg PO DAILY@07 isosorbide mononitrate 30 mg tablet extended release 24 hr 30 mg PO DAILY@07 metformin 1,000 mg tablet 1,000 mg PO BID@07,17 magnesium oxide 400 mg (241.3 mg magnesium) tablet 400 mg PO BID@07,20 carbidopa-levodopa 25-100 mg tablet 1 tab PO TID@07,16,20 rosuvastatin 10 mg tablet 10 mg PO DAILY@20 acetaminophen [Tylenol 8 Hour] 650 mg tablet extended release 650 mg PO Q6H MDD 4,000mg PRN (Reason: Pain) levetiracetam 1,000 mg tablet 1,000 mg PO BID (DME) diabetic shoes with 3 inserts See Rx Instructions .Route .MEDSUPPLY Qty: 1 0RF Rx Instructions: As directed potassium chloride 10 mEq tablet extended release 10 meq PO DAILY@07 carvedilol 6.25 mg tablet 6.25 mg PO BID Xcopri 200 mg tablet 200 mg PO DAILY@07 90 Days Qty: 90 3RF galantamine 4 mg tablet 4 mg PO BID 90 Days Qty: 180 3RF aspirin [Ecotrin Low Strength] 81 mg Tablet,Delayed Release (Dr/Ec) 81 mg PO DAILY@07 glipizide 5 mg tablet 2.5 mg PO DAILY@17 lisinopril 20 mg Tablet 20 mg PO BID@07,20 amlodipine 10 mg Tablet 10 mg PO DAILY hydrochlorothiazide 25 mg Tablet 25 mg PO DAILY@07 clonidine HCl 0.2 mg tablet 0.2 mg PO BID@07,19 oxybutynin chloride 10 mg tablet extended release 24hr 10 mg PO BEDTIME Discharge Orders: Discharge ED (Routine); Ordered 11/05/25 Ordered By: Arturo Henderson Referrals: Augustin Colón MD [Primary Care Provider, Family Practice] - 4-7 days Discharge Diet: Advance as tolerated Discharge Activity: Resume usual activity Patient Instructions: Generalized Tonic Clonic Seizures (ED) Print Language: Hebrew Coding Level of Care Code ED [employer] 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
--- OUTSIDE RECORDS SUMMARY | 2025-11-05 07:01 | XMS_ITS | Data Portability ---
Author Organization [facility] Address [address] [address] Care Team Providers Care Spout Liner Name Role Phone SHREE COLÓN Primary Care Provider Unavailabl e Assessment Encounter Date Assessment Date Assessment LastModified by Organization Details LastModified Time 04/10/2025 04/10/2025 Patient presents with symptoms of UTI. Results of dipstick were positive for UTI. Advised to drink clear fluids, Tylenol for pain and take prescribed medications as instructed. Patient encouraged to follow up within 1 week if not improving. [email or web address] Not available 04/10/2025 10:06:28 Plan of Treatment Reminders Order Date Submit Date Provider Last Modified By Organization Details Last Modified Time Details Appointments None recorded. Lab urinalysi s, complete 2024 025 [facility], [address] [facility], [facility] 1, [place], [address], 16:47:50 culture, urine 2024 025 [facility], [address], [address], [place], [address], 06:36:53 levetirac etam, serum 2024 025 [facility], [address], [address], [place], [address], 19:35:57 magnesium , serum or plasma 2024 025 [facility], [address] [facility], [place], [address], 19:35:57 CBC - LLV ORDERS 2024 025 [facility], [address], [place], [address], 10:32:09 BMP, serum or plasma 2024 025 [facility], [address], [place], [address], 10:55:39 culture, urine 2024 025 [facility], [address] [address], [address], [place], [address], 21:52:21 urinalysi s, dipstick 2024 025 [facility] ([facility]), [address] [place], [address], 13:25:57 urinalysi s, complete 2024 025 [facility], [address] [facility], [address], [place], [address], 10:25:12 culture, urine 2024 025 [facility], [address] [facility] [address], [address], [place], [address], 23:02:[address] referral [address] [facility], [address] [place], [address], 16:33:13 Procedures None recorded. Surgeries None recorded. Imaging None recorded. Medication Orders nitrofura ntoin monohydra te/macroc rystals 100 mg capsule 2024 025 [facility], [address] [place] [address], [address], 5 05:01:10 cefuroxim e axetil 250 mg tablet 2024 025 [facility], [address] [place] [address], [address], 5 05:01:40 levetirac etam 1,000 mg tablet 2024 025 [facility], [address] [place] [address], [address], 15:01:49 Patient TargetsNo targets recorded. Patient InstructionsNo instructions recorded. Reason for Referral Neurologist Referral for Epi lepsy Referring Physician: Shree Colón, Family Medicine, Encounter Date: 05/01/2025 Results Created Date Observation Date Name Description Value Unit Range Abnormal Flag Note LastModifiedBy Organization Detail LastModifiedTime 04/10/2004/10/2025 URINA LYSIS WITH MICRO color YELLOW Not Available [facility] [address] [facility] 1, [place], [address], 04/10/2025 10:25:12 04/10/20 25 04/10/2025 URINA LYSIS WITH MICRO clarity CLEAR Not Available [facility] [address] [facility] 1, [place], [address], 04/10/2025 10:25:12 04/10/20 25 04/10/2025 URINA LYSIS WITH MICRO glu TRACE Not Available [facility] [address] [facility] 1, [place], [address], 04/10/2025 10:25:12 04/10/20 25 04/10/2025 URINA LYSIS WITH MICRO bili NEGATI VE Not Available [facility] [address], [place], [address], 04/10/2025 10:25:12 04/10/20 25 04/10/2025 URINA LYSIS WITH MICRO ket TRACE high Not Available [facility] [address], [place], [address], 04/10/2025 10:25:12 04/10/20 25 04/10/2025 URINA LYSIS WITH MICRO S.g 1.015 1.005- 1.025 Not Available [facility] [address], [place], [address], 04/10/2025 10:25:12 04/10/20 25 04/10/2025 URINA LYSIS WITH MICRO pH 7.0 5.0-7. 0 Not Available [facility] [address], [place], [address], 04/10/2025 10:25:12 04/10/20 25 04/10/2025 URINA LYSIS WITH MICRO pro NEGATI VE Not Available [facility] [address], [place], [address], 04/10/2025 10:25:12 04/10/20 25 04/10/2025 URINA LYSIS WITH MICRO uro 0.2 E.U./D L Not Available [facility] [address], [place], [address], 04/10/2025 10:25:12 04/10/20 25 04/10/2025 URINA LYSIS WITH MICRO nit NEGATI VE Not Available [facility] [address], [place], [address], 04/10/2025 10:25:12 04/10/20 25 04/10/2025 URINA LYSIS WITH MICRO blo NEGATI VE Not Available [facility] [address] [facility] 1, [place], [address], 04/10/2025 10:25:12 04/10/20 25 04/10/2025 URINA LYSIS WITH MICRO jose l 1+ high Not Available [facility] [address] [facility] 1, [place], [address], 04/10/2025 10:25:12 04/10/20 25 04/10/2025 URINA LYSIS WITH MICRO WBC 25-30 abnormal Not Available [facility] [address] [facility] 1, [place], [address], 04/10/2025 10:25:12 04/10/20 25 04/10/2025 URINA LYSIS WITH MICRO RBC 1-2 Not Available [facility] [address] [address], [place], [address], 04/10/2025 10:25:12 04/10/20 25 04/10/2025 URINA LYSIS WITH MICRO epi cells 3-4 Not Available [facility] [address] [address], [place], [address], 04/10/2025 10:25:12 04/10/20 25 04/10/2025 URINA LYSIS WITH MICRO bacteria TRACE OF MIXED LUCHO abnormal Not Available [facility] [address] [facility] 1, [place], [address], 04/10/2025 10:25:12 04/10/20 25 04/10/2025 URINA LYSIS WITH MICRO other 1-2 GRANUL AR CASTS abnormal Not Available [facility] [address] [address], [place], [address], 04/10/2025 10:25:12 04/10/20 25 04/11/2025 CULTU RE, URINE , ROUTI NE culture, urine, routine SEE NOTE CULTU RE, URINE , ROUTI NE Micro Numbe r: [id number] Test Statu s: Final Speci men Sourc e: Urine Speci men Quali ty: Adequ ate Resul t: Mixed genit al lucho isola kelsea. These super ficia l bacte bill are not indic ative of a urina ry tract infec tion. No furth er organ ism ident ifica tion is warra nted on this speci men. If clini veronica indic ated, recol lect clean -catc h, mid-s tream urine and trans kenn immed iatel y to Urine Cultu re Trans port Tube. Not Available [facility] [address] [place], [address], 04/11/2025 23:02:00 05/24/2005/25/2025 CULTU RE, URINE , ROUTI NE culture, urine, routine SEE NOTE CULTU RE, URINE , ROUTI NE Micro Numbe r: [id number] Test Statu s: Final Speci men Sourc e: Urine , clean catch Speci men Quali ty: Adequ ate Resul t: No Growt h Not Available [facility] [address] [place], [address], 05/25/2025 21:52:21 05/24/20 25 05/24/2025 urina lysis , dipst ick Leukocytes Small Not Available [facility] ([facility]) [address] [place] [address], [address], 05/24/2025 13:14:17 05/24/20 25 05/24/2025 urina lysis , dipst ick Nitrite negati ve Not Available [facility] ([facility]) [address] [place], [address], 05/24/2025 13:14:17 05/24/20 25 05/24/2025 urina lysis , dipst ick Urobilinogen .2 Not Available [facility] ([facility]) [address] [place], [address], 05/24/2025 13:14:17 05/24/20 25 05/24/2025 urina lysis , dipst ick Protein Negati ve Not Available [facility] ([facility]) [address] [place], [address], 05/24/2025 13:14:17 05/24/20 25 05/24/2025 urina lysis , dipst ick pH 7.0 Not Available [facility] ([facility]) [address] [place], [address], 05/24/2025 13:14:17 05/24/2005/24/2025 urina lysis , dipst ick Blood Negati ve Not Available [facility] ([facility]) [address] [place], [address], 05/24/2025 13:14:17 05/24/20 25 05/24/2025 urina lysis , dipst ick Specific Braddock 1.020 Not Available [facility] ( [facility]) [address] [place], [address], 05/24/2025 13:14:17 05/24/20 25 05/24/2025 urina lysis , dipst ick Ketone Negati ve Not Available [facility] ([facility]) [address] [place], [address], 05/24/2025 13:14:17 05/24/20 25 05/24/2025 urina lysis , dipst ick Bilirubin Negati ve Not Available [facility] ([facility]) [address] [place], [address], 05/24/2025 13:14:17 05/24/20 25 05/24/2025 urina lysis , dipst ick Glucose 100 Not Available [facility] ([facility]) [address] [place], [address], 05/24/2025 13:14:17 05/24/20 25 05/24/2025 urina lysis , dipst ick Appearance Slight ly Cloudy Not Available [facility] ([facility]) [address] [place], [address], 05/24/2025 13:14:17 05/24/20 25 05/24/2025 urina lysis , dipst ick Color Yellow Not Available [facility] ([facility]) [address] [place], [address], 05/24/2025 13:14:17 07/11/20 25 07/11/2025 CBC WBC 6.0 x10 4.0-10 .5 Not Available [facility] [facility] 1, [place], [address], 07/11/2025 10:32:09 07/11/20 25 07/11/2025 CBC RBC 4.16 x10 3.50-5 .50 Not Available [facility] [address] [facility] 1, [place], [address], 07/11/2025 10:32:09 07/11/20 25 07/11/2025 CBC HGB 13.5 g/dL 12.0-1 6.0 Not Available [facility] [address] [facility], [place], [address], 07/11/2025 10:32:09 07/11/20 25 07/11/2025 CBC HCT 40.4 % 37.0-4 7.0 Not Available [facility] [address] [facility] 1, [place], [address], 07/11/2025 10:32:09 07/11/20 25 07/11/2025 CBC MCV 97.0 fL 80.0-9 9.9 Not Available [facility] [address] [facility] 1, [place], [address], 07/11/2025 10:32:07/11/2007/11/2025 CBC MCH 32.5 pg 27.0-3 2.0 high Not Available [facility] [address] [facility] 1, [place], [address], 07/11/2025 10:32:07/11/2007/11/2025 CBC MCHC 33.4 g/dL 32.0-3 6.0 Not Available [facility] [address] [facility] 1, [place], [address], 07/11/2025 10:32:07/11/2007/11/2025 CBC RDW 14.2 % 11.5-1 4.5 Not Available [facility] [address] [facility] 1, [place], [address], 07/11/2025 10:32:07/11/2007/11/2025 CBC plt 286.4 x10 140.0- 451.0 Not Available [facility] [address] [facility] 1, [place], [address], 07/11/2025 10:32:07/11/2007/11/2025 CBC lymphocytes % 21.9 % 20.0-5 0.0 Not Available [facility] [address] [facility] 1, [place], [address], 07/11/2025 10:32:07/11/2007/11/2025 CBC granulcytes % 62.6 % 30.0-7 0.0 Not Available [facility] [address] [facility] 1, [place], [address], 07/11/2025 10:32:09 09/04/20 25 07/11/2025 CBC monocytes % 8.5 % 2.0-16 .0 Not Available [facility] [address] [facility] 1, [place], [address], 07/11/2025 10:32:09 07/11/2007/11/2025 CBC granulcytes# 3.7 x10 Not Natalie ilable [facility] [address] [facility], [place], [address], 07/11/2025 10:32:09 07/11/20 25 07/11/2025 CBC lymphocytes # 1.3 x10 Not Available [facility] [address] [facility] 1, [place], [address], 07/11/2025 10:32:07/11/20 25 07/11/2025 CBC monocytes # 0.5 x10 Not Avai lable [facility] [address] [address], [place], [address], 07/11/2025 10:32:09 07/11/2007/11/2025 BMP ([facility]) glucose 203.0 mg/dL 60.0-9 9.0 high Not Available [facility] [address] [facility], [place], [address], 07/11/2025 10:55:39 07/11/20 25 07/11/2025 BMP ([facility]) BUN (blood urea nitrogen) 19.0 mg/dL 10.0-2 6.0 Not Available [facility] [address] [facility], [place], [address], 07/11/2025 10:55:39 07/11/20 25 07/11/2025 BMP ([facility]) creatinine (serum) 0.6 mg/dL 0.4-1. 5 Not Available [facility] [address] [facility] [address] [facility], [place], [address], 07/11/2025 10:55:39 07/11/20 25 07/11/2025 BMP ([facility]) BUN/creatini ne ratio 31.67 ratio Not Available [facility] [address] [facility], [place], [address], 07/11/2025 10:55:39 07/11/20 25 07/11/2025 BMP ([facility]) calcium 10.0 mg/dL 8.4-10 .5 Not Available [facility] [address] [facility] 1, [place], [address], 07/11/2025 10:55:39 07/11/20 25 07/11/2025 BMP ([facility]) sodium 134.0 mmol/ L 136.0- 145.0 low Not Available [facility] [address] [facility] 1, [place], [address], 07/11/2025 10:55:39 07/11/20 25 07/11/2025 BMP ([facility]) potassium 4.1 mmol/ L 3.5-5. 1 Not Available [facility] [address] [facility] 1, [place], [address], 07/11/2025 10:55:39 07/11/20 25 07/11/2025 BMP ([facility]) chloride 98.0 mmol/ L 98.0-1 10.0 normal Not Available [facility] [address] [facility] 1, [place], [address], 07/11/2025 10:55:39 07/11/20 25 07/11/2025 BMP ([facility]) C02 28.0 mmol/ L 22.0-3 1.0 Not Available [facility] [address] [facility] 1, [place], [address], 07/11/2025 10:55:39 07/11/20 25 07/11/2025 BMP ([facility]) anion gap 8.0 calc Not Available [facility] [address], [place], [address], 07/11/2025 10:55:39 07/11/20 25 07/11/2025 URINA LYSIS WITH MICRO color DARK YELLOW abnormal Not Available [facility] [address], [place], [address], 07/11/2025 16:47:50 07/11/20 25 07/11/2025 URINA LYSIS WITH MICRO clarity TURBID abnormal Not Available [facility] [address] [facility] 1, [place], [address], 07/11/2025 16:47:50 07/11/20 25 07/11/2025 URINA LYSIS WITH MICRO glu NEGATI VE Not Available [facility] [address], [place], [address], 07/11/2025 16:47:50 07/11/20 25 07/11/2025 URINA LYSIS WITH MICRO bili 2+ abnormal Not Available [facility] [address] [facility] 1, [place], [address], 07/11/2025 16:47:50 07/11/20 25 07/11/2025 URINA LYSIS WITH MICRO ket NEGATI VE Not Available [facility] [address], [place], [address], 07/11/2025 16:47:50 07/11/20 25 07/11/2025 URINA LYSIS WITH MICRO S.g 1.010 1.005- 1.025 Not Available [facility] [address], [place], [address], 07/11/2025 16:47:50 07/11/20 25 07/11/2025 URINA LYSIS WITH MICRO pH 8.0 5.0-7. 0 high Not Available [facility] [address], [place], [address], 07/11/2025 16:47:50 07/11/20 25 07/11/2025 URINA LYSIS WITH MICRO pro 3+ abnormal Not Available [facility] [address] [facility], [place], [address], 07/11/2025 16:47:50 07/11/20 25 07/11/2025 URINA LYSIS WITH MICRO uro 0.2 Not Available [facility] [address] [facility], [place], [address], 07/11/2025 16:47:50 07/11/20 25 07/11/2025 URINA LYSIS WITH MICRO nit POSITI VE abnormal Not Available [facility] [address] [facility], [place], [address], 07/11/2025 16:47:50 07/11/20 25 07/11/2025 URINA LYSIS WITH MICRO blo 2+ abnormal Not Available [facility] [address] [facility] [address], [place], [address], 07/11/2025 16:47:50 07/11/20 25 07/11/2025 URINA LYSIS WITH MICRO jose l 3+ abnormal Not Available [facility] [address] [facility], [place], [address], 07/11/2025 16:47:50 07/11/20 25 07/11/2025 URINA LYSIS WITH MICRO WBC 100 PACKED abnormal > Not Available [facility] [address] [facility] 1, [place], [address], 07/11/2025 16:47:50 07/11/20 25 07/11/2025 URINA LYSIS WITH MICRO RBC NEGATI VE Not Available [facility] [address], [place], [address], 07/11/2025 16:47:50 07/11/20 25 07/11/2025 URINA LYSIS WITH MICRO epi cells NEGATI VE Not Available [facility] [address], [place], [address], 07/11/2025 16:47:50 07/11/20 25 07/11/2025 URINA LYSIS WITH MICRO bacteria NEGATI VE Not Available [facility] [address] [facility] [address], [place], [address], 07/11/2025 16:47:50 07/11/20 25 07/11/2025 URINA LYSIS WITH MICRO other NG Not Available [facility] [address] [facility] 1, [place], [address], 07/11/2025 16:47:50 07/11/20 25 07/13/2025 CULTU RE, URINE , ROUTI NE culture, urine, routine SEE NOTE abnormal CULTU RE, URINE , ROUTI NE Micro Numbe r: [id number] Test Statu s: Final Speci men Sourc e: Urine Speci men Quali ty: Adequ ate Resul t: 50,00 0-100 ,000 CFU/m L of Group B Strep tococ cus isola kelsea Beta- hemol ytic strep tococ ci are predi ctabl y susce ptibl e to Penic illin and other beta- lacta ms. Susce ptibi lity testi ng not routi natalie perfo rmed. Pleas e conta ct the labor atory withi n 3 days if susce ptibi lity testi ng is kyler ed. Comme nt: Eryth romyc in and clind amyci n are not recom armando d for treat ment of urina ry tract infec tions , but clind amyci n may be usefu l for treat ment of recto vagin al colon izati on or infec tion. Not Available [facility] [address] [address] [address], [place], [address], 07/13/2025 06:36:53 07/11/2007/16/2025 MAGNE SIUM magnesium 2.0 mg/dL 1.5-2. 5 normal Not Available [facility] [address] [address] [place], [address], 07/16/2025 19:35:57 07/11/2007/16/2025 LEVET IRACE AU levetiraceta m 15.8 mcg/m L Refer ence Range : 12.0- 46.0 Toxic level is not well estab lishe d. Inter preta tion shoul d inclu de a clini savannah evalu ation . For addit ional infor dima richards e refer to http: //[email or web address] garcia.Que stDia gnost ics.c om/fa q/FAQ 180 (This link is being provi ded for infor matvahid nal/e ducat ional purpo ses only. ) This test was devel oped and its ashwini tical perfo rmanc e giorgi cteri stics have been deter mined by [facility]. It has not been clear ed or appro ewelina by the FDA. This assay has been valid ated pursu ant to the CLIA regul ation s and is used for clini savannah purpo ses. Not Available [facility] [address] [address] [place], [address], 07/16/2025 19:35:57 Result Notes None recorded. Problems Name Problem SNOMED Code Status Onset Date Resolution Date Notes Provider Name and Address Organization Details Recorded Time Type 2 diabetes mellitus without complica tion 497774828 Completed 202007/29/2021 Diabetes - Status is Inactive ; 07/29/20 9:54AM by Clary Carcamo PA-C, Annotati on/Adden dum; Promoted ; acuity set as *; Not Available [facility] 3 03:13:14 History of epilepsy 091673364 Completed 202007/29/2021 Epilepsy - Status is Inactive ; Recorded 09/22/20 21 9:54AM by Clary Carcamo PA-C, Annotati on/Adden dum; Promoted ; acuity set as *; Not Available [facility] 3 03:13:19 Epilepsy 58800717 Active 2022 SEIZURE DISORDER ; Impressi on: stable DOLORES roger, [facility] 5 12:14:28 Benign essentia l hyperten faisal 0044905 Active 2022 DOLORES roger, [facility] 5 12:14:27 Mild intellec tual disabili ty 60370823 Active 2022 MENTAL RETARDAT ION, MILD (I.Q. 50-70) DOLORES roger, [facility] 5 12:14:28 Sleep apnea 19863680 Active 2022 SEVERE SLEEP APNEA; Impressi on: Sleep study recommen ds CPAP at autopap of 11-15 mm of Hg. DOLORES POSADADIEGOPAULETTE roger, [facility] 5 12:14:28 Parkinso n's disease 89364536 Active 2022 DOLORES ALBINOJOSIAS [facility] 5 12:14:28 Type 2 diabetes mellitus 92257937 Active 2022 [facility] 5 12:14:28 Urinary incontin ence 395177130 Active 2022 DOLORES LOCKHART [facility] 5 12:14:27 Hypotens kian episode 39104497 Completed 202303/29/2025 [facility]OCK[facility] 5 12:16:01 Dysuria 05230519 Active 2024 SUSHMA KOLB null, [facility] 5 12:19:32 Problem Notes None recorded. Medical Equipment None Reported. Allergies Allergen ID Allergen Name Allergen Category Reaction Reaction Severity Criticality Documentation Date Start Date Code Code System Note Provider Name and Address Organization Details Recorded Time 4248 Product containin g penicilli n (product) medicatio n Not available Not available Not available 04/18/2023 19860 8001 SNOMED [facility]ES [facility]ger [facility] 14:24:47 4249 amoxicill in medicatio n Not available Not available Not available 04/18/2023 723 RxNorm [facility]ES [facility] 14:24:53 95814 potassium chloride medicatio n Not available Not available Not available 10/09/20252024 8591 RxNorm Not Available jaci - External Data Service - prod 5 18:24:16 Medications Name Sig Start Date Stop Date Status Note LastModified by Organization Details LastModified Time carvedilo l 25 mg tablet Take 1 tablet twice a day by oral route for 30 days. 03/29 completed Not Available Not Available Not Available potassium chloride ER 10 mEq capsule,e xtended release TAKE ONE CAPSULE BY MOUTH EVERY MORNING FOR HYPOKALE SARAH 2024 active Not Available Not Available Not Avai lable clonidine HCl 0.1 mg tablet 04/18 completed Not Available Not Available Not Available carvedilo l 6.25 mg tablet TAKE 1 TABLET BY MOUTH TWICE DAILY FOR blood pressure 2024 active Not Available Not Available Not Avai lable cefuroxim e axetil 250 mg tablet Take 1 tablet every 12 hours by oral route for 7 days. 04/24 completed Not Available Not Available Not Available carvedilo l 12.5 mg tablet Take 1 tablet twice a day by oral route for 90 days. 03/29 completed Not Available Not Available Not Available oxybutyni n chloride ER 10 mg tablet,ex tended release 24 hr TAKE ONE TABLET BY MOUTH EVERY NIGHT AT BEDTIME FOR URINE INCONTIN ENCE 2024 active Not Available Not Available Not Avai lable hydrocodo ne 5 mg-acetam inophen 325 mg tablet 03/29 completed Not Available Not Available Not Available lisinopri l 20 mg tablet TAKE ONE TABLET BY MOUTH TWICE DAILY FOR BLOOD PRESSURE 2024 active Not Available Not Available Not Avai lable isosorbid e mononitra te ER 30 mg tablet,ex tended release 24 hr TAKE 1 TABLET BY MOUTH EVERY DAY FOR AFIB 2024 active Not Available Not Available Not Avai lable Milk of Magnesia 400 mg/5 mL oral suspensio n as needed 2017 active Not Available Not Available Not Avai lable galantami ne 4 mg tablet active Not Available Not Available Not Available Lantus U-100 Insulin 100 unit/mL subcutane ous solution inject 20 units SUBCUTAN EOUSLY EVERY MORNING HOLD IF BS <70 and inject 10 units EVERY NIGHT HOLD IF BS <70 FOR DMII. discard open vial after 28 days. 03/29 completed Not Available Not Available Not Available potassium chloride ER 10 mEq tablet,ex tended release TAKE 1 TABLET BY MOUTH EVERY MORNING FOR HYPOKALE SARAH 2024 active Not Available Not Available Not Avai lable clopidogr el 75 mg tablet TAKE 1 TABLET BY MOUTH EVERY DAY FOR afib 2024 active Not Available Not Available Not Avai lable ciproflox acin 500 mg tablet 04/18 completed Not Available Not Available Not Available sulfameth oxazole 800 mg-trimet hoprim 160 mg tablet 04/18 completed Not Available Not Available Not Available aspirin 81 mg tablet,de layed release TAKE 1 TABLET BY MOUTH EVERY DAY FOR afib 2024 active Not Available Not Available Not Avai lable clonidine HCl 0.2 mg tablet TAKE 1 TABLET BY MOUTH TWICE DAILY FOR blood pressure 2024 active Not Available Not Available Not Avai lable magnesium oxide 400 mg (241.3 mg magnesium ) tablet TAKE 1 TABLET BY MOUTH TWICE DAILY FOR hypomagn esemia 2024 active Not Available Not Available Not Avai lable amlodipin e 10 mg tablet TAKE ONE TABLET BY MOUTH EVERY DAY FOR blood pressure 2024 active Not Available Not Available Not Avai lable cephalexi n 500 mg capsule TAKE 1 CAPSULE BY MOUTH THREE TIMES A DAY 10/18 completed Not Available Not Available Not Available metformin 1,000 mg tablet TAKE 1 TABLET BY MOUTH TWICE DAILY FOR DMII 2024 active Not Available Not Available Not Avai lable docusate sodium 100 mg capsule TAKE ONE CAPSULE BY MOUTH EVERY DAY FOR CONSTIPA TION 2024 active Not Available Not Available Not Avai lable oxybutyni n chloride ER 5 mg tablet,ex tended release 24 hr TAKE ONE TABLET BY MOUTH EVERY EVENING FOR URINARY INCONTIN ENCE 10/23 completed Not Available Not Available Not Available levetirac etam 750 mg tablet BID active Not Available Not Available No t Available hydrochlo rothiazid e 25 mg tablet TAKE ONE TABLET BY MOUTH EVERY DAY FOR HYPERTEN FAISAL 2024 active Not Available Not Available Not Avai lable levofloxa eveline 500 mg tablet 04/18 completed Not Available Not Available Not Available carbidopa 25 mg-levodo pa 100 mg tablet TAKE ONE TABLET BY MOUTH THREE TIMES DAILY FOR PARKINSO NS 2024 active Not Available Not Available Not Avai lable cefdinir 300 mg capsule Take 1 capsule twice a day by oral route for 7 days, for infectio n. 07/25 completed Not Available Not Available Not Available glipizide 5 mg tablet TAKE 1/2 TABLET BY MOUTH EVERY DAY FOR DMII 2024 active Not Available Not Available Not Avai lable rosuvasta tin 10 mg tablet TAKE ONE TABLET BY MOUTH EVERY EVENING FOR hypercho lesterol 2024 active Not Available Not Available Not Avai lable nitrofura ntoin monohydra te/macroc rystals 100 mg capsule Take 1 capsule every 12 hours by oral route for 5 days. 06/05 completed Not Available Not Available Not Available OneTouch UltraSoft Lancets USE TO test blood sugar TWICE DAILY active Not Available Not Available No t Available Systane (PF) 0.4 %-0.3 % eye drops in a dropperet te active Not Available Not Available Not Available carbidopa -levodopa three times daily 10/18 completed RM/AV; 9; Recorded 10/20/20 11:28AM by Dolores garcia (Authori zed through Shree Colón MD), Annotati on/Adden dum; Refill Quantity : 90; Tablet; Not Available Not Available Not Available Aspirin EC daily 10/18 completed RM/bn; Recorded 11/23/19 4:38PM by Shree Colón MD, Refill Request; Refill Quantity : 30; Tablet; Not Available Not Available Not Available hydrochlo rothiazid e daily 10/18 completed vo RM/bn; 9; Recorded 11/15/19 2:47PM by Sushma Kolb (Authori zed through Shree Colón MD), Refill Request; Refill Quantity : 90; Tablet; Not Available Not Available Not Available carvedilo l two times daily 10/18 completed Recorded 11/03/20 8:04AM by Shree Colón MD, Refill Request; Refill Quantity : 60; Tablet; Not Available Not Available Not Available Plavix daily 10/18 completed must keep appt in 01/2023; 9; Recorded 12/03/19 3:08PM by Dolores garcia (Authori zed through Shree Colón MD), Refill Request; Refill Quantity : 0; Not Available Not Available Not Available lisinopri l two times daily 10/18 completed RM/CC; 15174; Recorded 12/14/19 11:53AM by Dennise Ortiz (Authori zed through Soy Levi MD), Refill Request; Refill Quantity : 180; Tablet; Not Available Not Available Not Available glipizide daily 10/18 completed RM/AV; 9; Recorded 06/15/20 9:31AM by Dolores garcia (Authori zed through Shree Colón MD), Refill Request; Refill Quantity : 30; Tablet; Not Available Not Available Not Available metformin two times daily 10/18 completed RM/bn; 9; Recorded 11/15/19 2:47PM by Sushma Kolb (Authori zed through Shree Colón MD), Refill Request; Refill Quantity : 180; Tablet; Not Available Not Available Not Available Fleet Enema as needed 10/18 completed 38549; Recorded 03/14/20 8:27AM by Antoinette Jackson LPN (Authori zed through Clary Carcamo PA-C), Office Visit; Refill Quantity : 0; Not Available Not Available Not Available Keppra two times daily 10/18 completed Recorded 01/27/20 4:16PM by Shree Colón MD, Refill Request; Refill Quantity : 60; Tablet; Not Available Not Available Not Available Magnesium -Oxide two times daily 10/18 completed 69230; Recorded 12/14/19 12:00PM by Dennise Ortiz (Authori zed through Soy Levi MD), Refill Request; Refill Quantity : 180; Tablet; Not Available Not Available Not Available levetirac etam 1,000 mg tablet TAKE 1 TABLET BY MOUTH TWICE DAILY FOR EPILEPSY 2024 active Not Available Not Available Not Avai lable BD Insulin Syringe Ultra-Fin e twice a day 02/19 completed 30477; Recorded 12/14/19 11:59AM by Dennise Ortiz (Authori zed through Soy Levi MD), Refill Request; Refill Quantity : 60; Packet; Not Available Not Available Not Available lacosamid e 50 mg tablet BID 03/29 completed Not Available Not Available Not Available amlodipin e besylate (bulk) two times daily 10/18 completed cs/smf; 00622; Recorded 12/13/19 12:05PM by Kenyetta Sharp RN (Authori zed through Tino Rose DO), Refill Request; Refill Quantity : 0; Not Available Not Available Not Available TRUEplus Lancets 30 gauge USE TO TEST BLOOD SUGAR TWICE DAILY FOR DIABETES ; DOCUMENT ATION NOT NEEDED ON JAN 152024 active Not Available Not Available Not Avai lable BD Insulin Syringe Ultra-Fin e 0.5 mL 31 gauge x 5/16 USE one syringe TWICE DAILY active Not Available Not Available No t Available Magnesium (oxide/AA chelate) 400mg BID 10/18 completed Not Available Not Available Not Available clonidine HCl bid 10/18 completed RM/AV; 9; Recorded 10/27/20 10:42AM by Dolores garcia (Authori zed through Shree Colón MD), Annotati on/Adden dum; Refill Quantity : 60; Tablet; Not Available Not Available Not Available True Metrix Glucose Test Strip USE TO TEST BLOOD SUGAR TWICE DAILY FOR TYPE 2 DIABETES MELLITUS ; DOCUMENT ATION NOT NEEDED ON JAN 082024 active Not Available Not Available Not Avai lable True Metrix Glucose Test Strip twice a day 02/19 completed RM/bn; Recorded 11/05/20 1:34PM by Shree Colón MD, Refill Request; Refill Quantity : 100; Each; Not Available Not Available Not Available TRUEdraw Lancing Device active Not Available Not Available Not Available Tylenol 325 mg capsule Take by oral route. active Not Available Not Available No t Available Xcopri Titration Pack 12.5 mg (14)-25 mg (14) tablets in a dose pack 04/18 completed Not Available Not Available Not Available Xcopri Titration Pack 50 mg (14)-100 mg (14) tablets in a dose pack 04/18 completed Not Available Not Available Not Available Xcopri Titration Pack 150 mg (14)-200 mg (14) tablets in a dose pack 04/18 completed Not Available Not Available Not Available Xcopri 200 mg tablet active Not Available Not Available Not Available Vitals Date Recorded Body height Body mass index (BMI) Body weight Systolic And Diastolic Provider Name and Address Organization Details Last Updated DateTime 03/29/2025 157.48 cm 29.6 kg/m2 70385.96 g 100/60 mm[Hg] DOLORES LOCKHART [facility] 03/29/2025 12:28:39 Date Recorded Body height Body mass index (BMI) Body weight Oxygen saturation Heart rate Systolic And Diastolic Provider Name and Address Organization Details Last Updated DateTime 157.48 cm 29.1 kg/m2 89595.1 9 g 93 % 71 /min 94/62 mm[Hg] SUSHMA KOLB [facility] 5 09:43:49 Date Recorded Body height Body mass index (BMI) Body weight Oxygen saturation Heart rate Systolic And Diastolic Provider Name and Address Organization Details Last Updated DateTime 5 157.48 cm 28.3 kg/m2 84568.8 2 g 97 % 61 /min 100/60 mm[Hg] SUSHMA KOLB [facility] 5 14:56:09 Date Recorded Body height Body mass index (BMI) Body weight Body temperature Heart rate Oxygen saturation Systolic And Diastolic Provider Name and Address Organization Details Last Updated DateTime 5 157.48 cm 28.2 kg/m2 74399.3 2 g 98.4 [degF] 93 /min 98 % 110/62 mm[Hg] Larisa Orellana [facility] 5 13:29:52 Social History Question Answer Notes LastModified by Organizat ion Details LastModified Time Tobacco Smoking Status Never Smoker DOLORES LOCKHART [facility] 10/18/2023 14:22:12 What Was The Date Of Your Most Recent Tobacco Screening? 05/24/2025 [email or web address] Information not available 05/24/2025 Sex: Unknown Functional Status Question Answer Note LastModified by Organization D etails LastModified Time What is your level of alcohol consumption? None [email or web address] Information not available 10/18/2023 Mental Status None recorded. Family History Nothing Reported. Medical History No medical history recorded. Gynecological HistoryNo gynecological history recorded. Obstetrics History GPAL:G 0 P 0 0 0 0 Immunizations Vaccine Type Date Status Note Provider Nam e and Address Organization Details Recorded Time Influenza, MDCK, quadrivalent, PF 2 completed SUSHMA KOLBLA NENA roger [facility] 02/20/2024 13:55:33 COVID-19, mRNA, LNP-S, PF, 100 mcg/0.5mL dose or 50 mcg/0.25mL dose 2 completed SUSHMA KOLB [facility] 02/20/2024 13:55:33 Pneumococcal conjugate PCV20, polysaccharide [id number] conjugate, adjuvant, PF 3 completed SUSHMA KENNEDI [facility] 02/20/2024 13:55:33 COVID-19, mRNA, LNP-S, bivalent, PF, 50 mcg/0.5 mL or 25mcg/0.25 mL dose 3 completed SUSHMA KENNEDI [facility] 02/20/2024 13:55:33 Tdap 2 completed SUSHMA KENNEDI [facility] 02/20/2024 13:55:33 Influenza, MDCK, quadrivalent, preservative 3 completed Neha Garcia [facility] 07/11/2024 16:38:27 Influenza, split virus, quadrivalent, preservative 0 completed SUSHMA KENNEDI [facility] 05/23/2023 12:14:14 COVID-19, mRNA, LNP-S, PF, 100 mcg/0.5mL dose or 50 mcg/0.25mL dose 1 completed SUSHMA KENNEDI [facility] 05/23/2023 12:14:14 COVID-19, mRNA, LNP-S, PF, 100 mcg/0.5mL dose or 50 mcg/0.25mL dose 1 completed SUSHMA KOLB [facility] 05/23/2023 12:14:14 pneumococcal polysaccharide PPV23 2 completed SUSHMA KENNEDI [facility] 05/23/2023 12:14:14 Influenza, split virus, trivalent, preservative 2 completed SUSHMA roger [facility], [facility] 05/23/2023 12:14:14 COVID-19, mRNA, LNP-S, PF, 50 mcg/0.5 mL 4 completed Not Available [facility] 05/01/2025 14:45:36 Influenza, MDCK, trivalent, preservative 4 completed Not Available [facility] 05/01/2025 14:45:36 DTaP, unspecified formulation 3 completed Not Available [facility] 06/04/2023 02:19:27 Influenza, split virus, trivalent, preservative 0 completed Not Available On license of [facility] 06/04/2023 02:19:29 pneumococcal polysaccharide PPV23 8 completed Not Available [facility] 06/04/2023 02:19:29 pneumococcal polysaccharide PPV23 8 completed Not Available [facility] 06/04/2023 02:19:29 Influenza, split virus, trivalent, preservative 7 completed Not Available [facility] 06/04/2023 02:19:29 Influenza, split virus, trivalent, preservative 9 completed Not Available On license of [facility] 06/04/2023 02:19:30 Past Encounters Encounter ID Performer Location Encounter Start Date Encounter Closed Date Diagnosis/Indication Diagnosis SNOMED-CT Code Diagnosis ICD10 Code Diagnosis IMO Codes Diagnosis Note [id number] Shree Colón MD [facility] ([facility]) [address] [place] [address] [id number] 5 04/18/2023 14:12:51 04/18/2023 19:48:36 Essential hypertension 58511825 I10 Parkinson's disease 4904 9000 G20 Malodorous urine 6962251 01 R82.998 imroved at this time. Seizure disorder 8196303 02 G40.909 Type 2 eleanor betes mellitus 15282029 E11.9 [id number] Shree Colón MD [facility] ([facility]) [address] [place] [address] [id number] 5 05/23/2023 12:06:29 05/23/2023 12:44:23 Urinary incontinence 754593374 R32 Fatigue 13862086 R53.83 suspect infection as it is improving with Cephalexin given in ED. [id number] Shree Colón MD [facility] ([facility]) [address] [place], [place] [phone] 10/18/2023 13:59:13 10/18/2023 14:51:59 Benign essential hypertension 7203301 I10 Seizure disorder 2887859 02 G40.909 Disorder d ue to type 2 diabetes mellitus 210275090 E11.8 Type 2 eleanor betes mellitus 36146545 E11.9 stable. Parkinson's disease 4904 9000 G20.A1 Mild intel lectual disability 17736656 F70 stable. [id number] Shree Colón MD [facility] ([facility]) [address] [place] [address] 5 11/03/2023 13:17:30 11/03/2023 14:14:04 Disorder due to type 2 diabetes mellitus 112791254 E11.8 [id number] Shree Colón MD [facility] ([facility]) [address] [place], [place] [address] 02/20/2024 13:50:55 02/20/2024 15:36:02 Diabetes mellitus 63888811 E11.9 Benign ess ential hypertension 4766649 I10 Epilepsy 22963862 G40.90 9 [id number] Shree Colón MD [facility] ([facility]) [address] [place] [address] 5 07/03/2024 09:51:39 07/04/2024 10:29:00 Seizure disorder 433751881 G40.192 [id number] Shree Colón MD [facility] ([facility]) [address] [place] [phone] 5 07/13/2024 14:07:33 07/13/2024 17:44:03 Benign essential hypertension 9633105 I10 Seizure disorder 8976059 02 G40.909 Type 2 eleanor betes mellitus 47293846 E11.9 stable. Urinary incontinence 165 167723 R32 Diabetes mellitus 265766 09 E11.9 Epilepsy 17541238 G40.90 9 no recent seizure Essential hypertension 03886691 I10 [id number] Shree Colón MD [facility] ([facility]) [address] [place] [address] 89622-827 5 08/16/2024 09:52:59 08/16/2024 13:02:30 Benign essential hypertension 9975643 I10 [id number] Shree Colón MD [facility] ([facility]) [address] [place] [address] [id number] 5 08/17/2024 10:48:26 08/17/2024 16:59:35 Benign essential hypertension 3596783 I10 [id number] Shree Colón MD [facility] ([facility]) [address] [place] [address] [phone] 5 09/12/2024 11:08:13 09/13/2024 09:47:33 Diabetes mellitus 45381478 E11.9 Urinary incontinence 165 568694 R32 [id number] Shree Colón MD [facility] ([facility]) [address] [place] [id number] 5 10/03/2024 14:30:14 10/03/2024 15:50:15 Benign essential hypertension 4906354 I10 Diabetes mellitus 434223 09 E11.9 Disorder d ue to type 2 diabetes mellitus 940485142 E11.8 Recurrent urinary tract infection 154853658 N39.0 suspect that she has another UTI based on symptoms. Will treat and ask the center to check another UA and C&S a week after she is done. [id number] Shree Colón MD [facility] ([facility]) [address] [place] [address] [phone] 5 10/23/2024 11:49:48 10/24/2024 14:02:09 Urinary incontinence 433798144 R32 Parkinson's disease 4904 9000 G20.A1 Hypotensive episode 6776 3001 I95.9 will cut amlodipine to once daily and monitor closely. Essential hypertension 73573440 I10 [id number] Shree Colón MD [facility] ([facility]) [address] [place] [address] 17337-729 5 01/02/2025 09:46:34 01/03/2025 10:00:40 Diabetes mellitus 02217168 E11.9 Epilepsy 30409026 G40.90 9 no recent seizure [id number] Shree Colón MD [facility] ([facility]) [address] [place] [address] [id number] 5 03/29/2025 11:38:20 04/02/2025 12:36:26 Benign essential hypertension 2619446 I10 Seizure disorder 6085535 02 G40.909 Hypertensive disorder 38 848435 I10 Type 2 eleanor betes mellitus 65664733 E11.9 stable. Now off Lantus due to low sugars. Will monitor. Parkinson's disease 4904 9000 G20.A1 Mild intel lectual disability 23841942 F70 stable. [id number] Shree Colón MD [facility] ([facility]) [address] [place] [address] 78488-670 5 04/10/2025 09:29:50 04/10/2025 14:07:12 Dysuria 16643005 R30.0 63734 Epilepsy 20218680 G40.90 9 recent seizure, will go up on Keppra Mild intel lectual disability 10161966 F70 stable. Parkinson's disease 4904 9000 G20.A1 [id number] Shree Colón MD [facility] ([facility]) [address] [place] [address] [id number] 5 05/01/2025 14:45:25 05/01/2025 17:37:58 Epilepsy 72660638 G40.909 recent seizure, Keppra increased a couple of weeks ago. Will not adjust meds again this soon but will see if we can get her in to Dr. Butcher sooner. [id number] JO-ANN HERNANDEZ [facility] ([facility]) [address] [place] [phone] 5 05/24/2025 13:08:29 05/24/2025 14:00:44 Dysuria 45839835 R30.0 30687 Discussed to take antibiotic as prescribed until completedU rine culture ordered - will notify of any resultsEdu cated patient on increasing PO fluids of water, decreasing caffeine (coffee) and sugary drinks.Sta ff to monitor for any increased confusion. Return to clinic if any changes, any worsening, any concernsPa tient verbalized understand ing of plan. Blood gluc ose level - finding 155079699 R73.9 [id number] Staff states that blood sugars have increased to 200s-250s. Will schedule follow up with PCP Dr Colón. [id number] Shree Colón MD [facility] ([facility]) [address] [place] [address] 07/11/2025 10:09:44 07/12/2025 09:22:40 Benign essential hypertension 5124264 I10 Urinary incontinence 165 048851 R32 Epilepsy 99302091 G40.90 9 recent seizure, Keppra increased a couple of weeks ago. Will not adjust meds again this soon but will see if we can get her in to Dr. Butcher sooner. Health Concerns Section Related Observation LastModified by Organization Detai ls LastModified Time None Recorded Concern Status LastModified by Organization Details LastModified Time None Recorded Advance Directives Directive None Recorded Payers Insurance Date Sequence Insurance Name Policy Number Policy Santacruz Covered Member ID Santacruz Member ID Guarantor Name 08/09/2025 2 [place] Aubrie Mathias [id number] Joseph Ibarra 08/09/2025 1 [place] - [place]PO[place] [id number] Aubrie Mahtias [id number] Joseph Ibarra 08/09/2025 [place] [facility] ([place]) Aubrie Mathias [id number] Joseph Ibarra Notes Date Note Type Note Provider Name and Address Organization Details Recorded Time 03/29/2025 text/html Hypertension IM/FMReported by PatientHPIFor quality, patient reportshere for check-up. For alleviating factors, patient reportsmedication. Shree Colón MD [address] [place] [address], [phone], [facility] 03/29/2025 12:46:42 04/10/2025 text/html Lower Urinary Tr act Symptoms (LUTS)Reported by PatientHPIFor associated symptoms, patient reportsfever (low grade fever.),frequency,__ incontinence,nocturia 2 times a night, andurine odor. For location, patient reportsbladder.She had a witnessed seizure on 04/03 and went to the ER. This resolved quickly with no residual effects. Shree Colón MD [address] [place] [address], [phone], [facility], [facility]. 04/10/2025 14:42:07 05/01/2025 text/html DiarrheaReported by PatientHPIFor quality, patient reportswatery. For severity, patient reportsmild. For duration, patient reportsacute (<14 days)(started yesterday.). For onset/timing, patient reportsfrequent. For associated symptoms, patient reportsno abdominal pain. Went to ER on 04/26/25 for a seizure. Has not fallen or had a seizure since the ER visit. We recently increased her Keppra dose to 100mg bid. Shree Colón MD [address] [place], [phone], [facility], DevynLDenzel. 05/01/2025 15:20:15 05/24/2025 text/html ROS as noted in the HPI walk in ptPt has been having more incontinent episodes, increased urinary frequency and increased confusion. Staff denies any fever. JO-ANN HERNANDEZ [address] [place], [phone], [facility], LElaineLDeznel. 05/24/2025 13:57:25 OBGyn Episode No OBEpisode recorded.
[2025-11-05 07:31] VITALS: BP 187/110; PULSE 79; O2SAT 100
[2025-11-05 07:38] LABS: Hematocrit 43.1 % (36-47); Hemoglobin 14.50 g/dL (11.27-16.99); Mean Corpuscular HGB Conc 33.6 g/dL (30-55); Mean Corpuscular Hemoglobin 31.7 pg (27-33); Mean Corpuscular Volume 94.1 fl (85-98); Nucleated Red Blood Cells % 0 %; Platelet Count 231 10^3/cmm (157-399); Red Blood Count 4.58 10^6/uL (3.85-5.65); White Blood Count 6.58 10^3/uL (3.29-11.43)
[2025-11-05 08:02] LABS: Alanine Aminotransferase 53 U/L (0-33); Albumin Level 4.3 g/dL (3.5-5.2); Alkaline Phosphatase 137 U/L (35-105); Anion Gap 18.1 (5-19); Aspartate Amino Transferase 23 U/L (0-32); Blood Urea Nitrogen 23 mg/dL (8-23); Calcium 9.6 mg/dL (8.5-10.5); Carbon Dioxide 24 mmol/L (22-29); Chloride 97 mmol/L (98-107); Globulin 3.0 g/dL (1.3-4.6); Glucose 249 mg/dL (65-115); Osmolality Calculated 292 mOsm/kg (285-295); Potassium 4.1 mmol/L (3.5-5.1); Sodium 135 mmol/L (136-145); Total Protein 7.3 g/dL (6.6-8.7)
--- NOTE | 2025-11-05 08:31 | PC.NURSE ---
Report called back to [facility], states they will send transport
[2025-11-05 08:52] VITALS: BP 178/81; PULSE 71; RESP 16; O2SAT 100
== END 2025-11-05 10:39 | disposition home or self-care (01) ==
PROVIDERS: Emergency Provider Emergency Medicine; PCP Family Medicine
DX: G40.409 Other generalized epilepsy and epileptic syndromes, not intractable, without status epilepticus (principal); Z79.84 Long term (current) use of oral hypoglycemic drugs; Z79.82 Long term (current) use of aspirin; Z79.02 Long term (current) use of antithrombotics/antiplatelets
CPT/HCPCS: 36415; 70450; 80053; 85025; 99284